=== PATIENT | female | born 1995 | race Caucasian/White ===

== ENCOUNTER 2023-08-04 09:41 | Outpatient (CLI) | payer SELFPAY | END 2023-08-04 09:42 | disposition home or self-care (01) | PROVIDERS: Visit Provider Emergency Medicine Emergency Medical Services | DX: R11.2 Nausea with vomiting, unspecified (principal) | CPT/HCPCS: A0425; A0427 ==

== ENCOUNTER 2023-08-04 10:11 | Emergency (ER) | payer SELFPAY ==
[2023-08-04] VITALS (9 sets, daily range): BP systolic 110–127; BP diastolic 69–79; PULSE 66–82; RESP 20; TEMP 36.3; O2SAT 95–99; BMI 24.5
[2023-08-04 10:44] LABS: Appearance Urine Clear (Clear); Bilirubin Urine Negative (Negative); Blood Urine Negative (Negative); Color Urine Yellow (Yellow); Glucose Urine Negative (Negative); Ketones Urine Negative (Negative); Leukocyte Esterase Urine Negative (Negative); Nitrite Urine Negative (Negative); Protein Urine Negative (Negative); Urobilinogen Urine 0.2 (0.2-1.0)
[2023-08-04 10:56] LABS: RBC Urine 0-2 (0-2)
[2023-08-04 10:57] LABS: Bacteria Urine Few; Mucus Urine Many; Squamous Epithelial Cell Urine Many (None-Few)
[2023-08-04] MEDS: HALOPERIDOL 5 MG/ML INJ IV (11:22)
--- NOTE | 2023-08-04 11:40 | ED.NAVMDI ---
HPI - Nausea/Vomiting/Diarrhea General Chief complaint: Nausea/Vomiting Stated complaint: Vomiting, weak Time Seen by Provider: 08/04/23 10:47 History of Present Illness HPI Narrative: This 28-year-old female comes in reporting nausea, vomiting, and crampy abdominal pain that began this morning upon awakening. She states that she has had nausea for the past several years but not symptoms more intense like this. She does state that she uses marijuana daily. She does not describe any diarrhea or fever. She has otherwise been in good health. She states that she does have Zofran but does not use it at home because it does not seem to help with the or symptoms. She came in by ambulance and did receive IV fluids and Zofran EN route. Related Data Home Medications Medication Instructions Recorded Confirmed fluoxetine 10 mg capsule PO 08/04/23 Allergies Allergy/AdvReac Type Severity Reaction Status Date / Time No Known Drug Allergies Allergy Verified 08/04/23 10:21 Review of Systems Status of ROS: Reports: 10 or more systems reviewed and unremarkable except as noted in History and below Narrative: Constitutional: No fevers, no weight gain or loss. Eyes: No discharge. No vision changes. HENT: No congestion, no sore throat, no ear pain. Cardiovascular: No chest pain, no palpitations. Respiratory: No shortness of breath, no wheezes, no cough. Gastrointestinal: Diffuse crampy abdominal pain. Nausea with some vomiting. No diarrhea. Genitourinary: No dysuria, no hematuria. Musculoskeletal: Normal range of motion. Skin: No rashes, no pruritis. Neurological: No dizziness, weakness, sensory change, speech change. Endo/Heme/Allergies: No bruising or bleeding. No polydipsia. Pysch: no suicidality, no anxiety, no insomnia. All other systems reviewed and are negative. PFS PFS Social History Smoking Status: Current every day smoker Do you use any of these nicotine containing products: Vaping Products Second hand tobacco smoke exposure: No How often do you have a drink containing alcohol: monthly or less How often do you have six or more drinks on one occasion: Never AUDIT-C Alcohol total score: 1 Non-prescribed substance use: marijuana (any form) Exam Narrative: Exam Narrative: Constitutional: Well-developed, well-nourished, no acute distress. HEENT: Normocephalic, atraumatic. Neck: Normal range of motion. Nontender. Supple. Heart: Regular. No murmurs. Normal rate. Intact distal pulses. Lungs: Clear to auscultation. No chest discomfort. No wheezes, rhonchi, or rales. Abdomen: Normal bowel sounds. Diffuse tenderness across the abdomen. No rebound tenderness. Genitalia: Deferred. Back: No midline tenderness. Normal range of motion. Extremities: Normal range of motion. No injury. Skin: Intact. No rash. Warm. No erythema or pallor. Neurologic: No altered sensation. No weakness. Alert and oriented. Psychiatric: No suicidality. No anxiety or depression. No insomnia. Nursing notes and vitals signs are reviewed. Const: Vital Signs, click to edit/add: Vital Signs - 24 hr 08/04/23 10:21 08/04/23 10:28 08/04/23 10:30 Temperature 97.3 F L Pulse Rate 70 67 Pulse Rate [Pulse Oximeter] 82 Respiratory Rate 20 Blood Pressure Blood Pressure [Ri ght Upper Arm] 127/79 Pulse Oximetry 99 98 98 Oxygen Delivery Me thod Room Air 08/04/23 10:32 08/04/23 10:33 08/04/23 10:45 Temperature Pulse Rate 71 70 70 Pulse Rate [Pulse Oximeter] Respiratory Rate Blood Pressure 118/69 Blood Pressure [Ri ght Upper Arm] Pulse Oximetry 98 99 98 Oxygen Delivery Me thod 08/04/23 11:00 08/04/23 11:01 08/04/23 11:15 Temperature Pulse Rate 66 68 68 Pulse Rate [Pulse Oximeter] Respiratory Rate Blood Pressure 110/73 Blood Pressure [Ri ght Upper Arm] Pulse Oximetry 96 98 95 Oxygen Delivery Me thod Course Vital Signs Vital signs: Initial Vital Signs Temperature 97.3 F L 08/04/23 10:21 Temperature Source Temporal Artery Scan 08/04/23 10:21 Pulse Rate 82 08/04/23 10:21 Respiratory Rate 20 08/04/23 10:21 Blood Pressure 127/79 08/04/23 10:21 Blood Pressure Mean 95 08/04/23 10:21 Blood Pressure Position Supine 08/04/23 10:21 Pulse Oximetry 99 08/04/23 10:21 Oxygen Delivery Method Room Air 08/04/23 10:21 Vital Signs Temperature 97.3 F L 08/04/23 10:21 Pulse Rate 82 08/04/23 10:21 Respiratory Rate 20 08/04/23 10:21 Blood Pressure 127/79 08/04/23 10:21 Pulse Oximetry 99 08/04/23 10:21 Oxygen Delivery Method Room Air 08/04/23 10:21 Temperature 97.3 F L 08/04/23 10:21 Pulse Rate 68 08/04/23 11:15 Respiratory Rate 20 08/04/23 10:21 Blood Pressure 110/73 08/04/23 11:01 Pulse Oximetry 95 08/04/23 11:15 Oxygen Delivery Method Room Air 08/04/23 10:21 MDM - Nausea/Vomiting/Diarrhea MDM Narrative Medical decision making narrative: This patient comes in with nausea and vomiting symptoms and crampy abdominal pain. She came in by ambulance where an IV was established and she received some fluids along with Zofran. Her abdominal exam is rather benign. Her vital signs are in normal range. I did have discussion with her regarding use of marijuana that can cause nausea and vomiting symptoms. Patient states that the Zofran does not seem to help her with her persistent nausea. She did receive an IV dose of Haldol here and states that she is feeling better. She has not had any vomiting and was able to take some food. She is okay to be discharged home. Lab Data Labs: Lab Results 08/04/23 Range/Units 10:38 Urine Color Yellow (Yellow) Urine Appearance Clear (Clear) Urine pH 7.0 (5.0-8.5) Ur Specific [place] 1.020 (1.000-1.030) Urine Protein Negative (Negative) Urine Glucose (UA) Negative (Negative) Urine Ketones Negative (Negative) Urine Blood Negative (Negative) Urine Nitrite Negative (Negative) Urine Bilirubin Negative (Negative) Urine Urobilinogen 0.2 (0.2-1.0) Ur Leukocyte Esterase Negative (Negative) Urine RBC 0-2 (0-2) Urine WBC 2-5 (0-5) Ur Squamous Epith Cells Many A (None-Few) Urine Bacteria Few A (None) Urine Mucus Many A (None) ECG Data Attestation: I personally reviewed and interpreted this ECG as follows: Interpretation: Normal sinus rhythm. Rate is 65 beats per minute. There are no ST or T-wave abnormalities. Discharge Plan Discharge Clinical Impression: Gastroenteritis Patient Disposition: Home, Self-Care Condition: Improved Additional Instructions: Increase diet as tolerated. Use Zofran as needed and directed for nausea. Recommended to discontinue using marijuana. Follow up with MD return if worsening. Prescriptions: No Action fluoxetine 10 mg capsule PO Follow Up/Referrals: Provider,Not a Local [Primary Care Provider] - Stand Alone Forms: CrossCurrent Info Instructions
== END 2023-08-04 12:24 | disposition home or self-care (01) ==
PROVIDERS: Emergency Provider Emergency Medicine Emergency Medical Services
DX: K52.9 Noninfective gastroenteritis and colitis, unspecified (principal)
CPT/HCPCS: 81001; 87086; 93005; 96374; 99283; 99284; J1630

== ENCOUNTER 2024-06-05 03:16 | Outpatient (CLI) | payer OTHER, SELFPAY | END 2024-06-05 03:17 | disposition home or self-care (01) | LOC: AMB 06-14 01:59 | PROVIDERS: Visit Provider Family Medicine | DX: F41.9 Anxiety disorder, unspecified (principal) | CPT/HCPCS: A0425; A0427 ==

== ENCOUNTER 2024-06-05 03:34 | Emergency (ER) | payer OTHER, SELFPAY ==
[2024-06-05 03:40] VITALS: BP 118/75; PULSE 75; RESP 20; TEMP 36.7; O2SAT 99; BMI 25.7
[2024-06-05 03:45] VITALS: O2SAT 99
--- OUTSIDE RECORDS SUMMARY | 2024-06-05 04:18 | XMS_ITS | Encounter Summary ---
Author Name [facility] Organization [facility] Address [address] [place] [address] Care Team Providers Care Sports Medicine Trainer Name Role Phone TAWNYA MCFADDEN Primary Care Provider SHAWANDA Todd Primary Care Provider Unava ilnavdeep Insurance Providers: All historical and current Section Date Range: From patient's date of to the date document was created. This section includes the names of all active insurance providers for the patient. Insurance Provider Type of Coverage Plan Name Start of Policy Coverage End of Policy Coverage Group Number Member ID Insurance Provider's Telephone Number Policy Mcqueen's Name Patient's Relationship to Policy Mcqueen [employer] JACEY S Jul 07, 2021 [facility] [id number] [phone] DORETHA SAMPSON PATIENT [facility] MENTAL HE[facility] JACEY S Jul 07, 2021 [id number] [phone] DORETHA SAMPSON PATIENT [facility] * POINT OF SERVICE JACEY S Jul 07, 2021 [id number] [phone] DORETHA SAMPSON PATIENT Selected Encounter This section includes the information on record at OR for the Encounter. Date/Time Encounter Type Encounter Description Reason Provider Source Aug 22, 2023 03:00 PM OFFICE O/P EST LOW 20-29 MIN [facility] - IND ICD-10-CM F32.A Depression, unspecified MELITON CALABRESE Encounter Template Text not used by OR Assessments - Encounter Diagnoses This section includes the primary and secondary diagnoses documented for the Encounter. Date/Time Primary/Secondary Diagnosis Diagnosis Name Provider Source Aug 22, 2023 03:14 PM PRIMARY Depression, unspecified MELITON CALABRESE [facility] Plan of Treatment: Future Appointments (+ 6 months) and Future Tests (+/- 45 days) The Plan of Treatment section includes future care activities for the patient from all OR treatmentfacilities. This section includes future appointments and future orders which are active, pending or scheduled. Future Appointments This section includes appointments that were scheduled to occur 6 months from the date of the Encounter, up to a maximum of 20 appointments. The data comes from all OR treatment facilities. Appointment Date/Time Appointment Type Appointme nt Facility Name Aug 23, 2023 10:00 AM AMBULATORY - [facility]RY [facility] Aug 24, 2023 03:00 PM AMB[facility]ATORY - MEDICINE [facility] Aug 25, 2023 01:00 PM AMB[facility]ATORY [facility]RY [facility] Aug 25, 2023 01:01 PM [facility]RY [facility] Sep 04, 2023 04:00 PM AMBULATORY [facility]RY [facility] Sep 20, 2023 02:00 PM AMBULATORY [facility]CHIATRY [facility] Sep 21, 2023 03:00 PM AMBULATORY - NONE [facility] Sep 27, 2023 10:00 AM AMBULATORY - PS[facility]IATRY [facility] Oct 04, 2023 02:00 PM AMBULATORY - PS[facility]CHIATRY [facility] Oct 13, 2023 02:00 PM AM[facility]ULATORY [facility]IATRY [facility] Oct 19, 2023 03:00 PM AMBULATORY - NONE [facility] Oct 23, 2023 01:00 PM AMBULATORY - SURGERY [facility] Oct 25, 2023 03:00 PM AMBULATORY - PS[facility]CHIATRY [facility] Nov 08, 2023 03:00 PM [facility] Nov 09, 2023 09:00 AM AMBULATORY - NONE [facility] Nov 09, 2023 11:00 AM AMBULATORY - PS[facility]RY [facility] Nov 16, 2023 10:00 AM AMBULATORY - NONE [facility] Nov 22, 2023 11:00 AM AMBULATORY - PS[facility]RY [facility] Dec 05, 2023 11:00 AM [facility] Dec 06, 2023 01:00 PM AMBULATORY [facility]ATRY [facility] Social History: Smoking Status (Most current) and Tobacco Use (All prior to encounter date) This section includes the most current, and the historical, smoking and tobacco- related health factors from the OR facility where the Encounter took place. Current Smoking Status This section includes the most current smoking, or tobacco-related health factor, from the OR facility where the Encounter took place. Date/Time Current Smoking Status Comment Facil ity Jun 07, 2023 01:00 PM VA-TOBACCO FORMER USER [facility] Tobacco Use History This section includes a history of the smoking, or tobacco-related health factors, that were collected on or before the date of the Encounter. The data comes from the OR facility where the Encounter took place. Date/Time Smoking Status/Tobacco Use Comment F acility Jun 07, 2023 01:00 PM VA-TOBACCO QUIT 1 TO < 5 YRS [facility] Apr 26, 2021 01:00 PM VA-TOBACCO NEVER USED [facility] Encounter Notes: All associated encounter notes This section contains the clinical notes associated to the Encounter. Date/Time Encounter Note(s) Provider Source Jan 20, 2024 09:20 AM ADDENDUM: LOCAL TITLE: Addendum STANDARD TITLE: ADDENDUM DATE OF NOTE: JAN 20, 2024@09:20:02 ENTRY DATE: JAN 20, 2024@09:20:04 AUTHOR: MELITON CALABRESE EXP COSIGNER: URGENCY: STATUS: COMPLETED at last appt suspected having weight loss due to Bupropion which typically is associated with weight loss, not gain. Bupropion was stopped and Fluoxetine was initiated. Two different meds 2 different neurochemical pathways. Fluoxetine more associated with weight gain. Will have RN reach out for further information. She may benefit from primary care follow up to rule out other sources. /neil/ MELITON CALABRESE MD PSYCHIATRIST Signed: 01/20/2024 09:29 Receipt Acknowledged By: 01/22/2024 13:28 /neil/ IGGY STROUD RN Registered Nurse for SHAYNE Hood EDELMIRA --- Original Document --- 08/22/23 PSYCHIATRIC EVALUATION & MANAGEMENT: PSYCHIATRIC EVALUATION AND MANAGEMENT FOLLOW UP VISIT Duration: 21 minutes Time spent performing psychotherapy services: 16-30 minutes Visit conducted by OR Video Connect synchronous telehealth. verbal consent obtained. Location/emergency number confirmed. Environment surveyed and all participants identified. Virtual conference room locked. IDENTIFICATION: 28 year old [place] (30% PTSD) female kept appt in [facility] clinic for voluntary psychiatric med management/supportive therapy follow up last appt Jul 29. The electronic medical record was reviewed. Medication list reviewed/reconciled with . DIAGNOSIS: depression HISTORY: [place] with history depression. Initial appt ([facility]) this psychiatrist Apr 26. Initial [facility] appt was during covid restrictions CVT appt completed Jun 26. Jun 28 [facility] prescription monitoring site reviewed: no activity in past year. At last appt shared bupropion has caused 7lb wt loss and decreased appetite, in addition makes her feel tired/no benefit for mood. depression and anxiety persist/she is interested in changing meds. 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 Plan was to taper off Bupropion and start Fluoxetine to target depression and anxiety INTERVAL HISTORY: Signed in early seen early At appt shared doing better with switch to Fluoxetine mood and anxiety sx resolved. some PM sweating but tolerable. hard to get to sleep would like to resume Trazodone as needed. No abnormal involuntary muscle movements. She has been prescribed NAD for nausea no concern with our treatment. [place] agreed to [facility] follow up. GOALS: resolve depression Current Symptoms: Sleep 8 hours, interest good, energy good, concentration distracted, appetite/weight both stable. no problematic anxiety or worry, no muscle tension, no irritability. No SI/HI at this time. no exercise, no tobacco products/vapes, a caffeine drink 2-3 times a week, no recent etoh, no use of recreational drugs. Psych History: Dec 28 to Sep 27 [facility] 2020 outpatient med management dx anxiety with this psychiatrist. therapy through [facility]. Nov 25 [facility] clinic adjustment disorder sx EMDR/Counseling while in the . Denied any history of suicide attempts/no hospitalizations. Past Psych Medication(s): Escitalopram 15mg Bupropion 12HR 150mg in AM Trazodone 50mg qhs Bupropion 24HR 300mg in AM : [employer], Aug 24 [place] combat. No MST/. Symptom Assessment Tools: None CURRENT MH MEDICATIONS: Fluoxetine 20mg daily Supplements: see CPRS. CURRENT MEDICATIONS: Active Outpatient Medications (including Supplies): Outpatient Medications Status ======= 1) FLUOXETINE HCL 10MG CAP TAKE ONE CAPSULE BY MOUTH ACTIVE EVERY DAY FOR 10 DAYS, THEN TAKE TWO CAPSULES EVERY DAY FOR DEPRESSION Non-VA Medications Status ======= 1) Non-VA FERROUS SULFATE 325MG TAB 325MG MOUTH EVERY ACTIVE DAY 2) Non-VA MAGNESIUM GLUCONATE TAB 400MG MOUTH EVERY DAY ACTIVE 3) Non-VA MAGNESIUM TAB 250MG EVERY DAY ACTIVE 4) Non-VA MULTIVITAMIN CAP/TAB 1 TABLET MOUTH EVERY DAY ACTIVE 5) Non-VA NON VA MED NOT LISTED MISCELLANEOUS VITAMIN K2 ACTIVE 600MCG MOUTH EVERY DAY 6 Total Medications Side Effects: as above Treatment Adherence: yes MEDICATION RECONCILIATION: At this visit reviewed the relevant medication list and communicated relevant medication updates with the patient/surrogate. MOST RECENT VITALS: Blood Pressure: 101/68 (06/07/2023 13:06) Pulse: 86 (06/07/2023 13:06) Temperature: 98.2 F [36.8 C] (06/07/2023 13:06) Weight: 149.5 lb [67.81 kg] (06/07/2023 13:06) Body Mass Index: 24.2 LABS REVIEWED THIS VISIT: Jun 28/Jun 28 TSH normal range MUSCULOSKELETAL: Gait: not visible on video MENTAL STATUS EXAM: Alert and oriented to person, place and time. Well groomed, appropriately dressed and appeared stated age. Did not appear to be in any acute distress or show any external indications of pain. Pleasant, future oriented, talkative, attentive, cooperative, and maintained good eye contact. Speech: normal rate/volume. Psychomotor activity: no agitation or slowing, no tics, tremors or other abnormal involuntary movements. Affect: full nonlabile Mood: much better. No suicidal or homicidal ideation. Thought processing: linear, logical, goal directed. Insight and judgment: intact. Risk assessment/category: Risk factors: hx SI none recently, depression, unemployed stressors. Protective factors: no current SI/HI, no intent, no plan, not option, no hx impulsive behavior, no legal issues, no financial issues, desire to live, be there for family, willing to seek help, motivated for treatment. PERCEIVED ACUTE SUICIDE RISK: Low acute - No current intent or recent suicide preparatory behaviors. Protective factors and coping strategies are present. PERCEIVED CHRONIC SUICIDE RISK: Intermediate Chronic - Some chronic risk factors but also has protective factors, coping skills, articulates reason for living. Review of Systems: no complaints, except as above. ASSESSMENT: with history of anxiety and depression starting from deployment to [place], [facility] been [facility]. Motivated for sx control past benefit from escitalopram but loss of efficacy over time, Jul 29 change to Fluoxetine effective. No chemical dependency issues. unemployed but looking, staying with brother. single, no kids. genetic predisposition for alcohol and substance abuse paternal side/AUD sister. PSYCHOTHERAPY PROVIDED THIS VISIT: Supportive, Psych-education PATIENT EDUCATION provided this visit: Participate(s): Patient General Medication Education Participate(s) has been educated about the purpose of their medications, and the dose/frequency. They understood the risks and benefits of the medications as explained. They verbally agree to take the medications as prescribed and to inform me or other physicians if there are side effects, and to seek emergency medical care if serious side effects develop such as an allergic reaction, chest pain, or difficulty breathing. They were attentive during discussion, was given the opportunity to ask questions and verbalized understanding. Participant(s) indicates readiness to learn, verbalizes understanding, agreement and satisfaction with the treatment plan. Denies further questions. TREATMENT PLAN: Reviewed with treatment plan and medications. reviewed risks benefits and side effects. voiced understanding, agreed to continue treatment, and will notify if experiences any problems with medication. After discussion of options with we agreed to continue Fluoxetine to target depression and anxiety, resume Trazodone for sleep. will maintain stable non-depressed mood, resolution of problematic worry/muscle tension/irritability, and maintain 6-8 hours restful sleep for 6/7 days a week with minimal disruption in daily activities 80% of time. Fluoxetine 20mg daily #90 rf=3 Trazodone 50mg qhs prn insomnia #90 rf=3 Labs: none [facility] follow up in next 6 months (her preference) or sooner, if any problems arise. Reviewed crisis management and contact information. MH TREATMENT PLAN / EDUCATION / SAFETY Treatment goals are 1) to minimize and manage medication side effects, 2) decrease problematic symptoms and optimize wellness. Patient's overall Mental Health Treatment reviewed. Patient continues to benefit from psychiatric medications as documented. The patient has been told the purpose and side effects of the prescribed psychiatric medications. Supportive therapy to optimize wellness, including medications, will be done as indicated during visits by psychiatrist, and RN. Patient agrees to contact this clinic with any concerns prior to next appointment. Patient is aware of additional MH services that are available, including emergency room and [facility] options. This plan will be reviewed yearly with patient, or sooner if needs change. This plan was discussed with the patient who acknowledges agreement and understanding. /vargas CALABRESE MD PSYCHIATRIST Signed: 08/22/2023 15:21 01/19/2024 ADDENDUM STATUS: COMPLETED [place] called and left a message on MH voicemail stating that it was discussed at last appt with Dr. Calabrese about possibly getting a prescription for an apptetite increase. [place] would like to start this before her next appt with Dr. Calabrese if he is willing to precribe it prior. Thank you. /vargas VITALE HOT BOX CHECKER Signed: 01/19/2024 14:41 Receipt Acknowledged By: 01/20/2024 09:19 /vargas CALABRESE MD PSYCHIATRIST 01/22/2024 ADDENDUM STATUS: COMPLETED I called patients phone number listed and she did not answer. I left voice message wiht call back phone number. I will outreach again going forward. /neil/ IGGY STROUD RN Registered Nurse Signed: 01/22/2024 11:50 [facility] Jan 19, 2024 02:39 PM ADDENDUM: LOCAL TITLE: Addendum STANDARD TITLE: ADDENDUM DATE OF NOTE: JAN 19, 2024@14:39:58 ENTRY DATE: JAN 19, 2024@14:39:59 AUTHOR: AFSHIN VITALE EXP COSIGNER: URGENCY: STATUS: COMPLETED called and left a message on voicemail stating that it was discussed at last appt with Dr. Calabrese about possibly getting a prescription for an apptetite increase. would like to start this before her next appt with Dr. Calabrese if he is willing to precribe it prior. Thank you. /vargas VITALE HOT BOX CHECKER Signed: 01/19/2024 14:41 Receipt Acknowledged By: 01/20/2024 09:19 /vargas CALABRESE MD PSYCHIATRIST --- Original Document --- 08/22/23 PSYCHIATRIC EVALUATION & MANAGEMENT: PSYCHIATRIC EVALUATION AND MANAGEMENT FOLLOW UP VISIT Duration: 21 minutes Time spent performing psychotherapy services: 16-30 minutes Visit conducted by [place] Video Riiid synchronous telehealth. verbal consent obtained. Location/emergency number confirmed. Environment surveyed and all participants identified. Virtual conference room locked. IDENTIFICATION: 28 year old [place] (30% PTSD) female kept appt in [facility] clinic for voluntary psychiatric med management/supportive therapy follow up last appt Jul 29. The electronic medical record was reviewed. Medication list reviewed/reconciled with . DIAGNOSIS: depression HISTORY: with history depression. Initial appt ([facility]) this psychiatrist Apr 26. Initial [facility] appt was during covid restrictions CVT appt completed Jun 26. Jun 28 [facility] prescription monitoring site reviewed: no activity in past year. At last appt shared bupropion has caused 7lb wt loss and decreased appetite, in addition makes her feel tired/no benefit for mood. depression and anxiety persist/she is interested in changing meds. 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 Plan was to taper off Bupropion and start Fluoxetine to target depression and anxiety INTERVAL HISTORY: Signed in early seen early At appt shared doing better with switch to Fluoxetine mood and anxiety sx resolved. some PM sweating but tolerable. hard to get to sleep would like to resume Trazodone as needed. No abnormal involuntary muscle movements. She has been prescribed NAD for nausea no concern with our treatment. [place] agreed to [facility] follow up. GOALS: resolve depression Current Symptoms: Sleep 8 hours, interest good, energy good, concentration distracted, appetite/weight both stable. no problematic anxiety or worry, no muscle tension, no irritability. No SI/HI at this time. no exercise, no tobacco products/vapes, a caffeine drink 2-3 times a week, no recent etoh, no use of recreational drugs. Psych History: Dec 28 to Sep 27 outpatient med management WAS [place] dx anxiety/PTSD. 2020 outpatient med management dx anxiety with this psychiatrist. therapy through [facility]. Nov 25 [facility] disorder sx EMDR/Counseling while in the . Denied any history of suicide attempts/no hospitalizations. Past Psych Medication(s): Escitalopram 15mg Bupropion 12HR 150mg in AM Trazodone 50mg qhs Bupropion 24HR 300mg in AM : [employer], Aug 24 [place] combat. No MST/. Symptom Assessment Tools: None CURRENT MH MEDICATIONS: Fluoxetine 20mg daily Supplements: see CPRS. CURRENT MEDICATIONS: Active Outpatient Medications (including Supplies): Outpatient Medications Status ======= 1) FLUOXETINE HCL 10MG CAP TAKE ONE CAPSULE BY MOUTH ACTIVE EVERY DAY FOR 10 DAYS, THEN TAKE TWO CAPSULES EVERY DAY FOR DEPRESSION Non-VA Medications Status ======= 1) Non-VA FERROUS SULFATE 325MG TAB 325MG MOUTH EVERY ACTIVE DAY 2) Non-VA MAGNESIUM GLUCONATE TAB 400MG MOUTH EVERY DAY ACTIVE 3) Non-VA MAGNESIUM TAB 250MG EVERY DAY ACTIVE 4) Non-VA MULTIVITAMIN CAP/TAB 1 TABLET MOUTH EVERY DAY ACTIVE 5) Non-VA NON VA MED NOT LISTED MISCELLANEOUS VITAMIN K2 ACTIVE 600MCG MOUTH EVERY DAY 6 Total Medications Side Effects: as above Treatment Adherence: yes MEDICATION RECONCILIATION: At this visit reviewed the relevant medication list and communicated relevant medication updates with the patient/surrogate. MOST RECENT VITALS: Blood Pressure: 101/68 (06/07/2023 13:06) Pulse: 86 (06/07/2023 13:06) Temperature: 98.2 F [36.8 C] (06/07/2023 13:06) Weight: 149.5 lb [67.81 kg] (06/07/2023 13:06) Body Mass Index: 24.2 LABS REVIEWED THIS VISIT: Jun 28Jun 28 TSH normal range MUSCULOSKELETAL: Gait: not visible on video MENTAL STATUS EXAM: Alert and oriented to person, place and time. Well groomed, appropriately dressed and appeared stated age. Did not appear to be in any acute distress or show any external indications of pain. Pleasant, future oriented, talkative, attentive, cooperative, and maintained good eye contact. Speech: normal rate/volume. Psychomotor activity: no agitation or slowing, no tics, tremors or other abnormal involuntary movements. Affect: full nonlabile Mood: much better. No suicidal or homicidal ideation. Thought processing: linear, logical, goal directed. Insight and judgment: intact. Risk assessment/category: Risk factors: hx SI none recently, depression, unemployed stressors. Protective factors: no current SI/HI, no intent, no plan, not option, no hx impulsive behavior, no legal issues, no financial issues, desire to live, be there for family, willing to seek help, motivated for treatment. PERCEIVED ACUTE SUICIDE RISK: Low acute - No current intent or recent suicide preparatory behaviors. Protective factors and coping strategies are present. PERCEIVED CHRONIC SUICIDE RISK: Intermediate Chronic - Some chronic risk factors but also has protective factors, coping skills, articulates reason for living. Review of Systems: no complaints, except as above. ASSESSMENT: with history of anxiety and depression starting from deployment to [place], Has been [facility]. Motivated for sx control past benefit from escitalopram but loss of efficacy over time, Jul 29 change to Fluoxetine effective. No chemical dependency issues. unemployed but looking, staying with brother. single, no kids. genetic predisposition for alcohol and substance abuse paternal side/AUD sister. PSYCHOTHERAPY PROVIDED THIS VISIT: Supportive, Psych-education PATIENT EDUCATION provided this visit: Participate(s): Patient General Medication Education Participate(s) has been educated about the purpose of their medications, and the dose/frequency. They understood the risks and benefits of the medications as explained. They verbally agree to take the medications as prescribed and to inform me or other physicians if there are side effects, and to seek emergency medical care if serious side effects develop such as an allergic reaction, chest pain, or difficulty breathing. They were attentive during discussion, was given the opportunity to ask questions and verbalized understanding. Participant(s) indicates readiness to learn, verbalizes understanding, agreement and satisfaction with the treatment plan. Denies further questions. TREATMENT PLAN: Reviewed with treatment plan and medications. reviewed risks benefits and side effects. voiced understanding, agreed to continue treatment, and will notify if experiences any problems with medication. After discussion of options with we agreed to continue Fluoxetine to target depression and anxiety, resume Trazodone for sleep. [place] will maintain stable non-depressed mood, resolution of problematic worry/muscle tension/irritability, and maintain 6-8 hours restful sleep for 6/7 days a week with minimal disruption in daily activities 80% of time. Fluoxetine 20mg daily #90 rf=3 Trazodone 50mg qhs prn insomnia #90 rf=3 Labs: none [facility] follow up in next 6 months (her preference) or sooner, if any problems arise. Reviewed crisis management and contact information. MH TREATMENT PLAN / EDUCATION / SAFETY Treatment goals are 1) to minimize and manage medication side effects, 2) decrease problematic symptoms and optimize wellness. Patient's overall Mental Health Treatment reviewed. Patient continues to benefit from psychiatric medications as documented. The patient has been told the purpose and side effects of the prescribed psychiatric medications. Supportive therapy to optimize wellness, including medications, will be done as indicated during visits by psychiatrist, and RN. Patient agrees to contact this clinic with any concerns prior to next appointment. Patient is aware of additional MH services that are available, including emergency room and [facility] options. This plan will be reviewed yearly with patient, or sooner if needs change. This plan was discussed with the patient who acknowledges agreement and understanding. /es/ MELITON CALABRESE MD PSYCHIATRIST Signed: 08/22/2023 15:01/20/2024 ADDENDUM STATUS: UNSIGNED You may not VIEW this UNSIGNED Addendum. [facility]SH[facility] Aug 22, 2023 07:05 AM PSYCHIATRY E & M N OTE: LOCAL TITLE: MH PSYCHIATRIC EVALUATION & MANAGEMENT STANDARD TITLE: PSYCHIATRY E & M NOTE DATE OF NOTE: AUG 22, 2023@07:05 ENTRY DATE: AUG 22, 2023@07:05:44 AUTHOR: MELITON CALABRESE EXP COSIGNER: URGENCY: STATUS: COMPLETED PSYCHIATRIC EVALUATION & MANAGEMENT Has ADDENDA PSYCHIATRIC EVALUATION AND MANAGEMENT FOLLOW UP VISIT Duration: 21 minutes Time spent performing psychotherapy services: 16-30 minutes Visit conducted by [place] Video Riiid synchronous telehealth. [place] verbal consent obtained. Location/emergency number confirmed. Environment surveyed and all participants identified. Virtual conference room locked. IDENTIFICATION: 28 year old [place] (30% PTSD) female kept appt in [facility] clinic for voluntary psychiatric med management/supportive therapy follow up last appt Jul 29. The electronic medical record was reviewed. Medication list reviewed/reconciled with . DIAGNOSIS: depression HISTORY: with history depression. Initial appt ([facility]) this psychiatrist Apr 26. Initial [facility] appt was during covid restrictions CVT appt completed Jun 26. Jun 28 [facility] prescription monitoring site reviewed: no activity in past year. At last appt shared bupropion has caused 7lb wt loss and decreased appetite, in addition makes her feel tired/no benefit for mood. depression and anxiety persist/she is interested in changing meds. 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 Plan was to taper off Bupropion and start Fluoxetine to target depression and anxiety INTERVAL HISTORY: Signed in early seen early At appt shared doing better with switch to Fluoxetine mood and anxiety sx resolved. some PM sweating but tolerable. hard to get to sleep would like to resume Trazodone as needed. No abnormal involuntary muscle movements. She has been prescribed NAD for nausea no concern with our treatment. [place] agreed to [facility] follow up. GOALS: resolve depression Current Symptoms: Sleep 8 hours, interest good, energy good, concentration distracted, appetite/weight both stable. no problematic anxiety or worry, no muscle tension, no irritability. No SI/HI at this time. no exercise, no tobacco products/vapes, a caffeine drink 2-3 times a week, no recent etoh, no use of recreational drugs. Psych History: Dec 28 to Sep 27 [facility] 2020 outpatient med management dx anxiety with this psychiatrist. therapy through [facility]. 7 Nov 25 [facility] clinic adjustment disorder sx EMDR/Counseling while in the . Denied any history of suicide attempts/no hospitalizations. Past Psych Medication(s): Escitalopram 15mg Bupropion 12HR 150mg in AM Trazodone 50mg qhs Bupropion 24HR 300mg in AM : [employer], Aug 24 [place] combat. No MST/. Symptom Assessment Tools: None CURRENT MH MEDICATIONS: Fluoxetine 20mg daily Supplements: see CPRS. CURRENT MEDICATIONS: Active Outpatient Medications (including Supplies): Outpatient Medications Status ======= 1) FLUOXETINE HCL 10MG CAP TAKE ONE CAPSULE BY MOUTH ACTIVE EVERY DAY FOR 10 DAYS, THEN TAKE TWO CAPSULES EVERY DAY FOR DEPRESSION Non-VA Medications Status ======= 1) Non-VA FERROUS SULFATE 325MG TAB 325MG MOUTH EVERY ACTIVE DAY 2) Non-VA MAGNESIUM GLUCONATE TAB 400MG MOUTH EVERY DAY ACTIVE 3) Non-VA MAGNESIUM TAB 250MG EVERY DAY ACTIVE 4) Non-VA MULTIVITAMIN CAP/TAB 1 TABLET MOUTH EVERY DAY ACTIVE 5) Non-VA NON VA MED NOT LISTED MISCELLANEOUS VITAMIN K2 ACTIVE 600MCG MOUTH EVERY DAY 6 Total Medications Side Effects: as above Treatment Adherence: yes MEDICATION RECONCILIATION: At this visit reviewed the relevant medication list and communicated relevant medication updates with the patient/surrogate. MOST RECENT VITALS: Blood Pressure: 101/68 (06/07/2023 13:06) Pulse: 86 (06/07/2023 13:06) Temperature: 98.2 F [36.8 C] (06/07/2023 13:06) Weight: 149.5 lb [67.81 kg] (06/07/2023 13:06) Body Mass Index: 24.2 LABS REVIEWED THIS VISIT: Jun 28/Jun 28 TSH normal range MUSCULOSKELETAL: Gait: not visible on video MENTAL STATUS EXAM: Alert and oriented to person, place and time. Well groomed, appropriately dressed and appeared stated age. Did not appear to be in any acute distress or show any external indications of pain. Pleasant, future oriented, talkative, attentive, cooperative, and maintained good eye contact. Speech: normal rate/volume. Psychomotor activity: no agitation or slowing, no tics, tremors or other abnormal involuntary movements. Affect: full nonlabile Mood: much better. No suicidal or homicidal ideation. Thought processing: linear, logical, goal directed. Insight and judgment: intact. Risk assessment/category: Risk factors: hx SI none recently, depression, unemployed stressors. Protective factors: no current SI/HI, no intent, no plan, not option, no hx impulsive behavior, no legal issues, no financial issues, desire to live, be there for family, willing to seek help, motivated for treatment. PERCEIVED ACUTE SUICIDE RISK: Low acute - No current intent or recent suicide preparatory behaviors. Protective factors and coping strategies are present. PERCEIVED CHRONIC SUICIDE RISK: Intermediate Chronic - Some chronic risk factors but also has protective factors, coping skills, articulates reason for living. Review of Systems: no complaints, except as above. 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 Motivated for sx control past benefit from escitalopram but loss of efficacy over time, Jul 29 change to Fluoxetine effective. No chemical dependency issues. unemployed but looking, staying with brother. single, no kids. genetic predisposition for alcohol and substance abuse paternal side/AUD sister. PSYCHOTHERAPY PROVIDED THIS VISIT: Supportive, Psych-education PATIENT EDUCATION provided this visit: Participate(s): Patient General Medication Education Participate(s) has been educated about the purpose of their medications, and the dose/frequency. They understood the risks and benefits of the medications as explained. They verbally agree to take the medications as prescribed and to inform me or other physicians if there are side effects, and to seek emergency medical care if serious side effects develop such as an allergic reaction, chest pain, or difficulty breathing. They were attentive during discussion, was given the opportunity to ask questions and verbalized understanding. Participant(s) indicates readiness to learn, verbalizes understanding, agreement and satisfaction with the treatment plan. Denies further questions. TREATMENT PLAN: Reviewed with treatment plan and medications. reviewed risks benefits and side effects. voiced understanding, agreed to continue treatment, and will notify if experiences any problems with medication. After discussion of options with we agreed to continue Fluoxetine to target depression and anxiety, resume Trazodone for sleep. [place] will maintain stable non-depressed mood, resolution of problematic worry/muscle tension/irritability, and maintain 6-8 hours restful sleep for 6/7 days a week with minimal disruption in daily activities 80% of time. Fluoxetine 20mg daily #90 rf=3 Trazodone 50mg qhs prn insomnia #90 rf=3 Labs: none [facility] follow up in next 6 months (her preference) or sooner, if any problems arise. Reviewed crisis management and contact information. TREATMENT PLAN / EDUCATION / SAFETY Treatment goals are 1) to minimize and manage medication side effects, 2) decrease problematic symptoms and optimize wellness. Patient's overall Mental Health Treatment reviewed. Patient continues to benefit from psychiatric medications as documented. The patient has been told the purpose and side effects of the prescribed psychiatric medications. Supportive therapy to optimize wellness, including medications, will be done as indicated during visits by psychiatrist, and RN. Patient agrees to contact this clinic with any concerns prior to next appointment. Patient is aware of additional MH services that are available, including emergency room and [facility] options. This plan will be reviewed yearly with patient, or sooner if needs change. This plan was discussed with the patient who acknowledges agreement and understanding. /neil/ MELITON CALABRESE MD PSYCHIATRIST Signed: 08/22/2023 15:21 01/19/2024 ADDENDUM STATUS: COMPLETED [place] called and left a message on [employer] stating that it was discussed at last appt with Dr. Calabrese about possibly getting a prescription for an apptetite increase. [place] would like to start this before her next appt with Dr. Calabrese if he is willing to precribe it prior. Thank you. /neil/ AFSHIN VITALE [employer] Signed: 01/19/2024 14:41 Receipt Acknowledged By: 01/20/2024 09:19 /neil/ MELITON CALABRESE MD PSYCHIATRIST 01/20/2024 ADDENDUM STATUS: COMPLETED at last appt suspected having weight loss due to Bupropion which typically is associated with weight loss, not gain. Bupropion was stopped and Fluoxetine was initiated. Two different meds 2 different neurochemical pathways. Fluoxetine more associated with weight gain. Will have RN reach out for further information. She may benefit from primary care follow up to rule out other sources. /neil/ MELITON CALABRESE MD PSYCHIATRIST Signed: 01/20/2024 09:29 Receipt Acknowledged By: * AWAITING SIGNATURE * SHAYNE HICKEY 01/22/2024 ADDENDUM STATUS: COMPLETED I called patients phone number listed and she did not answer. I left voice message wiht call back phone number. I will outreach again going forward. /neil/ IGGY STROUD,STEPHANIE Registered Nurse Signed: 01/22/2024 11:50 MELITON CALABRESE [facility]
--- OUTSIDE RECORDS SUMMARY | 2024-06-05 04:18 | XMS_ITS | Continuity of Care Document ---
Author Name [facility] Organization [facility] Care Team Providers Care Wax Pattern Repairer Name Role Phone [facility] Unavailable Unavailable Problems Combined list of problems from Department of Defense and Veterans Affairs facilities. It does not include entries that were removed or entered in error. Problem Status Onset Date Problem Type Date of Resolution Comments Source Other muscle spasm Inactive 04/06/20 Condition [facility] Acute upper respiratory infection, unspecified Inactive 11/18/19 Condition [facility] Adjustment disorder with other symptoms Inactive 11/12/19 Condition [facility] Anxiety Active Condition [facility] Anxiety (SCT 57641960) Active Condition [facility] Depression Active Condition [facility] Dysthymia Active Condition [facility] Exposure to potentially hazardous substance Active Condition Jun 07, 2023 Entered By: KAITLIN SAN ATHYolie Comment: burnpit, has IBS like s/s [facility] Family social history Active Condition Jun 07, 2023 Entered By: KAITLIN SAN ATHYolie Comment: Family HistoryJun 07, 2023 Entered By: KAITLIN SAN ATHYolie Comment: Dad- Epilepsy , Mom - healthy . Paternal grandmother overweight-DM2. . Maternal Grand parents - colon cancer , dementia . 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 Entered By: KAITLIN SAN ATHYolie Comment: Not [facility] GERD - Gastro-Esophagea l Reflux Disease (SCT [id number]) Active Condition [facility] History of surgery Active Condition Jun 07, 2023 Entered By: KAITLIN SAN Comment: cholestectomy for bilary dykenisia - 2018 [facility] Nausea Active Condition [facility] Post-traumatic stress syndrome Active Condition [facility] Social phobia Active Condition [facility] Personal history of nicotine dependence Active Condition [facility] 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/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, 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, 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 (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) Active Condition [facility] Other symptoms and signs involving emotional state Active Condition [facility] Other headache syndrome Active Condition [facility] Sleep disorder, unspecified Active Condition [facility] Encounter for other specified aftercare Active Condition [facility] Pain in right foot Active Condition [facility] Diagnosis: ICD-10-CM F90.0 Attn-defct hyperactivity disorder, predom inattentive type Active Diagnosis [facility] Diagnosis: ICD-10-CM H52.13 Myopia, bilateral Active Diagnosis [facility] Diagnosis: ICD-10-CM F34.1 Dysthymic disorder Active Diagnosis [facility] Diagnosis: ICD-10-CM F41.9 Anxiety disorder, unspecified Active Diagnosis [facility] Diagnosis: ICD-10-CM R42 Dizziness and giddiness Active Diagnosis [facility] Diagnosis: ICD-10-CM Z56.89 Other problems related to employment Active Diagnosis [facility] Diagnosis: ICD-10-CM Z01.118 Encntr for exam of ears and hearing w oth abnormal findings Active Diagnosis [facility] Diagnosis: ICD-10-CM R11.2 Nausea with vomiting, unspecified Active Diagnosis [facility] Diagnosis: ICD-10-CM F32.A Depression, unspecified Active Diagnosis [facility] Diagnosis: ICD-10-CM R11.0 Nausea Active Diagnosis [facility] Diagnosis: ICD-10-CM Z71.3 Dietary counseling and surveillance Active Diagnosis [facility] Diagnosis: ICD-10-CM Z56.9 Unspecified problems related to employment Active Diagnosis [facility] Diagnosis: ICD-10-CM Z23 Encounter for immunization Active Diagnosis [facility] Diagnosis: ICD-10-CM K58.2 Mixed irritable bowel syndrome Active Diagnosis [facility] Medications Combined list of outpatient medications from Department of Defense and Veterans Affairs facilities.Medications provided include 1) outpatient medications from the last 15 months, and 2) patient-reported medications. Medication Details Route Status Patient Instructions Prescription Expires Prescription Number Last Dispense Date Ordering Provider Order Date Order Qty Source BUPROPION HCL 300MG 24HR TAB,SA BUPROPIO N HCL 300MG 24HR TAB,SA Disconti nued TAKE ONE TABLET BY MOUTH EVERY MORNING FOR DEPRESSI ON FOR DEPRESSI ON Jun 06, 2023 90 Jun 06, 2024 [id number] Jun 06, 2023 [facility] ORAL DISCONT INUED 06/06/2024 [id number] DO MANDO HERNANDEZ 2022 90 [facility] buPROPion HCl XL 300 MG ORAL TB24 TAKE ONE TABLET BY MOUTH EVERY MORNING FOR DEPRESSI ON Discont inued 06/06/2024 [id number] MELITON HERNANDEZ 2022 90 [facility] diphenhydrA MINE (U/D) 25 MG ORAL CAP TAKE ONE CAPSULE BY MOUTH EVERY 8 HOURS NEEDED NAUSEA 11/03/2023 [id number] 3 NALLUSABECCA , VASUMATHI 2022 45 [facility] diphenhydrA MINE (U/D) 25 MG ORAL CAP TAKE ONE CAPSULE BY MOUTH EVERY 8 HOURS NEEDED NAUSEA 11/03/2023 [id number] NALLUSABECCA , VASUMATHI 2022 45 [facility] DIPHENHYDRA MINE HCL 25MG CAP DIPHENHY DRAMINE HCL 25MG CAP TAKE ONE CAPSULE BY MOUTH EVERY 8 HOURS NEEDED NAUSEA NAUSEA Oct 04, 2023 45 Nov 03, 2023 [id number] Oct 05, 2023 [facility] ORAL 11/03/2023 [id number] NALLUSAMY ,VASUMATH I 2022 45 [facility] FERROUS SO4 325MG TAB FERROUS SO4 325MG TAB Non-VA TAKE ONE TABLET BY MOUTH EVERY DAY Jun 07, 2023 Non-VA Document ed by: OSKAR ROLDAN Document ed at: [facility] ORAL ACTIVE NALLUSALUCI HUDSONUMATH I 2022 [facility] Fluoxetine (Prozac) Capsule Conventiona l 20 mg Oral TAKE ONE CAPSULE BY MOUTH EVERY DAY FOR DEPRESSI ON Active 02/20/2025 [id number] MELITON HERNANDEZ 2023 90 [facility] Fluoxetine (Prozac) Capsule Conventiona l 20 mg Oral TAKE ONE CAPSULE BY MOUTH EVERY DAY FOR DEPRESSI ON Discont inued 08/22/2024 [id number] 4 MELITON HERNANDEZ 2023 90 [facility] FLUoxetine (U/D) 10 MG ORAL CAP TAKE ONE CAPSULE BY MOUTH EVERY DAY FOR 10 DAYS, THEN TAKE TWO CAPSULES EVERY DAY FOR DEPRESSI ON Discont inued 09/05/2023 [id number] MELITON HERNANDEZ 2022 90 [facility] FLUOXETINE HCL 10MG CAP FLUOXETI NE HCL 10MG CAP Disconti nued TAKE ONE CAPSULE BY MOUTH EVERY DAY FOR 10 DAYS, THEN TAKE TWO CAPSULES EVERY DAY FOR DEPRESSI ON FOR DEPRESSI ON Jul 17, 2023 90 Sep 05, 2023 [id number] Jul 18, 2023 [facility] ORAL DISCONT INUED (EDIT) 09/05/2023 [id number] DO DAVID UGLAS 2022 90 [facility] FLUOXETINE HCL 20MG CAP FLUOXETI NE HCL 20MG CAP Active TAKE ONE CAPSULE BY MOUTH EVERY DAY FOR DEPRESSI ON FOR DEPRESSI ON Feb 20, 2024 90 Feb 20, 2025 [id number] A Feb 20, 2024 [facility] ORAL ACTIVE 02/20/2025 [id number] DO DAVID UGLAS 2023 90 [facility] FLUOXETINE HCL 20MG CAP FLUOXETI NE HCL 20MG CAP Disconti nued TAKE ONE CAPSULE BY MOUTH EVERY DAY FOR DEPRESSI ON FOR DEPRESSI ON Aug 22, 2023 90 Aug 22, 2024 [id number] Nov 28, 2023 [facility] ORAL DISCONT INUED 08/22/2024 [id number] DO DAVID UGLAS 2022 90 [facility] HYDROCHLORO THIAZIDE 25MG/SPIRON OLACTONE 25MG TAB HYDROCHL OROTHIAZ SALO 25MG/SPI RONOLACT ONE 25MG TAB Disconti nued TAKE 1 TABLET BY MOUTH EVERY DAY FOR VERTIGO INSTRUCT ED BY YOUR DOCTOR. Feb 07, 2024 60 Apr 07, 2024 [id number] A Feb 08, 2024 [facility] ORAL DISCONT INUED 04/07/2024 [id number] ALMAS MOROCHO 2023 60 [facility] HYDROCHLORO THIAZIDE 25MG/SPIRON OLACTONE 25MG TAB HYDROCHL OROTHIAZ SALO 25MG/SPI RONOLACT ONE 25MG TAB Disconti nued TAKE 1 TABLET BY MOUTH EVERY DAY FOR VERTIGO INSTRUCT ED BY YOUR DOCTOR. VERTIGO Dec 08, 2023 60 Feb 06, 2024 [id number] Dec 08, 2023 Erwin M[facility]OCHO [facility] ORAL DISCONT INUED 02/06/2024 [id number] ALMAS MOROCHO 2023 60 [facility] HYDROCHLORO THIAZIDE 25MG/SPIRON OLACTONE 25MG TAB HYDROCHL OROTHIAZ SALO 25MG/SPI RONOLACT ONE 25MG TAB TAKE 1 TABLET BY MOUTH EVERY DAY FOR VERTIGO INSTRUCT ED BY YOUR DOCTOR. March 27, 2024 60 Jun 03, 2024 [id number] B April 05, 2024 Erwin [facility] ORAL 06/03/2024 [id number] ALMAS MOROCHO 2023 60 [facility] MAGNESIUM GLUCONATE TAB MAGNESIU M GLUCONAT E TAB Non-VA TAKE 400MG BY MOUTH EVERY DAY Jun 07, 2023 Non-VA Document ed by: OSKAR ROLDAN Document ed at: [facility] ORAL ACTIVE [place] SAN I 2022 [facility] MAGNESIUM TAB MAGNESIU M TAB Non-VA TAKE 250MG oral EVERY DAY Jun 07, 2023 Non-VA Document ed by: OSKAR ROLDAN Document ed at: [facility] ACTIVE NALLUSAMY ,VASUMATH I 2022 [facility] MECLIZINE HCL 25MG TAB,CHEWABL E MECLIZIN E HCL 25MG TAB,CHEW ABLE CHEW ONE TABLET BY MOUTH EVERY 6 HOURS NEEDED VERTIGO VERTIGO Dec 08, 2023 120 Feb 06, 2024 [id number] Dec 08, 2023 Erwin [facility] ORAL 02/06/2024 [id number] ALMAS MOROCHO RK 2023 120 [facility] Meclizine Hydrochlori de (Antivert Eq) Tablet Chewable 25 mg Oral CHEW ONE TABLET BY MOUTH EVERY 6 HOURS NEEDED VERTIGO 02/06/2024 [id number] LULU MOROCHO 2023 120 [facility] Mirtazapine (Remeron Eq.) Tablet 15mg Oral TAKE ONE TABLET BY MOUTH AT BEDTIME FOR SLEEP Discont inued 01/23/2025 [id number] 4 MELITON HERNANDEZ 2023 90 [facility] Mirtazapine (Remeron Soltab) Tablet 30mg Oral TAKE ONE TABLET BY MOUTH AT BEDTIME FOR SLEEP Active 02/20/2025 [id number] MELITON HERNANDEZ 2023 90 [facility] MIRTAZAPINE 15MG TAB MIRTAZAP INE 15MG TAB Disconti nued TAKE ONE TABLET BY MOUTH AT BEDTIME FOR SLEEP FOR SLEEP Jan 23, 2024 90 Jan 23, 2025 [id number] Jan 23, 2024 [facility] ORAL DISCONT INUED (EDIT) 01/23/2025 [id number] DO MANDO HERNANDEZ 2023 90 [facility] MIRTAZAPINE 30MG TAB MIRTAZAP INE 30MG TAB Active TAKE ONE TABLET BY MOUTH AT BEDTIME FOR SLEEP FOR SLEEP Feb 20, 2024 90 Feb 20, 2025 [id number] Feb 20, 2024 [facility] ORAL ACTIVE 02/20/2025 [id number] DO MANDO HERNANDEZ 2023 90 [facility] MULTIVITAMI NS CAP/TAB MULTIVIT AMINS CAP/TAB Non-VA TAKE ONE TABLET BY MOUTH EVERY DAY Jun 07, 2023 Non-VA Document ed by: OSKAR ROLDAN Document ed at: [facility] ORAL ACTIVE NALLUSAMY ,VASUMATH I 2022 [facility] CASTELLANOS NON VA MED NOT LISTED MISCELLANEO US NON VA MED NOT LISTED MISCELLA NEOUS Non-VA USE VITAMIN K2 600MCG MOUTH EVERY DAY Jun 07, 2023 Non-VA Document ed by: OSKAR ROLDAN Document ed at: [facility] ORAL ACTIVE NALLUSAMY ,VASUMATH I 2022 [facility] ONDANSETRON (U/D) 4 MG ORAL TAB TAKE ONE TABLET BY MOUTH TWICE A DAY NEEDED FOR NAUSEA Active 11/25/2024 [id number] 4 NALLUSAMY , VASUMATHI 2023 60 [facility] ONDANSETRON HCL 4MG TAB ONDANSET BLUE HCL 4MG TAB Active TAKE ONE TABLET BY MOUTH TWICE A DAY NEEDED FOR NAUSEA FOR NAUSEA Nov 25, 2023 60 Nov 25, 2024 [id number] Nov 27, 2023 [facility] ORAL ACTIVE 11/25/2024 [id number] 4 NALLUSAMY ,VASUMATH I 2023 60 [facility] SPIRONOLACT ONE/HCTZ 25 MG-25 MG ORAL TAB TAKE 1 TABLET BY MOUTH EVERY DAY FOR VERTIGO INSTRUCT ED BY YOUR DOCTOR. 06/03/2024 [id number] 4 LULU MOROCHO 2023 60 [facility] SPIRONOLACT ONE/HCTZ 25 MG-25 MG ORAL TAB TAKE 1 TABLET BY MOUTH EVERY DAY FOR VERTIGO INSTRUCT ED BY YOUR DOCTOR. Discont inued 04/07/2024 [id number] LULU MOROCHO 2023 60 [facility] SPIRONOLACT ONE/HCTZ 25 MG-25 MG ORAL TAB TAKE 1 TABLET BY MOUTH EVERY DAY FOR VERTIGO INSTRUCT ED BY YOUR DOCTOR. 04/07/2024 [id number] 4 LULU MOROCHO 2023 60 [facility] SPIRONOLACT ONE/HCTZ 25 MG-25 MG ORAL TAB TAKE 1 TABLET BY MOUTH EVERY DAY FOR VERTIGO INSTRUCT ED BY YOUR DOCTOR. Discont inued 02/06/2024 [id number] 4 LULU MOROCHO 2023 60 [facility] TRAZODONE HCL 50MG TAB TRAZODON E HCL 50MG TAB Disconti nued TAKE ONE TABLET BY MOUTH AT BEDTIME NEEDED FOR SLEEP FOR SLEEP Aug 22, 2023 90 Aug 22, 2024 [id number] Nov 13, 2023 [facility] ORAL DISCONT INUED BY PROVIDE R 08/22/2024 [id number] DO MANDO HERNANDEZ 2022 90 [facility] Trazodone Hydrochlori de (Desyrel Eq.) Tablet 50 mg Oral TAKE ONE TABLET BY MOUTH AT BEDTIME NEEDED FOR SLEEP Discont inued 08/22/2024 [id number] MELITON HERNANDEZ 2023 90 [facility] Allergies, Adverse Reactions, Alerts Combined list of allergies from Department of Defense and Veterans Affairs facilities. It does not include entries that were removed or entered in error. Substance Category Reaction Severity Reaction type Status Date Reported Comments Source No Known Allergies Drug allergy (disorder) active 08/13/2015 [place], [place] Immunizations Combined list of available immunizations from the Department of Defense and Veterans Affairs facilities. Immunization Series Date Given Administered By Site Reaction Lot Number CVX Code Drug Surgical Rn Status Comments Source COVID-19 (PFIZER), MRNA, LNP-S, PF, WHITNEY-SUCROSE, 30 MCG/0.3 ML (AGES 12+ YEARS) 1 2022 EDGAR VILLAA E LEFT DELTO ID [id number] complet ed [facility] INFLUENZA, INJECTABLE, QUADRIVALENT, PRESERVATIVE FREE 2022 DAISY FLO E LEFT DELTO ID [id number] 150 complet ed [facility] COVID-19 (PFIZER), MRNA, LNP-S, BIVALENT, PF, 30 MCG/0.3 ML DOSE 2022 [place] RIGHT DELTO ID [id number] 300 complet ed [facility] INFLUENZA, INJECTABLE, MDCK, PRESERVATIVE FREE, QUADRIVALENT 2021 ROHAN JAMES RIGHT DELTO ID [id number] 171 complet ed [facility] COVID-19 (PFIZER), MRNA, LNP-S, PF, 30 MCG/0.3 ML DOSE 2021 208 complet ed [facility] SARS-COV-2 (COVID-19) vaccine, mRNA, spike protein, LNP, preservative free, 30 mcg/0.3mL dose 3 2021 MATTHEW SOLANO [id number] [employer] (PFR) complet ed SARS-COV- 2 (COVID-19 ) vaccine, mRNA, spike protein, LNP, preservat butch free, 30 mcg/0.3mL dose [facility] INFLUENZA, INJECTABLE, QUADRIVALENT, PRESERVATIVE FREE 2020 150 complet ed [facility] COVID-19 (PFIZER), MRNA, LNP-S, PF, 30 MCG/0.3 ML DOSE 2 2020 208 complet ed [facility] SARS-COV-2 (COVID-19) vaccine, mRNA, spike protein, LNP, preservative free, 30 mcg/0.3mL dose 2 2020 [id number] Transcribed (TRS) complet ed SARS-COV- 2 (COVID-19 ) vaccine, mRNA, spike protein, LNP, preservat butch free, 30 mcg/0.3mL dose [facility] COVID-19 (PFIZER), MRNA, LNP-S, PF, 30 MCG/0.3 ML DOSE 1 2020 208 complet ed [facility] SARS-COV-2 (COVID-19) vaccine, mRNA, spike protein, LNP, preservative free, 30 mcg/0.3mL dose 1 2020 [id number] 208 Transcribed (TRS) complet ed SARS-COV- 2 (COVID-19 ) vaccine, mRNA, spike protein, LNP, preservat butch free, 30 mcg/0.3mL dose [facility] Influenza, injectable, quadrivalent, preservative free 1 2019 MIKEMARVINSHANTE Gordo [id number] 150 Seqirus (SEQ) complet ed Influenza , injectabl e, quadrival ent, preservat butch free DoD INFLUENZA, UNSPECIFIED FORMULATION 2019 88 complet ed [facility] typhoid Vi capsular polysaccharid e vac 2018 Right Arm [id number] sanofi pasteur complet ed typhoid Vi capsular polysacch aride vac 08/21/19 Given Ambulat ory Pharmac y pneumococcal polysaccharid e, 23 valent 2018 Left Arm [id number] Merck & Company Inc complet ed pneumococ jackie polysacch aride, 23 valent 08/21/19 Given Ambulat ory Pharmac y anthrax vaccine 2018 Right Arm [id number] Emergent [employer] complet ed anthrax vaccine 08/21/19 Given Ambulat ory Pharmac y PNEUMOCOCCAL POLYSACCHARID E [id number] 2018 33 complet ed [facility] anthrax vaccine 1 2018 HOSEA MEREDITH N [id number] 24 [employer] Floyd (MIP) complet ed anthrax vaccine DoD pneumococcal polysaccharid e vaccine, 23 valent 1 2018 HOSEA MEREDITH [id number] 33 Merck (MSD) complet ed pneumococ jackie polysacch aride vaccine, 23 valent DoD typhoid Vi capsular polysaccharid e vaccine 1 2018 HOSEA MEREDITH [id number] Sanofi Pasteur (PMC) complet ed typhoid Vi capsular polysacch aride vaccine DoD influenza, injectable, quadrivalent- pf 2018 [id number] 150 Seqirus complet ed influenza , injectabl e, quadrival ent-pf 08/15/19 Given Ambulat ory Pharmac y Influenza, injectable, quadrivalent, preservative free 1 2018 [id number] 038 150 Se[employer]irus (SEQ) complet ed Influenza , injectabl e, quadrival ent, preservat buthc free DoD influenza, injectable, quadrivalent- pf 2017 [id number] 150 Se[employer]irus complet ed influenza , injectabl e, quadrival ent-pf 08/31/18 Given Ambulat ory Pharmac y Influenza, injectable, quadrivalent, preservative free 1 2017 [id number] 150 Seqirus (SEQ) comple t ed Influenza , injectabl e, quadrival ent, preservat butch free DoD influenza, seasonal, injectable-pf [id number] 140 Novartis Pharmaceutica complet ed influenza , seasonal, injectabl e-pf 07/21/17 Given Ambulat ory Pharmac y Influenza, seasonal, injectable, preservative free 1 [id number] 140 Novartis Pharmaceutica l [place]. (NOV) complet ed Influenza , seasonal, injectabl e, preservat butch free DoD influenza, seasonal, injectable-pf 2015 [id number] 140 Seqirus complet ed influenza , seasonal, injectabl e-pf 08/06/16 Given Ambulat ory Pharmac y Influenza, seasonal, injectable, preservative free 1 2015 [id number] 140 Seqirus (SEQ) comple t ed Influenza , seasonal, injectabl e, preservat butch free DoD hepatitis A-hepatitis B vaccine 2015 [id number] 104 GlaxoSmithKli ne complet ed hepatitis A-hepatit is B vaccine 03/26/16 Given Ambulat ory Pharmac y hepatitis A and hepatitis B vaccine 1 2015 [id number] 104 SmithKline (SKB) complet ed hepatitis A and hepatitis B vaccine DoD hepatitis B pediatric/ado lescent 2014 [id number] 08 GlaxoSmithKli ne complet ed hepatitis B pediatric /adolesce nt 10/13/15 Given Ambulat ory Pharmac y hepatitis B vaccine, pediatric or pediatric/ado lescent dosage 2 2014 [id number] 08 SmithKline (SKB) complet ed hepatitis B vaccine, pediatric or pediatric /adolesce nt dosage DoD influenza, seasonal, injectable-pf 2014 [id number] 140 CSL Behring complet ed influenza , seasonal, injectabl e-pf 08/18/15 Given Ambulat ory Pharmac y tetanus, diphtheria, acellular pertu is 2014 [id number] 115 sanofi pasteur complet ed tetanus, diphtheri a, acellular pertussis 08/18/15 Given Ambulat ory Pharmac y adenovirus vaccine, live 2014 [id number] 143 Teva Pharmaceutica ls complet ed adenoviru s vaccine, live 08/18/15 Given Ambulat ory Pharmac y meningococcal A,C,Y,W-135 (MCV4P) 2014 [id number] 114 sanofi pasteur complet ed meningoco ccal A,C,Y,W-1 35 (MCV4P) 08/18/15 Given Ambulat ory Pharmac y poliovirus vaccine, inactivated 2014 [id number] 10 sanofi pasteur complet ed polioviru s vaccine, inactivat ed 08/18/15 Given Ambulat ory Pharmac y hepatitis B pediatric/ado lescent 2014 [id number] 08 StarmountithKli ne complet ed hepatitis B pediatric /adolesce nt 08/18/15 Given Ambulat ory Pharmac y TDAP 2014 115 complet ed [facility] measles, mumps and rubella virus vaccine 1 2014 UNK 03 Unknown (UNK) Not Given measles, mumps and rubella virus vaccine DoD hepatitis B vaccine, pediatric or pediatric/ado lescent dosage 1 2014 [id number] 08 [employer] (SKB) complet ed hepatitis B vaccine, pediatric or pediatric /adolesce nt dosage DoD poliovirus vaccine, inactivated 1 2014 [id number] 10 Sanofi Pasteur ([facility]) complet ed polioviru s vaccine, inactivat ed DoD varicella virus vaccine 1 2014 UNK 21 Unknown (UNK) Not Given varicella virus vaccine DoD hepatitis A vaccine, adult dosage 1 2014 UNK 52 Unknown (UNK) Not Given hepatitis A vaccine, adult dosage DoD meningococcal polysaccharid e (groups A, C, Y and W-135) diphtheria toxoid conjugate vaccine (MCV4P) 1 2014 [id number] 114 Sanofi Pasteur (PMC) complet ed meningoco ccal polysacch aride (groups A, C, Y and W-135) diphtheri a toxoid conjugate vaccine (MCV4P) DoD tetanus toxoid, reduced diphtheria toxoid, and acellular pertu is vaccine, adsorbed 1 2014 [id number] 115 Sanofi Pasteur (PMC) complet ed tetanus toxoid, reduced diphtheri a toxoid, and acellular pertussis vaccine, adsorbed DoD Influenza, seasonal, injectable, preservative free 1 2014 [id number] 140 [employer] (CSL) complet ed Influenza , seasonal, injectabl e, preservat butch free DoD Adenovirus, type 4 and type 7, live, oral 1 2014 [id number] 4 143 [facility] ([facility]) complet ed Adenoviru s, type 4 and type 7, live, oral [facility] HPV, QUADRIVALENT 3 2012 62 complet ed [facility] MENINGOCOCCAL MCV4P 2012 114 complet ed [facility] HPV, QUADRIVALENT 2011 62 complet ed [facility] INFLUENZA, SEASONAL, INJECTABLE 2011 141 complet ed [facility] VARICELLA 2011 21 complet ed [facility] HEP A, PED/ADOL, 2 DOSE 2011 83 complet ed [facility] HPV, QUADRIVALENT 2011 62 complet ed [facility] VARICELLA 2011 21 complet ed [facility] INFLUENZA, SEASONAL, INJECTABLE 2009 141 complet ed [facility] HEP A, PED/ADOL, 2 DOSE 2008 83 complet ed [facility] MENINGOCOCCAL MCV4P 2008 114 complet ed [facility] TDAP 2008 115 complet ed [facility] MMR 2001 03 complet ed [facility] DTAP 2001 20 complet ed [facility] IPV 2001 10 complet ed [facility] POLIO, UNSPECIFIED FORMULATION 2001 89 complet ed [facility] DTAP 1998 20 complet ed [facility] HIB (PRP-T) 1997 48 complet ed [facility] IPV 1997 10 complet ed [facility] MMR 1997 03 complet ed [facility] HEP B, ADOLESCENT OR PEDIATRIC 1997 08 complet ed [facility] DTAP 1996 20 complet ed [facility] HIB (PRP-T) 1996 48 complet ed [facility] DTAP 1996 20 complet ed [facility] HIB (PRP-T) 1996 48 complet ed [facility] IPV 1996 10 complet ed [facility] DTAP 1996 20 complet ed [facility] HEP B, ADOLESCENT OR PEDIATRIC 1996 08 complet ed [facility] HIB (PRP-T) 1996 48 complet ed [facility] IPV 1996 10 complet ed [facility] HEP B, ADOLESCENT OR PEDIATRIC 1996 08 complet ed [facility] Results Combined list of recent chemistry, hematology and other laboratory results from Department of Defense and Veterans Affairs, ranging from 15 months to all on record, depending upon the facility. Order Name Results Value Reference Range Date Interpretation Specimen Comments Source H.PYLORI AG,STOOL HELICOBACT ER PYLORI AG [PRESENCE] IN STOOL Not Detected 06/12 Specimen Type: FECES Comment: Antimicrobi als, proton pump inhibitors, and bismuth preparation s inhibit H. pylori and ingestion up to two weeks prior to testing may cause false negative results. If clinically indicated the test should be repeated on a new specimen obtained two weeks after discontinui ng treatment. Test Performed by [email or web address] [place], [employer] [facility], [address] [place] [address] Hilario Proctor M.D., Ph.D., Director of Laboratorie s , [place] [id number] Ordering Provider: Wes SAN Report Released Date/Time: Jun 07, 2023 02:05 PM Reporting Lab: [facility] [place] [id number] Performing Lab: [address] [facility] [facility] BASIC METABOLI C PANEL+MG CREATININE [MASS/VOLU ME] IN SERUM OR PLASMA 0.7 mg/dL 0.5 - 1.0 06/07 Specimen Type: PLASMA No comment entered. Ordering Provider: Wes SAN Report Released Date/Time: Jun 07, 2023 01:33 PM Reporting Lab: [facility] [place] [address] Performing Lab: [facility] [place] [address] [facility] BASIC METABOLI C PANEL+MG UREA NITROGEN [MASS/VOLU ME] IN SERUM OR PLASMA 11 mg/dL 7 - 20 06/07 Specimen Type: PLASMA No comment entered. Ordering Provider: Wes SAN Report Released Date/Time: Jun 07, 2023 01:33 PM Reporting Lab: [facility] [place] [address] Performing Lab: [facility] [place] [address] [facility] BASIC METABOLI C PANEL+MG GLUCOSE [MASS/VOLU ME] IN SERUM OR PLASMA 101 mg/dL 70 - 100 06/07 H Specimen Type: PLASMA No comment entered. Ordering Provider: Wes SAN Report Released Date/Time: Jun 07, 2023 01:33 PM Reporting Lab: [facility] [place] [address] Performing Lab: [facility] [place] [address] [facility] BASIC METABOLI C PANEL+MG SODIUM [MOLES/VOL UME] IN SERUM OR PLASMA 138 mmol/L 136 - 145 06/07 Specimen Type: PLASMA No comment entered. Ordering Provider: Wes SAN Report Released Date/Time: Jun 07, 2023 01:33 PM Reporting Lab: [facility] [place] [address] Performing Lab: [facility] [place] [address] [facility] BASIC METABOLI C PANEL+MG POTASSIUM [MOLES/VOL UME] IN SERUM OR PLASMA 4.0 mmol/L 3.5 - 5.1 06/07 Specimen Type: PLASMA No comment entered. Ordering Provider: Wes SAN Report Released Date/Time: Jun 07, 2023 01:33 PM Reporting Lab: [facility] [place] [address] Performing Lab: [facility] [place] [address] [facility] BASIC METABOLI C PANEL+MG CHLORIDE [MOLES/VOL UME] IN SERUM OR PLASMA 107 mmol/L 98 - 107 06/07 Specimen Type: PLASMA No comment entered. Ordering Provider: Wes SAN Report Released Date/Time: Jun 07, 2023 01:33 PM Reporting Lab: [facility] [place] [address] Performing Lab: [facility] [place] [address] [facility] BASIC METABOLI C PANEL+MG CARBON DIOXIDE, TOTAL [MOLES/VOL UME] IN SERUM OR PLASMA 21 mmol/L 22 - 29 06/07 L Specimen Type: PLASMA No comment entered. Ordering Provider: Wes SAN Report Released Date/Time: Jun 07, 2023 01:33 PM Reporting Lab: [facility] [place] [address] Performing Lab: [facility] [place] [address] [facility] BASIC METABOLI C PANEL+MG CALCIUM [MASS/VOLU ME] IN SERUM OR PLASMA 9.7 mg/dL 8.4 - 10.2 06/07 Specimen Type: PLASMA No comment entered. Ordering Provider: Wes SAN Report Released Date/Time: Jun 07, 2023 01:33 PM Reporting Lab: [facility] [place] [address] Performing Lab: [facility] [place] [address] [facility] BASIC METABOLI C PANEL+MG MAGNESIUM [MASS/VOLU ME] IN SERUM OR PLASMA 1.8 mg/dL 1.6 - 2.6 06/07 Specimen Type: PLASMA No comment entered. Ordering Provider: Wes SAN Report Released Date/Time: Jun 07, 2023 01:33 PM Reporting Lab: [facility] [place] [address] Performing Lab: [facility] [place] [address] [facility] BASIC METABOLI C PANEL+MG ANION GAP IN SERUM OR PLASMA 10 mmol/L 5 - 15 06/07 Specimen Type: PLASMA No comment entered. Ordering Provider: Wes SAN Report Released Date/Time: Jun 07, 2023 01:33 PM Reporting Lab: [facility] [place] [address] Performing Lab: [facility] [place] [address] [facility] BASIC METABOLI C PANEL+MG GLOMERULAR FILTRATION RATE/1.73 SQ M.PREDICTE D [VOLUME RATE/AREA] IN SERUM, PLASMA OR BLOOD BY CREATININE -BASED FORMULA (CKD-EPI 2020) >90 60 06/07 Specimen Type: PLASMA No comment entered. Ordering Provider: Wes SAN Report Released Date/Time: Jun 07, 2023 01:33 PM Reporting Lab: [facility] [place] [address] Performing Lab: [facility] [place] [address] [facility] LIPID PANEL,NO N-FASTIN G CHOLESTERO L [MASS/VOLU ME] IN SERUM OR PLASMA 161 mg/dL <199 - 199 06/07 Specimen Type: PLASMA No comment entered. Ordering Provider: Wes SAN Report Released Date/Time: Jun 07, 2023 01:33 PM Reporting Lab: [facility] [place] [address] Performing Lab: [facility] [place] [address] [facility] LIPID PANEL,NO N-FASTIN G CHOLESTERO L IN HDL [MASS/VOLU ME] IN SERUM OR PLASMA 41 mg/dL 50 06/07 Specimen Type: PLASMA No comment entered. Ordering Provider: Wes SAN Report Released Date/Time: Jun 07, 2023 01:33 PM Reporting Lab: [facility] [place] [address] Performing Lab: [facility] [place] [address] [facility] LIPID PANEL,NO N-FASTIN G CHOLESTERO L IN LDL [MASS/VOLU ME] IN SERUM OR PLASMA BY CALCULATIO N 113 mg/dL <99 - 99 06/07 H Specimen Type: PLASMA No comment entered. Ordering Provider: Wes SAN Report Released Date/Time: Jun 07, 2023 01:33 PM Reporting Lab: [facility] [place] [address] Performing Lab: [facility] [place] [address] [facility] LIPID PANEL,NO N-FASTIN G CHOLESTERO L IN VLDL [MASS/VOLU ME] IN SERUM OR PLASMA BY CALCULATIO N 7 mg/dL <29 - 29 06/07 Specimen Type: PLASMA No comment entered. Ordering Provider: Wes SAN Report Released Date/Time: Jun 07, 2023 01:33 PM Reporting Lab: [facility] [place] [address] Performing Lab: [facility] [place] [address] [facility] LIPID PANEL,NO N-FASTIN G CHOLESTERO L NON HDL [MASS/VOLU ME] IN SERUM OR PLASMA 120 mg/dL <129 - 129 06/07 Specimen Type: PLASMA No comment entered. Ordering Provider: Wes SAN Report Released Date/Time: Jun 07, 2023 01:33 PM Reporting Lab: [facility] [place] [address] Performing Lab: [facility] [place] [address] [facility] LIPID PANEL,NO N-FASTIN G TRIGLYCERI DE [MASS/VOLU ME] IN SERUM OR PLASMA 37 mg/dL <149 - 149 06/07 Specimen Type: PLASMA No comment entered. Ordering Provider: Wes SAN Report Released Date/Time: Jun 07, 2023 01:33 PM Reporting Lab: [facility] [place] [address] Performing Lab: [facility] [place] [address] [facility] CBC LEUKOCYTES [#/VOLUME] IN BLOOD BY AUTOMATED COUNT 7.32 10*3/uL 4.0 - 11.0 06/07 Specimen Type: BLOOD No comment entered. Ordering Provider: Wes SAN Report Released Date/Time: Jun 07, 2023 01:33 PM Reporting Lab: [facility] [place] [address] Performing Lab: [facility] [place] [address] [facility] CBC ERYTHROCYT ES [#/VOLUME] IN BLOOD BY AUTOMATED COUNT 4.66 10*6/uL 4.0 - 5.4 06/07 Specimen Type: BLOOD No comment entered. Ordering Provider: Wes SAN Report Released Date/Time: Jun 07, 2023 01:33 PM Reporting Lab: [facility] [place] [address] Performing Lab: [facility] [place] [address] [facility] CBC HEMOGLOBIN [MASS/VOLU ME] IN BLOOD 14.7 g/dL 11.5 - 16 06/07 Specimen Type: BLOOD No comment entered. Ordering Provider: Wes SAN Report Released Date/Time: Jun 07, 2023 01:33 PM Reporting Lab: [facility] [place] [address] Performing Lab: [facility] [place] [address] [facility] CBC HEMATOCRIT [VOLUME FRACTION] OF BLOOD BY AUTOMATED COUNT 41.9 34.5 - 48 06/07 Specimen Type: BLOOD No comment entered. Ordering Provider: Wes SAN Report Released Date/Time: Jun 07, 2023 01:33 PM Reporting Lab: [facility] [place] [address] Performing Lab: [facility] [place] [address] [facility] CBC MCV [ENTITIC VOLUME] BY AUTOMATED COUNT 89.9 fL 80 - 100 06/07 Specimen Type: BLOOD No comment entered. Ordering Provider: Wes SAN Report Released Date/Time: Jun 07, 2023 01:33 PM Reporting Lab: [facility] [place] [address] Performing Lab: [facility] [place] [address] [facility] CBC MCH [ENTITIC MASS] BY AUTOMATED COUNT 31.5 pg 27 - 33 06/07 Specimen Type: BLOOD No comment entered. Ordering Provider: Wes SAN Report Released Date/Time: Jun 07, 2023 01:33 PM Reporting Lab: [facility] [place] [address] Performing Lab: [facility] [place] [address] [facility] CBC MCHC [MASS/VOLU ME] BY AUTOMATED COUNT 35.1 g/dL 32.0 - 37.5 06/07 Specimen Type: BLOOD No comment entered. Ordering Provider: Wes SAN Report Released Date/Time: Jun 07, 2023 01:33 PM Reporting Lab: [facility] [place] [address] Performing Lab: [facility] [place] [address] [facility] CBC PLATELETS [#/VOLUME] IN BLOOD BY AUTOMATED COUNT 233 10*3/uL 150 - 400 06/07 Specimen Type: BLOOD No comment entered. Ordering Provider: Wes SAN Report Released Date/Time: Jun 07, 2023 01:33 PM Reporting Lab: [facility] [place] [address] Performing Lab: [facility] [place] [address] [facility] CBC PLATELET MEAN VOLUME [ENTITIC VOLUME] IN BLOOD BY AUTOMATED COUNT 9.4 fL 7.4 - 10.4 06/07 Specimen Type: BLOOD No comment entered. Ordering Provider: Wes SAN Report Released Date/Time: Jun 07, 2023 01:33 PM Reporting Lab: [facility] [place] [address] Performing Lab: [facility] [place] [address] [facility] CBC ERYTHROCYT E DISTRIBUTI ON WIDTH [RATIO] BY AUTOMATED COUNT 10.6 11.5 - 14.5 06/07 L Specimen Type: BLOOD No comment entered. Ordering Provider: Wes SAN Report Released Date/Time: Jun 07, 2023 01:33 PM Reporting Lab: [facility] [place] [address] Performing Lab: [facility] [place] [address] [facility] HEMOGLOB IN A1C HEMOGLOBIN A1C/HEMOGL OBIN.TOTAL IN BLOOD 4.7 4.0 - 6.0 06/07 Specimen Type: BLOOD Comment: Values obtained from A1C measurement s can vary. For typical A1C assays, a reported value of 7.0 could actually be between 6.7 and 7.3 if measured by a reference method. A reported value of 9.0 could actually be between 8.7 and 9.3. Ref: http://www. ngsp.org/CA Pdata.asp Ordering Provider: Wes SAN Report Released Date/Time: Jun 07, 2023 01:33 PM Reporting Lab: [facility] [place] [address] Performing Lab: [facility] [place] [address] IAM CASTELLANOS TSH W/REFLEX TO FREE T4 THYROTROPI N [UNITS/VOL UME] IN SERUM OR PLASMA 1.21 u[IU]/mL 0.35 - 4.94 06/07 Specimen Type: PLASMA No comment entered. Ordering Provider: Wes SAN Report Released Date/Time: Jun 07, 2023 01:33 PM Reporting Lab: [facility] [place] [address] Performing Lab: [facility] [place] [address] IAM VINCENTOC CTNG (ALINITY ) CHLAMYDIA TRACHOMATI S (ALINITY) CT Negative 09/23 Specimen Type: CERVIX UTERI (EXOCERVIX AND ENDOCERVIX) No comment entered. Ordering Provider: SHITAL RITTER Report Released Date/Time: Sep 23, 2022 12:40 PM Reporting Lab: [facility] Performing Lab: [facility] CTNG (ALINITY ) NEISSERIA GONORRHOEA (ALINITY) NG Negative 09/23 Specimen Type: CERVIX UTERI (EXOCERVIX AND ENDOCERVIX) No comment entered. Ordering Provider: SHITAL RITTER Report Released Date/Time: Sep 23, 2022 12:40 PM Reporting Lab: [facility] Performing Lab: [facility] Vital Signs Combined list of inpatient and outpatient Vital Signs from Department of Defense and Veterans Affairs, ranging from 12 months to all on record, depending upon the facility. Vital Sign Value Date Comments Source Encounters Combined list of: 1) Encounters from Department of Veterans Affairs facilities going back up to thelast 18 months. 2) Encounters from the Department of Defense facilities going back up to 280 months. Location Location Details Encounter Type Encounter Number Reason For Visit Attending Provider ADM Date DC Date Status Disposition Source [facility] [place] OUTPATIENT [id number] Notes Entered by: IVANIA MORALES 13 Aug 2015 0941 ------- ------- ------- ------- -- BLOOD MAI GERMAIN 08/13 Released w/o Limitations [facility] [place] [place] [facility] [facility] [place] [employer] OUTPATIENT [id number] Notes Entered by: JOHN WHIPPLE Apr 1044 ------- ------- ------- ------- -- JOHN Paige APR 15 Released w/o Limitations [facility] [place] [facility] [place] [id number] Notes Entered by: CORA MARTELL 18 Aug 2015 0841 ------- ------- ------- ------- -- IMM TYSON BYRNES 08/18 Released w/o Limitations [facility] [place] OUT[place] [id number] Notes Entered by: ME KRISHNA HORN 21 Aug 2015 1128 ------- ------- ------- ------- -- OST IET SHAJI HORN 08/21 Released w/o Limitations [facility] [place] [facility] VALERIE [employer] S[facility] OUTPATIENT [id number] Notes Entered by: WILLIE REDMAN 09 Oct 2015 1316 ------- ------- ------- ------- -- A1/40(N P)#3HEA D & BODY ACHE,RU NNY NOSE,CO UGH X2DAYS RYANN SARMIENTO 10/09 Sick at Home/Quarter s [facility] [place] [place] [facility] [employer] [place] OUTPATIENT [id number] Notes Entered by: Lise SNELL 12 Oct 2015 1530 ------- ------- ------- ------- -- A QTRS F/U IGGY ONTIVEROS HILARIO 10/12 Released w/o Limitations [facility] [employer] [place] [place] [facility] [employer] [place] [id number] Notes Entered by: RENETTA GOODWIN 13 Oct 2015 1253 ------- ------- ------- ------- -- MAI BARRIGA 10/13 [facility]ased w/o Limitations [facility] [place] [facility] OUTPATIENT [id number] Notes Entered by: BRAD SORENSEN 20 Nov 2015 0540 ------- ------- ------- ------- -- Female Screeni ng SYLVIA AVENDAÑO 11/20 Released w/o Limitations [facility] [place] [facility] [facility] [place] [facility]) OUTPATIENT [id number] BRITNEY Cordova 12/17 Released with Work/Duty Limitations [facility] [place] [facility] [place] [facility]) TELE CONSULT [id number] Notes Entered by: TYREE COOLEY 17 Dec 2015 1022 ------- ------- ------- ------- -- Xray results BRITNEY RIVERA 12/17 Released w/o Limitations [facility] [place] [facility] [facility] [place] [facility]) [place]IENT [id number] R foot issues ROSEYELLI Cherelle Released with Work/Duty Limitations [facility] [place] [facility] [facility] D[facility] Re[facility]) OUTPATIENT [id number] Notes Entered by: EMILIO ESPINOZA 06 Jan 2016 0723 ------- ------- ------- ------- -- [facility] Rt foot HALEY ESPINOZA 01/05 Released w/o Limitations [facility]) [facility] Dillard(Week d [facility]) OUTPATIENT [id number] right foot pain HILARIO MILLER 01/09 Released with Work/Duty Limitations [facility](Week end [facility]) [facility] D[facility] Re[facility]) OUTPATIENT [id number] Pain in right foot ROBERTO PADILLA 01/11 Released with Work/Duty Limitations [facility] Rehab) [facility] Rehab) OUTPATIENT [id number] right foot LOULOU WARNER 01/12 Released w/o Limitations [facility] Re[facility]) [facility] Rehab) OUTPATIENT [id number] right foot LOULOU WARNER 01/19 Released w/o Limitations [facility] Rehab) [facility](Team Rehab) OUTPATIENT [id number] right foot LOULOU WARNERLAN 01/19 Released w/o Limitations [facility] Re[facility]) [facility] Rehab) OUTPATIENT [id number] right foot LOULOU WARNER 01/21 Released w/o Limitations [facility] Garvin(Team Rehab) LAURI iDllard(Team Rehab) OUTPATIENT [id number] right foot ROBERTO PADILLA 02/01 Released with Work/Duty Limitations [facility] Gar[facility](Team Rehab) [facility](Team Rehab) OUTPATIENT [id number] right hip/conner t LOULOU WARNER 02/07 Released w/o Limitations [facility](Team Rehab) [facility] Rehab) OUTPATIENT [id number] right hip/conner t HALEY ESPINOZA Kailyn 02/15 Released w/o Limitations [facility](Team Rehab) [facility](Team Rehab) OUTPATIENT [id number] right hip LOULOU WARNER 02/16 Released w/o Limitations [facility] Rehab) [facility](Team Rehab) OUTPATIENT [id number] right hip/conner t HALEY ESPINOZA Kailyn 02/17 Released w/o Limitations [facility](Team Rehab) [facility](Team Rehab) OUTPATIENT [id number] right hip/conner t ROBERTO PADILLA 02/22 Released with Work/Duty Limitations [facility] Gar[facility](Team Rehab) [facility](Team Rehab) OUTPATIENT [id number] f/u right hip/conner t ROBERTO PADILLA 02/23 Released with Work/Duty Limitations [facility]) [place] OUTPATIENT [id number] right hip LOULOU WARNER 02/23 Released w/o Limitations Ian AvinaNegra Mckeon [place](Team Rehab) [place]([facility] [address]) OUTPATIENT [id number] Notes Entered by: REINA BASSETT 21 Aug 2019 1059 ------- ------- ------- ------- -- MOB/NILTON CELINA HILL 08/21 Released w/o Limitations [place] [address]) Theater Facility OUTPATIENT [id number] Theater Provider 11/18 Released w/o Limitations [facility] OUTPATIENT [id number] Theater Provider 04/06 Released w/o Limitations [facility] [place] [address]) OUTPATIENT [id number] Notes Entered by: MARIA VICTORIA VARNER 25 Aug 2020 0736 ------- ------- ------- ------- -- GUNNER MUNOZ 08/25 Released w/o Limitations [place] [address]) [place] Physical Exam Clinic) OUTPATIENT [id number] Notes Entered by: KWADWO WOOD 25 Aug 2020 1011 ------- ------- ------- ------- -- MARIANNE [address] PER[address] SILVERIO 08/25 Released w/o Limitations [place] Physica l Exam Clinic) [place] Hearing Conserv[facility] ion) OUTPATIENT [id number] Notes Entered by: Remy GUZMÁN 25 Aug 2020 1035 ------- ------- ------- ------- -- JAMA MACKEY 08/25 Released w/o Limitations [facility] [place]([facility]ion) [facility](ER FB) OUTPATIENT [id number] CELESTE VERGARA 12/05 Released w/o Limitations [facility]( ER FB) [facility] Outpatient Encounter [id number] 12/19 [facility] [place] [facility] Outpatient Encounter [id number] 05/30 [place] [facility] OFF[facility]/P EST MOD 30-39 MIN [id number] Diagnos is: ICD-10- CM F32.A Depress ion, unspeci fied
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
NALLUSAMY, VASUMATHI 06/07 [facility] PSYTX W PT 45 MINUTES [id number] Diagnos is: ICD-10- CM F32.A Depress ion, unspeci fied
MENTON,ANU JERMAINE H 06/12 [facility] [place] [facility] Outpatient Encounter [id number] 06/20 [place] [facility] PSYTX W PT 45 MINUTES [id number] Diagnos is: ICD-10- CM F32.A Depress ion, unspeci fied
MENTON,ANU JERMAINE H 06/26 [facility] Out[facility] Encounter [id number] 07/13 [facility] [place] [facility] Outpatient Encounter [id number] 07/14 [place] [facility] OFF[facility] O/P EST LOW 20-29 MIN [id number] Diagnos is: ICD-10- CM F32.A Depress ion, unspeci fied
SPENCER HERNANDEZ GLAS 07/17 [facility] [place] [facility] Outpatient Encounter [id number] 07/18 [place] [facility] [facility] PSYCL TST EVAL PHYS/QHP 1ST [id number] Diagnos is: ICD-10- CM F34.1 Dysthym ic disorde r
ANU MCKINNEY JERMAINE H 07/19 [facility] [place] [facility] PSYCH DIAGNOSTIC EVALUATION [id number] Diagnos is: ICD-10- CM Z56.9 Unspeci fied problem s related to employm ent<br/ > OWEN AGUILA 07[facility]27 [facility] MINUTES [id number] Diagnos is: ICD-10- CM F34.1 Dysthym ic disorde r
HANKANU JERMAINE H 08/02 [facility] [place] [facility] Outpatient Encounter [id number] PAMELA GARCIA 08/13 [place] [facility] [place] [facility] Outpatient Encounter [id number] ESTELA VILLARREAL 08/16 [place] [facility] [place] [facility] Outpatient Encounter [id number] 08/17 [place] [facility] [place] [facility] Outpatient Encounter [id number] SHAWANDA SAN 08/17 [place] [facility] [place] [facility] Outpatient Encounter [id number] 08/17 [place] [facility] OFF[facility] O/P EST LOW 20-29 MIN [id number] Diagnos is: ICD-10- CM F32.A Depress ion, unspeci fied
SPENCER HERNANDEZ GLAS 08/22 [facility] PSYTX W PT 45 MINUTES [id number] Diagnos is: ICD-10- CM F34.1 Dysthym ic disorde r
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<b r/> MITRA VALLADARES N 08/24 [facility] IMMUNIZATI ON ADMIN [id number] Diagnos is: ICD-10- CM Z23 Encount er for immuniz ation<b r/> KALEIGHRSCarlie OS,FLO E 08/24 [facility] TELEHEALTH FACILITY FEE [id number] Diagnos is: ICD-10- CM Z56.9 Unspeci fied problem s related to employm ent<br/ > OWEN AGUILA T 08/25 [facility] [place] [facility] PSYCH DIAGNOSTIC EVALUATION [id number] Diagnos is: ICD-10- CM Z56.9 Unspeci fied problem s related to employm ent<br/ > OWEN AGUILA T 08/25 [facility] [place] [facility] Outpatient Encounter [id number] 09/04 [place] [facility] [place] [facility] [place] TST EVAL PHYS/Q[place] [id number] Diagnos is: ICD-10- CM Z56.9 Unspeci fied problem s related to employm ent<br/ > OWEN AGUILA T 09/20 [place] [facility] MED NUTRITION INDIV SUBSEQ [id number] Diagnos is: ICD-10- CM 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
HANKANU DEAN H 09/27 [facility] [place] [facility] Outpatient Encounter [id number] Leonid SAMUELS 10/02 [place] [facility] [place] [facility] Outpatient Encounter [id number] 10/04 [place] [facility] [place] [facility] Outpatient Encounter [id number] ESTELA VILLARREAL 10/06 [place] [facility] [place] [facility] Out[place] Encounter [id number] ESTELA VILLARREAL 10/06 [place] [facility] [place] [facility] Out[place] Encounter [id number] ESTELA VILLARREAL 10/06 [place] [facility] [place] [facility] PSYTX W PT 45 MINUTES [id number] Diagnos is: ICD-10- CM Z56.9 Unspeci fied problem s related to employm ent<br/ > OWEN AGUILA T 10/13 [place] [facility] SUBSEQ [id number] Diagnos is: ICD-10- CM 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<b r/> MITRA VALLADARES N 10/19 [facility] PRO PHONE CALL 5-10 MIN [id number] Diagnos is: ICD-10- CM Z56.89 Other problem s related to employm ent<br/ > MARGO ROBLES Eriwn 10/19 [facility] OFFICE O/P NEW LOW 30-44 MIN [id number] Diagnos is: ICD-10- CM R11.0 Nausea< br/> SHAISTA MOROCHO KUS 10/23 [facility] PT 45 MINUTES [id number] Diagnos is: ICD-10- CM F34.1 Dysthym ic disorde r
ANU MCKINNEY JERMAINE H 10/25 [facility] Outpatient Encounter [id number] 11/03 [place] [facility] PSYTX W PT 30 MINUTES [id number] Diagnos is: ICD-10- CM F32.A Depress ion, unspeci fied
ROSAS BRAY 11/08 [facility] NUTRITION INDIV SUBSEQ [id number] Diagnos is: ICD-10- CM R11.2 Nausea with vomitin g, unspeci fied
MITRA VALLADARES N 11/09 [facility] PSYTX W PT 45 MINUTES [id number] Diagnos is: ICD-10- CM F34.1 Dysthym ic disorde r
ANU MCKINNEYM H 11/09 [facility] [place] [facility] Outpatient Encounter [id number] MITRA VALLADARES CQUELINE N 11/09 [place] [place] [facility] Outpatient Encounter [id number] MITRA VALLADARES CQUELINE N 11/09 [place] [facility] [place] [facility] Outpatient Encounter [id number] ANCELMO MCBRIDE 11/09 [place] [facility] MED NUTRITION INDIV SUBSEQ [id number] Diagnos is: ICD-10- CM R11.2 Nausea with vomitin g, unspeci fied
MITRA VALLADARES CQUELINE N 11/16 [facility] [place] [facility] Outpatient Encounter [id number] 11/21 [place] [facility] PSYTX W PT 45 MINUTES [id number] [id number] Diagnos is: ICD-10- CM F34.1 Dysthym ic disorde r
ANU MCKINNEY H 11/22 [facility] [place] [facility] PRO PHONE CALL 5-10 MIN [id number] Diagnos is: ICD-10- CM Z56.89 Other problem s related to employm ent<br/ > MARGO ROBLES 11/30 [place] [facility] PSYTX W PT 45 MINUTES [id number] [id number] Diagnos is: ICD-10- CM F34.1 Dysthym ic disorde r
ANU MCKINNEY H 12/05 [facility] Outpatient Encounter [id number] 12/06 [facility] [place] [facility] EVOKED AUDITORY TST COMPLETE [id number] [id number] Diagnos is: ICD-10- CM Z01.118 Encntr for exam of ears and hearing w oth abnorma l finding s
OCTAVIA ESTRADA AEL F 12/08 [facility] [place] [facility] OFFICE O/P EST MOD 30 MIN [id number] Diagnos is: ICD-10- CM R42 Dizzine ss and giddine ss
SHAISTA MOROCHO 12/08 [facility] [place] [facility] Outpatient Encounter [id number] JUSTIN RIVERA 12/09 [facility] PSYTX W PT 45 MINUTES [id number] [id number] Diagnos is: ICD-10- CM F34.1 Dysthym ic disorde r
ANU MCKINNEY JERMAINE H 12/12 [facility] [place] [facility] Outpatient Encounter [id number] ESTELA VILLARREAL 12/12 [facility] [place] [facility] Outpatient Encounter [id number] ESTELA VILLARREAL 12/12 [place] [facility] [place] [facility] Outpatient Encounter [id number] ESTELA VILLARREAL 12/12 [place] [facility] [place] [facility] PRO PHONE CALL 21-30 MIN [id number] Diagnos is: ICD-10- CM Z56.89 Other problem s related to employm ent<br/ > MARGO ROBLES 12/13 [place] [facility] [place] [facility] Outpatient Encounter [id number] 12/18 [place] [place] [facility] Outpatient Encounter [id number] 12/19 [place] [place] [facility] Outpatient Encounter [id number] 12/19 [place] [facility] [place] [facility] Outpatient Encounter [id number] 12/26 [place] [facility] [place] [facility] HC PRO PHONE CALL 5-10 MIN [id number] Diagnos is: ICD-10- CM Z56.89 Other problem s related to employm ent<br/ > MARGO ROBLES 12/28 [place] [facility] [place] [facility] Outpatient Encounter [id number] 01/01 [place] [facility] Out[facility] Encounter [id number] 01/02 [facility] [place] [facility] Outpatient Encounter [id number] 01/03 [place] [place] [facility] GROUP PSYCHOTHER APY [id number] Diagnos is: ICD-10- CM F34.1 Dysthym ic disorde r
CARY AVENDAÑO 01/10 [place] [facility] [place] [facility] HC PRO PHONE CALL 11-20 MIN [id number] Diagnos is: ICD-10- CM Z56.89 Other problem s related to employm ent<br/ > MARGO ROBLES 01/11 [place] [facility] [place] [facility] Outpatient Encounter [id number] Olivia LEMA 01/14 [place] [facility] PSYTX W PT 45 MINUTES [id number] [id number] Diagnos is: ICD-10- CM F34.1 Dysthym ic disorde r
ANU MCKINNEY 01/15 [facility] [place] [facility] GROUP PSYCHOTHER APY [id number] Diagnos is: ICD-10- CM F34.1 Dysthym ic disorde r
CARY AVENDAÑO Y 01/17 [place] [facility] [place] [facility] OFFICE O/P EST MOD 30 MIN [id number] [id number] Diagnos is: ICD-10- CM R42 Dizzine ss and giddine ss
GAPSHAISTA DAMON KUTiara 01/18 [place] [facility] HC PRO PHONE CALL 11-20 MIN [id number] Diagnos is: ICD-10- CM F41.9 Anxiety disorde r, unspeci fied
JOSEF STROUD 01[facility]21 [facility] OFFICE O/P EST LOW 20 MIN [id number] [id number] Diagnos is: ICD-10- CM F34.1 Dysthym ic disorde r
SPENCER HERNANDEZ GLAS 01/22 [facility] PSYTX W PT 45 MINUTES [id number] [id number] Diagnos is: ICD-10- CM F34.1 Dysthym ic disorde r
ANU MCKINNEY H 01/22 [facility] [place] [facility] GROUP PSYCHOTHER APY [id number] Diagnos is: ICD-10- CM F34.1 Dysthym ic disorde r
CARY AVENDAÑO Y 01/24 [place] [facility] [place] [facility] Outpatient Encounter [id number] 01/28 [place] [facility] [place] [facility] Outpatient Encounter [id number] 01/28 [place] [facility] Outpatient Encounter [id number] 01/29 [facility] [place] [facility] GROUP PSYCHOTHER APY [id number] [id number] Diagnos is: ICD-10- CM F34.1 Dysthym ic disorde r
CARY AVENDAÑO Y 01/31 [place] [facility] Outpatient Encounter [id number] 02/05 [facility] [place] [facility] Outpatient Encounter [id number] ANU MCKINNEY JERMAINE H 02/05 [place] [facility] [place] [facility] GROUP PSYCHOTHER APY [id number] Diagnos is: ICD-10- CM F34.1 Dysthym ic disorde r
CARY AVENDAÑO Y 02/07 [place] [facility] PSYTX W PT 45 MINUTES [id number] [id number] Diagnos is: ICD-10- CM F34.1 Dysthym ic disorde r
ANU MCKINNEY JERMAINE H 02/12 [facility] PSYCH DIAGNOSTIC EVALUATION [id number] [id number] Diagnos is: ICD-10- CM F34.1 Dysthym ic disorde r
DEBBIE SULLIVAN 02/13 [facility] [place] [facility] Outpatient Encounter [id number] 02/14 [place] [facility] PSYTX W PT 45 MINUTES [id number] [id number] Diagnos is: ICD-10- CM F34.1 Dysthym ic disorde r
ANU MCKINNEY JERMAINE H 02/19 [facility] OFFICE O/P EST LOW 20 MIN [id number] Diagnos is: ICD-10- CM F34.1 Dysthym ic disorde r
SPENCER HERNANDEZ GLAS 02/19 [facility] [place] [facility] Outpatient Encounter [id number] 02/20 [place] [facility] [place] [facility] GROUP PSYCHOTHER APY [id number] Diagnos is: ICD-10- CM F34.1 Dysthym ic disorde r
CARY AVENDAÑO Y 02/21 [place] [facility] [place] [facility] Outpatient Encounter [id number] 02/26 [place] [facility] [place] [facility] Outpatient Encounter [id number] 02/27 [place] [facility] [place] [facility] GROUP PSYCHOTHER APY [id number] [id number] Diagnos is: ICD-10- CM F34.1 Dysthym ic disorde r
CLARISSE CORADO M 02/28 [place] [facility] [place] [facility] Outpatient Encounter [id number] 03/07 [place] [facility] Outpatient Encounter [id number] 03/11 [facility] [place] [facility] GROUP PSYCHOTHER APY [id number] Diagnos is: ICD-10- CM F34.1 Dysthym ic disorde r
CARY AVENDAÑO Y 03/14 [place] [facility] PSYTX W PT 45 MINUTES [id number] [id number] Diagnos is: ICD-10- CM F34.1 Dysthym ic disorde r
ANU MCKINNEY JERMAINE H 03/18 [facility] PSYCL/NRPS Y[place] T[place] [id number] [id number] Diagnos is: ICD-10- CM F34.1 Dysthym ic disorde r
DEBBIE SULLIVANBETH 03/19 [facility] Outpatient Encounter [id number] 03/25 [facility] PSYTX W PT 45 MINUTES [id number] [id number] Diagnos is: ICD-10- CM F34.1 Dysthym ic disorde r
ANU MCKINNEY JERMAINE H 04/08 [facility] [place] [facility] Outpatient Encounter [id number] 04/11 [place] [facility] Outpatient Encounter [id number] 04/16 [facility] OFFICE O/P NEW LOW 30 MIN [id number] [id number] Diagnos is: ICD-10- CM H52.13 Myopia, bilater al
RICKI MCELROY 04/17 [facility] [place] [facility] Outpatient Encounter [id number] 04/22 [place] [facility] [place] [facility] Outpatient Encounter [id number] ANU MCKINNEY JERMAINE H 04/22 [place] [facility] Outpatient Encounter [id number] 04/29 [facility] Outpatient Encounter [id number] 05/06 [facility] [place] [facility] Outpatient Encounter [id number] ANU MCKINNEY JERMAINE H 05/06 [place] [facility] Outpatient Encounter [id number] 05/13 [facility] PSYCL TST EVAL PHYS/QHP [id number] [id number] Diagnos is: ICD-10- CM 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
DEBBIE SULLIVANTH 06/04 [facility] Procedures Combined list of: 1) Procedures from [facility], not all VA non-surgical procedures are included; 2) All procedures from the Department of Defense facilities. Procedure Procedure Type Code Date Perfomer Comments Sourc e No data available for this section [facility] Physical Therapy: ___ Se ion Segments, 15 Minutes Each Physical Therapy: ___ Session Segments, 15 Minutes Each 59169 016 LOULOU WARNER Physical Medicine - Group Physical Therapy Se ion Physical Medicine - Group Physical Therapy Session 29891 LOULOU WARNER Modalities Ultrasound Modalities Ultrasound 87229 ROBERTO ARCHULETA Physical Therapy Neuromuscular Re-education Physical Therapy Neuromuscular Re-education 85272 ROBERTO PADILLA A isted Exercises For ROM Assisted Exercises For ROM 47299 ROBERTO ARCHULETA Physical Therapy Mobilization Joint Physical Therapy Mobilization Joint 74031 ROBERTO ARCHULETA 8 min. TC joint mobs. to improve DF. [facility] Walking boot, pneumatic and/or vacuum, with or without joints, with or without interface material, prefabricated, [id number] ROBERTO ARCHULETA Physical Therapy Service Re-Evaluation Physical Therapy Service Re-Evaluation 45433 ROBERTO ARCHULETA Physical Therapy Neuromuscular Re-education Physical Therapy Neuromuscular Re-education 34475 HALEY ESPINOZA Physical Therapy: ___ Se ion Segments, 15 Minutes Each Physical Therapy: ___ Session Segments, 15 Minutes Each 13449 016 HALEY ESPINOZA Physical Therapy: ___ Se ion Segments, 15 Minutes Each Physical Therapy: ___ Session Segments, 15 Minutes Each 32531 016 LOULOU WARNER Physical Medicine - Group Physical Therapy Se ion Physical Medicine - Group Physical Therapy Session 01618 016 ALANA LOULOU RASHIDA [facility] Physical Therapy Mobilization Joint Physical Therapy Mobilization Joint 40385 OLGA HALEY Kailyn [facility] Physical Therapy Neuromuscular Re-education Physical Therapy Neuromuscular Re-education 20070 ESPINOZA HALEY Avina [facility] Physical Therapy: ___ Se ion Segments, 15 Minutes Each Physical Therapy: ___ Session Segments, 15 Minutes Each 24970 016 OLGA HALEY Kailyn [facility] Physical Therapy Mobilization Joint Physical Therapy Mobilization Joint 55693 ALANA LOULOU RASHIDA [facility] Physical Therapy: ___ Se ion Segments, 15 Minutes Each Physical Therapy: ___ Session Segments, 15 Minutes Each 26177 016 LOULOU WARNER [facility] Physical Medicine - Group Physical Therapy Se ion Physical Medicine - Group Physical Therapy Session 46681 LOULOU WARNER [facility] Phys Therapy Education Self Care Training - Per 15 Minutes Phys Therapy Education Self Care Training - Per 15 Minutes 43913 ROBERTO PADILLA discussion/educa tion on shoe selection, insole wear and benefit. Education on forefoot strength and loading response. [facility] Foot, arch support, removable, premolded, longitudinal, each ROBERTO PADILLA 1 for boots, and 1 for running shoes. [facility] Physical Therapy Neuromuscular Re-education Physical Therapy Neuromuscular Re-education 13525 ROBERTO PADILLA 8 min. Patient performed exercises to improve balance and proprioception, improve VMO activation, and to help promote valgus control during loading response. Arch lifts supine, standing arch lists. [facility] Physical Therapy Service Re-Evaluation Physical Therapy Service Re-Evaluation 27185 016 ROBERTO PADILLA [facility] Physical Therapy: ___ Se ion Segments, 15 Minutes Each Physical Therapy: ___ Session Segments, 15 Minutes Each 15041 016 LOULOU WARNER [facility] Physical Medicine - Group Physical Therapy Se ion Physical Medicine - Group Physical Therapy Session 85869 LOULOU WARNER [facility] Physical Therapy: ___ Se ion Segments, 15 Minutes Each Physical Therapy: ___ Session Segments, 15 Minutes Each 15781 016 LOULOU WARNER [facility] Physical Medicine - Group Physical Therapy Se ion Physical Medicine - Group Physical Therapy Session 21134 016 LOULOU WARNER [facility] Physical Therapy: ___ Se ion Segments, 15 Minutes Each Physical Therapy: ___ Session Segments, 15 Minutes Each 64553 016 LOULOU WARNER [facility] Physical Medicine - Group Physical Therapy Se ion Physical Medicine - Group Physical Therapy Session 57623 016 LOULOU WARNER [facility] Physical Therapy: ___ Se ion Segments, 15 Minutes Each Physical Therapy: ___ Session Segments, 15 Minutes Each 86369 016 LOULOU WARNER [facility] Physical Medicine - Group Physical Therapy Se ion Physical Medicine - Group Physical Therapy Session 08317 016 LOULOU WARNER [facility] Phys Therapy Education Self Care Training - Per 15 Minutes Phys Therapy Education Self Care Training - Per 15 Minutes 33325 ROBERTO PADILLA Patient received extensive education on VMO and patellar tracking, role of hip mobility during gait and role of ankle ROM and foot intrinsic strength during loading response. Pt was educated on joint biomechanics, function and pathology, symptom management and activity modification to avoid further provocation of symptoms. Pt was educated on need for compliance with HEP and in clinic direction. [facility] Osteopathic Manip Treatment (OMT) 1-2 Body Regions Involved Osteopathic Manip Treatment (OMT) 1-2 Body Regions Involved 54999 ROBERTO PADILLA TC joint distraction manip Supine DOG manip to Tspine DoD A isted Exercises For ROM Assisted Exercises For ROM 62019 ROBERTO PADILLA 8 min. HEP production. Patient performed exercises to improve joint ROM and increase soft tissue flexibility. (hip ER seated, Staff position 3 x 30, Ankle 4 way x 15) [facility] Physical Therapy Service Evaluation Physical Therapy Service Evaluation 98756 ROBERTO PADILLA 15 min. Treatment, assessment, and POC discussed with patient. The patient is in agreement with POC. [facility] Phys Therapy Education Self Care Training - Per 15 Minutes Phys Therapy Education Self Care Training - Per 15 Minutes 79373 HALEY ESPINOZA [facility] Physical Therapy Neuromuscular Re-education Physical Therapy Neuromuscular Re-education 91453 HALEY ESPINOZA [facility] Athletic Training Evaluation Athletic Training Evaluation 58071 016 HALEY ESPINOZA [facility] Hepatitis B Vaccine (Active); Pediatric/Adolesc ent 3 Dose Schedule Hepatitis B Vaccine (Active); Pediatric/Adolesc ent 3 Dose Schedule 07068 015 MAI GERMAIN Immunization Administration By Injection, One Vaccine Immunization Administration By Injection, One Vaccine 60841 MAI GERMAIN [facility] Screening Test Of Visual Acuity, Quantitative, Bilateral Screening Test Of Visual Acuity, Quantitative, Bilateral 65731 015 SHAIJ HORN [facility] Physician Supervised Injection Intramuscular Antibiotic Physician Supervised Injection Intramuscular Antibiotic 49401 CELESTINODatadecisionNO, TYSON Oncimmune Vaccines Adenovirus Type 7 Live, For Oral Use Vaccines Adenovirus Type 7 Live, For Oral Use 32714 CELESTINO-Access [employer] NILESH, TYSON Oncimmune Tdap Vaccine Seven Years Of Age And Above Tdap Vaccine Seven Years Of Age And Above 51612 015 Fanarchy LimitedJAVI TYSON Oncimmune Vaccines Viral Polio, Inactivated Vaccines Viral Polio, Inactivated 95151 015 Fanarchy LimitedJAVI TYSON Oncimmune Meningococcal Polysaccharide Diphtheria Toxoid Conjugate Vaccine CELESTINONibuNO, TYSON Oncimmune Influenza Split Virus Vaccine 0.5mL Dosage Intramuscular Preservative Free CELESTINO-HunterOnNO, TYSON Oncimmune Hepatitis B Vaccine (Active); Pediatric/Adolesc ent 3 Dose Schedule Hepatitis B Vaccine (Active); Pediatric/Adolesc ent 3 Dose Schedule 40462 015 Fanarchy LimitedNO, TYSON Oncimmune Immunization Admin By Intranasal / Oral Route One Vaccine Immunization Admin By Intranasal / Oral Route One Vaccine 77193 015 CELESTINO-HunterOnNO, TYSON Oncimmune Immunization Admin Intranasal / Oral Each Additional Vaccine Immunization Admin Intranasal / Oral Each Additional Vaccine 58765 015 CELESTINO-HunterOnNO, TYSON Oncimmune Immunization Administration By Injection, Each Additional Vaccine Immunization Administration By Injection, Each Additional Vaccine 81481 015 Fanarchy LimitedNO, TYSON Oncimmune Vaccines Adenovirus Type 4 Live, For Oral Use Vaccines Adenovirus Type 4 Live, For Oral Use 76737 TYSON BYRNES [facility] Ear mold/insert, not disposable, any type , MIN APR [facility] Patient education, not otherwise cla ified, non-physician provider, group, per se ion , MIN APR [facility] Threshold Audiogram (Pure Tone) Automated Threshold Audiogram (Pure Tone) Automated 0208T , MIN APR [facility] Physician Supervised Specimen Handling / Transfer: Office To Lab Physician Supervised Specimen Handling / Transfer: Office To Lab 49259 MAI GERMAIN [facility] Venipuncture Venipuncture 79966 MAI GERMAIN [facility] Pneumococcal Polysaccharide Vaccine (Age 2Y+) Pneumococcal Polysaccharide Vaccine (Age 2Y+) 25303 CELINA KAMARA Pneumococcal polysaccharide PPV23 (Pneumovax 23); Series #: 1; 0.5 mL; IM; Left Arm; Mf: [employer]; Lot: [id number]; VIS given (Hussein: 02/27/15). [facility] Typhoid Vaccine Vi Capsular Polysaccharide, For Intramus Use Typhoid Vaccine Vi Capsular Polysaccharide, For Intramus Use 00647 CELINA KAMARA M Typhoid, ViCPs; Series #: 1; 0.5 mL; IM; Right Arm; [facility] [place]: [employer]; Lot: [id number]; VIS given (Hussein: 04/03/12). [facility] Immunization Administration By Injection, One Vaccine Immunization Administration By Injection, One Vaccine 67210 CELINA KAMARA M [facility] Immunization Administration By Injection, Each Additional Vaccine Immunization Administration By Injection, Each Additional Vaccine 82614 RICARDO KAMARALE M [facility] Anthrax Vaccine For Subcutaneous Or Intramuscular Use Anthrax Vaccine For Subcutaneous Or Intramuscular Use 06691 ASADRICARDOLE M Anthrax; Series #: 1; 0.5 mL; IM; Right Arm; [facility] [place]: [facility]; Lot: [id number]; VIS given (Hussein: 01/24/2018). [facility] Screening Test Of Visual Acuity, Quantitative, Bilateral Screening Test Of Visual Acuity, Quantitative, Bilateral 67587 MITCH, GUNNER [facility] Preventive Medicine Administration Of Health Risk Questionnaire Patient-Focused Preventive Medicine Administration Of Health Risk Questionnaire Patient-Focused 51503 GUNNER MEYER DoD Threshold Audiogram (Pure Tone) Automated Threshold Audiogram (Pure Tone) Automated 0208T IGGY TURNER [facility] Patient education, not otherwise cla ified, non-physician provider, group, per se ion IGGY TURNER [facility] PATIENT EDUCATION, NOT OTHERWISE CLASSIFIED, NON-PHYSICIAN PROVIDER, GROUP, PER SESSION [facility] SCREENING TEST OF VISUAL ACUITY, QUANTITATIVE, BILATERAL [facility] ANTHRAX VACCINE, FOR SUBCUTANEOUS OR INTRAMUSCULAR USE [facility] HEPATITIS B VACCINE (HEPB), PEDIATRIC/ADOLESC ENT DOSAGE, 3 DOSE SCHEDULE, FOR INTRAMUSCULAR USE [facility] SCREENING TEST OF VISUAL ACUITY, QUANTITATIVE, BILATERAL [facility] THERAPEUTIC, PROPHYLACTIC, OR DIAGNOSTIC INJECTION (SPECIFY SUBSTANCE OR DRUG); SUBCUTANEOUS OR INTRAMUSCULAR [facility] PURE TONE AUDIOMETRY (THRESHOLD), AUTOMATED; AIR ONLY [facility] HANDLING AND/OR CONVEYANCE OF SPECIMEN FOR TRANSFER FROM THE OFFICE TO A LABORATORY [facility] APPLICATION OF A MODALITY TO 1 OR MORE AREAS; ULTRASOUND, EACH 15 MINUTES [facility] THERAPEUTIC PROCEDURE, 1 OR MORE AREAS, EACH 15 MINUTES; THERAPEUTIC EXERCISES TO DEVELOP STRENGTH AND ENDURANCE, RANGE OF MOTION AND FLEXIBILITY DoD WALKING BOOT, PNEUMATIC AND/OR VACUUM, WITH OR WITHOUT JOINTS, WITH OR WITHOUT INTERFACE MATERIAL, PREFABRICATED, [id number] [facility] THERAPEUTIC PROCEDURE,1 OR MORE AREAS,EACH 15 MINUTES;NEUROMUSC ULAR REEDUCATION OF MOVEMENT,BALANCE, COORDINATION,KINE STHETIC SENSE,POSTURE,AND /OR PROPRIOCEPTION FOR SITTING AND/OR STANDING ACTIVITIES [facility] THERAPEUTIC PROCEDURE, 1 OR MORE AREAS, EACH 15 MINUTES; THERAPEUTIC EXERCISES TO DEVELOP STRENGTH AND ENDURANCE, RANGE OF MOTION AND FLEXIBILITY [facility] MANUAL THERAPY TECHNIQUES (EG, MOBILIZATION/ MANIPULATION, MANUAL LYMPHATIC DRAINAGE, MANUAL TRACTION), 1 OR MORE REGIONS, EACH 15 MINUTES [facility] MANUAL THERAPY TECHNIQUES (EG, MOBILIZATION/ MANIPULATION, MANUAL LYMPHATIC DRAINAGE, MANUAL TRACTION), 1 OR MORE REGIONS, EACH 15 MINUTES DoD FOOT, ARCH SUPPORT, REMOVABLE, PREMOLDED, LONGITUDINAL, EACH [facility] THERAPEUTIC PROCEDURE, 1 OR MORE AREAS, EACH 15 MINUTES; THERAPEUTIC EXERCISES TO DEVELOP STRENGTH AND ENDURANCE, RANGE OF MOTION AND FLEXIBILITY [facility] THERAPEUTIC PROCEDURE, 1 OR MORE AREAS, EACH 15 MINUTES; THERAPEUTIC EXERCISES TO DEVELOP STRENGTH AND ENDURANCE, RANGE OF MOTION AND FLEXIBILITY [facility] THERAPEUTIC PROCEDURE, 1 OR MORE AREAS, EACH 15 MINUTES; THERAPEUTIC EXERCISES TO DEVELOP STRENGTH AND ENDURANCE, RANGE OF MOTION AND FLEXIBILITY [facility] OSTEOPATHIC MANIPULATIVE TREATMENT (OMT); 1-2 BODY REGIONS INVOLVED [facility] SELF-CARE/HOME MANAGMENT TRAIN (EG,ACT OF DAILY LIVING (ADL) &COMPENSAT TRAIN,MEAL PREPARATION,SAFET Y PROCS,AND INSTRUCT IN USE OF ASST TECHNOLOGY DEV/ADPT EQUIP) DIR ONE-ON-ONE CONT,EA 15 MINUTES [facility] Social History Combined list of available smoking, tobacco, and other social history from [facility] facilities. Social History Type Response Date Comment Sourc e Tobacco smoking status NHIS VA-TOBACCO FORMER USER 06/07/2023 [facility] History of tobacco use VA-TOBACCO QUIT 1 TO < 5 YRS 06/07/2023 [facility] History of tobacco use VA-TOBACCO USER SOME DAYS 09/23/2022 [facility] History of tobacco use VA-TOBACCO FORMER USER 08/30/2021 [facility] History of tobacco use VA-TOBACCO NEVER USED 04/26/2021 [facility] This section is an empty social history section. [facility] Assessment and Plan Combined list of future care activities from [facility] and [facility] facilities (e.g., assessment and plan notes, appointments, orders, and referrals). Additional future care activities may be listed in the Plan of Care section. Result Assessment and Plan Date Source Assessment and Plan No data available for this section 06/05/2024 [facility] Plan of Care List of future care activities from [facility] facilities. Additional future care activities may be listed in the Assessment and Plan section. Date/Time Care Activity Care Activity Detail Facili ty 06/05/2024 AMBULATORY - PSYCHIATRY AMBULATORY - PSYC [facility] 06/07/2024 AMBULATORY - NONE [facility]ATORY - NONE [facility] 06/21/2024 AMBULATORY - PSYCHIATRY AMBULATORY - PSYC [facility] 08/20/2024 AMBULATORY - PSYCHIATRY AMBULATORY - PSYC EVA [facility] Functional Status Combined list of recent functional and cognitive assessments recorded at [facility] ([facility]VA Functional Whitfield Measurement (FIM) Scale: 1 = Total Assistance (Subject = 0% +), 2 = Maximal Assistance (Subject = 25% +), 3 = Moderate Assistance (Subject = 50% +), 4 = Minimal Assistance (Subject = 75% +), 5 = Supervision, 6 = Modified Whitfield (Device), 7 = Complete Whitfield (Timely, Safely). Assessment Date/Time Source Assessment Type Assessment Skill Assessment Score Assessment Details No data available for this section
--- OUTSIDE RECORDS SUMMARY | 2024-06-05 04:19 | XMS_ITS | Encounter Summary ---
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 Storage Brine Worker Name Role Phone TAWNYA MCFADDEN Primary Care Provider SHAWANDA Todd Primary Care Provider Unavi ilnavdeep Insurance Providers: All historical and current [...] PRESCRIPT ION JACEY S Jul 07, 2021 [facility] [id number] [phone] DORETHA SAMPSON PATIENT [facility] JACEY S Jul 07, 2021 [id number] [phone] DORETHA SAMPSON PATIENT [facility] * POINT OF SERVICE JACEY S Jul 07, 2021 [id number] [phone] DORETHA SAMPSON PATIENT Selected Encounter This section includes the information on record at [place] for the Encounter. Date/Time Encounter Type Encounter Description Reason Provider Source Nov 22, 2023 11:00 AM PSYTX W PT 45 MINUTES [facility] - IND ICD-10-CM F34.1 Dysthymic disorder PAULA MCKINNEY Encounter Template Text not used by [facility] Assessments - Encounter Diagnoses This section includes the primary and secondary diagnoses documented for the Encounter. Date/Time Primary/Secondary Diagnosis Diagnosis Name Provider Source Nov 22, 2023 04:17 PM PRIMARY Dysthymic disorder PAULA MCKINNEY Nov 22, 2023 04:17 PM SECONDARY Social phobia, generalized PAULA MCKINNEY Plan of Treatment: Future Appointments (+ 6 months) and Future Tests (+/- 45 days) The Plan of Treatment section includes future care activities for the [facility] [place] [facility] This section includes future appointments and future orders which are active, pending or scheduled. Future Appointments This section includes appointments that were scheduled to occur 6 months from the date of the Encounter, up to a maximum of 20 appointments. The data comes from all [place] treatment facilities. Appointment Date/Time Appointment Type Appointme nt Facility Name Dec 05, 2023 11:00 AM AMBULATORY - [facility] Dec 06, 2023 01:00 PM AMBULATORY - PSYCHIATRY [facility] Dec 08, 2023 12:30 PM AMBULATORY - SURGERY [facility] Dec 08, 2023 02:00 PM AMBULATORY - SURGERY [facility] Dec 12, 2023 11:00 AM AMB[facility]ATORY - [facility] Dec 18, 2023 10:30 AM AMBULATORY - REHAB [facility] Dec 19, 2023 09:00 AM AMBULATORY - NONE [facility] Jan 11, 2024 01:00 PM AMBULATORY - PSYCHIATRY [facility] Jan 15, 2024 09:00 AM AMBULATORY - MEDICINE [facility] Jan 16, 2024 11:00 AM AMBULATORY - PS[facility]CHIATRY [facility] Jan 18, 2024 01:00 PM AMBULATORY - PSYCHIATRY [facility] Jan 19, 2024 02:00 PM AMBULATORY - SURGERY [facility] Jan 22, 2024 01:15 PM [facility]ORY [facility]RY [facility] Jan 23, 2024 10:00 AM AMBULATORY - [facility]AT[facility] Jan 23, 2024 11:00 AM AMBULATORY - PS[facility]AT[facility] Jan 25, 2024 01:00 PM AMBULATORY - PSYCHIATRY [facility] Jan 30, 2024 11:00 AM AMBULATORY - PS[facility]IATRY [facility] Feb 01, 2024 01:00 PM AMBULATORY - PSYCHIATRY [facility] Feb 06, 2024 11:00 AM [facility] Feb 08, 2024 01:00 PM AMBULATORY - PSYCHIATRY [facility] Social History: Smoking Status (Most current) and Tobacco Use (All prior to encounter date) This section includes the most current, and the historical, smoking and tobacco- related health factors from the [place] facility where the Encounter took place. Current Smoking Status This section includes the most current smoking, or tobacco-related health factor, from the [place] facility where the Encounter took place. Date/Time Current Smoking Status Comment Facil ity Jun 07, 2023 01:00 PM VA-TOBACCO FORMER USER [facility] Tobacco Use History This section includes a history of the smoking, or tobacco-related health factors, that were collected on or before the date of the Encounter. The data comes from the [place] facility where the Encounter took place. Date/Time Smoking Status/Tobacco Use Comment F acility Jun 07, 2023 01:00 PM VA-TOBACCO QUIT 1 TO < 5 YRS [facility] Apr 26, 2021 01:00 PM VA-TOBACCO NEVER USED [facility] Encounter Notes: All associated encounter notes This section contains the clinical notes associated to the Encounter. Date/Time Encounter Note(s) Provider Source Nov 22, 2023 02:58 PM MENTAL HEALTH NOTE : LOCAL TITLE: MH PROGRESS NOTE STANDARD TITLE: MENTAL HEALTH NOTE DATE OF NOTE: NOV 22, 2023@14:58 ENTRY DATE: NOV 22, 2023@14:58:45 AUTHOR: PAULA MCKINNEY COSIGNER: URGENCY: STATUS: COMPLETED ----PSYCHOTHERAPY PROGRESS NOTE---- INFORMED CONSENT: Clinician and reviewed informed consent for treatment, potential risks and benefits of treatment, and limits of confidentiality. [place] indicated understanding and agreement. VVC: Visit conducted by synchronous telehealth. [place] verbal consent obtained. Location/emergency number confirmed. Environment surveyed and all participants identified. Virtual conference room locked. [place] Name: Doretha Mas Date of : 1995 Intervention session #: 9 MENTAL STATUS Grooming: Appropriate Motor: Calm; unremarkable Mood: Depressed Affect: Mildly restricted Speech: Normal rate, rhythm, and volume Thought Content: Negative for unusual or bizarre content Thought Processes: Linear; logical; goal-oriented Suicidality: Passive (no plan or intent) Homicidality: Absent Hallucinations: Absent Delusions: Absent Orientation: Intact DSM-5 DIAGNOSTIC IMPRESSION -Persistent depressive disorder, with anxious distress -Social anxiety disorder RELEVANT HISTORY reported experiencing continued nausea since her last appointment. Her mood is largely unchanged. INTERVENTION DETAILS Session duration: 50 minutes. Focus of session: Reducing avoidance. Education provided: -Review of behavioral conceptualization of chronic avoidance. -Avoidance as an obstacle to committed action. -Distinction between values and goals. Other interventions: -Review of high-priority values. -Explored triggers for avoidance and distinguishing between psychological factors and medical factors. Handouts: None. [place] response: expressed understanding and appreciation of the educational material presented this session. She described her medical issues as a major obstacle to pursuing her professional goals and values, though she also acknowledged that psychological factors play a role as well, and she often has difficulty distinguishing between these. She also noted she frequently hesitates to pursue goals (e.g., accepting a new job) due to concerns that her physical and mental health will eventually interefere and derail her plans. RISK ASSESSMENT Risk Factors: History of suicidal ideation, depression, unemployed, access to firearm. Protective Factors: No recent suicidal thoughts, no history of suicidal behavior, desire to live, no history of impulsive coping, help seeking, treatment motivated. Estimate of Risk: Low acute and low chronic risk of self-harm. PLAN RTC date/time: 12/05/23, 1100 Homework: will identify several things she finds challenging due to her symptoms, then rank order them in terms of difficulty. Plan for next session: Continue to work on differentiating difficult emotional experiences. Use 's list to identify feasible target behaviors and discuss obstacles to engaging in these. Current Treatment Plan Date: 07/19/23 Plan Renewal Date: 07/19/24 /neil/ PAULA MCKINNEY Signed: 11/22/2023 16:18 PAULA MCKINNEY [facility]
--- OUTSIDE RECORDS SUMMARY | 2024-06-05 04:19 | XMS_ITS | Encounter Summary ---
Author Name [facility] [place] [facility] [place] [facility] [place] Address [address] [place] [address] Care Team Providers Care Industrial Editor Name Role Phone TAWNYA MCFADDEN Primary Care [...] PRESCRIPT ION JACEY S Jul 07, 2021 [facility] [id number] [phone] DORETHA SAMPSON PATIENT [facility] JACEY S Jul 07, 2021 [id number] [phone] DORETHA SAMPSON PATIENT [facility] * POINT OF SERVICE JACEY S Jul 07, 2021 [id number] [phone] DORETHA SAMPSON PATIENT Selected Encounter This section includes the information on record at [place] for the Encounter. Date/Time Encounter Type Encounter Description Reason Provider Source Dec 12, 2023 11:00 AM PSYTX W PT 45 MINUTES [facility] - IND ICD-10-CM F34.1 Dysthymic disorder MENTON,PAULA H IHE Encounter Template Text not used by [facility] Assessments - Encounter Diagnoses This section includes the primary and secondary diagnoses documented for the Encounter. Date/Time Primary/Secondary Diagnosis Diagnosis Name Provider Source Dec 12, 2023 12:53 PM PRIMARY Dysthymic disorder PAULA MCKINNEY Dec 12, 2023 12:53 PM SECONDARY Social phobia, generalized PAULA MCKINNEY Plan of Treatment: Future Appointments (+ 6 months) and Future Tests (+/- 45 days) The Plan of Treatment section includes future care activities for the patient [facility] [place] [facility] This section includes future appointments and future orders which are active, pending or scheduled. Future Appointments This section includes appointments that were scheduled to occur 6 months from the date of the Encounter, up to a maximum of 20 appointments. The data comes from all [place] treatment facilities. Appointment Date/Time Appointment Type Appointme nt Facility Name Dec 18, 2023 10:30 AM AMBULATORY - REHAB [facility] Dec 19, 2023 09:00 AM AMBULATORY - NONE [facility] Jan 11, 2024 01:00 PM AMBULATORY - PSYCHIATRY [facility] Jan 15, 2024 09:00 AM AMBULATORY - MEDICINE [facility] Jan 16, 2024 11:00 AM AM[facility]ORY [facility] Jan 18, 2024 01:00 PM AMBULATORY - PSYCHIATRY [facility] Jan 19, 2024 02:00 PM AMBULATORY - SURGERY [facility] Jan 22, 2024 01:15 PM AMBULATORY - PS[facility]CHIATRY [facility] Jan 23, 2024 10:00 AM AMBULATORY - [facility] Jan 23, 2024 11:00 AM AMB[facility]ATORY [facility] Jan 25, 2024 01:00 PM AMBULATORY - PSYCHIATRY [facility] Jan 30, 2024 11:00 AM AMBULATORY [facility] Feb 01, 2024 01:00 PM AMBULATORY - PSYCHIATRY [facility] Feb 06, 2024 11:00 AM AMB[facility]ORY [facility] Feb 08, 2024 01:00 PM AMBULATORY - PSYCHIATRY [facility] Feb 13, 2024 11:00 AM AM[facility] Feb 14, 2024 02:00 PM AMBULATORY [facility] Feb 15, 2024 01:00 PM AMBUL[facility] Feb 20, 2024 11:00 AM AM[facility]ATORY - [facility] Feb 20, 2024 02:30 PM [facility] Active, Pending, and Scheduled Orders This section includes a listing of several types of active, pending, and scheduled orders, including clinic medications orders, diagnostic test orders, procedure orders and consult orders; where the start date of the order is 45 days before the date of the Encounter or 45 days after the date of theEncounter. The data comes from all [place] treatment facilities. Test Date/Time Test Type Test Details Facility Name Jan 19, 2024 02:07 PM Consult Order [facility] Demurrage Worker's Choice [facility] Social History: Smoking Status (Most current) and Tobacco Use (All prior to encounter date) This section includes the most current, and the historical, smoking and tobacco- related health factors from the [place] facility where the Encounter took place. Current Smoking Status This section includes the most current smoking, or tobacco-related health factor, from the [place] facility where the Encounter took place. Date/Time Current Smoking Status Comment Betty ity Jun 07, 2023 01:00 PM VA-TOBACCO FORMER USER [facility] Tobacco Use History This section includes a history of the smoking, or tobacco-related health factors, that were collected on or before the date of the Encounter. The data comes from the [place] facility where the Encounter took place. Date/Time Smoking Status/Tobacco Use Comment F acility Jun 07, 2023 01:00 PM VA-TOBACCO QUIT 1 TO < 5 YRS [facility] Apr 26, 2021 01:00 PM VA-TOBACCO NEVER USED [facility] Encounter Notes: All associated encounter notes This section contains the clinical notes associated to the Encounter. Date/Time Encounter Note(s) Provider Source Dec 12, 2023 12:21 PM MENTAL HEALTH NOTE : LOCAL TITLE: MH PROGRESS NOTE STANDARD TITLE: MENTAL HEALTH NOTE DATE OF NOTE: DEC 12, 2023@12:21 ENTRY DATE: DEC 12, 2023@12:21:23 AUTHOR: PAULA MCKINNEY COSIGNER: URGENCY: STATUS: COMPLETED ----PSYCHOTHERAPY PROGRESS NOTE---- INFORMED CONSENT: Clinician and reviewed informed consent for treatment, potential risks and benefits of treatment, and limits of confidentiality. indicated understanding and agreement. VVC: Visit conducted by synchronous telehealth. [place] verbal consent obtained. Location/emergency number confirmed. Environment surveyed and all participants identified. Virtual conference room locked. Name: Doretha Mas Date of : 1995 Intervention session #: 11 MENTAL STATUS Grooming: Appropriate Motor: Calm; unremarkable Mood: Depressed Affect: Mildly restricted Speech: Normal rate, rhythm, and volume Thought Content: Negative for unusual or bizarre content Thought Processes: Linear; logical; goal-oriented Suicidality: Passive (no plan or intent) Homicidality: Absent Hallucinations: Absent Delusions: Absent Orientation: Intact DSM-5 DIAGNOSTIC IMPRESSION -Persistent depressive disorder, with anxious distress -Social anxiety disorder RELEVANT HISTORY Clementon reported she was diagnosed with Meniere's disease following her last therapy appointment. She received a new medication to take as needed to address her vertigo. She described the last weekend as rather difficult, as she experienced an episode of extreme vertigo, took her new medication (which was very effective), and subsequently experienced multiple panic attacks throughout the day. She phoned the [place] Crisis Line early in the day and found this helpful. She denied any further vertigo or panic attacks since that time. INTERVENTION DETAILS Session duration: 50 minutes. Focus of session: -Conceptualizing panic attacks. -Hidden obstacles to progress. Education provided: -Interoceptive awareness and panic attacks. -Recognizing downsides of making progress (e.g., increased expectations arising from effective treatment of medical conditions). Other interventions: -Discussed interoceptive cues associated with sheryl's panic attacks. -Reviewed implementation of recommendations from previous session. Handouts: None. response: Sheryl reported that she will be attending a board game convention this weekend with her family; she is looking forward to this about also apprehensive that her plans could be derailed by panic or medical symptoms. She initially indicated that going to the convention and being sidelined by her symptoms would be worse than not going at all. However, when asked if she would be glad that she had at least tried to go, even if it did not work out, sheryl responded that she would and that this seems like a helpful way of viewing things. After receiving education regarding panic attacks, sheryl was readily able to identify that her panic attack precursor symptoms tend to become a self- fulfilling prophecy in that she tends to work myself into a panic attack when she notices them. Sheryl reported she practiced moving into a different room while having trouble sleeping on one occasion, but on a different occasion she felt this would be too much work. She stated she will consider whether it will be worthwhile to try this in the future. Sheryl reported she has not been tracking how long she stays in bed when she wakes up, though this is usually about three hours. However, she indicated that today she got out of bed after half an hour in order to come to the present appointment. On further discussion, she acknowledged fears of having greater expectations for herself if she were to consistently get out of bed earlier in the day. RISK ASSESSMENT Risk Factors: History of suicidal ideation, depression, unemployed, access to firearm. Protective Factors: No recent suicidal thoughts, no history of suicidal behavior, desire to live, no history of impulsive coping, help seeking, treatment motivated. Estimate of Risk: Low acute and low chronic risk of self-harm. PLAN RTC date/time: 12/12/23, 1099 Homework: Sheryl will more consistently monitor her sleep and time in bed. Plan for next session: Continue to discuss obstacles to valued action. Current Treatment Plan Date: 07/19/23 Plan Renewal Date: 07/19/24 /neil/ PAULA MCKINNEY Signed: 12/12/2023 12:53 PAULA MCKINNEY [facility]
--- OUTSIDE RECORDS SUMMARY | 2024-06-05 04:19 | XMS_ITS ---
CT MEDICAL NUTRITION INDIV IN [facility] Encounter Summary Created on: June 04, 2024 DORETHA SAMPSON PRIYA : 1995 Sex: Female Author Name [facility] [place] [facility] [place] Address [address] [place] [address] Care Team Providers Care Bill Hiker Name Role Phone BOGDAN TAWNYA Primary Care Provider SHAWANDA Todd Primary Care Provider Aung ilnavdeep Insurance Providers: All historical and current [...] PRESCRIPT ION JACEY S Jul 07, 2021 [place] [id number] [phone] DORETHA SAMPSON PATIENT [facility] JACEY S Jul 07, 2021 [id number] [phone] DORETHA SAMPSON PATIENT [facility] * POINT OF SERVICE JACEY S Jul 07, 2021 [id number] [phone] DORETHA SAMPSON PATIENT Selected Encounter This section includes the information on record at CT for the Encounter. Date/Time Encounter Type Encounter Description Reason Provider Source Aug 24, 2023 03:00 PM MEDICAL NUTRITION INDIV IN NUTRITION/DIETETI CS-INDIVIDUAL ICD-10-CM Z71.3 Dietary counseling and surveillance JACQUELYN,JACQU LOUISA N IHE Encounter Template Text not used by CT Assessments - Encounter Diagnoses This section includes the primary and secondary diagnoses documented for the Encounter. Date/Time Primary/Secondary Diagnosis Diagnosis Name Provider Source Aug 24, 2023 04:42 PM PRIMARY Dietary counseling and surveillance SANDIP VALLADARES Aug 24, 2023 04:42 PM SECONDARY Nausea with vomiting, unspecified SANDIP VALLADARES Plan of Treatment: Future Appointments (+ 6 months) and Future Tests (+/- 45 days) The Plan of Treatment section includes future care activities for the [facility] This section includes future appointments and future orders which are active, pending or scheduled. Future Appointments This section includes appointments that were scheduled to occur 6 months from the date of the Encounter, up to a maximum of 20 appointments. The data comes from all [place] treatment facilities. Appointment Date/Time Appointment Type Appointme nt Facility Name Aug 25, 2023 01:00 PM AMBULATORY - PS[facility]IATRY [facility] Aug 25, 2023 01:01 PM AMBULATORY - PS[facility]IATRY [facility] Sep 04, 2023 04:00 PM AMBULATORY - PSYCHIATRY [facility] Sep 20, 2023 02:00 PM AMBULATORY - PSYCHIATRY [facility] Sep 21, 2023 03:00 PM AMBULATORY - NONE [facility] Sep 27, 2023 10:00 AM AMBULATORY - [facility] Oct 04, 2023 02:00 PM AMBULATORY - PS[facility]CHIATRY [facility] Oct 13, 2023 02:00 PM AMBULATORY - PSYCHIATRY [facility] Oct 19, 2023 03:00 PM AMBULATORY - NONE [facility] Oct 23, 2023 01:00 PM AMBULATORY - SURGERY [facility] Oct 25, 2023 03:00 PM AMBULATORY - PS[facility]ATRY [facility] Nov 08, 2023 03:00 PM AMBULATORY - PS[facility]CHIATRY [facility] Nov 09, 2023 09:00 AM AMBULATORY - NONE [facility] Nov 09, 2023 11:00 AM AMBULATORY - [facility]RY [facility] Nov 16, 2023 10:00 AM AMBULATORY - NONE [facility] Nov 22, 2023 11:00 AM AMBULATORY - PS[facility]RY [facility] Dec 05, 2023 11:00 AM AMBULATORY - PS[facility]ATRY [facility] Dec 06, 2023 01:00 PM AMBULATORY - PSYCHIATRY [facility] Dec 08, 2023 12:30 PM AMBULATORY - SURGERY JACQUES ALFAROTiara [facility] Dec 08, 2023 02:00 PM AMBULATORY - SURGERY [facility] Social History: Smoking Status (Most current) and Tobacco Use (All prior to encounter date) This section includes the most current, and the historical, smoking and tobacco- related health factors from the [place] facility where the Encounter took place. Current Smoking Status This section includes the most current smoking, or tobacco-related health factor, from the [place] facility where the Encounter took place. Date/Time Current Smoking Status Comment Facil ity Jun 07, 2023 01:00 PM VA-TOBACCO FORMER USER [facility] Tobacco Use History This section includes a history of the smoking, or tobacco-related health factors, that were collected on or before the date of the Encounter. The data comes from the [place] facility where the Encounter took place. Date/Time Smoking Status/Tobacco Use Comment F acility Jun 07, 2023 01:00 PM VA-TOBACCO QUIT 1 TO < 5 YRS [facility] Apr 26, 2021 01:00 PM VA-TOBACCO NEVER USED [facility] Encounter Notes: All associated encounter notes This section contains the clinical notes associated to the Encounter. Date/Time Encounter Note(s) Provider Source Aug 24, 2023 08:09 AM NUTRITION EDUCATIO Leonid NOTE: LOCAL TITLE: EDUCATION NUTRITION STANDARD TITLE: NUTRITION EDUCATION NOTE DATE OF NOTE: AUG 24, 2023@08:09 ENTRY DATE: AUG 24, 2023@08:10 AUTHOR: JUAN MANUEL VALLADARES EXP COSIGNER: URGENCY: STATUS: COMPLETED SUBJECT: nutrition NUTRITION EDUCATION OUTPATIENT Initial Time spent: 55 mins Reason for visit: nausea, unintentional wt loss ASSESSMENT: Height: 66 in [167.6 cm] (06/07/2023 13:06) Weight: Measurement DT WEIGHT LB(KG)[BMI] 06/07/2023 13:06 149.5(67.81)[24] 05/17/2021 14:03 147.2(66.77)[24] 04/26/2021 13:09 149.4(67.77)[24] BMI: 24.2 Weight change: Reports 10# wt loss down to 140# UBW: 155# Pertinent Past Medical History: anxiety, depression, nausea, social phobia Nutrition Related Medications: fluoxetine, trazadone; non-va: Mg gluconate, MVI, ferrous sulfate EDUCATION SCREENING PARTICIPANTS: Patient BARRIERS/SPECIAL NEEDS: no barriers identified READINESS TO LEARN: no barriers Patient subjective statements: Met with in clinic to discuss nutrition for nausea, emesis and unintentional weight loss, initial visit. [place]line arrives w/ handout summarizing nausea hx dating back to Sep 2020 start (though admits to having a rumbly stomach as a kid when describing hx of appetite/nausea). Expresses awareness that anxiety impacts nausea (see other awareness points below). Reports downward spirals of nausea, lists 70% of time good days 30% of time bad days. Aware liquids tolerated > solids at times, or grabs for bland dry foods (cheese its). Takes zofran for nausea, Mg Citrate for stooling. Weight hx stable ~ 155#, so losing down towards 140s freaked her out. Vomited 2x (both on weekends) in the last 3 weeks (= way more often). Denies body image issues now or during life. Swam in HS, ate whatever she wanted hx. Reports ADHD and forgets to eat at times. It's not worth the effort of making food sends into spiral, r/t ADHD. Second week at new job very happy to be there. 6 months unemployed prior to this. Started [employer] shakes ~08/17/23 (protein, vit/min, mixes w/ water) 1-2/day. Started THC (weekends) a few months ago, independent from Dr. Penny. Mom/ going grocery shopping tonight. Awareness: - Mornings are worst, wake up w/nausea - I feel better once I've eaten. - Anxiety makes symptoms worse - When I start to get hungry I feel nauseous, more nauseous in AM, evenings tend to be better. - Not eating makes it way worse - Liquids tolerated sometimes better than solids. or dry bland foods. Safe foods: applesauce, peanut butter. Trigger foods: meat, caffeine. Pescatarian: r/t intolerances: includes fish, eggs, some dairy (possible lactose interance) includes cheese/sour cream. Not for moral reasons. Appetite: always been a snacker, but sometimes forgets to eat at times (ADHD). Nausea: Even when I'm nauseous I can tell I'm hungry. Admits to having a rumbly stomach as a kid Relationship w/ food: it's fuel, I've never had a problem w/ it, I know my eating is disordered but I don't Identify as having an eating disorder. Weight hx: since HS ~155#, now getting into 140s - freaks out bec my weight doesn't change. Denied diets fads, etc GI issues: D/C hx. Started Mg citrate - helps even out. 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, no body image issues currently or in HS Diet Recall - good day - in office for work Meal 1: never been breakfast eater - shakes recently - when feeling really good eggs and toast Meal 2: Rice/beans type things: foods chickpea masala Meal 3: more sparatic: pizza, fake meat burgers, if craving azar's burger if nothing to do next day will eat it and feel nauseous next day (12-24 hours after eating meat) Snack: grazer I love cheese its, chips - starts before lunch (after each meal has 1 snack) Fluid intake: meal replacement shake, two 32 oz water bottle/day on a good day, 1-2 cans frida paz/day (increases as nausea increases 2-3/day), good day spring for [facility] ak[facility]. avoids caffeine Meal preparation: Dining out: when financially solvent likes to go out to eat. I think I eat more when dining out Alcohol: up/down; depends on mental health. Few weeks no etoh currently. usually not worth it. 2 drinks at a time (max) THC: 1x/week on weekends. 1st episode maybe coincided w/ 1 episode. Might have triggered 2nd one cut way back Food Allergies: None Food sensitives: likely lactose intolerance Diet Recall - in a bad cycle Meal 1: shake takes me longer to get down on bad day. May have another shake as needed, or applesauce. Cheese its, toast if tolerated (maybe butter on it). Constantly thinking ok what can I handle constantly trying to get something. constant nibbling, hard to measure Meal 2: dinner: usually feeling better, may try rice and beans or mac and cheese (more nutrient dense). Salad tolerated Problems related to food security: denied - family near by Activity level: haven't been able to work out regularly since [employer]. Notes some physical and some mental barriers to this. Lives sedentary lifestyle. Move movement at office. Working w/ Dr. Penny to rebuild relationship with movement s/p . 08/23/23: Malnutrition Assessment (Per AND/ASPEN Consensus Statement, 2012) Inflammation not likely present Energy Intake Moderate inadequate energy intake: <75% for >/= 1 month Weight Loss Moderate weight loss: 5% loss in 1 month Body Fat Loss Mild body fat loss noted: orbital fat pad Muscle Mass Loss Mild muscle mass loss noted: temporal Fluid Accumulation Not able to assess for fluid accumulation Aircraft Designer Strength Aircraft Designer strength not assessed Malnutrition Assessment Based on the above findings, the meets the clinical characteristics to support a diagnosis of: Non-severe (moderate) social/environmental related malnutrition Pertinent lab results: HEMOGLOBIN A1C 4.7 (06/07/23) Lipid Panel: CHOLESTEROL 161 (06/07/23) MEASURED LDL____ HDL 41 (06/07/23) TRIGLYCERIDE____ LDL CALCULATION 113 H (06/07/23) HGB 14.7 (06/07/23) Estimated nutrient needs based on actual body weight 68 kg 8133-0919 calories/day 25-30 kcal/kg 54-68 grams protein/day 0.8-1 g/kg 2794-7468 ml fluids/day 25-35 ml/kg NUTRITION DIAGNOSIS: Inadequate oral intake r/t nausea AEB reports nausea cycles which limit PO intakes leading to unintentional eight loss down to 140s#, in setting of anxiety and awareness this makes sx worse INTERVENTION: Provided nutrition education/counseling: - Talked about where she's at today w/ food may not be where she's at in future. Goal is to stabilize. - Commended on her awareness of factors that influence sx. Discussed anxiety possible impact on digestion. - Recommended schedule PO q 2-3 hours to prevent missing meals (build into work calendar or phone alarms), going too long on empty stomach (which could increase nausea). Include safe foods as needed. Did not initiate limits. - Discussed when thinking It's not worth the effort of making food, her body possibly needs something right then. Supported use of frozen meals on hand for quick access to food. - Continue shakes at this time (protein, vit/min, hydration). Can discuss mixing w/ almond milk, soy milk, lactose free milk as appropriate. Also mentioned Ensure, Boost etc. - Discussed possible THC involvement/trigger in recent emesis episodes. Encouraged curiosity on it's involvement w/ nausea. - Educated that dehydration can lead to nausea, encouraged continued adequate fluid intakes. On bad days, encouraged continued varying fluids that include electrolytes (rec Gatorade, frida paz given safe). - Encouraged on bad day with slow shake, include check in on mental health status and anything present. - Supported rebuilding relationship with movement with Dr. Penny. Suggested away from exercise and think about what movement feels ok for her. Briefly discussed how movement can benefit nausea/appetite when gentle and incorporated in a balaced way. Education provided using: Handouts: Nausea/vomiting handout - crossed out cancer parts Discussion MONITORING/EVALUATION: Patient's nutrition/activity related goals: Goal 1 - schedule PO q 2-3 hours to prevent forgetting and empty stomach FOLLOW UP: Follow up appointment will be scheduled: 09/21 at 3 pm Camryn /neil/ JUAN MANUEL VALLADARES MS, RD, LD Clinical Dietitian Signed: 08/24/2023 16:49 JUAN MANUEL VALLADARES [facility]
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
--- OUTSIDE RECORDS SUMMARY | 2024-06-05 04:19 | XMS_ITS | Encounter Summary ---
Author Name [facility] [place] [facility] [place] [facility] [place] Address [address] [place] [address] Care Team Providers Care Underliner Name Role Phone BOGDAN TAWNYA Primary Care Provider SHAWANDA Todd Primary Care Provider Aung groves Insurance Providers: All historical and current Section [...] PRESCRIPT ION JACEY S Jul 07, 2021 [facility] [id number] [phone] DORETHA SAMPSON PATIENT [facility] MENTAL HEALTH JACEY S Jul 07, 2021 [id number] [phone] DORETHA SAMPSON PATIENT [facility] * POINT OF SERVICE JACEY S Jul 07, 2021 [id number] [phone] DORETHA SAMPSON PATIENT Selected Encounter This section includes the information on record at [place] for the Encounter. Date/Time Encounter Type Encounter Description Reason Pro vider Source IHE Encounter Template Text not used by [place]
--- OUTSIDE RECORDS SUMMARY | 2024-06-05 04:19 | XMS_ITS ---
[place] MED NUTRITION INDIV SUBSEQ [facility] Encounter Summary Created on: June 04, 2024 DORETHA SAMPSON PRIYA : 1995 Sex: Female Author Name [facility] [place] Organization [place] Address [address] [place] [address] Care Team Providers Care Sewing Trimmer Name Role Phone TAWNYA MCFADDEN Primary Care [...] PRESCRIPT ION JACEY S Jul 07, 2021 [facility] [id number] [phone] DORETHA SAMPSON PATIENT [facility] MENTAL HEALTH JACEY S Jul 07, 2021 [id number] [phone] DORETHA SAMPSON PATIENT [facility] * POINT OF SERVICE JACEY S Jul 07, 2021 [id number] [phone] DORETHA SAMPSON PATIENT Selected Encounter This section includes the information on record at [place] for the Encounter. Date/Time Encounter Type Encounter Description Reason Provider Source Nov 16, 2023 10:00 AM MED NUTRITION INDIV SUBSEQ NUTRITION/DIETETI CS-INDIVIDUAL ICD-10-CM R11.2 Nausea with vomiting, unspecified SANDIP VALLADARES IHE Encounter Template Text not used by [place] Assessments - Encounter Diagnoses This section includes the primary and secondary diagnoses documented for the Encounter. Date/Time Primary/Secondary Diagnosis Diagnosis Name Provider Source Nov 16, 2023 10:30 AM PRIMARY Nausea with vomiting, unspecified SANDIP VALLADARES Nov 16, 2023 10:30 AM SECONDARY Dietary counseling and surveillance SANDIP VALLADARES Plan of Treatment: Future Appointments (+ 6 months) and Future Tests (+/- 45 days) The Plan of Treatment section includes future care activities for the patient from all [place] [facility]. This section includes future appointments and future orders which are active, pending or scheduled. Future Appointments This section includes appointments that were scheduled to occur 6 months from the date of the Encounter, up to a maximum of 20 appointments. The data comes from all [place] treatment facilities. Appointment Date/Time Appointment Type Appointme nt Facility Name Nov 22, 2023 11:00 AM AMBULATORY - [facility] Dec 05, 2023 11:00 AM AMBULATORY - [facility] Dec 06, 2023 01:00 PM AMBULATORY - PS[facility]CHIATRY [facility] Dec 08, 2023 12:30 PM AMBULATORY - SURGERY [facility] Dec 08, 2023 02:00 PM AMBULATORY - SURGERY [facility] Dec 12, 2023 11:00 AM AMB[facility]ATORY - [facility]RY [facility] Dec 18, 2023 10:30 AM [facility] Dec 19, 2023 09:00 AM AMBULATORY - NONE [facility] Jan 11, 2024 01:00 PM AMBULATORY - PSYCHIATRY [facility] Jan 15, 2024 09:00 AM AMBULATORY - MEDICINE [facility] Jan 16, 2024 11:00 AM AMBULATORY - [facility] Jan 18, 2024 01:00 PM AMBULATORY - PSYCHIATRY [facility] Jan 19, 2024 02:00 PM AMBULATORY - SURGERY [facility] Jan 22, 2024 01:15 PM AMBULATORY - PS[facility]IATRY [facility] Jan 23, 2024 10:00 AM AMBULATORY - [facility]ATRY [facility] Jan 23, 2024 11:00 AM AMBULATORY - [facility]AT[facility] Jan 25, 2024 01:00 PM AMBULATORY - PSYCHIATRY [facility] Jan 30, 2024 11:00 AM AMB[facility]ORY - [facility]AT[facility] Feb 01, 2024 01:00 PM AMBULATORY - PSYCHIATRY [facility] Feb 06, 2024 11:00 AM AMBULATORY - [facility]AT[facility] Social History: Smoking Status (Most current) and Tobacco Use (All prior to encounter date) This section includes the most current, and the historical, smoking and tobacco- related health factors from the [place] facility where the Encounter took place. Current Smoking Status This section includes the most current smoking, or tobacco-related health factor, from the [place] facility where the Encounter took place. Date/Time Current Smoking Status Comment Facil ity Jun 07, 2023 01:00 PM VA-TOBACCO FORMER USER [facility] Tobacco Use History This section includes a history of the smoking, or tobacco-related health factors, that were collected on or before the date of the Encounter. The data comes from the [place] facility where the Encounter took place. Date/Time Smoking Status/Tobacco Use Comment F acility Jun 07, 2023 01:00 PM VA-TOBACCO QUIT 1 TO < 5 YRS [facility] Apr 26, 2021 01:00 PM VA-TOBACCO NEVER USED [facility] Encounter Notes: All associated encounter notes This section contains the clinical notes associated to the Encounter. Date/Time Encounter Note(s) Provider Source Nov 16, 2023 08:06 AM NUTRITION EDUCATIO N NOTE: LOCAL TITLE: EDUCATION NUTRITION STANDARD TITLE: NUTRITION EDUCATION NOTE DATE OF NOTE: NOV 16, 2023@08:06 ENTRY DATE: NOV 16, 2023@08:07:03 AUTHOR: JUAN MANUEL VALLADARES EXP COSIGNER: URGENCY: STATUS: COMPLETED SUBJECT: nutrition NUTRITION EDUCATION OUTPATIENT Follow up, [facility] Time spent: 27 mins Reason for visit: nausea, unintentional wt loss ASSESSMENT: Height: 66 in [167.6 cm] (06/07/2023 13:06) Weight: reports stable wt 11/09/23 Measurement DT WEIGHT LB(KG)[BMI] 06/07/2023 13:06 149.5(67.81)[24] 05/17/2021 14:03 147.2(66.77)[24] 04/26/2021 13:09 149.4(67.77)[24] BMI: 24.2 Weight change: stable UBW: 155# Pertinent Past Medical History: anxiety, depression, nausea, social phobia, possible Meniere's disease (dx ENT 10/23/23) Nutrition Related Medications: fluoxetine, trazadone; non-va: Mg gluconate, MVI, ferrous sulfate EDUCATION SCREENING PARTICIPANTS: Patient BARRIERS/SPECIAL NEEDS: no barriers identified READINESS TO LEARN: no barriers Patient subjective statements: Connected via VVC to discuss optimizing PO intake for nausea. Reviewed Low sodium recipes on websites. Zebulon states more likely to use online vs a cookbook. Recovering from flu, was eating less, adequate fluids (tea). Asked about NuSalt (salt substitute). Acknowledges less nausea overall. Safe foods: applesauce, peanut butter, frida paz. Trigger foods: meat, caffeine. Pescatarian r/t intolerances: includes fish, eggs, some dairy (possible lactose interance) includes cheese/sour cream. Not for moral reasons. Diet Recall - 11/09 - stuck w/ safe foods already. Snacks up until dinner. Meal 1: AM shake: either [employer] (1) w/ half coconut milk, half water OR Ensure (1) Snack: applesauce + almonds (2 handfuls), sometimes protein bar Meal 2: girl dinner: (bigger snack - almonds, applesauce and something else) random things from pantry Meal 3: pasta (easy safe) found sauce recipe (tomatoes/herbs) Snack: chips/salsa, sandhya/bread and hummus Fluid intake: 1 ONS/day, two 32 oz water bottle/day on a good day, frida paz (on occasion as well - watches sodium), 10/19 (NEW) adds Gatorade pkt in water; avoids caffeine Meal preparation: Dining out: when [...] way back Food Allergies: None Food sensitives: possible lactose intolerance Problems related to food security: 10/19: still denies, family is covering Activity level: haven't been able to work [...] Not able to assess for fluid accumulation Customer Engagement Representative Strength Customer Engagement Representative strength not assessed Malnutrition Assessment Based on the above findings, the meets the clinical characteristics to support a diagnosis of: Non-severe (moderate) social/environmental related malnutrition Pertinent lab results: Reviewed Estimated nutrient needs based on actual body weight 68 kg 0165-2684 calories/day 25-30 kcal/kg 54-68 grams protein/day 0.8-1 g/kg 1551-2686 ml fluids/day 25-35 ml/kg NUTRITION DIAGNOSIS: Inadequate oral intake r/t nausea AEB reports nausea cycles which limit PO intakes leading to unintentional eight loss down to 140s#, in setting of anxiety and awareness this makes sx worse -- Eval of dx: continues to improve INTERVENTION: Provided nutrition education/counseling: - Reviewed low sodium recipe page from 'The Heart Dietitian' https://theheartdietitian.co m/category/special-diets/low -sodium/ - Also reviewed low sodium recipes another website: https://www.[facility].org/h ealthy-lifestyle/recipes/low -sodium-recipes/rcs- 41479856 - Discussed starting w/ just 1-2 recipes a week to try, beginning r/t challenge to find the energy to prepare - Reinforced takes 3-4 weeks for taste buds to adjust Education provided using: Handout: See sites above Discussion MONITORING/EVALUATION: Patient's nutrition/activity related goals: Goal 1 - schedule PO q 2-3 hours to prevent forgetting and empty stomach : -- Meeting, ongoing FOLLOW UP: Follow up appointment will be scheduled: 12/19/23 @ 9:00 am [facility] to review meal prep motivation, energy and additional tips as able (tips sheet) /neil/ JUAN MANUEL VALLADARES MS, RD, LD Clinical Dietitian Signed: 11/16/2023 10:48 JUAN MANUEL VALLADARES [facility]
--- OUTSIDE RECORDS SUMMARY | 2024-06-05 04:19 | XMS_ITS | Encounter Summary ---
Author Name [facility] [place] Organization [place] Address [address] [place] [address] Care Team Providers Care Steel Post Installer Name Role Phone TAWNYA MCFADDEN Primary Care [...] PRESCRIPT ION JACEY S Jul 07, 2021 [id number] [phone] DORETHA SAMPSON PATIENT [facility]* MENTAL HEALTH JACEY S Jul 07, 2021 [id number] [phone] DORETHA SAMPSON PATIENT [facility] * POINT OF SERVICE JACEY S Jul 07, 2021 [id number] [phone] DORETHA SAMPSON PATIENT Selected Encounter This section includes the information on record at [place] for the Encounter. Date/Time Encounter Type Encounter Description Reason Provider Source Nov 08, 2023 03:00 PM PSYTX W PT 30 MINUTES [facility] - IND ICD-10-CM F32.A Depression, unspecified JOE BRAY Encounter Template Text not used by [facility] Assessments - Encounter Diagnoses This section includes the primary and secondary diagnoses documented for the Encounter. Date/Time Primary/Secondary Diagnosis Diagnosis Name Provider Source Nov 08, 2023 03:20 PM PRIMARY Depression, unspecified JOE BRAY [facility] Nov 08, 2023 03:20 PM SECONDARY Anxiety disorder, unspecified JOE BRAY [facility] Plan of Treatment: Future Appointments (+ 6 months) and Future Tests (+/- 45 days) The Plan of Treatment section includes future care activities for the patient from all [place] [facility]. This section includes future appointments and future orders which are active, pending or scheduled. Future Appointments This section includes appointments that were scheduled to occur 6 months from the date of the Encounter, up to a maximum of 20 appointments. The data comes from all [place] treatment facilities. Appointment Date/Time Appointment Type Appointme nt Facility Name Nov 09, 2023 09:00 AM AMBULATORY - NONE [facility] Nov 09, 2023 11:00 AM AMBULATORY - PS[facility]IATRY [facility] Nov 16, 2023 10:00 AM AMBULATORY - NONE [facility] Nov 22, 2023 11:00 AM AMBULATORY - PS[facility]ATRY [facility] Dec 05, 2023 11:00 AM AMB[facility]ATORY - [facility] Dec 06, 2023 01:00 PM AMBULATORY - PS[facility]IATRY [facility] Dec 08, 2023 12:30 PM AMBULATORY - SURGERY [facility] Dec 08, 2023 02:00 PM AMBULATORY - SURGERY [facility] Dec 12, 2023 11:00 AM AMBULATORY - [facility]IATRY [facility] Dec 18, 2023 10:30 AM AM[facility]ATORY - [facility]AB [facility] Dec 19, 2023 09:00 AM AMBULATORY - NONE [facility] Jan 11, 2024 01:00 PM AMBULATORY - PSYCHIATRY [facility] Jan 15, 2024 09:00 AM AMBULATORY - MEDICINE [facility] Jan 16, 2024 11:00 AM AMBULATORY - PS[facility]CHIATRY [facility] Jan 18, 2024 01:00 PM AMBULATORY - PS[facility]CHIATRY [facility] Jan 19, 2024 02:00 PM AMBULATORY - SURGERY [facility] Jan 22, 2024 01:15 PM AMBULATORY - [facility]CHIATRY [facility] Jan 23, 2024 10:00 AM AMBULATORY - PS[facility]CHIATRY [facility] Jan 23, 2024 11:00 AM AMBULATORY - PS[facility]CHIATRY [facility] Jan 25, 2024 01:00 PM AMBULATORY - PSYCHIATRY [facility] Encounter Notes: All associated encounter notes This section contains the clinical notes associated to the Encounter. Date/Time Encounter Note(s) Provider Source Nov 08, 2023 03:12 PM MENTAL HEALTH CONS ULT: LOCAL TITLE: PRIMARY CARE-MH INTEGRATION CONSULT STANDARD TITLE: MENTAL HEALTH CONSULT DATE OF NOTE: NOV 08, 2023@15:12 ENTRY DATE: NOV 08, 2023@15:13:05 AUTHOR: JOE BRAY COSIGNER: URGENCY: STATUS: COMPLETED CaRS Pre-Group Consultation Session Length: 20 minutes Visit conducted by synchronous telehealth. Clifford's verbal consent obtained. Location/emergency number confirmed. Environment surveyed and all participants identified. Virtual conference room locked. Informed consent for consultation/treatment and limits and benefits of treatment were reviewed with and they indicated understanding and agreement. S/O: identified reason for referral to CaRS group as needing to push herself out of her comfort zone which is why she considered a F2F group versus virtual. She understands if the group does not fill with enough members that it is acceptable to her to be referred to a virtual group. Undersigned provider described nature and purpose of Coping and Resilience Skills (CaRS) Group, f2f format and reviewed group rules with Clifford, including attendance policy (If a participant misses the first two groups they will be removed from the group roster; If a participant misses three out of ten group sessions they will be removed from the group roster as well; If participants know they will miss the group it is very helpful if they inform staff ahead of time - this could be through a secure message or a phone call). Reviewed preference for how group materials may be sent and she requested to receive them on the first day of the group. Clifford expressed understanding of above and agreed to be scheduled for the next available CaRS Group on 11/29/[address] Jalil Huertas at the [facility]. A: Presented as mildy anxious regarding starting a new group and at first stated she would attend virtually and then re-evaluated her decision and said she will continue to push herself out of her comfort zone and attend in person. Diagnoses gleaned from referral/chart (Dr. Penny note on 10/25/2023): -Persistent depressive disorder, with anxious distress -Social anxiety disorder RISK ASSESSMENT from Dr. Penny's note on 10/25/2023 with no changes noted today) Risk Factors: History of suicidal ideation, depression, unemployed, access to firearm. Protective Factors: No recent suicidal thoughts, no history of suicidal behavior, desire to live, no history of impulsive coping, help seeking, treatment motivated. Estimate of Risk: Low acute and low chronic risk of self- harm. DISPOSITION/PLAN: Order placed for CaRS group. Group Participation added to Treatment Plan in chart dated 07/19/2023 Group Treatment Plan Identified Problem: Reduce social anxiety Goal: Learn and practice emotion regulation and interpersonal effectiveness skills Plan: attend 10 weeks of CaRS group. Referral sources alerted (Clifford stated Dr. Barrow recommended the group and Dr. Penny submitted the request) and will notify group provider, Dr. Huertas. /neil/ Joe Bray, PhD, , [facility] Psychology Director Signed: 11/08/2023 15:23 Receipt Acknowledged By: 11/08/2023 16:05 /es/ Debbie Barrow, PhD, Staff Psychologist 11/08/2023 16:25 /es/ MEREDITH HUERTAS, PHD, Psychology instrument assembly supervisor and [facility] associate programmer 11/08/2023 16:17 /es/ PAULA PENNY 11/13/2023 07:55 /es/ JANE CUNNINGHAM SUPERVISORY TYPEWRITER ASSEMBLY AND PARTS INSPECTOR JOE BRAY [facility]
--- OUTSIDE RECORDS SUMMARY | 2024-06-05 04:19 | XMS_ITS | Encounter Summary ---
Author Name [facility] [place] Address [address] [place] [address] Care Team Providers Care Club Room Attendant Name Role Phone TAWNYA MCFADDEN Primary Care [...] PRESCRIPT ION JACEY S Jul 07, 2021 [facility] [id number] [phone] DORETHA SAMPSON PATIENT [facility] MENTAL HEALTH JACEY S Jul 07, 2021 [id number] [phone] DORETHA SAMPSON PATIENT [facility] * POINT OF SERVICE JACEY S Jul 07, 2021 [id number] [phone] DORETHA SAMPSON PATIENT Selected Encounter This section includes the information on record at [place] for the Encounter. Date/Time Encounter Type Encounter Description Reason Provider Source Oct 25, 2023 03:00 PM PSYTX W PT 45 MINUTES M[facility] CLINIC - IND ICD-10-CM F34.1 Dysthymic disorder PAULA MCKINNEY Encounter Template Text not used by VA Assessments - Encounter Diagnoses This section includes the primary and secondary diagnoses documented for the Encounter. Date/Time Primary/Secondary Diagnosis Diagnosis Name Provider Source Oct 25, 2023 04:15 PM PRIMARY Dysthymic disorder [facility]EN[facility]APAULA [facility] Oct 25, 2023 04:15 PM SECONDARY Social phobia, generalized APULA MCKINNEY [facility] Plan of Treatment: Future Appointments (+ 6 months) and Future Tests (+/- 45 days) The Plan of Treatment section includes future care activities for the patient from all [place] [facility]. This section includes future appointments and future orders which are active, pending or scheduled. Future Appointments This section includes appointments that were scheduled to occur 6 months from the date of the Encounter, up to a maximum of 20 appointments. The data comes from all [place] treatment facilities. Appointment Date/Time Appointment Type Appointme nt Facility Name Nov 08, 2023 03:00 PM AMBULATORY - PSYCHIATRY [facility] Nov 09, 2023 09:00 AM AMBULATORY - NONE [facility] Nov 09, 2023 11:00 AM AMB[facility]ATORY [facility]IATRY [facility] Nov 16, 2023 10:00 AM AMBULATORY - NONE [facility] Nov 22, 2023 11:00 AM AMBULATORY - PS[facility]CHIATRY [facility] Dec 05, 2023 11:00 AM AMBULATORY - [facility]IATRY [facility] Dec 06, 2023 01:00 PM AMBULATORY - PSYCHIATRY [facility] Dec 08, 2023 12:30 PM AMBULATORY - SURGERY [facility] Dec 08, 2023 02:00 PM AMBULATORY - SURGERY [facility] Dec 12, 2023 11:00 AM AMBULATORY - PS[facility]IATRY [facility] Dec 18, 2023 10:30 AM AMBULATORY - [facility]AB [facility] Dec 19, 2023 09:00 AM AMBULATORY - NONE [facility] Jan 11, 2024 01:00 PM AMBULATORY - PSYCHIATRY [facility] Jan 15, 2024 09:00 AM AMBULATORY - MEDICINE [facility] Jan 16, 2024 11:00 AM AMBULATORY - [facility]IATRY [facility] Jan 18, 2024 01:00 PM AMBULATORY - PSYCHIATRY [facility] Jan 19, 2024 02:00 PM AMBULATORY - SURGERY [facility] Jan 22, 2024 01:15 PM AMBULATORY - PS[facility]CHIATRY [facility] Jan 23, 2024 10:00 AM AMB[facility]ATORY - [facility]IATRY [facility] Jan 23, 2024 11:00 AM AMBULATORY - PS[facility]CHIATRY [facility] Social History: Smoking Status (Most current) and Tobacco Use (All prior to encounter date) This section includes the most current, and the historical, smoking and tobacco- related health factors from the [place] facility where the Encounter took place. Current Smoking Status This section includes the most current smoking, or tobacco-related health factor, from the [place] facility where the Encounter took place. Date/Time Current Smoking Status Comment Facil ity Jun 07, 2023 01:00 PM VA-TOBACCO FORMER USER [facility] Tobacco Use History This section includes a history of the smoking, or tobacco-related health factors, that were collected on or before the date of the Encounter. The data comes from the [place] facility where the Encounter took place. Date/Time Smoking Status/Tobacco Use Comment F acility Jun 07, 2023 01:00 PM VA-TOBACCO QUIT 1 TO < 5 YRS [facility] Apr 26, 2021 01:00 PM VA-TOBACCO NEVER USED [facility] Encounter Notes: All associated encounter notes This section contains the clinical notes associated to the Encounter. Date/Time Encounter Note(s) Provider Source Oct 25, 2023 03:57 PM MENTAL HEALTH NOTE : LOCAL TITLE: MH PROGRESS NOTE STANDARD TITLE: MENTAL HEALTH NOTE DATE OF NOTE: OCT 25, 2023@15:57 ENTRY DATE: OCT 25, 2023@15:57:12 AUTHOR: PAULA MCKINNEYIGNER: URGENCY: STATUS: COMPLETED ----PSYCHOTHERAPY PROGRESS NOTE---- INFORMED CONSENT: Clinician and reviewed informed consent for treatment, potential risks and benefits of treatment, and limits of confidentiality. indicated understanding and agreement. [place] Name: Doretha Sampson Date of : 1995 Intervention session #: 7 MENTAL STATUS Grooming: Appropriate Motor: Calm; unremarkable Mood: Euthymic Affect: Mildly tense; occasionally tearful Speech: Normal rate, rhythm, and volume Thought Content: Negative for unusual or bizarre content Thought Processes: Linear; logical; goal-oriented Suicidality: Passive (no plan or intent) Homicidality: Absent Hallucinations: Absent Delusions: Absent Orientation: Intact DSM-5 DIAGNOSTIC IMPRESSION -Persistent depressive disorder, with anxious distress -Social anxiety disorder RELEVANT HISTORY reported an increase in negative emotional experiences over the past few weeks. She attributed this partly to a recent Vocational/Rehabilitation with Dr. Barrow, which sheryl described in very positive terms. She explained that Dr. Barrow helped her feel seen, which gave her hope and motivation for moving forward and also seemed to open up something in her which brought strong emotions more readily to the surface. Sheryl further reported that she was diagnosed with possible Meniere's disease, which could help her understand the origin of her physical symptoms. Sheryl also reported that she contacted a community agency to be evaluated and possibly treated for ADHD. She expressed interest in working with a therapist through that clinic to address ADHD symptoms. INTERVENTION DETAILS Session duration: 50 minutes. Focus of session: Regrouping and treatment planning. Education provided: -Difficulties that can arise when working with multiple therapists. -Group treatment options. -Viewing recurrent self-judgmental thoughts as stories that the mind tells itself. Other interventions: -Discussed increasing frequency of clinical contact. -Discussed options for treating ADHD-related symptoms with or without a formal ADHD diagnosis. -Validation, support, reframing. Handouts: None. [place] response: Sheryl expressed understanding and appreciation of the educational material presented this session. After discussion, she agreed that it would not make sense to pursue additional therapy outside the [facility] for [facility]- related symptoms; rather, she would prefer to be evaluated for ADHD through the [facility] and to receive treatment through her usual providers. Sheryl expressed interest in increasing session frequency and in attending the upcoming [place] Coping and Resilience Skills (CaRS) group. She also hopes to participate in [facility] when it is available. Sheryl acknowledged that her mind tells itself stories about itself. She readily identified stories such as I'm a failure or I'm a burden. Therapist and agreed to increase session frequency to weekly to biweekly for the time being. RISK ASSESSMENT Risk Factors: History of suicidal ideation, depression, unemployed, access to firearm. Protective Factors: No recent suicidal thoughts, no history of suicidal behavior, desire to live, no history of impulsive coping, help seeking, treatment motivated. Estimate of Risk: Low acute and low chronic risk of self-harm. PLAN RTC date/time: 11/09/23, 1100 Homework: None. Plan for next session: Discuss acceptance-based options for dealing with unhelpful thoughts and feelings. Current Treatment Plan Date: 07/19/23 Plan Renewal Date: 07/19/24 /neil/ PAULA MCKINNEY Signed: 10/25/2023 16:15 PAUL[facility] MCKINNEY [facility]
--- OUTSIDE RECORDS SUMMARY | 2024-06-05 04:19 | XMS_ITS ---
[place] MED NUTRITION INDIV SUBSEQ [facility] Encounter Summary Created on: June 04, 2024 DORETHA SAMPSON PRIYA : 1995 Sex: Female Author Name [facility] [place] Address [address] [place] [address] Care Team Providers Care Painter Apprentice Name Role Phone TAWNYA MCFADDEN Primary Care [...] PRESCRIPT ION JACEY S Jul 07, 2021 [facility] [id number] [phone] DORETHA SAMPSON PATIENT [facility] JACEY S Jul 07, 2021 [id number] [phone] DORETHA SAMPSON PATIENT [facility] * POINT OF SERVICE JACEY S Jul 07, 2021 [id number] [phone] DORETHA SAMPSON PATIENT Selected Encounter This section includes the information on record at [place] for the Encounter. Date/Time Encounter Type Encounter Description Reason Provider Source Nov 09, 2023 09:00 AM MED NUTRITION INDIV SUBSEQ NUTRITION/DIETETI CS-INDIVIDUAL ICD-10-CM R11.2 Nausea with vomiting, unspecified SANDIP VALLADARES IHE Encounter Template Text not used by [place] Assessments - Encounter Diagnoses This section includes the primary and secondary diagnoses documented for the Encounter. Date/Time Primary/Secondary Diagnosis Diagnosis Name Provider Source Nov 09, 2023 04:53 PM PRIMARY Nausea with vomiting, unspecified SANDIP VALLADARES Nov 09, 2023 04:53 PM SECONDARY Person consulting for explanation of exam or test findings SANDIP VALLADARES Plan of Treatment: Future Appointments (+ 6 months) and Future Tests (+/- 45 days) The Plan of Treatment section includes future care activities for the patient from all [place] [facility] This section includes future appointments and future orders which are active, pending or scheduled. Future Appointments This section includes appointments that were scheduled to occur 6 months from the date of the Encounter, up to a maximum of 20 appointments. The data comes from all [place] treatment facilities. Appointment Date/Time Appointment Type Appointme nt Facility Name Nov 16, 2023 10:00 AM AMBULATORY - NONE [facility] Nov 22, 2023 11:00 AM AM[facility]ORY - [facility] Dec 05, 2023 11:00 AM [facility] Dec 06, 2023 01:00 PM AMBULATORY - PS[facility]CHIATRY [facility] Dec 08, 2023 12:30 PM AMBULATORY - SURGERY [facility] Dec 08, 2023 02:00 PM AMBULATORY - SURGERY [facility] Dec 12, 2023 11:00 AM [facility] Dec 18, 2023 10:30 AM AMBULATORY - REHAB [facility] Dec 19, 2023 09:00 AM AMBULATORY - NONE [facility] Jan 11, 2024 01:00 PM AMBULATORY - PSYCHIATRY [facility] Jan 15, 2024 09:00 AM AMBULATORY - MEDICINE [facility] Jan 16, 2024 11:00 AM [facility] Jan 18, 2024 01:00 PM AMBULATORY - PSYCHIATRY [facility] Jan 19, 2024 02:00 PM AMBULATORY - SURGERY [facility] Jan 22, 2024 01:15 PM AMBULATORY - PS[facility]CHIATRY [facility] Jan 23, 2024 10:00 AM [facility] Jan 23, 2024 11:00 AM [facility] Jan 25, 2024 01:00 PM AMBULATORY - PSYCHIATRY [facility] Jan 30, 2024 11:00 AM [facility] Feb 01, 2024 01:00 PM AMBULATORY - PSYCHIATRY [facility] Social History: Smoking Status (Most current) and Tobacco Use (All prior to encounter date) This section includes the most current, and the historical, smoking and tobacco- related health factors from the [place] facility where the Encounter took place. Current Smoking Status This section includes the most current smoking, or tobacco-related health factor, from the [place] facility where the Encounter took place. Date/Time Current Smoking Status Comment Facil ity Jun 07, 2023 01:00 PM VA-TOBACCO FORMER USER [facility] Tobacco Use History This section includes a history of the smoking, or tobacco-related health factors, that were collected on or before the date of the Encounter. The data comes from the [place] facility where the Encounter took place. Date/Time Smoking Status/Tobacco Use Comment F acility Jun 07, 2023 01:00 PM VA-TOBACCO QUIT 1 TO < 5 YRS [facility] Apr 26, 2021 01:00 PM VA-TOBACCO NEVER USED [facility] Encounter Notes: All associated encounter notes This section contains the clinical notes associated to the Encounter. Date/Time Encounter Note(s) Provider Source Nov 09, 2023 05:57 AM NUTRITION EDUCATIO N NOTE: LOCAL TITLE: EDUCATION NUTRITION STANDARD TITLE: NUTRITION EDUCATION NOTE DATE OF NOTE: NOV 09, 2023@05:57 ENTRY DATE: NOV 09, 2023@05:57:55 AUTHOR: JUAN MANUEL VALLADARES EXP COSIGNER: URGENCY: STATUS: COMPLETED SUBJECT: nutrition NUTRITION EDUCATION OUTPATIENT Follow up, [facility] Time spent: 29 mins Reason for visit: nausea, unintentional wt [...] no barriers Patient subjective statements: Met with via [facility] for nausea, vomiting. She started putting low sodium recs into place 10/24 with 500 mg sodium per meals (1-2/day) and 100 mg per snack (5-6/day) - is staying under 2000 mg. Reports trying to make food again r/t low sodium though hard. Has all ingredients to make chickpea masala though tough finding motivation to make. Has a cold (second since ), otherwise thinks she can tell a difference in nausea w/ lower sodium (not getting as dizzy). Reports stable wt though thinks she's eating less w/ Na restriction. Tried Mrs. Erickson on a rice cauliflower meal. Has used super trays for meal prep (large ice trays for making meals). See initial for background on nausea 08/24/23. Safe foods: applesauce, peanut butter, frida paz. [...] (on occasion as well - watches sodium), 12/14 (NEW) adds Gatorade pkt in water; avoids [...] Not able to assess for fluid accumulation Stitcher Set Up Operator Automatic Strength Stitcher Set Up Operator Automatic strength not assessed Malnutrition Assessment Based on the above findings, the meets the clinical characteristics to support a diagnosis of: Non-severe (moderate) social/environmental related malnutrition Pertinent lab results: Reviewed Estimated nutrient needs based on actual body weight 68 kg 2699-3054 calories/day 25-30 kcal/kg 54-68 grams protein/day 0.8-1 g/kg 1890-2465 ml fluids/day 25-35 ml/kg NUTRITION DIAGNOSIS: Inadequate oral intake r/t nausea AEB reports nausea cycles which limit PO intakes leading to unintentional eight loss down to 140s#, in setting of anxiety and awareness this makes sx worse -- Eval of dx: improving INTERVENTION: Provided nutrition education/counseling: - Discussed low sodium recommendations. Talked though recs for <2000mg, encouraged not lower than 1500 mg. Reviewed taste buds can adjust given report of lack of flavor. - Commended her on reading food labels, putting guidelines into practice. Reviewed handout below together - validated her efforts/understanding - Will continue to review meal prep on 11/16 visit. Education provided using: Handout: Controlling Sodium and Reading labels - sent via [facility] Discussion MONITORING/EVALUATION: Patient's nutrition/activity related goals: Goal 1 - schedule PO q 2-3 hours to prevent forgetting and empty stomach : -- Meeting, ongoing FOLLOW UP: Follow up appointment will be scheduled: 11.16.23 @ 10:00 am [place] /neil/ JUAN MANUEL VALLADARES MS, RD, LD Clinical Dietitian Signed: 11/09/2023 17:11 JUAN MANUEL VALLADARES [facility]
--- OUTSIDE RECORDS SUMMARY | 2024-06-05 04:19 | XMS_ITS | Encounter Summary ---
Author Name [facility] [place] Organization [place] Address [address] [place] [address] Care Team Providers Care Pediatric Critical Care Nurse Name Role Phone BOGDANTAWNYA GIRON Primary Care Provider SHAWANDA Todd Primary Care [...] PRESCRIPT ION JACEY S Jul 07, 2021 [place] [id number] [phone] DORETHA SAMPSON PATIENT [facility] JACEY S Jul 07, 2021 [id number] [phone] DORETHA SAMPSON PATIENT [facility] * POINT OF SERVICE JACEY S Jul 07, 2021 [id number] [phone] DORETHA SAMPSON PATIENT Selected Encounter This section includes the information on record at [place] for the Encounter. Date/Time Encounter Type Encounter Description Reason Provider Source Dec 08, 2023 12:30 PM EVOKED AUDITORY TST COMPLETE AUDIOLOGY ICD-10-CM Z01.118 Encntr for exam of ears and hearing w oth abnormal findings HALEY ESTRADA IHNelda Encounter Template Text not used by [facility] Assessments - Encounter Diagnoses This section includes the primary and secondary diagnoses documented for the Encounter. Date/Time Primary/Secondary Diagnosis Diagnosis Name Provider Source Dec 12, 2023 07:19 AM PRIMARY Encntr for exam of ears and hearing w oth abnormal findings HALEY ESTRADA [facility] Dec 12, 2023 07:19 AM SECONDARY Tinnitus, bilateral HALEY ESTRADA [facility] Plan of Treatment: Future Appointments (+ 6 months) and Future Tests (+/- 45 days) The Plan of Treatment section includes future care activities for the patient from all [place] [facility]. This section includes future appointments and future orders which are active, pending or scheduled. Future Appointments This section includes appointments that were scheduled to occur 6 months from the date of the Encounter, up to a maximum of 20 appointments. The data comes from all [place] treatment facilities. Appointment Date/Time Appointment Type Appointme nt Facility Name Dec 12, 2023 11:00 AM AMBULATORY - [facility] Dec 18, 2023 10:30 AM AM[facility]ORY - [facility] Dec 19, 2023 09:00 AM AMBULATORY - NONE [facility] Jan 11, 2024 01:00 PM AMBULATORY - PSYCHIATRY [facility] Jan 15, 2024 09:00 AM AMBULATORY - MEDICINE [facility] Jan 16, 2024 11:00 AM [facility] Jan 18, 2024 01:00 PM AMBULATORY - PSYCHIATRY OR [facility] Jan 19, 2024 02:00 PM AMBULATORY - SURGERY [facility] Jan 22, 2024 01:15 PM AMBULATORY - PSYCHIATRY [facility]) Jan 23, 2024 10:00 AM AMB[facility]ATORY [facility] Jan 23, 2024 11:00 AM AMBULATORY [facility] Jan 25, 2024 01:00 PM AMBULATORY - PSYCHIATRY OR [facility] Jan 30, 2024 11:00 AM AMB[facility]ATORY [facility] Feb 01, 2024 01:00 PM AMBULATORY - PSYCHIATRY OR [facility] Feb 06, 2024 11:00 AM [facility] Feb 08, 2024 01:00 PM AMBULATORY - PS[facility]CH[facility]ATRY [facility] Feb 13, 2024 11:00 AM [facility] Feb 14, 2024 02:00 PM AMBULATORY - [facility]IATRY [facility] Feb 15, 2024 01:00 PM AMBULATORY - PSYCHIATRY [facility] Feb 20, 2024 11:00 AM AMBULATORY - PS[facility]CHIATRY [facility] Active, Pending, and Scheduled Orders This section includes a listing of several types of active, pending, and scheduled orders, including clinic medications orders, diagnostic test orders, procedure orders and consult orders; where the start date of the order is 45 days before the date of the Encounter or 45 days after the date of theEncounter. The data comes from all [place] treatment facilities. Test Date/Time Test Type Test Details Facility Name Jan 19, 2024 02:07 PM Consult Order [facility] Cons Feed Inspection Supervisor's Choice [facility] Encounter Notes: All associated encounter notes This section contains the clinical notes associated to the Encounter. Date/Time Encounter Note(s) Provider Source Dec 08, 2023 12:43 PM AUDIOLOGY NOTE: LOCAL TITLE: AUDIOLOGY CLINIC NOTE STANDARD TITLE: AUDIOLOGY NOTE DATE OF NOTE: DEC 08, 2023@12:43 ENTRY DATE: DEC 08, 2023@12:43:53 AUTHOR: HALEY ESTRADA COSIGNER: URGENCY: STATUS: COMPLETED Hearing Aid Evaluation Right sided tinnitus. Time Spent: 60 Minutes S: History [place] presented today for an initial hearing evaluation through the [place]. She reports a right sided tinnitus, but is really interested in a baseline. reports a right sided tinnitus. She denies otalgia, otorrhea, and aural pressure at present. Please see the most recent primary care progress note for a more in depth review of other health systems. [place] is service connected for tinnitus and other issues at present. O: Audiological Evaluation Otoscopy: Right & Left: Clear canals, bilaterally, with an unobstructed view of healthy appearing tympanic membranes. Tympanometry: Right & Left: Jerger type A tympanograms, bilaterally, with measurements of compliance, ear canal volume, and peak pressure within normal limits. Acoustic reflexes. Ipsilateral reflexes were measured from 500-4000 Hz and found to be present at 80 dB at all frequencies. Please review the audiogram in QUASAR For a more in depth breakdown of specific frequencies. Distortion product otoacoustic emissions were measured at 12 frequencies from 500-54751 Hz, and found to be present through 6 kHZ in the right ear, and through 6 kHz in the left ear with the exception of 3 kHz. Pure-tone Audiometry of air-conduction and bone-conduction: Right & Left: Normal hearing in both ears at all frequencies. Word recognition testing: Speech recognition thresholds were in good agreement with 3-frequency pure-tone averages. Tested at 65 dB HL, word recognition was 96% in the right ear, and 100% in the left ear, judged to be excellent, bilaterally. Audio [phone] 1500 2000 3000 4000 6000 8000 Right 5 5 0 5 5 5 Bone 0 0 5 5 Left 10 5 0 5 5 5 Bone Acoustic Reflexes Right 500 1000 2000 4000 Ipsi 80 80 80 80 Left 500 1000 2000 4000 Ipsi 80 80 80 80 A CPRS version of the audiogram is available under the Tools pull-down menu. Click Specialty PSL > Audiology > Audiogram Display to view pure-tone, speech, and immittance data. A: Impressions presents with normal hearing. She was advised to follow-up with this clinic if she has needs going forward. P: Recommendations No further follow-up is necessary at this time. The was instructed to make an appointment with the audiology clinic if new issues arise with his hearing aids, or sooner if he detects a change in his hearing. Test results and treatment plan discussed with patient. The patient verbally demonstrated an understanding of the information provided and actively participated in the treatment plan. /neil/ Leona Parkinson Ph.D. Jammer Operator Chief, Audiology Signed: 01/08/2024 13:19 HALEY ESTRADA [facility]
--- OUTSIDE RECORDS SUMMARY | 2024-06-05 04:19 | XMS_ITS | Encounter Summary ---
Author Name [facility] [place] Address [address] [place] [address] Care Team Providers Care Office Automation Clerk Name Role Phone TAWNYA MCFADDEN Primary Care [...] PRESCRIPT ION JACEY S Jul 07, 2021 [facility] [id number] [phone] DORETHA SAMPSON PATIENT [facility] JACEY S Jul 07, 2021 [id number] [phone] DORETHA SAMPSON PATIENT [facility] * POINT OF SERVICE JACEY S Jul 07, 2021 [id number] [phone] DORETHA SAMPSON PATIENT Selected Encounter This section includes the information on record at [place] for the Encounter. Date/Time Encounter Type Encounter Description Reason Provider Source Sep 27, 2023 10:00 AM PSYTX W PT 45 MINUTES [facility]ENT[facility] CLINIC - IND ICD-10-CM F34.1 Dysthymic disorder PAULA MCKINNEY Encounter Template Text not used by [facility] Assessments - Encounter Diagnoses This section includes the primary and secondary diagnoses documented for the Encounter. Date/Time Primary/Secondary Diagnosis Diagnosis Name Provider Source Sep 27, 2023 01:11 PM PRIMARY Dysthymic disorder PAULA MCKINNEY Sep 27, 2023 01:11 PM SECONDARY Social phobia, generalized [facility] MCKINNEY [facility] Plan of Treatment: Future Appointments (+ 6 months) and Future Tests (+/- 45 days) The Plan of Treatment section includes future care activities for the patient from all [place] [facility]. This section includes future appointments and future orders which are active, pending or scheduled. Future Appointments This section includes appointments that were scheduled to occur 6 months from the date of the Encounter, up to a maximum of 20 appointments. The data comes from all [place] treatment facilities. Appointment Date/Time Appointment Type Appointme nt Facility Name Oct 04, 2023 02:00 PM AMBULATORY - PSYCHIATRY [facility] Oct 13, 2023 02:00 PM AMBULATORY - PSYCHIATRY [facility] Oct 19, 2023 03:00 PM AMBULATORY - NONE [facility] Oct 23, 2023 01:00 PM AMBULATORY - SURGERY [facility] Oct 25, 2023 03:00 PM AMB[facility]ATORY [facility] Nov 08, 2023 03:00 PM AMBULATORY - PSYCHIATRY [facility] Nov 09, 2023 09:00 AM AMBULATORY - NONE [facility] Nov 09, 2023 11:00 AM AMBULATORY [facility] Nov 16, 2023 10:00 AM AMBULATORY - NONE [facility] Nov 22, 2023 11:00 AM AMBULATORY [facility] Dec 05, 2023 11:00 AM AMB[facility] Dec 06, 2023 01:00 PM AMBULATORY - PSYCHIATRY [facility] Dec 08, 2023 12:30 PM AMBULATORY - SURGERY [facility] Dec 08, 2023 02:00 PM AMBULATORY - SURGERY [facility] Dec 12, 2023 11:00 AM [facility] Dec 18, 2023 10:30 [facility] Dec 19, 2023 09:00 AM AMBULATORY - NONE [facility] Jan 11, 2024 01:00 PM AMBULATORY [place] [facility] Jan 15, 2024 09:00 AM [facility] [place] Jan 16, 2024 11:00 AM [facility]ORY [facility] Social History: Smoking Status (Most current) and Tobacco Use (All prior to encounter date) This section includes the most current, and the historical, smoking and tobacco- related health factors from the [place] facility where the Encounter took place. Current Smoking Status This section includes the most current smoking, or tobacco-related health factor, from the [place] facility where the Encounter took place. Date/Time Current Smoking Status Comment Facil ity Jun 07, 2023 01:00 PM VA-TOBACCO FORMER USER [facility] Tobacco Use History This section includes a history of the smoking, or tobacco-related health factors, that were collected on or before the date of the Encounter. The data comes from the [place] facility where the Encounter took place. Date/Time Smoking Status/Tobacco Use Comment F acility Jun 07, 2023 01:00 PM VA-TOBACCO QUIT 1 TO < 5 YRS [facility] Apr 26, 2021 01:00 PM VA-TOBACCO NEVER USED [facility] Encounter Notes: All associated encounter notes This section contains the clinical notes associated to the Encounter. Date/Time Encounter Note(s) Provider Source Sep 27, 2023 12:49 PM MENTAL HEALTH NOTE : LOCAL TITLE: MH PROGRESS NOTE STANDARD TITLE: MENTAL HEALTH NOTE DATE OF NOTE: SEP 27, 2023@12:49 ENTRY DATE: SEP 27, 2023@12:49:12 AUTHOR: PAULA MCKINNEY COSIGNER: URGENCY: STATUS: COMPLETED ----PSYCHOTHERAPY PROGRESS NOTE---- INFORMED CONSENT: Clinician and reviewed informed consent for treatment, potential risks and benefits of treatment, and limits of confidentiality. [place] indicated understanding and agreement. 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 She hopes that her next contract will be fully remote, which she anticipates will be easier for her to manage. reported that hte past week has been especially difficult for her, as she has experienced multiple episodes of nausea, vomiting, and panic (see secure messaging note from RUKHSANA Back). This has been distressing for her and led her to cancel a trip out of town at the last minute. INTERVENTION DETAILS Session duration: 50 minutes. Focus of session: Cognitive flexibility. Education provided: -Role of ambiguous interoceptive experiences in recurrent panic attacks. -Cognitive flexibility as away to reduce panic frequency and intensity. -Role of values in making difficult decisions. -Role of acceptance in making difficult decisions. Other interventions: -Discussed automatic interpretations of an ambiguous picture. -Reviewed 's values worksheet. -Explored ways in which 's symptoms and the way she responds to them interfere with her ability to pursue things that matter to her. Handouts: None. [place] response: [place] expressed understanding and appreciation of the educational material presented this session. She reported that whenever she vomits or experiences a panic attack, she tends to retreat to her bed, which is her safe space, sometimes for a couple of hours at a time. With discussion, she admitted that although this serves a clear short-term function for her, it is not a workable long-term solution to dealing with such situations. expressed concern that she is becoming agoraphobic. She noted she has become increasingly fearful of leaving the house due to her concern about having a panic attack somewhere and being unable to escape the situation. RISK ASSESSMENT Risk Factors: History of suicidal ideation, depression, unemployed, access to firearm. Protective Factors: No recent suicidal thoughts, no history of suicidal behavior, desire to live, no history of impulsive coping, help seeking, treatment motivated. Estimate of Risk: Low acute and low chronic risk of self-harm. PLAN RTC date/time: 10/25/23, 1500 Homework: None. Plan for next session: Discuss ways in which might be able to modify her responses to difficult situations in order to improve her ability to do things that matter to her. Current Treatment Plan Date: 07/19/23 Plan Renewal Date: 07/19/24 /neil/ PAULA MCKINNEY Signed: 09/27/2023 13:11 PAULA MCKINNEY [facility]
--- OUTSIDE RECORDS SUMMARY | 2024-06-05 04:19 | XMS_ITS | Encounter Summary ---
Author Name [facility] [place] Organization [place] Address [address] [place] [address] Care Team Providers Care Rolled Oats Mill Operator Name Role Phone TAWNYA MCFADDEN Primary [...] ION JACEY S Jul 07, 2021 JACOBS [id number] [phone] DORETHA SAMPSON PATIENT [facility]* MENTAL HEALTH JACEY S Jul 07, 2021 [id number] [phone] DORETHA SAMPSON PATIENT [facility] * POINT OF SERVICE JACEY S Jul 07, 2021 [id number] [phone] DORETHA SAMPSON PATIENT Selected Encounter This section includes the information on record at [place] for the Encounter. Date/Time Encounter Type Encounter Description Reason Pro vider Source Oct 04, 2023 02:00 PM Outpatient Encounter MH VOCATIONAL ASSISTANCE - IND IHE Encounter Template Text not used by [place] Plan of Treatment: Future Appointments (+ 6 months) and Future Tests (+/- 45 days) The Plan of Treatment section includes future care activities for the patient from [facility] [place] [facility]. This section includes future appointments and future orders which are active, pending or scheduled. Future Appointments This section includes appointments that were scheduled to occur 6 months from the date of the Encounter, up to a maximum of 20 appointments. The data comes from all [place] treatment facilities. Appointment Date/Time Appointment Type Appointme nt Facility Name Oct 13, 2023 02:00 PM AMBULATORY - PSYCHIATRY IN [facility] Oct 19, 2023 03:00 PM AMBULATORY - NONE [facility] Oct 23, 2023 01:00 PM AMBULATORY - SURGERY [facility] Oct 25, 2023 03:00 PM [facility] Nov 08, 2023 03:00 PM AMBULATORY - [facility]IATRY [facility] Nov 09, 2023 09:00 AM AMBULATORY - NONE [facility] Nov 09, 2023 11:00 AM [facility] Nov 16, 2023 10:00 AM AMBULATORY - NONE [facility] Nov 22, 2023 11:00 AM AM[facility]ORY [facility] Dec 05, 2023 11:00 AM AM[facility] Dec 06, 2023 01:00 PM AMBULATORY - PSYCHIATRY IN [facility] Dec 08, 2023 12:30 PM AMBULATORY - SURGERY [facility] Dec 08, 2023 02:00 PM AMBULATORY - SURGERY [facility] Dec 12, 2023 11:00 AM [facility] Dec 18, 2023 10:30 AM [facility] Dec 19, 2023 09:00 AM AMBULATORY - NONE [facility] Jan 11, 2024 01:00 PM AMBULATORY - PSYCHIATRY [facility] Jan 15, 2024 09:00 AM AMBULATORY - MEDICINE [facility] Jan 16, 2024 11:00 AM AM[facility] Jan 18, 2024 01:00 PM AMBULATORY - PSYCHIATRY [facility] Encounter Notes: All associated encounter notes This section contains the clinical notes associated to the Encounter. Date/Time Encounter Note(s) Provider Source Oct 04, 2023 02:00 PM NO SHOW NOTE: LOCAL TITLE: NO SHOW NOTE STANDARD TITLE: NO SHOW NOTE DATE OF NOTE: OCT 04, 2023@14:00 ENTRY DATE: OCT 04, 2023@14:29:50 AUTHOR: DEBBIE AGUILA COSIGNER: URGENCY: STATUS: COMPLETED NO SHOW NOTE Has ADDENDA Patient did not appear for scheduled appointment. Risk Factors: History of suicidal ideation, depression, unemployed, access to firearm. Protective Factors: No recent suicidal thoughts, no history of suicidal behavior, desire to live, no history of impulsive coping, help seeking, treatment motivated. Clinician Judgment of Risk: is determined to be a low acute / chronic risk for harm to self or others. No imminent risk factors are noted at this time. Plan Based on Clinician Judgment of Risk: Additional x2 outreach will be done to reschedule. /neil/ Debbie Aguila, PhD, Staff Psychologist Signed: 10/04/2023 14:30 10/05/2023 ADDENDUM STATUS: COMPLETED Sent no show letter /neil/ MORENO HALEY [employer] Technical Signed: 10/05/2023 08:15 10/06/2023 ADDENDUM STATUS: COMPLETED Water Valve Repairer called and spoke with about this week's missed appointment. She is rescheduled for next 10/13 @ 1400 via [facility]. /neil/ Debbie Aguila, PhD, Staff Psychologist Signed: 10/06/2023 11:36 DEBBIE AGUILA [facility]
--- OUTSIDE RECORDS SUMMARY | 2024-06-05 04:19 | XMS_ITS | Encounter Summary ---
Author Name [place] Address [address] [place] [address] Care Team Providers Care Materials Handler Name Role Phone TAWNYA MCFADDEN Primary Care [...] PRESCRIPT ION JACEY S Jul 07, 2021 [facility] [id number] [phone] DOERTHA SAMPSON PATIENT [facility]* MENTAL HEALTH JACEY S Jul 07, 2021 [id number] [phone] DORETHA SAMPSON PATIENT [facility] * POINT OF SERVICE JACEY S Jul 07, 2021 [id number] [phone] DORETHA SAMPSON PATIENT Selected Encounter This section includes the information on record at [place] for the Encounter. Date/Time Encounter Type Encounter Description Reason Provider Source Nov 09, 2023 11:00 AM PSYTX W PT 45 MINUTES [facility] - IND ICD-10-CM F34.1 Dysthymic disorder PAULA MCKINNEY Encounter Template Text not used by [place] Assessments - Encounter Diagnoses This section includes the primary and secondary diagnoses documented for the Encounter. Date/Time Primary/Secondary Diagnosis Diagnosis Name Provider Source Nov 09, 2023 12:51 PM PRIMARY Dysthymic disorder PAULA MCKINNEY Nov 09, 2023 12:51 PM SECONDARY Social phobia, generalized PAULA MCKINNEY Plan of Treatment: Future Appointments (+ 6 months) and Future Tests (+/- 45 days) The Plan of Treatment section includes future care activities for the patient from [facility] [place] [facility] This section includes future appointments and future orders which are active, pending or scheduled. Future Appointments This section includes appointments that were scheduled to occur 6 months from the date of the Encounter, up to a maximum of 20 appointments. The data comes from all [place] treatment facilities. Appointment Date/Time Appointment Type Appointme nt Facility Name Nov 16, 2023 10:00 AM AMBULATORY - NONE [facility] Nov 22, 2023 11:00 AM AM[facility]ORY [facility] Dec 05, 2023 11:00 AM [facility] Dec 06, 2023 01:00 PM AMBULATORY - PSYCHIATRY [facility] Dec 08, 2023 12:30 PM AMBULATORY - SURGERY [facility] Dec 08, 2023 02:00 PM AMBULATORY - SURGERY [facility] Dec 12, 2023 11:00 AM AM[facility] Dec 18, 2023 10:30 AM AMBULATORY - REHAB [facility] Dec 19, 2023 09:00 AM AMBULATORY - NONE [facility] Jan 11, 2024 01:00 PM AMBULATORY - PSYCHIATRY [facility] Jan 15, 2024 09:00 AM AMBULATORY - MEDICINE [facility] Jan 16, 2024 11:00 AM AM[facility] Jan 18, 2024 01:00 PM AMBULATORY - PSYCHIATRY [facility] Jan 19, 2024 02:00 PM AMBULATORY - SURGERY [facility] Jan 22, 2024 01:15 PM AMBULATORY - [facility]IATRY [facility] Jan 23, 2024 10:00 AM AM[facility] Jan 23, 2024 11:00 AM AMB[facility] Jan 25, 2024 01:00 PM AMBULATORY - PSYCHIATRY [facility] Jan 30, 2024 11:00 AM [facility] Feb 01, 2024 01:00 PM AMBULATORY - PSYCHIATRY [facility] Social History: Smoking Status (Most current) and Tobacco Use (All prior to encounter date) This section includes the most current, and the historical, smoking and tobacco- related health factors from the [place] facility where the Encounter took place. Current Smoking Status This section includes the most current smoking, or tobacco-related health factor, from the [place] facility where the Encounter took place. Date/Time Current Smoking Status Comment Facil ity Jun 07, 2023 01:00 PM VA-TOBACCO FORMER USER [facility] Tobacco Use History This section includes a history of the smoking, or tobacco-related health factors, that were collected on or before the date of the Encounter. The data comes from the [place] facility where the Encounter took place. Date/Time Smoking Status/Tobacco Use Comment F acility Jun 07, 2023 01:00 PM VA-TOBACCO QUIT 1 TO < 5 YRS [facility] Apr 26, 2021 01:00 PM VA-TOBACCO NEVER USED [facility] Encounter Notes: All associated encounter notes This section contains the clinical notes associated to the Encounter. Date/Time Encounter Note(s) Provider Source Nov 09, 2023 12:31 PM MENTAL HEALTH NOTE : LOCAL TITLE: MH PROGRESS NOTE STANDARD TITLE: MENTAL HEALTH NOTE DATE OF NOTE: NOV 09, 2023@12:31 ENTRY DATE: NOV 09, 2023@12:32:02 AUTHOR: PAULA MCKINNEY COSIGNER: URGENCY: STATUS: COMPLETED ----PSYCHOTHERAPY PROGRESS NOTE---- INFORMED CONSENT: Clinician and reviewed informed consent for treatment, potential risks and benefits of treatment, and limits of confidentiality. indicated understanding and agreement. VVC: Visit conducted by synchronous telehealth. Tennille verbal consent obtained. Location/emergency number confirmed. Environment surveyed and all participants identified. Virtual conference room locked. Tennille Name: Doretha Mas Date of : 1995 Intervention session #: 8 MENTAL STATUS Grooming: Appropriate Motor: Calm; unremarkable Mood: Euthymic Affect: Mildly tense; occasionally tearful Speech: Normal rate, rhythm, and volume Thought Content: Negative for unusual or bizarre content Thought Processes: Linear; logical; goal-oriented Suicidality: Passive (no plan or intent) Homicidality: Absent Hallucinations: Absent Delusions: Absent Orientation: Intact DSM-5 DIAGNOSTIC IMPRESSION -Persistent depressive disorder, with anxious distress -Social anxiety disorder RELEVANT HISTORY Sheryl denied experiencing any significant changes in her symptoms since her last appointment. She continues to have difficulty with somatic symptoms, which interfere with her eating, and she has reportedly had two different colds since her last appointment. She stated that she had a positive experience with her family over the holidays, though she noted that due to her physical health problems and anxiety she ended up not joining them in volunteering to prepare a meal for the homeless, which led to feelings of guilt and disappointment. She has applied for two new jobs, both fully remote. Sheryl has been scheduled to begin the Coping and Resilience Skills (CaRS) group later this month. INTERVENTION DETAILS Session duration: 40 minutes (the session began late, as sheryl forgot the appointment was scheduled to be in person rather than by video, and a video appointment needed to be created at the last minute.) Focus of session: Reducing avoidance. Education provided: -Behavioral conceptualization of chronic avoidance. -ACT skill dropping anchor to recognize and acknowledge feelings before engaging in committed action. -Review of Leaves on a Stream exercise as mindfulness training tool and a model for model for observation and acceptance of emotions. Other interventions: -Discussed short- and long-term goals. Handouts: None. response: Sheryl expressed understanding and appreciation of the educational material presented this session. She agreed that the presented mindfulness concepts make sense but expressed that it is often difficult to be mindful in the moment. She agreed to begin practicing mindfulness regularly. indicated that her two most salient treatment targets at this time include increasing mindful acceptance of emotions and disrupting patterns of commitment to activities, avoidance, and guilt. RISK ASSESSMENT Risk Factors: History of suicidal ideation, depression, unemployed, access to firearm. Protective Factors: No recent suicidal thoughts, no history of suicidal behavior, desire to live, no history of impulsive coping, help seeking, treatment motivated. Estimate of Risk: Low acute and low chronic risk of self-harm. PLAN RTC date/time: 11/22/23, 1100 Homework: will practice Leaves on a Stream. Plan for next session: Continue to discuss acceptance-based approaches to committed action. Current Treatment Plan Date: 07/19/23 Plan Renewal Date: 07/19/24 /neil/ PAULA MCKINNEY Signed: 11/09/2023 12:51 PAULA MCKINNEY [facility]
--- OUTSIDE RECORDS SUMMARY | 2024-06-05 04:19 | XMS_ITS | Encounter Summary ---
Author Name [place] Organization [place] Address [address] [place] [address] Care Team Providers Care Vice President Commercial Bank Name Role Phone BOGDAN TAWNYA Primary Care [...] PRESCRIPT ION JACEY S Jul 07, 2021 [facility] [id number] [phone] DORETHA SAMPSON PATIENT [facility]* MENTAL HEALTH JACEY S Jul 07, 2021 [id number] [phone] DORETHA SAMPSON PATIENT [facility] * POINT OF SERVICE JACEY S Jul 07, 2021 [id number] [phone] DORETHA SAMPSON PATIENT Selected Encounter This section includes the information on record at [place] for the Encounter. Date/Time Encounter Type Encounter Description Reason Pro vider Source I[place] Encounter Template Text not used by [place]
--- OUTSIDE RECORDS SUMMARY | 2024-06-05 04:19 | XMS_ITS ---
[place] MED NUTRITION INDIV SUBSEQ [facility] Encounter Summary Created on: June 04, 2024 DORETHA SAMPSON PRIYA : 1995 Sex: Female Author Name [place] Organization [place] Address [address] [place] [address] Care Team Providers Care Resource Analyst Name Role Phone TAWNYA MCFADDEN Primary Care [...] 07, 2021 [facility] [id number] [phone] DORETHA SAMPSON PATIENT [facility]* MENTAL HEALTH JACEY S Jul 07, 2021 [id number] [phone] DORETHA SAMPSON PATIENT [facility] * POINT OF SERVICE JACYE S Jul 07, 2021 [id number] [phone] DORETHA SAMPSON PATIENT Selected Encounter This section includes the information on record at [place] for the Encounter. Date/Time Encounter Type Encounter Description Reason Provider Source Oct 19, 2023 03:00 PM MED NUTRITION INDIV SUBSEQ NUTRITION/DIETETI CS-INDIVIDUAL ICD-10-CM Z71.3 Dietary counseling and surveillance JACQUELYN,JACQU LOUISA N IHE Encounter Template Text not used by [place] Assessments - Encounter Diagnoses This section includes the primary and secondary diagnoses documented for the Encounter. Date/Time Primary/Secondary Diagnosis Diagnosis Name Provider Source Oct 19, 2023 04:05 PM PRIMARY Dietary counseling and surveillance SANDIP VALLADARES Oct 19, 2023 04:05 PM SECONDARY Nausea with vomiting, unspecified SANDIP VALLADARES [facility] Plan of Treatment: Future Appointments (+ 6 months) and Future Tests (+/- 45 days) The Plan of Treatment section includes future care activities for the patient from all [place] [facility]. This section includes future appointments and future orders which are active, pending or scheduled. Future Appointments This section includes appointments that were scheduled to occur 6 months from the date of the Encounter, up to a maximum of 20 appointments. The data comes from all [place] treatment facilities. Appointment Date/Time Appointment Type Appointme nt Facility Name Oct 23, 2023 01:00 PM AMBULATORY - SURGERY [facility] Oct 25, 2023 03:00 PM AMB[facility]ATORY - PS[facility]CHIATRY [facility] Nov 08, 2023 03:00 PM AMBULATORY - PSYCHIATRY [facility] Nov 09, 2023 09:00 AM AMBULATORY - NONE [facility] Nov 09, 2023 11:00 AM AMBULATORY - PS[facility]CHIATRY [facility] Nov 16, 2023 10:00 AM AMBULATORY - NONE [facility] Nov 22, 2023 11:00 AM AMBULATORY - [facility] Dec 05, 2023 11:00 AM AMBULATORY - [facility]IATRY [facility] Dec 06, 2023 01:00 PM AMBULATORY - PSYCHIATRY [facility] Dec 08, 2023 12:30 PM AMBULATORY - SURGERY [facility] Dec 08, 2023 02:00 PM AMBULATORY - SURGERY [facility] Dec 12, 2023 11:00 AM AMBULATORY - [facility]AT[facility] Dec 18, 2023 10:30 AM AMBULATORY - REHAB [facility]IC[facility] Dec 19, 2023 09:00 AM AMBULATORY - NONE [facility] Jan 11, 2024 01:00 PM AMBULATORY - PSYCHIATRY [facility] Jan 15, 2024 09:00 AM AMBULATORY - MEDICINE [facility] Jan 16, 2024 11:00 AM AMBULATORY [facility] Jan 18, 2024 01:00 PM AMBULATORY - PSYCHIATRY [facility] Jan 19, 2024 02:00 PM AMBULATORY - SURGERY [facility] Jan 22, 2024 01:15 PM AMBULATORY - PSYCHIATRY [facility]) Social History: Smoking Status (Most current) and Tobacco Use (All prior to encounter date) This section includes the most current, and the historical, smoking and tobacco- related health factors from the [place] facility where the Encounter took place. Current Smoking Status This section includes the most current smoking, or tobacco-related health factor, from the [place] facility where the Encounter took place. Date/Time Current Smoking Status Comment Facil ity Jun 07, 2023 01:00 PM VA-TOBACCO FORMER USER [facility] Tobacco Use History This section includes a history of the smoking, or tobacco-related health factors, that were collected on or before the date of the Encounter. The data comes from the [place] facility where the Encounter took place. Date/Time Smoking Status/Tobacco Use Comment F acility Jun 07, 2023 01:00 PM VA-TOBACCO QUIT 1 TO < 5 YRS [facility] Apr 26, 2021 01:00 PM VA-TOBACCO NEVER USED [facility] Encounter Notes: All associated encounter notes This section contains the clinical notes associated to the Encounter. Date/Time Encounter Note(s) Provider Source Oct 19, 2023 10:38 AM NUTRITION EDUCATIO N NOTE: LOCAL TITLE: EDUCATION NUTRITION STANDARD TITLE: NUTRITION EDUCATION NOTE DATE OF NOTE: OCT 19, 2023@10:38 ENTRY DATE: OCT 19, 2023@10:38:22 AUTHOR: JUAN MANUEL VALLADARES EXP COSIGNER: URGENCY: STATUS: COMPLETED SUBJECT: nutrition NUTRITION EDUCATION OUTPATIENT Follow up, in clinic Time spent: 33 mins Reason for visit: nausea, unintentional wt loss ASSESSMENT: Height: 66 in [167.6 cm] (06/07/2023 13:06) Weight: reports stable wt 10/19 Measurement DT WEIGHT LB(KG)[BMI] 06/07/2023 13:06 149.5(67.81)[24] 05/17/2021 14:03 147.2(66.77)[24] 04/26/2021 13:09 149.4(67.77)[24] BMI: 24.2 Weight change: Reports 10# wt loss down to 140# UBW: 155# Pertinent Past Medical History: anxiety, depression, nausea, social phobia Nutrition Related Medications: fluoxetine, trazadone; non-va: Mg gluconate, MVI, ferrous sulfate EDUCATION SCREENING PARTICIPANTS: Patient BARRIERS/SPECIAL NEEDS: no barriers identified READINESS TO LEARN: no barriers Per chart: secure message 10/06/23: Plan is re-consult GI, and refer to ENT to rule out any vestibular (inner ear) causes for chronic nausea (appt 10/23/23). [place] in support. RN recommended trial of Benadryl, noting Antihistamines are known to help relieve nausea Patient subjective statements: Met via VVC to discuss nausea and unintentional/abnormal wt loss. [place] reports vomiting/bad episode starting 09/24 (see secure message 09/26/23), recovery lasted about 2 weeks. Po during that time was sparse, shakes, bone broth. Has been stable x 1 week. Tolerates Ensure again, also taking Amway shake. Possible improvement s/p starting Benadryl/antihistamine (about 1 week ago). Still doing smaller frequent PO ave q 3-4 hours. Reports anxious about backsliding. Proactively placed safe foods and fluids near her, made some chickpea marsala (safe food), included sandhya bread + hummus as snack surprisingly went well). Prefers making her own frozen meals vs purchased. Doesn't think start of 09/24 episode was all meat/food related. Denies gaining/losing weight since last appt. See initial for background on nausea 08/24/23. Awareness: - Anxiety makes symptoms worse - When I start to get hungry I feel nauseous, more nauseous in AM. I feel better once I've eaten, evenings more likely to get proper meal - Liquids tolerated sometimes better than solids. or dry bland foods. Safe foods: applesauce, peanut butter, frida paz. Trigger foods: meat, caffeine. Pescatarian r/t intolerances: includes fish, eggs, some dairy (possible lactose interance) includes cheese/sour cream. Not for moral reasons. Appetite: always been a snacker, sometimes forgets to eat at times (r/t ADHD). Nausea: Even when I'm nauseous I can tell I'm hungry. Admits to having a rumbly stomach as a kid Relationship w/ food: it's fuel, I've never had a problem w/ it, I know my eating is disordered but I don't identify as having an eating disorder. Weight hx: since HS ~155#, now getting into 140s which freaks me out bec my weight doesn't change. Denied diets fads, etc GI issues: diarrhea/constipation hx. Started Mg citrate - helps even out. AGRICULTURIST: denied purging, denied body image issues currently or in HS Diet Recall - 10/19 - bone broth added. *good day* *Reports eating something mostly q 3-4 hours Meal 1: AM shake: either Amway (1) or Ensure (1) Snack: cracker snack or applesauce Meal 2: foods chickpea masala Meal 3: more sparatic: pizza, fake meat burgers Snack: grazer chips/salsa, sandhya/bread and hummus Fluid intake: 1 ONS/day, two 32 oz water bottle/day on a good day, frida paz (increases as nausea increases 2-3/day), 10/19 (NEW) adds Gatorade pkt in water; [...] Allergies: None Food sensitives: possible lactose intolerance Diet Recall - *bad day* Meal 1: Bone broth - for nausea. shake takes me longer to get down on bad day. May have another shake as needed, or applesauce. Cheese its, toast if tolerated (maybe butter on it). Constant cross to nibble on something. constantly trying to get something. constant nibbling, hard to measure Meal 2: dinner: broth for nausea. Usually feeling better, may try rice and beans or mac and cheese (more nutrient dense). Salad if tolerated Problems related to food security: 10/19: still [...] Not able to assess for fluid accumulation Dot Net Developer Strength Dot Net Developer strength not assessed Malnutrition Assessment Based on the above findings, the [place] meets the clinical characteristics to support a diagnosis of: Non-severe (moderate) social/environmental related malnutrition Pertinent lab results: HEMOGLOBIN A1C 4.7 (06/07/23) Lipid Panel: CHOLESTEROL 161 (06/07/23) MEASURED LDL____ HDL 41 (06/07/23) TRIGLYCERIDE____ LDL CALCULATION 113 H (06/07/23) HGB 14.7 (06/07/23) Estimated nutrient needs based on actual body weight 68 kg 8026-7246 calories/day 25-30 kcal/kg 54-68 grams protein/day 0.8-1 g/kg 5669-7937 ml fluids/day 25-35 ml/kg NUTRITION DIAGNOSIS: Inadequate oral intake r/t nausea AEB reports nausea cycles which limit PO intakes leading to unintentional eight loss down to 140s#, in setting of anxiety and awareness this makes sx worse -- Eval of dx: improving INTERVENTION: Provided nutrition education/counseling: - Commended on proactive practice of placing safe foods and fluids near her in order to continue smaller frequent PO r/t nausea - Discussed holding off on the trial of new foods (though she's not limited) at this time - goal instead is for stability, staying w/ safe foods currently to extend time things are going well. - She forgot to try soy milk/almond milk w/ Amway shake - will try - Commended on preparing frozen meals to have (lois galvez) Education provided using: Discussion MONITORING/EVALUATION: Patient's nutrition/activity related goals: Goal 1 - schedule PO q 2-3 hours to prevent forgetting and empty stomach : -- Meeting, ongoing FOLLOW UP: Follow up appointment will be scheduled: 11.23.23 @ 3 pm VVC - please block F2F at that time /neil/ JUAN MANUEL VALLADARES MS, RD, LD Clinical Dietitian Signed: 10/19/2023 16:19 JUAN MANUEL VALLADARES [facility]
--- OUTSIDE RECORDS SUMMARY | 2024-06-05 04:19 | XMS_ITS | Encounter Summary ---
Author Name [place] Address [address] [place] [address] Care Team Providers Care Machine Clerical Verifier Name Role Phone TAWNYA MCFADDEN Primary Care [...] ION JACEY S Jul 07, 2021 JACOBS [id number] [phone] DORETHA SAMPSON PATIENT [facility]* MENTAL HEALTH JACEY S Jul 07, 2021 [id number] [phone] DORETHA SAMPSON PATIENT [facility] * POINT OF SERVICE JACEY S Jul 07, 2021 [id number] [phone] DORETHA SAMPSON PATIENT Selected Encounter This section includes the information on record at [place] for the Encounter. Date/Time Encounter Type Encounter Description Reason Pro vider Source Sep 04, 2023 04:00 PM Outpatient Encounter MH VOCATIONAL ASSISTANCE - IND IHE Encounter Template Text not used by [place] Plan of Treatment: Future Appointments (+ 6 months) and Future Tests (+/- 45 days) The Plan of Treatment section includes future care activities for the patient from all [place] [facility] This section includes future appointments and future orders which are active, pending or scheduled. Future Appointments This section includes appointments that were scheduled to occur 6 months from the date of the Encounter, up to a maximum of 20 appointments. The data comes from all [place] treatment facilities. Appointment Date/Time Appointment Type Appointme nt Facility Name Sep 20, 2023 02:00 PM AMBULATORY - PSYCHIATRY [facility] Sep 21, 2023 03:00 PM AMBULATORY - NONE [facility] Sep 27, 2023 10:00 AM [facility]ORY [facility] Oct 04, 2023 02:00 PM AMBULATORY - PSYCHIATRY [facility] Oct 13, 2023 02:00 PM AMBULATORY - PSYCHIATRY [facility] Oct 19, 2023 03:00 PM AMBULATORY - NONE [facility] Oct 23, 2023 01:00 PM AMBULATORY - SURGERY [facility] Oct 25, 2023 03:00 PM [facility]ORY [facility] Nov 08, 2023 03:00 PM AMBULATORY - PSYCHIATRY [facility] Nov 09, 2023 09:00 AM AMBULATORY - NONE [facility] Nov 09, 2023 11:00 AM AMB[facility]ATORY [facility] Nov 16, 2023 10:00 AM AMBULATORY - NONE [facility] Nov 22, 2023 11:00 AM AMBULATORY [facility] Dec 05, 2023 11:00 AM AMBULATORY [facility] Dec 06, 2023 01:00 PM AMBULATORY - PSYCHIATRY [facility] Dec 08, 2023 12:30 PM AMBULATORY - SURGERY [facility] Dec 08, 2023 02:00 PM AMBULATORY - SURGERY [facility] Dec 12, 2023 11:00 AM [facility]ORY [facility] Dec 18, 2023 10:30 AM AMBULATORY - REHAB [facility] Dec 19, 2023 09:00 AM AMBULATORY - NONE [facility] Encounter Notes: All associated encounter notes This section contains the clinical notes associated to the Encounter. Date/Time Encounter Note(s) Provider Source Sep 04, 2023 04:00 PM NO SHOW NOTE: LOCAL TITLE: NO SHOW NOTE STANDARD TITLE: NO SHOW NOTE DATE OF NOTE: SEP 04, 2023@16:00 ENTRY DATE: SEP 04, 2023@16:19:52 AUTHOR: DEBBIE AGUILA EXP COSIGNER: URGENCY: STATUS: COMPLETED Patient did not appear for scheduled appointment. Risk Factors: History of suicidal ideation, depression, unemployed, access to firearm. Protective Factors: No recent suicidal thoughts, no history of suicidal behavior, desire to live, no history of impulsive coping, help seeking, treatment motivated. Clinician Judgment of Risk: [place] is determined to be a low acute / chronic risk for harm to self or others. No imminent risk factors are noted at this time. Plan Based on Clinician Judgment of Risk: Additional x2 outreach will be done to reschedule. /neil/ Debbie Aguila, PhD, Staff Psychologist Signed: 09/04/2023 16:20 DEBBIE AGUILA [facility]
--- OUTSIDE RECORDS SUMMARY | 2024-06-05 04:19 | XMS_ITS ---
[place] MED NUTRITION INDIV SUBSEQ [facility] Encounter Summary Created on: June 04, 2024 DORTEHA SAMPSON PRIYA : 1995 Sex: Female Author Name [place] Address [address] [place] [address] Care Team Providers Care Information Coordinator Name Role Phone TAWNYA MCFADDEN Primary Care [...] PRESCRIPT ION JACEY S Jul 07, 2021 [facility] [id number] [phone] DORETHA SAMPSON PATIENT [facility]* MENTAL HEALTH JACEY S Jul 07, 2021 [id number] [phone] DORETHA SAMPSON PATIENT [facility] * POINT OF SERVICE JACEY S Jul 07, 2021 [id number] [phone] DORETHA SAMPSON PATIENT Selected Encounter This section includes the information on record at [place] for the Encounter. Date/Time Encounter Type Encounter Description Reason Provider Source Sep 21, 2023 03:00 PM MED NUTRITION INDIV SUBSEQ NUTRITION/DIETETI CS-INDIVIDUAL ICD-10-CM Z71.3 Dietary counseling and surveillance JACQUELYN,JACQU LOUISA N IHE Encounter Template Text not used by [place] Assessments - Encounter Diagnoses This section includes the primary and secondary diagnoses documented for the Encounter. Date/Time Primary/Secondary Diagnosis Diagnosis Name Provider Source Sep 21, 2023 03:22 PM PRIMARY Dietary counseling and surveillance SANDIP VALLADARES Sep 21, 2023 03:22 PM SECONDARY Nausea with vomiting, unspecified [facility] Plan of Treatment: Future Appointments (+ 6 months) and Future Tests (+/- 45 days) The Plan of Treatment section includes future care activities for the patient from all [place] [facility]. This section includes future appointments and future orders which are active, pending or scheduled. Future Appointments This section includes appointments that were scheduled to occur 6 months from the date of the Encounter, up to a maximum of 20 appointments. The data comes from all [place] treatment facilities. Appointment Date/Time Appointment Type Appointme nt Facility Name Sep 27, 2023 10:00 AM AMBULATORY - PS[facility]IATRY [facility] Oct 04, 2023 02:00 PM AMBULATORY - PSYCHIATRY [facility] Oct 13, 2023 02:00 PM AMBULATORY - PSYCHIATRY [facility] Oct 19, 2023 03:00 PM AMBULATORY - NONE [facility] Oct 23, 2023 01:00 PM AMBULATORY - SURGERY [facility] Oct 25, 2023 03:00 PM AMBULATORY [facility] PS[facility]IATRY [facility] Nov 08, 2023 03:00 PM AMBULATORY - PSYCHIATRY [facility] Nov 09, 2023 09:00 AM AMBULATORY - NONE [facility] Nov 09, 2023 11:00 AM AMBULATORY - PS[facility]CHIATRY [facility] Nov 16, 2023 10:00 AM AMBULATORY - NONE [facility] Nov 22, 2023 11:00 AM AMBULATORY - PS[facility]IATRY [facility] Dec 05, 2023 11:00 AM AMBULATORY [facility] Dec 06, 2023 01:00 PM AMBULATORY - PSYCHIATRY [facility] Dec 08, 2023 12:30 PM AMBULATORY - SURGERY [facility] Dec 08, 2023 02:00 PM AMBULATORY - SURGERY [facility] Dec 12, 2023 11:00 AM AMBULATORY - [facility] Dec 18, 2023 10:30 AM AMBULATORY - REHAB MEDICIN [facility] Dec 19, 2023 09:00 AM AMBULATORY - NONE [facility] Jan 11, 2024 01:00 PM AMBULATORY - PSYCHIATRY [facility] Jan 15, 2024 09:00 AM [facility]ULAT[facility] - [facility] Social History: Smoking Status (Most current) and Tobacco Use (All prior to encounter date) This section includes the most current, and the historical, smoking and tobacco- related health factors from the [place] facility where the Encounter took place. Current Smoking Status This section includes the most current smoking, or tobacco-related health factor, from the [place] facility where the Encounter took place. Date/Time Current Smoking Status Comment Facil ity Jun 07, 2023 01:00 PM VA-TOBACCO FORMER USER [facility] Tobacco Use History This section includes a history of the smoking, or tobacco-related health factors, that were collected on or before the date of the Encounter. The data comes from the [place] facility where the Encounter took place. Date/Time Smoking Status/Tobacco Use Comment F acility Jun 07, 2023 01:00 PM VA-TOBACCO QUIT 1 TO < 5 YRS [facility] Apr 26, 2021 01:00 PM VA-TOBACCO NEVER USED [facility] Encounter Notes: All associated encounter notes This section contains the clinical notes associated to the Encounter. Date/Time Encounter Note(s) Provider Source Sep 21, 2023 01:28 PM NUTRITION EDUCATIO N NOTE: LOCAL TITLE: EDUCATION NUTRITION STANDARD TITLE: NUTRITION EDUCATION NOTE DATE OF NOTE: SEP 21, 2023@13:28 ENTRY DATE: SEP 21, 2023@13:29:01 AUTHOR: JUAN MANUEL VALLADARES EXP COSIGNER: URGENCY: STATUS: COMPLETED SUBJECT: nutrition NUTRITION EDUCATION OUTPATIENT Follow up Time spent: 20 mins Reason for visit: nausea, unintentional wt [...] LEARN: no barriers Patient subjective statements: Connected w/ [facility] to discuss optimizing PO w/ nausea/vomiting. [place] reports things have been good, improved. Has been eating more often not easy, and it's been successful. When had really bad times reflected and realized she hadn't eaten for > hours. Tried calendar, alarms, now just noting when starts to feel hungry. Reports unable to prepare meals at this time. Denied vomiting since last visit (08/24). See initial for background on nausea 08/24/23. Awareness: - Mornings are worst, wake up [...] but sometimes forgets to eat at times (r/t [...] Started Mg citrate - helps even out. COAT OPERATOR: denied purgine, no body image issues currently or in HS Diet Recall - 09/21 - *Reports eating something mostly q 2-3 hours Meal 1: AM shake: Amway (1) or Ensure Shake (1-2) Snack: cracker snack or applesauce Meal 2: Ramen noodles 1x/day x 2 weeks; branched out had real meat and it wasn't terrible, tried pizza or Rice/beans; foods chickpea masala Meal 3: more sparatic: pizza, fake meat burgers, if craving azar's burger if nothing to do next day will eat it and feel nauseous next day (12- 24 hours after eating meat) Snack: grazer I love cheese its, chips - starts before lunch (after each meal has 1 snack) Fluid intake: meal replacement shake, two 32 oz water bottle/day on a good day, 1-2 cans frida paz/day (increases as nausea increases 2-3/day), good day spring for doctor akira. avoids caffeine Meal preparation: Dining out: [...] Not able to assess for fluid accumulation Electrostatic Powder Coating Technician Strength Electrostatic Powder Coating Technician strength not assessed Malnutrition Assessment Based on the above findings, the [place] meets the clinical characteristics to support a diagnosis of: Non-severe (moderate) social/environmental related malnutrition Pertinent lab results: HEMOGLOBIN A1C 4.7 (06/07/23) Lipid Panel: CHOLESTEROL 161 (06/07/23) MEASURED LDL____ HDL 41 (06/07/23) TRIGLYCERIDE____ LDL CALCULATION 113 H (06/07/23) HGB 14.7 (06/07/23) Estimated nutrient needs based on actual body weight 68 kg 1435-5513 calories/day 25-30 kcal/kg 54-68 grams protein/day 0.8-1 g/kg 4851-1118 ml fluids/day 25-35 ml/kg NUTRITION DIAGNOSIS: Inadequate oral intake r/t nausea AEB reports nausea cycles which limit PO intakes leading to unintentional eight loss down to 140s#, in setting of anxiety and awareness this makes sx worse -- Eval of dx: improving INTERVENTION: Provided nutrition education/counseling: - Commended on changing to more frequent PO intakes through day. - Encouraged mixing Amway shake w/ almond or soy milk vs water - Discussed next step is balance of increasing variety of tolerated foods (including some protein) while balancing stability and progress she's earned. Small steps. - Reinforced option of balanced frozen meals when realizing hungry in that moment. Using as a tool currently, can also increase variety of foods she's trying while unable to prepare meals. - Given report of anxiety around trip, MH and foods, encouraged packing snacks and some safe foods to set up for success of continued small frequent PO intakes. Education provided using: Discussion MONITORING/EVALUATION: Patient's nutrition/activity related goals: Goal 1 - schedule PO q 2-3 hours to prevent forgetting and empty stomach : -- Meeting, ongoing FOLLOW UP: Follow up appointment will be scheduled: 10/19 at 3 pm [place] /neil/ JUAN MANUEL VALLADARES MS, RD, LD Clinical Dietitian Signed: 09/21/2023 16:30 JUAN MANUEL VALLADARES [facility]
--- OUTSIDE RECORDS SUMMARY | 2024-06-05 04:19 | XMS_ITS | Encounter Summary ---
Author Name [place] Organization [place] Address [address] [place] [address] Care Team Providers Care Catcher Filter Tip Name Role Phone TAWNYA MCFADDEN Primary Care [...] ION JACEY S Jul 07, 2021 JACOBS [id number] [phone] DORETHA SAMPSON PATIENT [facility]* MENTAL HEALTH JACEY S Jul 07, 2021 [id number] [phone] DORETHA SAMPSON PATIENT [facility] * POINT OF SERVICE JACEY S Jul 07, 2021 [id number] [phone] DORETHA SAMPSON PATIENT Selected Encounter This section includes the information on record at [place] for the Encounter. Date/Time Encounter Type Encounter Description Reason Pro vider Source Nov 03, 2023 02:00 PM Outpatient Encounter MH VOCATIONAL ASSISTANCE - IND IHE Encounter Template Text not used by [place] Plan of Treatment: Future Appointments (+ 6 months) and Future Tests (+/- 45 days) The Plan of Treatment section includes future care activities for the patient from all [place] [facility]. This section includes future appointments and future orders which are active, pending or scheduled. Future Appointments This section includes appointments that were scheduled to occur 6 months from the date of the Encounter, up to a maximum of 20 appointments. The data comes from all [place] treatment facilities. Appointment Date/Time Appointment Type Appointme nt Facility Name Nov 08, 2023 03:00 PM AMBULATORY - [facility]IATRY [facility] Nov 09, 2023 09:00 AM AMBULATORY - NONE [facility] Nov 09, 2023 11:00 AM AMBULATORY - PS[facility]CHIATRY [facility] Nov 16, 2023 10:00 AM AMBULATORY - NONE [facility] Nov 22, 2023 11:00 AM AMBULATORY - PSYCHIATRY [facility] Dec 05, 2023 11:00 AM AMBULATORY - PS[facility]CHIATRY [facility] Dec 06, 2023 01:00 PM AMBULATORY - PS[facility]IATRY [facility] Dec 08, 2023 12:30 PM AMBULATORY - SURGERY [facility] Dec 08, 2023 02:00 PM AMBULATORY - SURGERY [facility] Dec 12, 2023 11:00 AM AMBULATORY - PS[facility]CHIATRY [facility] Dec 18, 2023 10:30 AM AMBULATORY - REHAB [facility] Dec 19, 2023 09:00 AM AMBULATORY - NONE [facility] Jan 11, 2024 01:00 PM AMBULATORY - PSYCHIATRY [facility] Jan 15, 2024 09:00 AM AMBULATORY - MEDICINE [facility] Jan 16, 2024 11:00 AM AMBULATORY - PS[facility]CHIATRY [facility] Jan 18, 2024 01:00 PM AMBULATORY - PS[facility]CHIATRY [facility] Jan 19, 2024 02:00 PM AMBULATORY - SURGERY [facility] Jan 22, 2024 01:15 PM AMBULATORY - PS[facility]CHIATRY [facility] Jan 23, 2024 10:00 AM AMBULATORY - PS[facility]CHIATRY [facility] Jan 23, 2024 11:00 AM AMBULATORY - PSYCHIATRY [facility] Encounter Notes: All associated encounter notes This section contains the clinical notes associated to the Encounter. Date/Time Encounter Note(s) Provider Source Nov 03, 2023 02:24 PM NO SHOW NOTE: LOCAL TITLE: NO SHOW/CANCELLATION CLINIC NOTE STANDARD TITLE: NO SHOW NOTE DATE OF NOTE: NOV 03, 2023@14:24 ENTRY DATE: NOV 03, 2023@14:24:09 AUTHOR: CARMEN MARQUEZ COSIGNER: URGENCY: STATUS: COMPLETED [place] not seen for scheduled appointment due to: [place] cancelled Pt cancelled appt for 11/03/23 @ 14:00 as she is not feeling well. Appointment Rescheduled: No Pt can be called at [phone]. Please review patient chart and medications for renewal needs (if appropriate). /neil/ CARMEN MARQUEZ TERMINAL OPERATIONS MANAGER Signed: 11/03/2023 14:24 Receipt Acknowledged By: 11/03/2023 15:25 /neil/ MARGO ROBLES Supervisor Real Estate Office 11/03/2023 15:18 /neil/ HERIBERTO AVENDAÑO Advanced Fashion Intern CARMEN MARQUEZ [facility]
--- NOTE | 2024-06-05 04:20 | ED_ITS ---
HPI - Anxiety General Date Seen: 06/05/24 Chief Complaint: Anxiety Stated Complaint: Anxiety Time Seen by Provider: 06/05/24 03:38 Source: patient Mode of arrival: EMS Limitations: no limitations History of Present Illness HPI narrative: Patient is a 29-year-old female who is currently undergoing an evaluation for Meniere's disease. She was supposed to be seen [facility] yesterday so she stop her Prozac, Remeron, Dyazide the day prior. She had an episode of vertigo yesterday morning which caused some anxiety. She took a dose of meclizine and was able to sleep when she awoke the anxiety returned. She was on the phone at least twice yesterday with the crisis line and after the 2nd phone call they encouraged her to come to the emergency department. She received Ativan 1 mg on the ride in in her anxiety and vertigo have essentially resolved. Her parents are on their way to meet her and are on the phone during my encounter with her. Related Data Home Medications ?Medication ?Instructions ?Recorded ?Confirmed fluoxetine 10 mg capsule 10 mg PO DAILY 08/04/23 06/05/24 Allergies Allergy/AdvReac Type Severity Reaction Status Date / Time No Known Drug Allergies Allergy Verified 06/05/24 03:43 Review of Systems Narrative: Review of systems is positive for anxiety, depression, vertigo. Review of systems is otherwise noted to be negative. [facility] Medical History (Updated 06/05/24 @ 04:20 by Jona Ruiz MD) Meniere disease ?H81.09 - Meniere's disease, unspecified ear (ICD-10) Social History Smoking Status: Current every day smoker Do you use any of these nicotine containing products: Vaping Products Second hand tobacco smoke exposure: No How often do you have a drink containing alcohol: monthly or less How often do you have six or more drinks on one occasion: Never AUDIT-C Alcohol total score: 1 Non-prescribed substance use: marijuana (any form) Exam Narrative: Exam Narrative: Vitals noted. She is calm after receiving lorazepam on the ride in. HEENT: Conjunctiva clear. Neck is supple without adenopathy, thyromegaly. Currently no nystagmus. Lungs: Clear to auscultation in all condon. No wheezes, rales, rhonchi. Heart: Regular rate and rhythm without murmur. Abdomen: Soft and nontender. No guarding, rigidity, rebound. Bowel sounds are normal. No palpable masses. Extremities: No cyanosis or edema. Good distal pulses. Skin: No abnormalities noted of the exposed skin. Neurologic: Awake, alert, fully oriented. Neurologic exam is nonfocal. Const: Vital Signs, click to edit/add: Vital Signs - 24 hr 06/05/24 03:40 Temperature 98.0 F Pulse Rate [Right Pulse Oximeter] 75 Respiratory Rate 20 Blood Pressure [Ri ght Upper Arm] 118/75 Pulse Oximetry 99 Oxygen Delivery Me thod Room Air Course Course ED Course: Patient was seen and examined. I had a good discussion with her and I see no need for diagnostic workup. She is now relaxed and does not require further intervention. Her parents are in agreement. Vital Signs Vital signs: Initial Vital Signs Respiratory Effort Normal, Spontaneous, Non-Labored 06/05/24 03:39 Respiratory Depth Normal 06/05/24 03:39 Respiratory Pattern Normal 06/05/24 03:39 Vital Signs Temperature 98.0 F 06/05/24 03:40 Pulse Rate 75 06/05/24 03:40 Respiratory Rate 20 06/05/24 03:40 Blood Pressure 118/75 06/05/24 03:40 Pulse Oximetry 99 06/05/24 03:40 Oxygen Delivery Method Room Air 06/05/24 03:40 Temperature 98.0 F 06/05/24 03:40 Pulse Rate 75 06/05/24 03:40 Respiratory Rate 20 06/05/24 03:40 Blood Pressure 118/75 06/05/24 03:40 Pulse Oximetry 99 06/05/24 03:40 Oxygen Delivery Method Room Air 06/05/24 03:40 Discharge Plan Discharge Clinical Impression: Panic disorder, Meniere's disease Patient Disposition: Home w/ Parent or Adult Condition: Improved Additional Instructions: Resume your Prozac, Remeron, Dyazide. Follow-up with your psychiatrist later today as scheduled. Ativan 1 mg twice daily as needed for panic attacks. This is also an excellent treatment for vertigo. Prescriptions: No Action fluoxetine 10 mg capsule 10 mg PO DAILY Follow Up/Referrals: Provider,Not a Local [Primary Care Provider] - Stand Alone Forms: Pin or Peg Info Instructions
--- OUTSIDE RECORDS SUMMARY | 2024-06-05 04:20 | XMS_ITS | Encounter Summary ---
Author Name [place] Organization [place] Address [address] [place] [address] Care Team Providers Care Actuarial Trainee Name Role Phone TAWNYA MCFADDEN Primary Care [...] PRESCRIPT ION JACEY S Jul 07, 2021 [facility] [id number] [phone] DORETHA SAMPSON PATIENT [facility] MENTAL HEALTH JACEY S Jul 07, 2021 [id number] [phone] DORETHA SAMPSON PATIENT [facility] * POINT OF SERVICE JACEY S Jul 07, 2021 [id number] [phone] DORETHA SAMPSON PATIENT Selected Encounter This section includes the information on record at [place] for the Encounter. Date/Time Encounter Type Encounter Description Reason Pro vider Source Jan 02, 2024 11:00 AM Outpatient Encounter [facility] - IND IHE Encounter Template Text not used by [place] Plan of Treatment: Future Appointments (+ 6 months) and Future Tests (+/- 45 days) The Plan of Treatment section includes future care activities for the patient [facility] [place] [facility] This section includes future appointments and future orders which are active, pending or scheduled. Future Appointments This section includes appointments that were scheduled to occur 6 months from the date of the Encounter, up to a maximum of 20 appointments. The data comes from all [place] treatment facilities. Appointment Date/Time Appointment Type Appointme nt Facility Name Jan 11, 2024 01:00 PM AMBULATORY [facility]RY [facility] Jan 15, 2024 09:00 AM [facility] Jan 16, 2024 11:00 AM [facility] Jan 18, 2024 01:00 PM AMBULATORY - PSY[facility]IATRY [facility] Jan 19, 2024 02:00 PM AMBULATORY - SURGERY [facility] Jan 22, 2024 01:15 PM AMBULATORY - PSYCHIATRY [facility] Jan 23, 2024 10:00 AM AMBULATORY - PS[facility]CHIATRY [facility] Jan 23, 2024 11:00 AM AMBULATORY - PS[facility]CHIATRY [facility] Jan 25, 2024 01:00 PM AMBULATORY - [facility]IATRY [facility] Jan 30, 2024 11:00 AM AMBULATORY - PS[facility]CHIATRY [facility] Feb 01, 2024 01:00 PM AMBULATORY - [facility]IATRY [facility] Feb 06, 2024 11:00 AM AMBULATORY [facility] PS[facility]CHIATRY [facility] Feb 08, 2024 01:00 PM AMBULATORY - [facility]IATRY [facility] Feb 13, 2024 11:00 AM AMBULATORY [facility] PS[facility] Feb 14, 2024 02:00 PM AMBULATORY [facility]RY [facility] Feb 15, 2024 01:00 PM AMBULATORY - PS[facility]IATRY [facility] Feb 20, 2024 11:00 AM AMBULATORY [facility]RY [facility] Feb 20, 2024 02:30 PM AMB[facility]ORY [facility]RY [facility] Feb 22, 2024 01:00 PM AMBULATORY - PSY[facility]IATRY [facility] Feb 29, 2024 01:00 PM AMBULATORY - PSYCHIATRY [facility] Active, Pending, and Scheduled Orders This section includes a listing of several types of active, pending, and scheduled orders, including clinic medications orders, diagnostic test orders, procedure orders and consult orders; where the start date of the order is 45 days before the date of the Encounter or 45 days after the date of theEncounter. The data comes from all [place] treatment facilities. Test Date/Time Test Type Test Details Facility Name Jan 19, 2024 02:07 PM Consult Order [facility] Wire Stitcher Machine's Choice [facility] Social History: Smoking Status (Most current) and Tobacco Use (All prior to encounter date) This section includes the most current, and the historical, smoking and tobacco- related health factors from the [place] facility where the Encounter took place. Current Smoking Status This section includes the most current smoking, or tobacco-related health factor, from the [place] facility where the Encounter took place. Date/Time Current Smoking Status Comment Facil ity Jun 07, 2023 01:00 PM VA-TOBACCO FORMER USER [facility] Tobacco Use History This section includes a history of the smoking, or tobacco-related health factors, that were collected on or before the date of the Encounter. The data comes from the [place] facility where the Encounter took place. Date/Time Smoking Status/Tobacco Use Comment F acility Jun 07, 2023 01:00 PM VA-TOBACCO QUIT 1 TO < 5 YRS [facility] Apr 26, 2021 01:00 PM VA-TOBACCO NEVER USED [facility] Encounter Notes: All associated encounter notes This section contains the clinical notes associated to the Encounter. Date/Time Encounter Note(s) Provider Source Dec 26, 2023 12:26 PM REPORT OF CONTACT: LOCAL TITLE: PATIENT CONTACT NOTE STANDARD TITLE: REPORT OF CONTACT DATE OF NOTE: DEC 26, 2023@12:26 ENTRY DATE: DEC 26, 2023@12:26:53 AUTHOR: PAULA MCKINNEYIGNER: URGENCY: STATUS: COMPLETED Patient contact Name of Quail: DORETHA SAMPSON Name/Relationship of Contact if other than Quail: Date & Time of Contact: Dec@12:27 Type of Contact: Telephone Reason for Contact: Therapist phoned to check in regarding her uncharacteristically missing or canceling multiple health care visits in a row (including today's appointment with therapist). stated that she is experiencing significant nausea and fatigue, which she attributed in part to recently participating in a large social event and finding this exhausting. denied any other acute concerns and expressed appreciation for the call. indicated that she would see therapist at their next scheduled appointment (01/02/24). /neil/ PAULA MCKINNEY Signed: 12/26/2023 12:30 PAULA MCKINNEY [facility]
--- OUTSIDE RECORDS SUMMARY | 2024-06-05 04:20 | XMS_ITS | Encounter Summary ---
Author Name [place] Address [address] [place] [address] Care Team Providers Care Court Commissioner Name Role Phone BOGDAN TAWNYA Primary Care [...] PRESCRIPT ION JACEY S Jul 07, 2021 [facility] [id number] [phone] DORETHA SAMPSON PATIENT [facility]* MENTAL HEALTH JACEY S Jul 07, 2021 [id number] [phone] DORETHA SAMPSON PATIENT [facility] * POINT OF SERVICE JACEY S Jul 07, 2021 [id number] [phone] DORETHA SAMPSON PATIENT Selected Encounter This section includes the information on record at [place] for the Encounter. Date/Time Encounter Type Encounter Description Reason Pro vider Source IHE Encounter Template Text not used by [place]
--- OUTSIDE RECORDS SUMMARY | 2024-06-05 04:20 | XMS_ITS | Encounter Summary ---
Author Name [facility] [facility] [place] Address [address] [place] [address] Care Team Providers Care Floriculture Teacher Name Role Phone TAWNYA MCFADDEN Primary Care [...] PRESCRIPT ION JACEY S Jul 07, 2021 [facility] [id number] [phone] DORETHA SAMPSON PATIENT [facility] MENTAL HEALTH JACEY S Jul 07, 2021 [id number] [phone] DORETHA SAMPSON PATIENT [facility] * POINT OF SERVICE JACEY S Jul 07, 2021 [id number] [phone] DORETHA SAMPSON PATIENT Selected Encounter This section includes the information on record at [place] for the Encounter. Date/Time Encounter Type Encounter Description Reason Provider Source Feb 13, 2024 11:00 AM PSYTX W PT 45 MINUTES [facility] - IND ICD-10-CM F34.1 Dysthymic disorder PAULA MCKINNEY Encounter Template Text not used by VA Assessments - Encounter Diagnoses This section includes the primary and secondary diagnoses documented for the Encounter. Date/Time Primary/Secondary Diagnosis Diagnosis Name Provider Source Feb 13, 2024 12:57 PM PRIMARY Dysthymic disorder PAULA MCKINNEY Feb 13, 2024 12:57 PM SECONDARY Social phobia, generalized PAULA MCKINNEY Plan of Treatment: Future Appointments (+ 6 months) and Future Tests (+/- 45 days) The Plan of Treatment section includes future care activities for the patient from all [place] [facility] This section includes future appointments and future orders which are active, pending or scheduled. Future Appointments This section includes appointments that were scheduled to occur 6 months from the date of the Encounter, up to a maximum of 20 appointments. The data comes from all [facility] facilities. Appointment Date/Time Appointment Type Appointme nt Facility Name Feb 14, 2024 02:00 PM AMBULATORY - [facility]ATRY [facility] Feb 15, 2024 01:00 PM AMBULATORY - PSYCHIATRY [facility] Feb 20, 2024 11:00 AM AMBULATORY - [facility]ATRY [facility] Feb 20, 2024 02:30 PM AMBULATORY - PS[facility]IATRY [facility] Feb 22, 2024 01:00 PM AMBULATORY - PSYCHIATRY [facility] Feb 29, 2024 01:00 PM AMBULATORY - PSYCHIATRY [facility] March 07, 2024 01:00 PM AMBULATORY - PSYCHIATRY [facility] March 14, 2024 01:00 PM AMBULATORY - PSYCHIATRY [facility] March 18, 2024 09:00 AM AMBULATORY - PS[facility]IATRY [facility] March 19, 2024 01:00 PM AMBULATORY - PS[facility]CHIATRY [facility] March 25, 2024 09:00 AM AMBULATORY - PS[facility]CHIATRY [facility] Apr 08, 2024 09:00 AM AMBULATORY - PS[facility]IATRY [facility] Apr 16, 2024 02:00 PM AMBULATORY - PS[facility]CHIATRY [facility] Apr 17, 2024 02:00 PM AMBULATORY - SURGERY [facility] Apr 29, 2024 11:00 AM AMBULATORY - PS[facility]CHIATRY [facility] May 06, 2024 11:00 AM AMBULATORY - PS[facility]CHIATRY [facility] Jun 04, 2024 02:00 PM AMBULATORY - PS[facility]CHIATRY [facility] Jun 05, 2024 01:00 PM AMBULATORY - PS[facility]IATRY [facility] Jun 07, 2024 10:40 AM [facility] Jun 21, 2024 10:00 AM AMBULATORY - PS[facility]CHIATRY [facility] Active, Pending, and Scheduled Orders This section includes a listing of several types of active, pending, and scheduled orders, including clinic medications orders, diagnostic test orders, procedure orders and consult orders; where the start date of the order is 45 days before the date of the Encounter or 45 days after the date of theEncounter. The data comes from all [place] treatment facilities. Test Date/Time Test Type Test Details Facility Name Jan 19, 2024 02:07 PM Consult Order COMMUNITY CARE-ENT Cons Cable Tool Operator's Choice [facility] Social History: Smoking Status (Most current) [...] 07, 2023 01:00 PM VA-TOBACCO FORMER USER [facility] Tobacco Use History This section includes a history of the smoking, or tobacco-related health factors, that were collected on or before the date of the Encounter. The data comes from the [place] facility where the Encounter took place. Date/Time Smoking Status/Tobacco Use Comment F acility Jun 07, 2023 01:00 PM VA-TOBACCO QUIT 1 TO < 5 YRS [facility] Apr 26, 2021 01:00 PM VA-TOBACCO NEVER USED [facility] Encounter Notes: All associated encounter notes This section contains the clinical notes associated to the Encounter. Date/Time Encounter Note(s) Provider Source Feb 13, 2024 12:36 PM MENTAL HEALTH NOTE : LOCAL TITLE: MH PROGRESS NOTE STANDARD TITLE: MENTAL HEALTH NOTE DATE OF NOTE: FEB 13, 2024@12:36 ENTRY DATE: FEB 13, 2024@12:36:33 AUTHOR: PAULA MCKINNEY COSIGNER: URGENCY: STATUS: COMPLETED [...] Date of : 1995 Intervention session #: 14 MENTAL STATUS Grooming: Appropriate Motor: Calm; unremarkable Mood: Euthymic Affect: Spontaneous; appropriate Speech: Normal rate, rhythm, and volume Thought Content: Negative for unusual or bizarre content Thought Processes: Linear; logical; goal-oriented Suicidality: Absent Homicidality: Absent Hallucinations: Absent Delusions: Absent Orientation: Intact DSM-5 DIAGNOSTIC IMPRESSION -Persistent depressive disorder, with anxious distress -Social anxiety disorder RELEVANT HISTORY [place] reported that she has been experiencing a noticeable improvement in her sleep and appetite, which she attributed to her new medications. She reported that this has been a positive experience for her, though she now needs to readjust to this change in functioning. She explained that she missed her most recent appointment with this insurance writer because she had overslept. INTERVENTION DETAILS Session duration: 50 minutes. Focus of session: Cognitive defusion. Education provided: -Treating the mind as an overly helpful friend that provides running commentary and suggestions. -Recognizing and judging thoughts based on whether they are helpful or unhelpful. Other interventions: -Thought exercise: compassionate vs. critical podiatric medicine professor as a way to understand self-compassion. -Thought exercise: future self looking back on current difficulties. Handouts: None. [place] response: Chace expressed understanding and appreciation of the education provided this session. She reported she has been spending a lot of time trying to teach herself a 3D modeling program, which has been somewhat frustrating due to its complexity. She acknowledged that if she were to stick with it, she would probably be glad for that later on, especially after she returns to school. Chace described feelings of shame as often arising in her interactions with others, e.g., when she needs to ask her parents for something or when others ask her about her life. She readily identified that she is quite critical of herself, much moreso than she would be of someone else and more than she would want someone else to be toward her. Chace reported significant ambivalence toward a relationship she had been cautiously pursuing, as she felt hurt by having been stood up and unsure if it would be worth the effort to try to repair the relationship or explain her view. She also expressed concern that if she were to reopen contact, she would feel obligated to continue on with the relationship despite losing interest. RISK ASSESSMENT Risk Factors: History of suicidal ideation, depression, unemployed, access to firearm. Protective Factors: No recent suicidal thoughts, no history of suicidal behavior, desire to live, no history of impulsive coping, help seeking, treatment motivated. Estimate of Risk: Low acute and low chronic risk of self-harm. PLAN RTC date/time: 02/20/24, 1099 Homework: None. Plan for next session: Tentatively, continue to discuss obstacles to valued action. Current Treatment Plan Date: 07/19/23 Plan Renewal Date: 07/19/24 /neil/ PAULA MCKINNEY Signed: 02/13/2024 12:57 PAULA MCKINNEY [facility]
--- OUTSIDE RECORDS SUMMARY | 2024-06-05 04:20 | XMS_ITS | Encounter Summary ---
Author Name [place] Address [address] [place] [address] Care Team Providers Care Educational Assistant Teacher Name Role Phone BOGDAN TAWNYA Primary Care [...] PRESCRIPT ION JACEY S Jul 07, 2021 [facility] [id number] [phone] DORETHA SAMPSON PATIENT [facility]* MENTAL HEALTH JACEY S Jul 07, 2021 [id number] [phone] DORETHA SAMPSON PATIENT [facility] * POINT OF SERVICE JACEY S Jul 07, 2021 [id number] [phone] DORETHA SAMPSON PATIENT Selected Encounter This section includes the information on record at [place] for the Encounter. Date/Time Encounter Type Encounter Description Reason Pro vider Source IHE Encounter Template Text not used by [place]
--- OUTSIDE RECORDS SUMMARY | 2024-06-05 04:20 | XMS_ITS | Encounter Summary ---
Author Name [facility] [place] Address [address] [place] [address] Care Team Providers Care Flare Breaker Name Role Phone TAWNYA MCFADDEN Primary Care [...] ION JACEY S Jul 07, 2021 [facility] [id number] [phone] DORETHA SAMPSON PATIENT [facility] MENTAL HEALTH JACEY S Jul 07, 2021 [id number] [phone] DORETHA SAMPSON PATIENT [facility] * POINT OF SERVICE JACEY S Jul 07, 2021 [id number] [phone] DORETHA SAMPSON PATIENT Selected Encounter This section includes the information on record at [place] for the Encounter. Date/Time Encounter Type Encounter Description Reason Pro vider Source Feb 06, 2024 11:00 AM Outpatient Encounter MENTAL HEALTH CLINIC - IND IHE Encounter Template Text not used by VA Plan of Treatment: Future Appointments (+ 6 months) and Future Tests (+/- 45 days) The Plan of Treatment section includes future care activities for the patient from [facility] [place] [facility]. This section includes future appointments and future orders which are active, pending or scheduled. Future Appointments This section includes appointments that were scheduled to occur 6 months from the date of the Encounter, up to a maximum of 20 appointments. The data comes from all [facility] facilities. Appointment Date/Time Appointment Type Appointme nt Facility Name Feb 08, 2024 01:00 PM AMBULATORY - PSYCHIATRY [facility] Feb 13, 2024 11:00 AM AMBULATORY - [facility] Feb 14, 2024 02:00 PM AMBULATORY - [facility]ATRY [facility] Feb 15, 2024 01:00 PM AMBULATORY - PSYCHIATRY [facility] Feb 20, 2024 11:00 AM AMBULATORY - [facility]ATRY [facility] Feb 20, 2024 02:30 PM AMBULATORY - PS[facility]IATRY [facility] Feb 22, 2024 01:00 PM AMBULATORY - PSYCHIATRY [facility] Feb 29, 2024 01:00 PM AMBULATORY - PSYCHIATRY [facility] March 07, 2024 01:00 PM AMBULATORY - PSYCHIATRY [facility] March 14, 2024 01:00 PM AMBULATORY - PSYCHIATRY [facility] March 18, 2024 09:00 AM AMBULATORY - [facility]RY [facility] March 19, 2024 01:00 PM AMBULATORY - PS[facility]ATRY [facility] March 25, 2024 09:00 AM AMBULATORY - PS[facility]IATRY [facility] Apr 08, 2024 09:00 AM AMBULATORY - [facility]ATRY [facility] Apr 16, 2024 02:00 PM AMBULATORY - [facility]ATRY [facility] Apr 17, 2024 02:00 PM AMBULATORY - SURGERY [facility] Apr 29, 2024 11:00 AM AMBULATORY - PS[facility]IATRY [facility] May 06, 2024 11:00 AM AMBULATORY - PS[facility]IATRY [facility] Jun 04, 2024 02:00 PM AMBULATORY - PS[facility]IATRY [facility] Jun 05, 2024 01:00 PM AMBULATORY - PS[facility]IATRY [facility] Active, [...] of theEncounter. The data comes from all [place] treatment facilities. Test Date/Time Test Type Test Details Facility Name Jan 19, 2024 02:07 PM Consult Order COMMUNITY CARE-ENT Cons Citrus Fruit Colorer's Choice [facility] Social History: Smoking Status (Most [...] 07, 2023 01:00 PM VA-TOBACCO FORMER USER [facility] Tobacco Use History This section includes a history of the smoking, or tobacco-related health factors, that were collected on or before the date of the Encounter. The data comes from the [place] facility where the Encounter took place. Date/Time Smoking Status/Tobacco Use Comment F acility Jun 07, 2023 01:00 PM VA-TOBACCO QUIT 1 TO < 5 YRS [facility] Apr 26, 2021 01:00 PM VA-TOBACCO NEVER USED [facility] Encounter Notes: All associated encounter notes This section contains the clinical notes associated to the Encounter. Date/Time Encounter Note(s) Provider Source Feb 06, 2024 11:18 AM NO SHOW NOTE: [facility] TITLE: NO SHOW NOTE STANDARD TITLE: NO SHOW NOTE DATE OF NOTE: FEB 06, 2024@11:18 ENTRY DATE: FEB 06, 2024@11:18:14 AUTHOR: PAULA MCKINNEY COSIGNER: URGENCY: STATUS: COMPLETED Patient did not appear for scheduled appointment. Therapist phoned twice; both calls eventually went to [facility]. Therapist left a message indicating that he would plan to see at 's next scheduled appointment. Risk Factors: History of suicidal ideation, depression, unemployed, access to firearm. Protective Factors: No recent suicidal thoughts, no history of suicidal behavior, desire to live, no history of impulsive coping, help seeking, treatment motivated. Estimate of Risk: Low acute and low chronic risk of self-harm. Plan Based on Clinician Judgment of Risk: [place] has additional appointments already scheduled. No additional outreach or intervention is needed at this time. /neil/ PAULA MCKINNEY Signed: 02/06/2024 11:18 Receipt Acknowledged By: 02/06/2024 11:26 /neil/ VIKTORIYA DEGROOT Advanced culinary assistant MENTON,PAULA VITALE OC
--- OUTSIDE RECORDS SUMMARY | 2024-06-05 04:20 | XMS_ITS | Encounter Summary ---
Author Name [place] Address [address] [place] [address] Care Team Providers Care Spring Manufacturing Set Up Technician Name Role Phone BOGDANTAWNYA Primary Care Provider SHAWANDA Todd Primary Care [...] PRESCRIPT ION JACEY S Jul 07, 2021 [facility] [id number] [phone] DORETHA SAMPSON PATIENT [facility] MENTAL HEALTH JACEY S Jul 07, 2021 [id number] [phone] DORETHA SAMPSON PATIENT [facility] * POINT OF SERVICE JACEY S Jul 07, 2021 [id number] [phone] DORETHA SAMPSON PATIENT Selected Encounter This section includes the information on record at [place] for the Encounter. Date/Time Encounter Type Encounter Description Reason Pro vider Source Feb 15, 2024 01:00 PM Outpatient Encounter [facility] IHE Encounter Template Text not used by VA Plan of Treatment: Future Appointments (+ 6 months) and Future Tests (+/- 45 days) The Plan of Treatment section includes future care activities for the patient from all [place] [facility]. This section includes future appointments and future orders which are active, pending or scheduled. Future Appointments This section includes appointments that were scheduled to occur 6 months from the date of the Encounter, up to a maximum of 20 appointments. The data comes from all [place] treatment facilities. Appointment Date/Time Appointment Type Appointme nt Facility Name Feb 20, 2024 11:00 AM AMBULATORY - [facility]ATRY [facility] Feb 20, 2024 02:30 PM AMBULATORY - PS[facility]IATRY [facility] Feb 22, 2024 01:00 PM AMBULATORY - PSYCHIATRY [facility] Feb 29, 2024 01:00 PM AMBULATORY - PSYCHIATRY [facility] March 07, 2024 01:00 PM AMBULATORY - PSYCHIATRY [facility] March 14, 2024 01:00 PM AMBULATORY - PSYCHIATRY [facility] March 18, 2024 09:00 AM AMBULATORY [...] 2024 02:00 PM AMBUL[facility]ORY - SURGERY [facility] Apr 29, 2024 11:00 AM AMBULATORY - PS[facility]IATRY [facility] May 06, 2024 11:00 AM AMBULATORY - PS[facility]IATRY [facility] Jun 04, 2024 02:00 PM AMBULATORY - PS[facility]IATRY [facility] Jun 05, 2024 01:00 PM AMBULATORY - PS[facility]ATRY [facility] Jun 07, 2024 10:40 AM AMBULATORY - NONE [facility] Jun 21, 2024 10:00 AM AMBULATORY - [...] of theEncounter. The data comes from all [place] treatment [facility]. Test Date/Time Test Type Test Details Facility Name Jan 19, 2024 02:07 PM Consult Order COMMUNITY CARE-ENT Cons Implementation Advisor's Choice [facility] Encounter Notes: All associated encounter notes This section contains the clinical notes associated to the Encounter. Date/Time Encounter Note(s) Provider Source Feb 15, 2024 01:00 PM NO SHOW NOTE: LOCAL TITLE: MH NO SHOW NOTE STANDARD TITLE: NO SHOW NOTE DATE OF NOTE: FEB 15, 2024@13:00 ENTRY DATE: FEB 15, 2024@14:15:20 AUTHOR: CARY AVENDAÑO EXP COSIGNER: URGENCY: STATUS: COMPLETED Patient did not appear for scheduled appointment. Risk Factors: History of suicidal ideation, depression, unemployed, access to firearm. Protective Factors: No recent suicidal thoughts, no history of suicidal behavior, desire to live, no history of impulsive coping, help seeking, treatment motivated. Clinician Judgment of Risk: Low Chronic - Stressors historically been endured absent SI. May be managed in primary care settings vs. require MH f/u to continue successful tx. Low acute - Protective factors and coping strategies are present. Plan Based on Clinician Judgment of Risk: Insurance Sales Professional left a message to follow up on no show. Alerting [facility] field supervisor seed production to please make additional outreach. Is the identified with a high risk for suicide flag? No /es/ CARY AVENDAÑO, PhD, STAFF PSYCHOLOGIST Signed: 02/15/2024 14:18 Receipt Acknowledged By: 02/15/2024 16:20 /neil/ Shreya Loya, PhD Staff Health Psychologist 02/19/2024 07:36 /neil/ JANE CUN[place] SUPERVISORY RETAIL FIELD SUPERVISOR CARY AVENDAÑO [facility]
--- OUTSIDE RECORDS SUMMARY | 2024-06-05 04:20 | XMS_ITS | Encounter Summary ---
Author Name [facility] [place] [facility] [place] Address [address] [place] [address] Care Team Providers Care Breaker Layer Name Role Phone BOGDANTAWNYA GIRON Primary Care [...] PRESCRIPT ION JACEY S Jul 07, 2021 [facility] [id number] [phone] DORETHA SAMPSON PATIENT [facility]* MENTAL HEALTH JACEY S Jul 07, 2021 [id number] [phone] DORETHA SAMPSON PATIENT [facility] * POINT OF SERVICE JACEY S Jul 07, 2021 [id number] [phone] DORETHA SAMPSON PATIENT Selected Encounter This section includes the information on record at [place] for the Encounter. Date/Time Encounter Type Encounter Description Reason Provider Source Jan 11, 2024 01:00 PM GROUP PSYCHOTHERAPY [facility] INTGRTD CARE GRP ICD-10-CM F34.1 Dysthymic disorder MARCIE ROBERT [facility] Encounter Template Text not used by [place] Assessments - Encounter Diagnoses This section includes the primary and secondary diagnoses documented for the Encounter. Date/Time Primary/Secondary Diagnosis Diagnosis Name Provider Source Jan 11, 2024 02:24 PM PRIMARY Dysthymic disorder MARCIE ROBERT [facility] Jan 11, 2024 02:24 PM SECONDARY Social phobia, generalized MARCIE ROBERT [facility] Plan of Treatment: Future Appointments (+ 6 months) and Future Tests (+/- 45 days) The Plan of Treatment section includes future care activities for the patient from all [place] [facility]. This section includes future appointments and future orders which are active, pending or scheduled. Future Appointments This section includes appointments that were scheduled to occur 6 months from the date of the Encounter, up to a maximum of 20 appointments. The data comes from all [place] treatment facilities. Appointment Date/Time Appointment Type Appointme nt Facility Name Jan 15, 2024 09:00 AM AMBULATORY - MEDICINE [facility] Jan 16, 2024 11:00 AM AMBULATORY - [facility]ATRY [facility] Jan 18, 2024 01:00 PM AMBULATORY - PSYCHIATRY [facility] Jan 19, 2024 02:00 PM AMBULATORY - SURGERY [facility] Jan 22, 2024 01:15 PM AMBULATORY - PS[facility]CHIATRY [facility] Jan 23, 2024 10:00 AM AMBULATORY - PS[facility]ATRY [facility] Jan 23, 2024 11:00 AM AMBULATORY - PS[facility]IATRY [facility] Jan 25, 2024 01:00 PM AMBULATORY - PSYCHIATRY [facility] Jan 30, 2024 11:00 AM AMBULATORY - PS[facility]CHIATRY [facility] Feb 01, 2024 01:00 PM AMBULATORY - PSYCHIATRY [facility] Feb 06, 2024 11:00 AM AMBULATORY - PS[facility]IATRY [facility] Feb 08, 2024 01:00 PM AMBULATORY - [facility]AT[facility] Feb 13, 2024 11:00 AM AMBULATORY - PS[facility]IATRY [facility] Feb 14, 2024 02:00 PM AMBULATORY - PS[facility]IATRY [facility] Feb 15, 2024 01:00 PM AMBULATORY - PSYCHIATRY [facility] Feb 20, 2024 11:00 AM AMBULATORY - PS[facility]IATRY [facility] Feb 20, 2024 02:30 PM AMBULATORY - PS[facility]IATRY [facility] Feb 22, 2024 01:00 PM AMBULATORY - [facility]IATRY [facility] Feb 29, 2024 01:00 PM AMBULATORY - PSYCHIATRY [facility] March 07, 2024 01:00 PM AMBULATORY - PSYCHIATRY [facility] Active, Pending, and Scheduled Orders This section includes a listing of several types of active, pending, and scheduled orders, including clinic medications orders, diagnostic test orders, procedure orders and consult orders; where the start date of the order is 45 days before the date of the Encounter or 45 days after the date of theEncounter. The data comes from all [place] treatment facilities. Test Date/Time Test Type Test Details Facility Name Jan 19, 2024 02:07 PM Consult Order COMMUNITY CARE-ENT Cons Oral Communication Instructor's Choice [facility] Encounter Notes: All associated encounter notes This section contains the clinical notes associated to the Encounter. Date/Time Encounter Note(s) Provider Source Jan 11, 2024 01:00 PM MENTAL HEALTH E & M INTERDISCIPLINARY NOTE: LOCAL TITLE: PRIMARY CARE-MH INTEGRATION GROUP NOTE STANDARD TITLE: MENTAL HEALTH E & M INTERDISCIPLINARY NOTE DATE OF NOTE: JAN 11, 2024@13:00 ENTRY DATE: JAN 11, 2024@14:15:07 AUTHOR: MARCIE ROBERT EXP COSIGNER: URGENCY: STATUS: COMPLETED PRIMARY CARE-MH INTEGRATION GROUP NOTE Has ADDENDA CORRUGATOR OPERATOR(s): Shreya Loya, PhD and Marcie Robert, PhD, DATE/TIME OF GROUP: 01/11/2024 1PM LENGTH OF GROUP: 45 Minutes ATTENDED: 45 Minutes FREQUENCY OF GROUP: weekly NUMBER IN ATTENDANCE: 6 SCOPE: Group Therapy DIAGNOSES: Dysthymia (SCT [id number]) - Dysthymic disorder (ICD-10-CM F34.1) (Primary) Social phobia (SCT [id number]) - Social phobia, generalized (ICD-10-CM F40.11) Informed consent for treatment and limits, risks, and benefits of treatment were reviewed with patient during pregroup visit and initial group session and they indicated understanding and agreement. Visit conducted by synchronous telehealth. verbal consent obtained. Location/emergency number confirmed. Environment surveyed and all participants identified. Virtual conference room locked. GROUP TOPIC/TITLE: Coping and Resilience Skills (CaRS) Group Session 1: Introductions, Group Orientation, Expectations, Intro to purpose of emotions, Intro to Mindfulness Session Outline: * Complete Pre-group Questionnaires: [Sent via [employer] Touch] * Brief Mindfulness Exercise * Group Guidelines: o Come on time to sessions o Participate in every session o Be respectful of others o Allow others to talk o Listen to what others have to say o Be supportive o Complete activities and exercises o Maintain group privacy and confidentiality o This group may bring up difficult feelings o Please feel free to stand or move in order to make yourself comfortable * Basic Group Expectations: o CaRS is a skills-based group where we learn skills useful for improving your mental health and wellbeing o 75 minutes, 10 weeks o We discuss different skills each week that you will practice between sessions * Introduction of members and facilitators. * Purpose of the group: refining personal goals and learning skills for coping with difficult emotions and situations in an effort to help participants toward goals, despite challenges. * Decisional Balance handout - helps members evaluate whether they wish to put in the required effort to make changes to move toward goals. * Home Practice - Complete the Decisional Balance handout and be ready to report back and share what you learned. * WRAP UP MEDIUM: Decisional Balance Worksheet PARTICIPATION: [place] reported she is hoping to learn skills to better understand herself and to improve her mood. Readiness to learn: While in session today, actively participated and appeared to listen attentively, asked questions as needed, and responded to other's questions as appropriate. Patient Understanding: appeared to fully understand the principles and skills discussed today. SUICIDE RISK ASSESSMENT Gleaned from progress note from Dr. Penny on 12/12/23: Risk Factors: History of suicidal ideation, depression, unemployed, access to firearm. Protective Factors: No recent suicidal thoughts, no history of suicidal behavior, desire to live, no history of impulsive coping, help seeking, treatment motivated. PERCEIVED CHRONIC SUICIDE RISK: Low Chronic - Stressors historically been endured absent SI. May be managed in primary care settings vs. require MH f/u to continue successful tx. PERCEIVED ACUTE SUICIDE RISK: Low acute - Protective factors and coping strategies are present. PLAN: to complete Home practice assignment. Attend [employer] next week. /neil/ MARCIE ROBERT, PhD, STAFF PSYCHOLOGIST Signed: 01/11/2024 14:25 Receipt Acknowledged By: 01/12/2024 08:15 /neil/ Shreya Loya, PhD Staff Health Psychologist 01/11/2024 ADDENDUM STATUS: COMPLETED Clinical Therapist called to follow up on positive item 9 of the PHQ-9 that [place] completed today. reported she experiences chronic passive SI and that Dr. Penny is aware of this. She denied any suicidal plan or intent. /neil/ MARCIE ROBERT, PhD, STAFF PSYCHOLOGIST Signed: 01/11/2024 14:34 MARCIE ROBERT [facility] Jan 11, 2024 12:23 PM MENTAL HEALTH NOTE : LOCAL TITLE: MEASUREMENT BASED CARE STANDARD TITLE: MENTAL HEALTH NOTE DATE OF NOTE: JAN 11, 2024@12:23:20 ENTRY DATE: JAN 11, 2024@12:23:20 AUTHOR: MARCIE ROBERT EXP COSIGNER: URGENCY: STATUS: COMPLETED Assessments were sent to the [place] via text/email. These assessments were completed by DORETHA SAMPSON on their own device on 01/10/2024 3:49:37 PM. DEMOGRAPHICS The patient was asked the following background questions Current marital status: Never Race: White : No Currently or ever used tobacco: Quit tobacco > 7 years ago Interested in quitting and staying quit: N/A Branch of : [employer] Enter service: 2014 Exit service: 2020 Doing any kind of paid work: No Work full or part - time: N/A Financial situation: Can't make ends meet General health: Fair PATIENT HEALTH QUESTIONNAIRE-9 (PHQ-9) The patient reported symptoms consistent with a major depressive episode. Patient reported being bothered by the following over the last 2 weeks: 1. Little interest or pleasure: Nearly every day 2. Feeling down, depressed or hopeless: Nearly every day 3. Trouble sleeping: More than half the days 4. Tired, low energy: Nearly every day 5. Poor appetite, over-eating: Nearly every day 6. Feelings of failure, guilt: Nearly every day 7. Trouble concentrating: Several Days 8. Motor retardation, agitation: More than half the days 9. Thoughts better off /hurting self: Several Days PHQ-9 total score = 21 1-4 = minimal symptoms 5-9= mild symptoms 10-14= moderate symptoms 15-19= moderately severe symptoms 20-27= severe depressive symptoms The patient stated that the depressive symptoms made it extremely difficult to work, take care of things at home, or get along with others. PHQ-9 Total Score (past 180 days): 01/10/2024 21 GENERAL ANXIETY DISORDER-7 (KRISTINA-7) Patient reported being bothered by the following over the last two weeks: 1. Feeling nervous, anxious or on edge: More than half the days 2. Not being able to stop or control worrying: Several days 3. Worrying too much about different things: More than half the days 4. Trouble relaxing: Several days 5. Feeling restless (hard to sit still): Several days 6. Becoming easily annoyed or irritable: Several days 7. Afraid as if something awful might happen: More than half the days KRISTINA-7 total score = 10 0-4=minimal symptoms 5-9=mild symptoms 10-14=moderate symptoms 15-21=severe symptoms The patient stated that the anxiety symptoms made it extremely difficult to work, take care of things at home, or get along with others. KRISTINA-7 Total Score (past 180 days): 01/10/2024 10 SATISFACTION Patient reported the following in regard to the mental health services they receive: 1. Quality of services: Good 2. Getting the services wanted: Yes, generally MENTAL HEALTH RECOVERY MEASURE (MHRM-10) 1. I still grow and change in positive ways despite my mental health problem: Not Sure 2. Even though I may still have problems, I value myself as a person of worth: Not Sure 3. I understand myself and have a good sense of who I am: Disagree 4. I feel good about myself: Disagree 5. The way I think about things helps me to achieve my goals: Disagree 6. I feel at peace with myself: Disagree 7. I maintain a positive attitude for weeks at a time: Disagree 8. Every day that I get up, I do something productive: Not Sure 9. I am making progress toward my goals: Agree 10. I engage in work or other activities that enrich myself and the world around me: Not Sure Score: 16 MHRM-10 scores range from 0 to 40, with higher scores indicating higher perceived mental health recovery. MHRM-10 Total Score (past 180 days): 01/10/2024 Gloria /neil/ MARCIE ROBERT, PhD, STAFF PSYCHOLOGIST Signed: 01/11/2024 14:25 MARCIE ROBERT [facility]
--- OUTSIDE RECORDS SUMMARY | 2024-06-05 04:20 | XMS_ITS | Encounter Summary ---
Author Name [facility] [facility] [place] Address [address] [place] [address] Care Team Providers Care Kaiako Kohanga Reo Name Role Phone TAWNYA MCFADDEN Primary Care [...] Jul 07, 2021 [facility] [id number] [phone] DORETHA SAMPSON PATIENT [facility] MENTAL HEALTH JACEY S Jul 07, 2021 [id number] [phone] DORETHA SAMPSON PATIENT [facility] * POINT OF SERVICE JACEY S Jul 07, 2021 [id number] [phone] DORETHA SAMPSON PATIENT Selected Encounter This section includes the information on record at [place] for the Encounter. Date/Time Encounter Type Encounter Description Reason Provider Source Jan 16, 2024 11:00 AM PSYTX W PT 45 MINUTES [facility] CLINIC - IND ICD-10-CM F34.1 Dysthymic disorder PAULA MCKINNEY Encounter Template Text not used by [place] Assessments - Encounter Diagnoses This section includes the primary and secondary diagnoses documented for the Encounter. Date/Time Primary/Secondary Diagnosis Diagnosis Name Provider Source Jan 16, 2024 12:35 PM PRIMARY Dysthymic disorder KENYETTACARMELLAPAULA Jan 16, 2024 12:35 PM SECONDARY Social phobia, generalized KENYETTACARMELLAPAULA Plan of Treatment: Future Appointments (+ 6 months) and Future Tests (+/- 45 days) The Plan of Treatment section includes future care activities for the patient [facility] [place] [facility] This section includes future appointments and future orders which are active, pending or scheduled. Future Appointments This section includes appointments that were scheduled to occur 6 months from the date of the Encounter, up to a maximum of 20 appointments. The data comes from all [place] treatment facilities. Appointment Date/Time Appointment Type Appointme nt Facility Name Jan 18, 2024 01:00 PM AMBULATORY - PSYCHIATRY [facility] Jan 19, 2024 02:00 PM AMBULATORY - SURGERY [facility] Jan 22, 2024 01:15 PM AMBULATORY - PS[facility]CHIATRY [facility] Jan 23, 2024 10:00 AM AMBULATORY - PS[facility]CHIATRY [facility] Jan 23, 2024 11:00 AM AMBULATORY - PS[facility]IATRY [facility] Jan 25, 2024 01:00 PM AMBULATORY - PSYCHIATRY [facility] Jan 30, 2024 11:00 AM AMBULATORY - PS[facility]CHIATRY [facility] Feb 01, 2024 01:00 PM AMBULATORY - PSYCHIATRY [facility] Feb 06, 2024 11:00 AM AMBULATORY - PS[facility]CHIATRY [facility] Feb 08, 2024 01:00 PM AMBULATORY - PSYCHIATRY [facility] Feb 13, 2024 11:00 AM AMBULATORY - PS[facility]CHIATRY [facility] Feb 14, 2024 02:00 PM AMBULATORY - PS[facility]CHIATRY [facility] Feb 15, 2024 01:00 PM AMBULATORY - PSYCHIATRY [facility] Feb 20, 2024 11:00 AM AMBULATORY - PS[facility]CHIATRY [facility] Feb 20, 2024 02:30 PM AMBULATORY - PS[facility]CHIATRY [facility] Feb 22, 2024 01:00 PM AMBULATORY - PSYCHIATRY [facility] Feb 29, 2024 01:00 PM AMBULATORY - PSYCHIATRY [facility] March 07, 2024 01:00 PM AMBUL[facility]ORY [place] [facility] March 14, 2024 01:00 PM AMBUL[facility]ORY [place] [facility] March 18, 2024 09:00 AM [facility] Active, Pending, and Scheduled Orders This section includes a listing of several types of active, pending, and scheduled orders, including clinic medications orders, diagnostic test orders, procedure orders and consult orders; where the start date of the order is 45 days before the date of the Encounter or 45 days after the date of theEncounter. The data comes from all [place] treatment facilities. Test Date/Time Test Type Test Details Facility Name Jan 19, 2024 02:07 PM Consult Order COMMUNITY CARE-ENT Cons Field Crew Chief's Choice [facility] Social History: Smoking Status (Most current) and Tobacco Use (All prior to encounter date) This section includes the most current, and the historical, smoking and tobacco- related health factors from the [place] facility where the Encounter took place. Current Smoking Status This section includes the most current smoking, or tobacco-related health factor, from the [place] facility where the Encounter took place. Date/Time Current Smoking Status Comment Facil ity Jun 07, 2023 01:00 PM VA-TOBACCO FORMER USER [facility] Tobacco Use History This section includes a history of the smoking, or tobacco-related health factors, that were collected on or before the date of the Encounter. The data comes from the [place] facility where the Encounter took place. Date/Time Smoking Status/Tobacco Use Comment F acility Jun 07, 2023 01:00 PM VA-TOBACCO QUIT 1 TO < 5 YRS [facility] Apr 26, 2021 01:00 PM VA-TOBACCO NEVER USED [facility] Encounter Notes: All associated encounter notes This section contains the clinical notes associated to the Encounter. Date/Time Encounter Note(s) Provider Source Jan 16, 2024 12:25 PM MENTAL HEALTH NOTE : LOCAL TITLE: MH PROGRESS NOTE STANDARD TITLE: MENTAL HEALTH NOTE DATE OF NOTE: JAN 16, 2024@12:25 ENTRY DATE: JAN 16, 2024@12:25:41 AUTHOR: PAULA MCKINNEY COSIGNER: URGENCY: STATUS: COMPLETED ----PSYCHOTHERAPY PROGRESS NOTE---- INFORMED CONSENT: Clinician and reviewed informed consent for treatment, potential risks and benefits of treatment, and limits of confidentiality. [place] indicated understanding and agreement. VVC: Visit conducted by synchronous telehealth. [place] verbal consent obtained. Location/emergency number confirmed. Environment surveyed and all participants identified. Virtual conference room locked. [place] Name: Doretha Mas Date of : 1995 Intervention session #: 12 MENTAL STATUS Grooming: Appropriate Motor: Calm; unremarkable Mood: Depressed Affect: Mildly restricted Speech: Normal rate, rhythm, and volume Thought Content: Negative for unusual or bizarre content Thought Processes: Linear; logical; goal-oriented Suicidality: Passive (no plan or intent) Homicidality: Absent Hallucinations: Absent Delusions: Absent Orientation: Intact DSM-5 DIAGNOSTIC IMPRESSION -Persistent depressive disorder, with anxious distress -Social anxiety disorder RELEVANT HISTORY Since her last appointment, sheryl has started the Coping and Resilience Skills (CaRs) group and has withdrawn from vocational/rehab services for the time being, as she wishes to focus on her health before moving forward with plans to re-enter the workforce. She stated that her Meniere's treatment seems to be helping somewhat, though she continues to experience significant nausea and vertigo, especially in the mornings. She has been spending time with a male peer; she requested to discuss this in the present session. INTERVENTION DETAILS Session duration: 50 minutes. Focus of session: Navigating possible romantic relationship amidst mental and physical health difficulties. Education provided: None. Other interventions: -Discussed 's attitudes toward dating and romance. -Discussed reservations about dating. -Discussed ways a relationship might or might not fit in with 's current life. Handouts: None. [place] response: reported feeling ambivalent about pursuing a romantic relationship, though she acknowledged that she would like to find a place for one. She described a history of abruptly ending relationships and expressed concern that this could happen again. She also described discomfort about feeling vulnerable around men, particularly given her current physical condition. She nevertheless indicated that a relationship seems meaningful and worth cautiously pursuing. RISK ASSESSMENT Risk Factors: History of suicidal ideation, depression, unemployed, access to firearm. Protective Factors: No recent suicidal thoughts, no history of suicidal behavior, desire to live, no history of impulsive coping, help seeking, treatment motivated. Estimate of Risk: Low acute and low chronic risk of self-harm. PLAN RTC date/time: 01/23/24, 1100 Homework: None. Plan for next session: Continue to discuss obstacles to valued action. Current Treatment Plan Date: 07/19/23 Plan Renewal Date: 07/19/24 /neil/ PAULA MCKINNEY Signed: 01/16/2024 12:35 PAULA MCKINNEY [facility]
--- OUTSIDE RECORDS SUMMARY | 2024-06-05 04:20 | XMS_ITS | Encounter Summary ---
Author Name [facility] [place] [facility] [place] Address [address] [place] [address] Care Team Providers Care Residential Director Name Role Phone BOGDAN TAWNYA Primary Care [...] Jul 07, 2021 [facility] [id number] [phone] DORETHA SAMPSON PATIENT [facility]* MENTAL [facility] JACEY S Jul 07, 2021 [id number] [phone] DORETHA SAMPSON PATIENT [facility] * POINT OF SERVICE JACEY S Jul 07, 2021 [id number] [phone] DORETHA SAMPSON PATIENT Selected Encounter This section includes the information on record at [place] for the Encounter. Date/Time Encounter Type Encounter Description Reason Provider Source Feb 14, 2024 02:00 PM PSYCH DIAGNOSTIC EVALUATION [facility] - IND ICD-10-CM F34.1 Dysthymic disorder [facility]G [facility] Encounter Template Text not used by [place] Assessments - Encounter Diagnoses This section includes the primary and secondary diagnoses documented for the Encounter. Date/Time Primary/Secondary Diagnosis Diagnosis Name Provider Source Feb 15, 2024 01:49 PM PRIMARY Dysthymic disorder LAURIEMEGFROILAN VITALE CBKHUSHBOO Feb 15, 2024 01:49 PM SECONDARY Social phobia, generalized LAURIE,MEG NATHAN IAM CASTELLANOS Plan of Treatment: Future Appointments (+ 6 months) and Future Tests (+/- 45 days) The Plan of Treatment section includes future care activities for the patient from [facility] [place] [facility]. This section includes future appointments and future orders which are active, pending or scheduled. Future Appointments This section includes appointments that were scheduled to occur 6 months from the date of the Encounter, up to a maximum of 20 appointments. The data comes from all [facility] facilities. Appointment Date/Time Appointment Type Appointme nt Facility Name Feb 15, 2024 01:00 PM AMBULATORY [facility]RY [facility] Feb 20, 2024 11:00 AM AM[facility]ORY - [facility]RY [facility] Feb 20, 2024 02:30 PM [facility] Feb 22, 2024 01:00 PM AMBULATORY - PS[facility]ATRY [facility] Feb 29, 2024 01:00 PM AMBULATORY - PS[facility]CHIATRY [facility] March 07, 2024 01:00 PM AMBULATORY - PS[facility]CHIATRY [facility] March 14, 2024 01:00 PM AMBULATORY - PS[facility]CHIATRY [facility] March 18, 2024 09:00 AM AMBULATORY [...] 02:00 PM AMBULATORY - SURGERY [facility] Apr 29, 2024 11:00 AM [facility] May 06, 2024 11:00 AM AM[facility]ORY [facility] Jun 04, 2024 02:00 PM [facility] Jun 05, 2024 01:00 PM [facility] Jun 07, 2024 10:40 AM AMBULATORY - NONE [facility] Jun 21, 2024 10:00 AM [facility] - [facility]RY [facility] Active, Pending, and Scheduled Orders This section includes a listing of several types of active, pending, and scheduled orders, including clinic medications orders, diagnostic test orders, procedure orders and consult orders; where the start date of the order is 45 days before the date of the Encounter or 45 days after the date of theEncounter. The data comes from all [place] treatment facilities. Test Date/Time Test Type Test Details Facility Name Jan 19, 2024 02:07 PM Consult Order COMMUNITY CARE-ENT Cons Soft Sugar Supervisor's Choice [facility] Social History: Smoking Status (Most current) and Tobacco Use (All prior to encounter date) This section includes the most current, and the historical, smoking and tobacco- related health factors from the [place] facility where the Encounter took place. Current Smoking Status This section includes the most current smoking, or tobacco-related health factor, from the [place] facility where the Encounter took place. Date/Time Current Smoking Status Comment Facil ity Jun 07, 2023 01:00 PM VA-TOBACCO FORMER USER [facility] Tobacco Use History This section includes a history of the smoking, or tobacco-related health factors, that were collected on or before the date of the Encounter. The data comes from the [place] facility where the Encounter took place. Date/Time Smoking Status/Tobacco Use Comment F acility Jun 07, 2023 01:00 PM VA-TOBACCO QUIT 1 TO < 5 YRS [facility] Apr 26, 2021 01:00 PM VA-TOBACCO NEVER USED [facility] Encounter Notes: All associated encounter notes This section contains the clinical notes associated to the Encounter. Date/Time Encounter Note(s) Provider Source Feb 16, 2024 02:23 PM ADDENDUM: LOCAL TITLE: Addendum STANDARD TITLE: ADDENDUM DATE OF NOTE: FEB 16, 2024@14:23:54 ENTRY DATE: FEB 16, 2024@14:23:55 AUTHOR: MEG SULLIVAN COSIGNER: URGENCY: STATUS: COMPLETED [place] has agreed to meet with this provider for psychological testing on 03/19/2024 from 13:00 - 16:00. This provider is cosigning [facility] for scheduling purposes. /neil/ MEG SULLIVAN STAFF PSYCHOLOGIST Signed: 02/16/2024 14:25 Receipt Acknowledged By: 02/19/2024 07:47 /es/ VIKTORIYA JOSEPH Advanced recruitment and outreach assistant --- Original Document --- 02/14/24 PROGRESS NOTE: ----PSYCHOLOGICAL EVALUATION PROGRESS NOTE---- INFORMED CONSENT: Clinician and reviewed informed consent for evaluation, potential risks and benefits of evaluation, and limits of confidentiality. indicated understanding and agreement. Reason for Referral: was self-referred for ADHD testing. [place] participated in a detailed clinical interview as part of their psychological evaluation. Psychological testing will take place at a later date. A full report will follow, pending completion of psychological testing. Provisional diagnoses: persistent depressive disorder, with anxious distress; social anxiety disorder; R/O ADHD MENTAL STATUS Eye contact: Appropriate, intermittent, avoidant Grooming: Good Motor: Calm Mood: Euthymic Affect: Appropriate Speech: Normal rate, Normal rhythm, Normal volume Thought Content: Normal Thought Processes: Logical Suicidality: Absent Homicidality: Absent Hallucinations: Absent Delusions: Absent Oriented: Fully Oriented Judgement: good Insight: good RISK ASSESSMENT (obtained from most recent note on 02/13/2024; no changes since then) Risk Factors: History of suicidal ideation, depression, unemployed, access to firearm. Protective Factors: No recent suicidal thoughts, no history of suicidal behavior, desire to live, no history of impulsive coping, help seeking, treatment motivated. Determination of Risk: low acute and low chronic /vargas SULLIVAN STAFF PSYCHOLOGIST Signed: 02/15/2024 13:49 MEG SULL[facility] Feb 14, 2024 02:00 PM MENTAL HEALTH NOTE : LOCAL TITLE: PROGRESS NOTE STANDARD TITLE: MENTAL HEALTH NOTE DATE OF NOTE: FEB 14, 2024@14:00 ENTRY DATE: FEB 14, 2024@15:50:05 AUTHOR: LAURIE,MEG ELIZABE EXP COSIGNER: URGENCY: STATUS: COMPLETED PROGRESS NOTE Has ADDENDA ----PSYCHOLOGICAL EVALUATION PROGRESS NOTE---- INFORMED CONSENT: Clinician and reviewed informed consent for evaluation, potential risks and benefits of evaluation, and limits of confidentiality. indicated understanding and agreement. Reason for Referral: [facility] was self-referred for ADHD testing. participated in a detailed clinical interview as part of their psychological evaluation. Psychological testing will take place at a later date. A full report will follow, pending completion of psychological testing. Provisional diagnoses: persistent depressive disorder, with anxious distress; social anxiety disorder; R/O ADHD MENTAL STATUS Eye contact: Appropriate, intermittent, avoidant Grooming: Good Motor: Calm Mood: Euthymic Affect: Appropriate Speech: Normal rate, Normal rhythm, Normal volume Thought Content: Normal Thought Processes: Logical Suicidality: Absent Homicidality: Absent Hallucinations: Absent Delusions: Absent Oriented: Fully Oriented Judgement: good Insight: good RISK ASSESSMENT (obtained from most recent note on 02/13/2024; no changes since then) Risk Factors: History of suicidal ideation, depression, unemployed, access to firearm. Protective Factors: No recent suicidal thoughts, no history of suicidal behavior, desire to live, no history of impulsive coping, help seeking, treatment motivated. Determination of Risk: low acute and low chronic /neil/ MEG SULLIVAN STAFF PSYCHOLOGIST Signed: 02/15/2024 13:49 02/16/2024 ADDENDUM STATUS: COMPLETED has agreed to meet with this provider for psychological testing on 03/19/2024 from 13:00 - 16:00. This provider is cosigning [facility] for scheduling purposes. /neil/ MEG SULLIVAN STAFF PSYCHOLOGIST Signed: 02/16/2024 14:25 Receipt Acknowledged By: * AWAITING SIGNATURE * VIKTORIYA JOSEPH [facility]
--- OUTSIDE RECORDS SUMMARY | 2024-06-05 04:20 | XMS_ITS | Encounter Summary ---
Author Name [facility] [place] [facility] [place] [facility] [place] Address [address] [place] [address] Care Team Providers Care Master Control Supervisor Name Role Phone TAWNYA MCFADDEN Primary Care [...] PRESCRIPT ION JACEY S Jul 07, 2021 [facility] [id number] [phone] DORETHA SAMPSON PATIENT [facility] MENTAL HEALTH JACEY S Jul 07, 2021 [id number] [phone] DORETHA SAMPSON PATIENT [facility] * POINT OF SERVICE JACEY S Jul 07, 2021 [id number] [phone] DORETHA SAMPSON PATIENT Selected Encounter This section includes the information on record at [place] for the Encounter. Date/Time Encounter Type Encounter Description Reason Pro vider Source Jan 30, 2024 11:00 AM Outpatient Encounter [facility] - IND [facility] Encounter Template Text not used by [facility] Plan of Treatment: Future Appointments (+ 6 months) and Future Tests (+/- 45 days) The Plan of Treatment section includes future care activities for the patient [facility] [place] [facility] This section includes future appointments and future orders which are active, pending or scheduled. Future Appointments This section includes appointments that were scheduled to occur 6 months from the date of the Encounter, up to a maximum of 20 appointments. The data comes from all [facility] facilities. Appointment Date/Time Appointment Type Appointme nt Facility Name Feb 01, 2024 01:00 PM AMB[facility]ATORY [facility]RY [facility] Feb 06, 2024 11:00 AM AM[facility]ORY [facility] Feb 08, 2024 01:00 PM AMBULATORY - PSYCHIATRY [facility] Feb 13, 2024 11:00 AM AM[facility]ORY [facility] Feb 14, 2024 02:00 PM [facility] Feb 15, 2024 01:00 PM AMBULATORY - PSYCHIATRY [facility] Feb 20, 2024 11:00 AM [facility] Feb 20, 2024 02:30 PM [facility] Feb 22, 2024 01:00 PM AMBULATORY - PSYCHIATRY [facility] Feb 29, 2024 01:00 PM AMBULATORY - PSYCHIATRY [facility] March 07, 2024 01:00 PM AMBULATORY - PSYCHIATRY [facility] March 14, 2024 01:00 PM AMBULATORY - PSYCHIATRY [facility] March 18, 2024 09:00 AM AMBULATORY [...] 02:00 PM [facility] Apr 29, 2024 11:00 AM AMBULATORY [...] of theEncounter. The data comes from all [place] treatment facilities. Test Date/Time Test Type Test Details Facility Name Jan 19, 2024 02:07 PM Consult Order COMMUNITY CARE-ENT Cons Laminating Press Operator's Choice [facility] Social History: Smoking Status (Most current) and Tobacco Use (All prior to encounter date) This section includes the most current, and the historical, smoking and tobacco- related health factors from the [place] facility where the Encounter took place. Current Smoking Status This section includes the most current smoking, or tobacco-related health factor, from the [place] facility where the Encounter took place. Date/Time Current Smoking Status Comment Facil ity Jun 07, 2023 01:00 PM VA-TOBACCO FORMER USER [facility] Tobacco Use History This section includes a history of the smoking, or tobacco-related health factors, that were collected on or before the date of the Encounter. The data comes from the [place] facility where the Encounter took place. Date/Time Smoking Status/Tobacco Use Comment F acility Jun 07, 2023 01:00 PM VA-TOBACCO QUIT 1 TO < 5 YRS [facility] Apr 26, 2021 01:00 PM VA-TOBACCO NEVER USED [facility] Encounter Notes: All associated encounter notes This section contains the clinical notes associated to the Encounter. Date/Time Encounter Note(s) Provider Source Jan 30, 2024 11:16 AM NO SHOW NOTE: [facility] T[facility] NO SHOW NOTE STANDARD TITLE: NO SHOW NOTE DATE OF NOTE: JAN 30, 2024@11:16 ENTRY DATE: JAN 30, 2024@11:16:24 AUTHOR: PAULA MCKINNEY COSIGNER: URGENCY: STATUS: COMPLETED Patient did not appear for scheduled appointment. Therapist phoned twice; both calls eventually went to [facility]. Therapist left a message indicating that [...] Plan Based on Clinician Judgment of Risk: [place] has additional appointments already scheduled. No additional outreach or intervention is needed at this time. /neil/ PAULA MCKINNEY Signed: 01/30/2024 11:17 Receipt Acknowledged By: 01/30/2024 14:15 /neil/ VIKTORIYA DEGROOT Advanced inventory control assistant MENTON,PAULA [facility] OC
--- OUTSIDE RECORDS SUMMARY | 2024-06-05 04:20 | XMS_ITS | Encounter Summary ---
Author Name [facility] [place] [facility] [place] Address [address] [place] [address] Care Team Providers Care Dull Coat Mill Operator Name Role Phone TAWNYA MCFADDEN Primary Care Provider SHAWANDA Todd Primary Care Provider Unava ilable Insurance Providers: All historical and current Section [...] PRESCRIPT ION JACEY S Jul 07, 2021 [facility] [id number] [phone] DORETHA SAMPSON PATIENT [facility] MENTAL HEALTH JACEY S Jul 07, 2021 [id number] [phone] DORETHA SAMPSON PATIENT [facility] * POINT OF SERVICE JACEY S Jul 07, 2021 [id number] [phone] DORETHA SAMPSON PATIENT Selected Encounter This section includes the information on record at [place] for the Encounter. Date/Time Encounter Type Encounter Description Reason Provider Source Jan 23, 2024 10:00 AM OFFICE O/P EST LOW 20 MIN [facility]ENT[facility] CLINIC - IND ICD-10-CM F34.1 Dysthymic disorder MELITON CALABRESE Encounter Template Text not used by VA Assessments - Encounter Diagnoses This section includes the primary and secondary diagnoses documented for the Encounter. Date/Time Primary/Secondary Diagnosis Diagnosis Name Provider Source Jan 23, 2024 10:25 AM PRIMARY Dysthymic disorder MELITON CALABRESE Plan of Treatment: Future Appointments (+ 6 months) and Future Tests (+/- 45 days) The Plan of Treatment section includes future care activities for the patient from all [place] treatmentfacommunity healthities. This section includes future appointments and future orders which are active, pending or scheduled. Future Appointments This section includes appointments that were scheduled to occur 6 months from the date of the Encounter, up to a maximum of 20 appointments. The data comes from all [place] treatment facilities. Appointment Date/Time Appointment Type Appointme nt Facility Name Jan 25, 2024 01:00 PM AMBULATORY - PSYCHIATRY [facility] Jan 30, 2024 11:00 AM AMBULATORY - PS[facility]IATRY [facility] Feb 01, 2024 01:00 PM AMBULATORY - PSYCHIATRY [facility] Feb 06, 2024 11:00 AM AMBULATORY - PS[facility]IATRY [facility] Feb 08, 2024 01:00 PM AMBULATORY - PSYCHIATRY [facility] Feb 13, 2024 11:00 AM [facility]ORY [facility] Feb 14, 2024 02:00 PM AMBULATORY - PS[facility]IATRY [facility] Feb 15, 2024 01:00 PM AMBULATORY - PSYCHIATRY [facility] Feb 20, 2024 11:00 AM [facility]ORY [facility] Feb 20, 2024 02:30 PM AM[facility]ORY [facility] Feb 22, 2024 01:00 PM AMBULATORY - PSYCHIATRY [facility] Feb 29, 2024 01:00 PM AMBULATORY - PSYCHIATRY [facility] March 07, 2024 01:00 PM AMBULATORY - PSYCHIATRY [facility] March 14, 2024 01:00 PM AMBULATORY - PSYCHIATRY [facility] March 18, 2024 09:00 AM AM[facility]ORY [facility] March 19, 2024 01:00 PM AM[facility] March 25, 2024 09:00 AM AMBULATORY [facility] Apr 08, 2024 09:00 AM AM[facility]ORY [facility] Apr 16, 2024 02:00 PM [facility] - [facility]RY [facility] Apr 17, 2024 02:00 PM [facility]ORY - SURGERY [facility] Active, Pending, and Scheduled Orders This section includes a listing of several types of active, pending, and scheduled orders, including clinic medications orders, diagnostic test orders, procedure orders and consult orders; where the start date of the order is 45 days before the date of the Encounter or 45 days after the date of theEncounter. The data comes from all [place] treatment facilities. Test Date/Time Test Type Test Details Facility Name Jan 19, 2024 02:07 PM Consult Order COMMUNITY CARE-ENT Cons [employer] [facility] Social History: Smoking Status (Most current) and Tobacco Use (All prior to encounter date) This section includes the most current, and the historical, smoking and tobacco- related health factors from the [place] facility where the Encounter took place. Current Smoking Status This section includes the most current smoking, or tobacco-related health factor, from the [place] facility where the Encounter took place. Date/Time Current Smoking Status Comment Facil ity Jun 07, 2023 01:00 PM VA-TOBACCO FORMER USER [facility] Tobacco Use History This section includes a history of the smoking, or tobacco-related health factors, that were collected on or before the date of the Encounter. The data comes from the [place] facility where the Encounter took place. Date/Time Smoking Status/Tobacco Use Comment F acility Jun 07, 2023 01:00 PM VA-TOBACCO QUIT 1 TO < 5 YRS [facility] Apr 26, 2021 01:00 PM VA-TOBACCO NEVER USED [facility] Encounter Notes: All associated encounter notes This section contains the clinical notes associated to the Encounter. Date/Time Encounter Note(s) Provider Source Jan 23, 2024 09:50 AM PSYCHIATRY E & M N OTE: LOCAL TITLE: MH PSYCHIATRIC EVALUATION & MANAGEMENT STANDARD TITLE: PSYCHIATRY E & M NOTE DATE OF NOTE: JAN 23, 2024@09:50 ENTRY DATE: JAN 23, 2024@09:50:12 AUTHOR: MELITON CALABRESE COSIGNER: URGENCY: STATUS: COMPLETED MH PSYCHIATRIC EVALUATION & MANAGEMENT Has ADDENDA PSYCHIATRIC EVALUATION AND MANAGEMENT FOLLOW UP VISIT Duration: 21 minutes Time spent performing psychotherapy services: 16-30 minutes Visit conducted by [place] [employer] telehealth. [place] verbal consent obtained. Location/emergency number confirmed. Environment surveyed and all participants identified. Virtual conference room locked. IDENTIFICATION: 28 year old [place] (30% PTSD) female kept appt in [facility] clinic for voluntary psychiatric med management/supportive therapy follow up last appt Aug 28. The electronic medical record was reviewed. Medication list reviewed/reconciled with . DIAGNOSIS: dysthymic disorder HISTORY: [place] with history chronic depression. Initial appt ([facility]) this psychiatrist Apr 26. Initial [facility] appt was during covid restrictions CVT appt completed Jun 26. Jun 28 [facility] prescription monitoring site reviewed: no activity in past year. At last appt shared doing better with switch to Fluoxetine mood and anxiety sx resolved. some PM sweating but tolerable. hard to get to sleep would like to resume Trazodone as needed. No abnormal involuntary muscle movements. Plan was to continue Fluoxetine to target depression and anxiety, resume Trazodone for sleep. INTERVAL HISTORY: Jan 27 addendum: called and left a message on [employer] stating that it was discussed at last appt with Dr. Calabrese about possibly getting a prescription for an apptetite increase. signed in early seen early At appt shared no depression or problematic anxiety sleeping well. has been working with ENT with Meniere's disease at top of suspected list referred to [facility] specialist. Nausea and vertgio have impacted her desire to eat, lack of appetite has lost 25lbs would like to gain that back. No abnormal involuntary muscle movements. we reviewed SSRI and trazodone can lead to weight gain but has not caused that for her, but Mirtazapine more likely to impact weight. she would like to switch sleep meds. agreed to [facility] follow up. GOALS: resolve depression Current Symptoms: Sleep 8-10 hours, interest good, energy low, concentration distracted, appetite low/weight down about 25lbs. no problematic anxiety or worry, no muscle tension, no irritability. No SI/HI at this time. no exercise, no tobacco products/vapes, a caffeine drink 2-3 times a week, no recent etoh, no use of recreational drugs. Psych History: Dec 28 to Sep 27 [facility]. 2020 outpatient med management dx anxiety with this psychiatrist. therapy through [facility]. Nov 25 [facility] adjustment disorder sx EMDR/Counseling while in the . No history of suicide attempts/no hospitalizations. Past Psych Medication(s): Escitalopram 15mg Bupropion 12HR 150mg in AM Trazodone 50mg qhs Bupropion 24HR 300mg in AM : [employer], Aug 24 [place] combat. No MST/. Symptom Assessment Tools: None CURRENT MH MEDICATIONS: Fluoxetine 20mg daily Trazodone 50mg qhs Supplements: see CPRS. CURRENT MEDICATIONS: Active Outpatient Medications (including Supplies): Outpatient Medications Status ===== 1) FLUOXETINE HCL 20MG CAP TAKE ONE CAPSULE BY MOUTH ACTIVE EVERY DAY FOR DEPRESSION 2) HCTZ 25/SPIRONOLACTONE 25MG TAB TAKE 1 TABLET BY ACTIVE MOUTH EVERY DAY FOR VERTIGO INSTRUCTED BY YOUR DOCTOR. 3) MECLIZINE HCL 25MG CHEW TAB CHEW ONE TABLET BY MOUTH ACTIVE EVERY 6 HOURS NEEDED VERTIGO 4) MIRTAZAPINE 15MG TAB TAKE ONE TABLET BY MOUTH AT PENDING BEDTIME 5) ONDANSETRON HCL 4MG TAB TAKE ONE TABLET BY MOUTH ACTIVE TWICE A DAY NEEDED FOR NAUSEA Non-VA Medications Status ===== 1) Non-VA FERROUS SULFATE 325MG TAB 325MG MOUTH EVERY ACTIVE DAY 2) Non-VA MAGNESIUM GLUCONATE TAB 400MG MOUTH EVERY DAY ACTIVE 3) Non-VA MAGNESIUM TAB 250MG EVERY DAY ACTIVE 4) Non-VA MULTIVITAMIN CAP/TAB 1 TABLET MOUTH EVERY DAY ACTIVE 5) Non-VA NON VA MED NOT LISTED MISCELLANEOUS VITAMIN K2 ACTIVE 600MCG MOUTH EVERY DAY 10 Total Medications Side Effects: as above Treatment [...] and oriented to person, place and time. appropriately groomed, appropriately dressed and appeared stated age. Did not appear to be in any acute distress or show any external indications of pain. Hopeful for future, talkative, attentive, cooperative, and maintained good eye contact. Speech: normal rate/volume. Psychomotor activity: no agitation or slowing, no tics, tremors or other abnormal involuntary movements. Affect: restricted but reactive Mood: ok. No suicidal or homicidal ideation. Thought processing: [...] Systems: no complaints, except as above. 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 Motivated for sx control past benefit from escitalopram but loss of efficacy over time, Jul 29 change to Fluoxetine effective. No chemical dependency issues. unemployed, staying with brother. single, no kids. genetic [...] PLAN: Reviewed with treatment plan and medications. Risks benefits and side effects discussed including risk of suicidal ideation/behavior, weight gain when starting new med. [place] voiced understanding, agreed to continue treatment, and will notify if experiences any problems with medication. After discussion of options with we agreed to continue Fluoxetine to target depression and anxiety, stop Trazodone and start Mirtazapine for sleep. [place] will maintain stable non-depressed mood, resolution of problematic worry/muscle tension/irritability, and maintain 6-8 hours restful sleep for 6/7 days a week with minimal disruption in daily activities 80% of time. Fluoxetine 20mg daily adequate supply Mirtazapine 15mg qhs #90 rf=1 Labs: none C follow up Feb 27 as scheduled (her preference) or sooner, if any problems arise. Reviewed crisis management and contact information. -------- TREATMENT PLAN / EDUCATION / SAFETY -------- Treatment goals are 1) to minimize and [...] understanding. /neil/ MELITON CALABRESE MD PSYCHIATRIST Signed: 01/23/2024 10:27 02/07/2024 ADDENDUM STATUS: COMPLETED secure message: Mirtazapine improved appetie but sleeping too much not waking on time. would like to change dose. Will increase to 30mg before bed. has adequate supply follow up as scheduled Feb 27 /vargas CALABRESE MD PSYCHIATRIST Signed: 02/07/2024 12:46 MELITON CALABRESE [facility]
--- OUTSIDE RECORDS SUMMARY | 2024-06-05 04:20 | XMS_ITS | Encounter Summary ---
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 Date/Time Encounter Type Encounter Description Reason Provider Source Feb 20, 2024 02:30 PM OFFICE O/P EST LOW 20 MIN MENTAL HEALTH CLINIC - IND ICD-10-CM F34.1 Dysthymic disorder MELITON HERNANDEZ Encounter Template Text not used by VA Assessments - Encounter Diagnoses This section includes the primary and secondary diagnoses documented for the Encounter. Date/Time Primary/Secondary Diagnosis Diagnosis Name Provider Source Feb 20, 2024 02:44 PM PRIMARY Dysthymic disorder MELITON HERNANDEZ [facility] Plan of Treatment: Future Appointments (+ 6 months) and Future Tests (+/- 45 days) The Plan of Treatment section includes future care activities for the patient [facility] [place] [facility] This section includes future appointments and future orders which are active, pending or scheduled. Future Appointments This section includes appointments that were scheduled to occur 6 months from the date of the Encounter, up to a maximum of 20 appointments. The data comes from all [place] treatment facilities. Appointment Date/Time Appointment Type Appointme nt Facility Name Feb 22, 2024 01:00 PM AMBULATORY - PSYCHIATRY [facility] Feb 29, 2024 01:00 PM AMBULATORY - PSYCHIATRY [facility] March 07, 2024 01:00 PM AMBULATORY - PSYCHIATRY [facility] March 14, 2024 01:00 PM AMBULATORY - PSYCHIATRY [facility] March 18, 2024 09:00 AM AMBULATORY [...] AMBULATORY - [facility]GERY [facility] Apr 29, 2024 11:00 AM AMBULATORY - PS[facility]ATRY [facility] May 06, 2024 11:00 AM AMBULATORY - [facility]ATRY [facility] Jun 04, 2024 02:00 PM AMBULATORY - [facility]ATRY [facility] Jun 05, 2024 01:00 PM AMBULATORY - [facility]RY [facility] Jun 07, 2024 10:40 AM AMBULATORY - NONE [facility] Jun 21, 2024 10:00 AM AMBULATORY [facility]AT[facility] Aug 20, 2024 02:30 PM AMBULATORY - PSYCHIATRY [...] of theEncounter. The data comes from all [place] treatment facilities. Test Date/Time Test Type Test Details Facility Name Jan 19, 2024 02:07 PM Consult Order COMMUNITY CARE-ENT Cons [employer] [facility] Social History: Smoking Status (Most current) and Tobacco Use (All prior to encounter date) This section includes the most current, and the historical, smoking and tobacco- related health factors from the [place] facility where the Encounter took place. Current Smoking Status This section includes the most current smoking, or tobacco-related health factor, from the [place] facility where the Encounter took place. Date/Time Current Smoking Status Comment Facil ity Jun 07, 2023 01:00 PM VA-TOBACCO FORMER USER [facility] Tobacco Use History This section includes a history of the smoking, or tobacco-related health factors, that were collected on or before the date of the Encounter. The data comes from the [place] facility where the Encounter took place. Date/Time Smoking Status/Tobacco Use Comment F acility Jun 07, 2023 01:00 PM VA-TOBACCO QUIT 1 TO < 5 YRS [facility] Apr 26, 2021 01:00 PM VA-TOBACCO NEVER USED [facility] Encounter Notes: All associated encounter notes This section contains the clinical notes associated to the Encounter. Date/Time Encounter Note(s) Provider Source Feb 20, 2024 06:58 AM PSYCHIATRY E & M N OTE: LOCAL TITLE: PSYCHIATRIC EVALUATION & MANAGEMENT STANDARD TITLE: PSYCHIATRY E & M NOTE DATE OF NOTE: FEB 20, 2024@06:58 ENTRY DATE: FEB 20, 2024@06:58:48 AUTHOR: MELITON HERNANDEZ EXP COSIGNER: URGENCY: STATUS: COMPLETED PSYCHIATRIC EVALUATION AND MANAGEMENT FOLLOW UP VISIT Duration: 21 minutes Time spent performing psychotherapy services: 16-30 minutes Visit conducted by [place] [employer] synchronous telehealth. [place] verbal consent obtained. Location/emergency number confirmed. Environment surveyed and all participants identified. Virtual conference room locked. IDENTIFICATION: 28 year old [place] (30% PTSD) female kept appt in [facility] clinic for voluntary psychiatric med management/supportive therapy follow up last appt Jan 27. The electronic medical record was reviewed. Medication list reviewed/reconciled with . DIAGNOSIS: dysthymic disorder HISTORY: [place] with history chronic depression. Initial appt ([facility]) this psychiatrist Apr 26. Initial [facility] appt was during covid restrictions CVT appt completed Jun 26. Jun 28 [facility] prescription monitoring site reviewed: no activity in past year. At last appt shared no depression or problematic anxiety sleeping well. has been working with ENT with Meniere's disease at top of suspected list referred to [facility] specialist. Nausea and vertigo have impacted her desire to eat, lack of appetite has lost 25lbs would like to gain that back. No abnormal involuntary muscle movements. we reviewed SSRI and trazodone can lead to weight gain but has not caused that for her, but Mirtazapine more likely to impact weight. she would like to switch sleep meds. Plan was to continue Fluoxetine to target depression and anxiety, stop Trazodone and start Mirtazapine for sleep. INTERVAL HISTORY: Feb 27 addendum: Mirtazapine improved appetite but sleeping too much not waking on time/increase to 30mg before bed. signed in early seen early At appt shared doing well appetitie good, sleeping well 7-8 restful hours described better overall sleep quality. she is pleased with current meds declined any further changes. no depression some anxiety but working on that in therapy. No abnormal involuntary muscle movements. she has nausea today from meniers. [place] agreed to [facility] follow up. GOALS: resolve depression Current Symptoms: Sleep 7-8 hours restful, interest good, energy improving, concentration ok, appetite good/weight increasing. no problematic anxiety or worry, no muscle tension, no irritability. No SI/HI at this time. no exercise, no tobacco products/vapes, a caffeine drink 2-3 times a week, no recent etoh, no use of recreational drugs. Psych History: Dec 28 to Sep 27 [facility]. 2020 outpatient med management dx anxiety with this psychiatrist. therapy through [facility]. Nov 25 [facility] adjustment disorder sx EMDR/Counseling while in the . No history of suicide attempts/no hospitalizations. Past Psych Medication(s): Escitalopram 15mg Bupropion 12HR 150mg in AM Trazodone 50mg qhs Bupropion 24HR 300mg in AM : [employer], Aug 24 [place] combat. No MST/. Symptom Assessment Tools: None CURRENT MH MEDICATIONS: Fluoxetine 20mg daily Mirtazapine 30mg qhs Supplements: see CPRS. CURRENT MEDICATIONS: Active Outpatient Medications (including Supplies): Outpatient Medications Status ===== 1) FLUOXETINE HCL 20MG CAP TAKE ONE CAPSULE BY MOUTH ACTIVE EVERY DAY FOR DEPRESSION 2) FLUOXETINE HCL 20MG CAP TAKE ONE CAPSULE BY MOUTH PENDING EVERY DAY 3) HCTZ 25/SPIRONOLACTONE 25MG TAB TAKE 1 TABLET BY ACTIVE MOUTH EVERY DAY FOR VERTIGO INSTRUCTED BY YOUR DOCTOR. 4) MIRTAZAPINE 30MG TAB TAKE ONE TABLET BY MOUTH AT [...] EVERY DAY 10 Total Medications Side Effects: denied Treatment Adherence: yes MEDICATION RECONCILIATION: At this [...] show any external indications of pain. Pleasant, talkative, cooperative, and maintained good eye contact. Speech: normal rate/volume. Psychomotor activity: no agitation or slowing, no tics, tremors or other abnormal involuntary movements. Affect: full nonlabile Mood: good. No suicidal or homicidal ideation. Thought processing: [...] efficacy over time, Jul 29 change to Fluoxetine, added Mirtazapine in Jan 27 with good sx control. No chemical dependency issues. unemployed, staying with [...] PLAN: Reviewed with treatment plan and medications. voiced understanding, agreed to continue treatment, and will notify if experiences any problems with medication. After discussion of options with we agreed to continue Fluoxetine to target depression and anxiety, Mirtazapine for sleep. [place] will maintain stable non-depressed mood, resolution of problematic worry/muscle tension/irritability, and maintain 6-8 hours restful sleep for 6/7 days a week with minimal disruption in daily activities 80% of time. Fluoxetine 20mg daily #90 rf=3 Mirtazapine 30mg qhs #90 rf=2 Labs: none [facility] follow up in 6 months (her preference) or sooner, if any problems arise. Reviewed crisis management and contact information. -------- MH TREATMENT PLAN / EDUCATION / SAFETY -------- [...] who acknowledges agreement and understanding. /neil/ MELITON HERNANDEZ MD PSYCHIATRIST Signed: 02/20/2024 14:56 MELITON HERNANDEZ [facility]
--- OUTSIDE RECORDS SUMMARY | 2024-06-05 04:20 | XMS_ITS | Encounter Summary ---
Author Name [facility] [place] Address [address] [place] [address] Care Team Providers Care End Packer Name Role Phone TAWNYA MCFADDEN Primary Care [...] PRESCRIPT ION JACEY S Jul 07, 2021 [facility] [id number] [phone] DORETHA SAMPSON PATIENT [facility] MENTAL HEALTH JACEY S Jul 07, 2021 [id number] [phone] [facility] * POINT OF SERVICE JACEY S Jul 07, 2021 [id number] [phone] DORETHA SAMPSON PATIENT Selected Encounter This section includes the information on record at [place] for the Encounter. Date/Time Encounter Type Encounter Description Reason Provider Source Feb 20, 2024 11:00 AM PSYTX W PT 45 MINUTES [facility] - IND ICD-10-CM F34.1 Dysthymic disorder PAULA MCKINNEY Encounter Template Text not used by [place] Assessments - Encounter Diagnoses This section includes the primary and secondary diagnoses documented for the Encounter. Date/Time Primary/Secondary Diagnosis Diagnosis Name Provider Source Feb 20, 2024 12:27 PM PRIMARY Dysthymic disorder PAULA MCKINNEY Feb 20, 2024 12:27 PM SECONDARY Social phobia, generalized PAULA MCKINNEY Plan of Treatment: Future Appointments (+ 6 months) and Future Tests (+/- 45 days) The Plan of Treatment section includes future care activities for the patient from all [place] [facility] This section includes future appointments and future orders which are active, pending or scheduled. Future Appointments This section includes appointments that were scheduled to occur 6 months from the date of the Encounter, up to a maximum of 20 appointments. The data comes from all [place] treatment facilities. Appointment Date/Time Appointment Type Appointme nt Facility Name Feb 22, 2024 01:00 PM AMBULATORY - PSYCHIATRY [facility] Feb 29, 2024 01:00 PM AMBULATORY - PSYCHIATRY [facility] March 07, 2024 01:00 PM AMBULATORY - PSYCHIATRY [facility] March 14, 2024 01:00 PM AMBULATORY - PSYCHIATRY [facility] March 18, 2024 09:00 AM AMBULATORY [...] 2024 02:00 PM AMBULATORY - SURGERY [facility] Apr 29, 2024 11:00 AM AMBULATORY [...] of theEncounter. The data comes from all [place] treatment facilities. Test Date/Time Test Type Test Details Facility Name Jan 19, 2024 02:07 PM Consult Order COMMUNITY CARE-ENT Cons [facility] Social History: Smoking Status (Most current) and Tobacco Use (All prior to encounter date) This section includes the most current, and the historical, smoking and tobacco- related health factors from the [place] facility where the Encounter took place. Current Smoking Status This section includes the most current smoking, or tobacco-related health factor, from the [place] facility where the Encounter took place. Date/Time Current Smoking Status Comment Facil ity Jun 07, 2023 01:00 PM VA-TOBACCO FORMER USER [facility] Tobacco Use History This section includes a history of the smoking, or tobacco-related health factors, that were collected on or before the date of the Encounter. The data comes from the [place] facility where the Encounter took place. Date/Time Smoking Status/Tobacco Use Comment F acility Jun 07, 2023 01:00 PM VA-TOBACCO QUIT 1 TO < 5 YRS [facility] Apr 26, 2021 01:00 PM VA-TOBACCO NEVER USED [facility] Encounter Notes: All associated encounter notes This section contains the clinical notes associated to the Encounter. Date/Time Encounter Note(s) Provider Source Feb 20, 2024 12:08 PM MENTAL HEALTH NOTE : LOCAL TITLE: MH PROGRESS NOTE STANDARD TITLE: MENTAL HEALTH NOTE DATE OF NOTE: FEB 20, 2024@12:08 ENTRY DATE: FEB 20, 2024@12:08:16 AUTHOR: PAULA MCKINNEY COSIGNER: URGENCY: STATUS: COMPLETED ----PSYCHOTHERAPY PROGRESS NOTE---- INFORMED CONSENT: Clinician and reviewed informed consent for treatment, potential risks and benefits of treatment, and limits of confidentiality. indicated understanding and agreement. VVC: Visit conducted by synchronous telehealth. Atkinson verbal consent obtained. Location/emergency number confirmed. Environment surveyed and all participants identified. Virtual conference room locked. Name: Doretha Patelan Date of : 1995 Intervention session #: 15 MENTAL STATUS Grooming: Appropriate Motor: Calm; unremarkable Mood: Euthymic Affect: Spontaneous; appropriate Speech: Normal rate, rhythm, and volume Thought Content: Negative for unusual or bizarre content Thought Processes: Linear; logical; goal-oriented Suicidality: Absent Homicidality: Absent Hallucinations: Absent Delusions: Absent Orientation: Intact DSM-5 DIAGNOSTIC IMPRESSION -Persistent depressive disorder, with anxious distress -Social anxiety disorder RELEVANT HISTORY reported that she has sustained recent positive changes; for example, 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 INTERVENTION DETAILS Session duration: 50 minutes. Focus of session: Practical problem solving and addressing obstacles to long- term goals. Education provided: -Balancing progress and rest by using time-limited scheduling blocks rather than milestones to plan daily goals. -ACT concepts of fusion and defusion, and ways to achieve defusion. -Treating difficult experiences as experiments. Other interventions: -Explored potential consequences of moving forward with long-term goals. Handouts: None. Atkinson response: Atkinson expressed understanding and appreciation of the education provided this session. She demonstrated good insight into psychological factors that contribute to avoidance and procrastination. She identified underlying concerns that make it difficult to move forward; for example, she was able to acknowledge that she feels hesitant about re-entering the workforce because it feel like going back to zero if she were not to succeed (for example, if she were forced to quit her job due to medical issues). However, with discussion, she verbalized that such an outcome would not actually eliminate progress she has made through therapy, and she would have other options for moving forward. She stated that this realization makes the idea of moving forward less intimidating. RISK ASSESSMENT Risk Factors: History of suicidal ideation, depression, unemployed, access to firearm. Protective Factors: No recent suicidal thoughts, no history of suicidal behavior, desire to live, no history of impulsive coping, help seeking, treatment motivated. Estimate of Risk: Low acute and low chronic risk of self-harm. PLAN RTC date/time: 03/11/24, 0900 Homework: None. Plan for next session: Tentatively, continue to discuss obstacles to valued action. Current Treatment Plan Date: 07/19/23 Plan Renewal Date: 07/19/24 /neil/ PAULA MCKINNEY Signed: 02/20/2024 12:27 PAULA MCKINNEY OC
--- OUTSIDE RECORDS SUMMARY | 2024-06-05 04:21 | XMS_ITS | Encounter Summary ---
Author Name [facility] [place] Organization [place] Address [address] [place] [address] Care Team Providers Care Clerk Television Production Name Role Phone BOGDANTAWNYA GIRON Primary Care [...] PRESCRIPT ION JACEY S Jul 07, 2021 [facility] [id number] [phone] DORETHA SAMPSON PATIENT [facility]* MENTAL HEALTH JACEY S Jul 07, 2021 [id number] [phone] DORETHA SAMPSON PATIENT [facility] * POINT OF SERVICE JACEY S Jul 07, 2021 [id number] [phone] DORETHA SAMPSON PATIENT Selected Encounter This section includes the information on record at [place] for the Encounter. Date/Time Encounter Type Encounter Description Reason Pro vider Source Feb 28, 2024 01:36 PM Outpatient Encounter EVENT (HISTORICAL) IHE Encounter Template Text not used by [place] Plan of Treatment: Future Appointments (+ 6 months) and Future Tests (+/- 45 days) The Plan of Treatment section includes future care activities for the patient from all [place] [facility]. This section includes future appointments and future orders which are active, pending or scheduled. Future Appointments This section includes appointments that were scheduled to occur 6 months from the date of the Encounter, up to a maximum of 20 appointments. The data comes from all [place] treatment [facility]. Appointment Date/Time Appointment Type Appointme nt Facility Name Feb 29, 2024 01:00 PM AMBULATORY - [...] 2024 02:00 PM AMBULATORY - SURGERY [facility] Apr 29, 2024 11:00 AM AMB[facility]ATORY - [facility]ATRY [facility] May 06, 2024 11:00 AM AMBULATORY - PS[facility]CHIATRY [facility] Jun 04, 2024 02:00 PM AMBULATORY - PS[facility]CHIATRY [facility] Jun 05, 2024 01:00 PM AMBULATORY - PS[facility]CHIATRY [facility] Jun 07, 2024 10:40 AM AMBULATORY - NONE [facility] Jun 21, 2024 10:00 AM AMBULATORY - [...] of theEncounter. The data comes from all [facility]. Test Date/Time Test Type Test Details Facility Name Jan 19, 2024 02:07 PM Consult Order COMMUNITY CARE-ENT Cons [employer] [facility]
--- OUTSIDE RECORDS SUMMARY | 2024-06-05 04:21 | XMS_ITS | Encounter Summary ---
Author Name [facility] [place] Address [address] [place] [address] Care Team Providers Care Green Meat Grader Name Role Phone BOGDANTAWNYA GIRON Primary Care [...] PRESCRIPT ION JACEY S Jul 07, 2021 [facility] [id number] [phone] DORETHA SAMPSON PATIENT [facility] MENTAL HEALTH JACEY S Jul 07, 2021 [id number] [phone] DORETHA SAMPSON PATIENT [facility] * POINT OF SERVICE JACEY S Jul 07, 2021 [id number] [phone] DORETHA SAMPSON PATIENT Selected Encounter This section includes the information on record at [place] for the Encounter. Date/Time Encounter Type Encounter Description Reason Provider Source Feb 22, 2024 01:00 PM GROUP PSYCHOTHERAPY [facility] ICD-10-CM F34.1 Dysthymic disorder CARY AVENDAÑO Encounter Template Text not used by [place] Assessments - Encounter Diagnoses This section includes the primary and secondary diagnoses documented for the Encounter. Date/Time Primary/Secondary Diagnosis Diagnosis Name Provider Source Feb 22, 2024 02:27 PM PRIMARY Dysthymic disorder SHREYA LOYA [facility] Feb 22, 2024 02:27 PM SECONDARY Post-traumatic stress disorder, unspecified SHREYA LOYA [facility] Feb 22, 2024 02:27 PM SECONDARY Social phobia, generalized [facility] Plan of Treatment: Future Appointments (+ 6 months) and Future Tests (+/- 45 days) The Plan of Treatment section includes future care activities for the patient from all [place] [facility]. This section includes future appointments and future orders which are active, pending or scheduled. Future Appointments This section includes appointments that were scheduled to occur 6 months from the date of the Encounter, up to a maximum of 20 appointments. The data comes from all [facility] facilities. Appointment Date/Time Appointment Type Appointme nt Facility Name Feb 29, 2024 01:00 PM AMBULATORY - PSYCHIATRY [facility] March 07, 2024 01:00 PM AMBULATORY - PSYCHIATRY [facility] March 14, 2024 01:00 PM AMBULATORY - PSYCHIATRY [facility] March 18, 2024 09:00 AM AMBULATORY [...] 2024 02:00 PM AMBULATORY - SURGERY [facility] Apr 29, 2024 11:00 AM AMBULATORY - [facility] May 06, 2024 11:00 AM AMBULATORY - PS[facility]ATRY [facility] Jun 04, 2024 02:00 PM AMBULATORY - PS[facility]ATRY [facility] Jun 05, 2024 01:00 PM AMBULATORY - PS[facility]IATRY [facility] Jun 07, 2024 10:40 AM AMBULATORY - NONE [facility] Jun 21, 2024 10:00 AM AMBULATORY [...] 02:07 PM Consult Order COMMUNITY CARE-ENT Cons Bonding Machine Set[facility] Encounter Notes: All associated encounter notes This section contains the clinical notes associated to the Encounter. Date/Time Encounter Note(s) Provider Source Feb 22, 2024 02:19 PM MENTAL HEALTH [facility] INTERDISCIPLINARY NOTE: LOCAL TITLE: PRIMARY CARE-MH [facility] GROUP NOTE STANDARD TITLE: MENTAL HEALTH E & M INTERDISCIPLINARY NOTE DATE OF NOTE: FEB 22, 2024@14:19 ENTRY DATE: FEB 22, 2024@14:20:10 AUTHOR: SHREYA LOYA COSIGNER: CARY AVENDAÑO URGENCY: STATUS: COMPLETED PUBLICATIONS PRODUCTION SUPERVISOR(s): Shreya Loya, PhD DATE/TIME OF GROUP: 02/22/24 at 1300 LENGTH OF GROUP: 75 Minutes FREQUENCY OF GROUP: weekly NUMBER IN ATTENDANCE: 4 SCOPE: Group Therapy Informed consent for treatment and limits, risks, and benefits of treatment were reviewed with patient during pregroup visit and initial group session and they indicated understanding and agreement. Visit conducted by synchronous telehealth. verbal consent obtained. Location/emergency number confirmed. Environment surveyed and all participants identified. Virtual conference room locked. GROUP TOPIC/TITLE: Coping and Resilience Skills (CaRS) Group Session 7: Checking In When Things Go Wrong - ARC (Antecedent, Response, & Consequence) & Chain Analysis Session Outline: Brief Mindfulness exercise Home Practice Review - Briefly share Opposite Action & Willingness/Valued, Committed Action example(s) from the group. Making errors or behaving outside of our values can result in distressing feelings. ARC (Antecedent, Response, & Consequence) and Chain Analysis are methods used to learn how errors or less effective responses were made in a way that allows for learning and growth (as opposed to using negative judgment of self or others that interferes with learning). Review ARC handout Review Chain Analysis handouts These practices might make it easier to make progress toward identified goals. Home Practice - ARC or Chain Analysis practice WRAP UP MEDIUM: Following Your ARC Handout & Example; General Handout 7 - Chain Analysis; General Handout 7A - Chain Analysis, Step by Step; General Worksheets 2 & 2A - Chain Analysis of Problem Behavior; General Worksheet 3 - Missing Links Analysis DIAGNOSES: Dysthymia ([facility] [id number]) - Dysthymic disorder (ICD-10-CM F34.1) (Primary) Social phobia (SCT [id number]) - Social phobia, generalized (ICD-10-CM F40.11) PTSD PARTICIPATION: Readiness to learn: While in session today, [...] PLAN: to complete Home practice assignment. Attend CaRS group next week. /neil/ Shreya Loya, PhD Staff Health Psychologist Signed: 02/22/2024 14:30 /neil/ CARY AVENDAÑO, PhD, STAFF PSYCHOLOGIST Cosigned: 02/22/2024 14:40 SHREYA LOYA [facility]
--- OUTSIDE RECORDS SUMMARY | 2024-06-05 04:21 | XMS_ITS | Encounter Summary ---
Author Name [facility] [place] Organization [place] Address [address] [place] [address] Care Team Providers Care Artificial Stone Applicator Name Role Phone BOGDANTAWNYA GIRON Primary Care [...] PRESCRIPT ION JACEY S Jul 07, 2021 [facility] [id number] [phone] DORETHA SAMPSON PATIENT [facility]* MENTAL HEALTH JACEY S Jul 07, 2021 [id number] [phone] DORETHA SAMPSON PATIENT [facility] * POINT OF SERVICE JACEY S Jul 07, 2021 [id number] [phone] DORETHA SAMPSON PATIENT Selected Encounter This section includes the information on record at [place] for the Encounter. Date/Time Encounter Type Encounter Description Reason Pro vider Source Feb 27, 2024 12:00 PM Outpatient Encounter EVENT (HISTORICAL) IHE Encounter Template Text not used by [place] Plan of Treatment: Future Appointments (+ 6 months) and Future Tests (+/- 45 days) The Plan of Treatment section includes future care activities for the patient from all [place] [facility]. This section includes future appointments and future orders which are active, pending or scheduled. Future Appointments This section includes appointments that were scheduled to occur 6 months from the date of the Encounter, up to a maximum of 20 appointments. The data comes from all [facility]. Appointment Date/Time Appointment Type Appointme nt Facility Name Feb 29, 2024 01:00 PM AMBULATORY - PSYCHIATRY [facility] March 07, 2024 01:00 PM AMBULATORY - PSYCHIATRY [facility] March 14, 2024 01:00 PM AMBULATORY - PSYCHIATRY [facility] March 18, 2024 09:00 AM AMBULATORY - [...] 02:00 PM AMBULATORY - SURGERY [facility] Apr 29, 2024 11:00 AM AMBULATORY - [facility] May 06, 2024 11:00 AM AMBULATORY - PS[facility]ATRY [facility] Jun 04, 2024 02:00 PM AMBULATORY - PS[facility]ATRY [facility] Jun 05, 2024 01:00 PM AMBULATORY - PS[facility]IATRY [facility] Jun 07, 2024 10:40 AM AMBULATORY - NONE [facility] Jun 21, 2024 10:00 AM [...] of theEncounter. The data comes from all [facility]. Test Date/Time Test Type Test Details Facility Name Jan 19, 2024 02:07 PM Consult Order COMMUNITY CARE-ENT Cons Director Of Exhibit Development[facility] Encounter Notes: All associated encounter notes This section contains the clinical notes associated to the Encounter. Date/Time Encounter Note(s) Provider Source Feb 28, 2024 01:36 PM ADDENDUM: LOCAL TITLE: Addendum STANDARD TITLE: ADDENDUM DATE OF NOTE: FEB 28, 2024@13:36:59 ENTRY DATE: FEB 28, 2024@13:37 AUTHOR: JUAN SANDHU COSIGNER: URGENCY: STATUS: COMPLETED PACT: Please address Received request from 's ENT provider requesting referral for vestibular PT Evaluation prior to appointment. RFS and records uploaded to [facility] note dated 02-27-2024. Place new consult if clinically indicated, thank you. Community Care RN to contact with questions regarding this care: Juan Sandhu RN /neil/ Juan Sandhu RN car driver Patient Assistant Signed: 02/28/2024 13:38 Receipt Acknowledged By: 03/04/2024 10:59 /es/ LULU MOROCHO MD Staff Physician --- Original Document --- 02/27/24 COMMUNITY CARE REQUEST NOTE: [facility] - Scanned Document RFAS FROM [facility] SCANNED DOCUMENT SIGNATURE NOT REQUIRED Electronically Filed: 02/28/2024 by: Juan Sandhu RN car driver Patient Assistant JUAN SANDHU [facility]
--- OUTSIDE RECORDS SUMMARY | 2024-06-05 04:21 | XMS_ITS | Encounter Summary ---
Author Name [facility] [place] Address [address] [place] [address] Care Team Providers Care Beekeeper Farmer Name Role Phone BOGDANTAWNYA Primary Care Provider [...] PRESCRIPT ION JACEY S Jul 07, 2021 [facility] [id number] [phone] DORETHA SAMPSON PATIENT [facility] JACEY S Jul 07, 2021 [id number] [phone] DORETHA SAMPSON PATIENT [facility] * POINT OF SERVICE JACEY S Jul 07, 2021 [id number] [phone] DORETHA SAMPSON PATIENT Selected Encounter This section includes the information on record at [place] for the Encounter. Date/Time Encounter Type Encounter Description Reason Pro vider Source March 07, 2024 01:00 PM Outpatient Encounter [facility] Encounter Template Text not used by [facility] Plan of Treatment: Future Appointments (+ 6 months) and Future Tests (+/- 45 days) The Plan of Treatment section includes future care activities for the patient from all [place] treatmentfacilities. This section includes future appointments and future orders which are active, pending or scheduled. Future Appointments This section includes appointments that were scheduled to occur 6 months from the date of the Encounter, up to a maximum of 20 appointments. The data comes from all [place] treatment facilities. Appointment Date/Time Appointment Type Appointme nt Facility Name March 14, 2024 01:00 PM AMBULATORY - [facility]IATRY [place] [facility] March 18, 2024 09:00 AM AMBULATORY - [...] 02:00 PM AMBULATORY - SURGERY [facility] Apr 29, 2024 11:00 AM [facility] May 06, 2024 11:00 AM AM[facility] Jun 04, 2024 02:00 PM [facility] Jun 05, 2024 01:00 PM [facility] Jun 07, 2024 10:40 AM [facility]ORY - NONE [facility] Jun 21, 2024 10:00 AM AM[facility] Aug 20, 2024 02:30 PM [facility] Encounter Notes: All associated encounter notes This section contains the clinical notes associated to the Encounter. Date/Time Encounter Note(s) Provider Source March 07, 2024 01:00 PM NO SHOW NOTE: LOCAL TITLE: NO SHOW NOTE STANDARD TITLE: NO SHOW NOTE DATE OF NOTE: MARCH 07, 2024@13:00 ENTRY DATE: MARCH 07, 2024@14:23:16 AUTHOR: CARY AVENDAÑO COSIGNER: URGENCY: STATUS: COMPLETED Patient did not [...] Plan Based on Clinician Judgment of Risk: Retort Or Condenser Press Operator left a message to follow up on no show and reminded [place] of final CaRS group next week. Is the identified with a high risk for suicide flag? No /neil/ CARY AVENDAÑO, PhD, STAFF PSYCHOLOGIST Signed: 03/07/2024 14:25 Receipt Acknowledged By: 03/07/2024 15:00 /neil/ Shreya Loya, PhD Staff Health Psychologist CARY AVENDAÑO [facility]
--- OUTSIDE RECORDS SUMMARY | 2024-06-05 04:21 | XMS_ITS | Encounter Summary ---
Author Name [place] Address [address] [place] [address] Care Team Providers Care Public Speaking Professor Name Role Phone BOGDANTAWNYA GIRON Primary Care [...] PRESCRIPT ION JACEY S Jul 07, 2021 [facility] [id number] [phone] DORETHA SAMPSON PATIENT [facility] J[facility] S Jul 07, 2021 [id number] [phone] DORETHA SAMPSON PATIENT [facility] * POINT OF SERVICE JACEY S Jul 07, 2021 [id number] [phone] DORETHA SAMPSON PATIENT Selected Encounter This section includes the information on record at [place] for the Encounter. Date/Time Encounter Type Encounter Description Reason Provider Source Feb 29, 2024 01:00 PM GROUP PSYCHOTHERAPY [facility] ICD-10-CM F34.1 Dysthymic disorder QI CORADO Encounter Template Text not used by [place] Assessments - Encounter Diagnoses This section includes the primary and secondary diagnoses documented for the Encounter. Date/Time Primary/Secondary Diagnosis Diagnosis Name Provider Source Feb 29, 2024 03:28 PM PRIMARY Dysthymic disorder SHREYA LOYA [facility] Feb 29, 2024 03:28 PM SECONDARY Post-traumatic stress disorder, unspecified SHREYA LOYA [facility] Feb 29, 2024 03:28 PM SECONDARY Social phobia, generalized [facility] Plan of Treatment: Future Appointments (+ 6 months) and Future Tests (+/- 45 days) The Plan of Treatment section includes future care activities for the patient from all [place] [facility]. This section includes future appointments and future orders which are active, pending or scheduled. Future Appointments This section includes appointments that were scheduled to occur 6 months from the date of the Encounter, up to a maximum of 20 appointments. The data comes from all [place] treatment facilities. Appointment Date/Time Appointment Type Appointme nt Facility Name March 07, 2024 01:00 PM AMBULATORY - PSYCHIATRY [facility] March 14, 2024 01:00 PM AMBULATORY - PSYCHIATRY [facility] March 18, 2024 09:00 AM [facility] March 19, 2024 01:00 PM [facility] March 25, 2024 09:00 AM [facility] Apr 08, 2024 09:00 AM [facility] Apr 16, 2024 02:00 PM AM[facility] Apr 17, 2024 02:00 PM AMBULATORY - SURGERY [facility] Apr 29, 2024 11:00 AM [facility] May 06, 2024 11:00 AM AM[facility] Jun 04, 2024 02:00 PM AM[facility] Jun 05, 2024 01:00 PM [facility] Jun 07, 2024 10:40 AM AMBULATORY - NONE [facility] Jun 21, 2024 10:00 AM AM[facility]ATORY [facility] Aug 20, 2024 02:30 PM AMBULATORY - [...] of theEncounter. The data comes from all [place] treatment facilities. Test Date/Time Test Type Test Details Facility Name Jan 19, 2024 02:07 PM Consult Order [facility] Cons Food Processor's Choice [facility] Encounter Notes: All associated encounter notes This section contains the clinical notes associated to the Encounter. Date/Time Encounter Note(s) Provider Source Feb 29, 2024 03:31 PM [facility] NOTE: LOCAL TITLE: PRIMARY CARE-MH INTEGRATION GROUP NOTE STANDARD TITLE: MENTAL HEALTH E [facility] M INTERDISCIPLINARY NOTE DATE OF NOTE: FEB 29, 2024@15:31 ENTRY DATE: FEB 29, 2024@15:31:42 AUTHOR: SHREYA LOYA COSIGNER: QI CORADO URGENCY: STATUS: COMPLETED PRIMARY CARE-MH INTEGRATION GROUP NOTE Has ADDENDA WOODYARD OPERATOR(s): Shreya Loya, PhD DATE/TIME OF GROUP: 02/29/24 at 1300 LENGTH OF GROUP: 75 Minutes ATTENDED: 75 Minutes FREQUENCY OF GROUP: weekly NUMBER IN ATTENDANCE: 3 SCOPE: Group Therapy Informed consent for treatment and limits, risks, and benefits of treatment were reviewed with patient during pregroup visit and initial group session and they indicated understanding and agreement. Visit conducted by synchronous telehealth. Wharton verbal consent obtained. Location/emergency number confirmed. Environment surveyed and all participants identified. Virtual conference room locked. GROUP TOPIC/TITLE: Coping and Resilience Skills (CaRS) Group Session 8: Interpersonal Effectiveness #1 - Relationships and Communication Styles - Understanding Assertiveness (DEAR MAN) Session Outline: Brief Mindfulness exercise Home Practice Review - Share ARC or Chain Analysis practice Interpersonal relationships are important and its natural to experience difficulties when we are in conflict. Communication styles in conflict. Passive, passive aggressive, aggressive and assertive communication [see Assertive Communication handout]. o Communication styles can be seen on a continuum - in an ideal world we would most often find ourselves communicating in a middle path --- one that protects our own rights and needs without violating someone elses. DEAR MAN is an effective assertiveness tool when we want to reach a tangible objective outcome and the other person in the interaction is considered a generally reasonable green party. This practice might make it easier to make progress toward identified goals. WRAP UP MEDIUM: Assertive Communication VA Handout; Interpersonal Effectiveness Handout 5 - Guidelines for Objectives Effectiveness: Getting What you Want (DEAR MAN) PARTICIPATION: Readiness to learn: While in session today, Wharton actively participated and appeared to listen attentively, asked questions as needed, and responded to other's questions as appropriate. Patient Understanding: Wharton appeared to fully understand the principles and skills discussed today. PLAN: Wharton to complete Home practice assignment. Attend CaRS group next week. DIAGNOSES: Dysthymia (SCT [id number]) - Dysthymic disorder (ICD-10-CM F34.1) (Primary) Social phobia (SCT [id number]) - Social phobia, generalized (ICD-10-CM F40.11) PTSD SUICIDE RISK ASSESSMENT Gleaned from progress note [...] Protective factors and coping strategies are present. /neil/ Shreya Loya, PhD Staff Health Psychologist Signed: 02/29/2024 15:34 /neil/ QI CORADO, PHD, , ABPP STAFF NEUROPSYCHOLOGIST Cosigned: 03/01/2024 07:54 03/01/2024 ADDENDUM STATUS: COMPLETED Level of supervision: For this clinical service, the trainee meets twice weekly with their clinical scrap preparation supervisor to review this and other Veterans' care. I was not present for today's session, but I was available in the area for immediate consultation and provided consultation following the group visit. I have reviewed the session documentation as part of coverage for the trainee's usual scrap preparation supervisor. Bodywork Therapist Concurrence: I have reviewed and concur with the trainee's note. Nature of encounter: Today's session was part of a course of CaRS group psychotherapy aimed at assisting in meeting their treatment goals as outlined in the above note. Clinical thinking, assessment & treatment plan: Wharton is scheduled to RTC in one week for next CaRS session. /neil/ QI CORADO, PHD, LP, ABPP STAFF NEUROPSYCHOLOGIST Signed: 03/01/2024 07:55 [facility]REYA LO[facility]
--- OUTSIDE RECORDS SUMMARY | 2024-06-05 04:21 | XMS_ITS | Encounter Summary ---
Author Name Department of [place] Organization [place] Address [address] [place] [address] Care Team Providers Care Adult Protective Caseworker Name Role Phone TAWNYA MCFADDEN Primary Care [...] ION JACEY S Jul 07, 2021 [facility] [id number] [phone] DORETHA SAMPSON PATIENT [facility] JACEY S Jul 07, 2021 [id number] [phone] DORETHA SAMPSON PATIENT [facility] * POINT OF SERVICE JACEY S Jul 07, 2021 [id number] [phone] DORETHA SAMPSON PATIENT Selected Encounter This section includes the information on record at [place] for the Encounter. Date/Time Encounter Type Encounter Description Reason Pro vider Source March 11, 2024 09:00 AM Outpatient Encounter [facility] - IND [facility] Encounter Template Text not used by [place] Plan of Treatment: Future Appointments (+ 6 months) and Future Tests (+/- 45 days) The Plan of Treatment section includes future care activities for the patient from all [place] [facility]. This section includes future appointments and future orders which are active, pending or scheduled. Future Appointments This section includes appointments that were scheduled to occur 6 months from the date of the Encounter, up to a maximum of 20 appointments. The data comes from all [place] treatment facilities. Appointment Date/Time Appointment Type Appointme nt Facility Name March 14, 2024 01:00 PM AM[facility] March 18, 2024 09:00 AM AMBULATORY [...] 02:00 PM AMBULATORY - SURGERY [facility] Apr 29, 2024 11:00 AM AM[facility] May 06, 2024 11:00 AM AMB[facility] Jun 04, 2024 02:00 PM AM[facility] Jun 05, 2024 01:00 PM AM[facility] Jun 07, 2024 10:40 AM [facility]ORY - NONE [facility] Jun 21, 2024 10:00 AM AM[facility] Aug 20, 2024 02:30 PM AM[facility] Social History: Smoking Status (Most current) and Tobacco Use (All prior to encounter date) This section includes the most current, and the historical, smoking and tobacco- related health factors from the [place] facility where the Encounter took place. Current Smoking Status This section includes the most current smoking, or tobacco-related health factor, from the [place] facility where the Encounter took place. Date/Time Current Smoking Status Comment Facil ity Jun 07, 2023 01:00 PM VA-TOBACCO FORMER USER [facility] Tobacco Use History This section includes a history of the smoking, or tobacco-related health factors, that were collected on or before the date of the Encounter. The data comes from the [place] facility where the Encounter took place. Date/Time Smoking Status/Tobacco Use Comment F acility Jun 07, 2023 01:00 PM VA-TOBACCO QUIT 1 TO < 5 YRS [facility] Apr 26, 2021 01:00 PM VA-TOBACCO NEVER USED [facility] Encounter Notes: All associated encounter notes This section contains the clinical notes associated to the Encounter. Date/Time Encounter Note(s) Provider Source March 11, 2024 09:16 AM ADDENDUM: LOCAL TITLE: Addendum STANDARD TITLE: ADDENDUM DATE OF NOTE: MARCH 11, 2024@09:16:57 ENTRY DATE: MARCH 11, 2024@09:16:58 AUTHOR: VIKTORIYA JOSEPH COSIGNER: URGENCY: STATUS: COMPLETED Patient did call and cancel appt for today. Board Hammer Operator cancelled todays appt due to patient not feeling well and will attend the next appt. /neil/ VIKTORIYA DEGROOT Advanced specimen preparation assistant Signed: 03/11/2024 09:17 Receipt Acknowledged By: 03/11/2024 09:29 /vargas MCKINNEY --- Original Document --- 03/11/24 NO SHOW NOTE: atient did not appear for scheduled appointment. Therapist phoned twice; both calls eventually went to voicemail. Therapist left a message indicating that he [...] Plan Based on Clinician Judgment of Risk: has additional appointments already scheduled. No additional outreach or intervention is needed at this time. /vargas MCKINNEY Signed: 03/11/2024 09:16 Receipt Acknowledged By: 03/11/2024 09:16 /vargas DEGROOT Advanced specimen preparation assistant VIKTORIYA JOSEPH [facility] March 11, 2024 09:15 AM NO SHOW NOTE: LOCAL TITLE: NO SHOW NOTE STANDARD TITLE: NO SHOW NOTE DATE OF NOTE: MARCH 11, 2024@09:15 ENTRY DATE: MARCH 11, 2024@09:15:45 AUTHOR: PAULA MCKINNEY COSIGNER: URGENCY: STATUS: COMPLETED NO SHOW NOTE Has ADDENDA atient did not appear for scheduled appointment. Therapist phoned twice; both calls eventually went to [employer]. Therapist left a message indicating that he [...] Plan Based on Clinician Judgment of Risk: has additional appointments already scheduled. No additional outreach or intervention is needed at this time. /es/ PAULA MCKINNEY Signed: 03/11/2024 09:16 Receipt Acknowledged By: 03/11/2024 09:16 /es/ VIKTORIYA JOSEPH Advanced specimen preparation assistant 03/11/2024 ADDENDUM STATUS: COMPLETED Patient did call and cancel appt for today. Board Hammer Operator cancelled todays appt due to patient not feeling well and will attend the next appt. /es/ VIKTORIYA DEGROOT Advanced specimen preparation assistant Signed: 03/11/2024 09:17 Receipt Acknowledged By: * AWAITING SIGNATURE * PAULA MCKINNEY [facility]
--- OUTSIDE RECORDS SUMMARY | 2024-06-05 04:22 | XMS_ITS | Encounter Summary ---
Author Name Department [place] Organization [place] Address [address] [place] [address] Care Team Providers Care Solution Designer Name Role Phone TAWNYA MCFADDEN Primary Care [...] PRESCRIPT ION JACEY S Jul 07, 2021 [facility] [id number] [phone] DORETHA SAMPSON PATIENT [facility] JACEY S Jul 07, 2021 [id number] [phone] DORETHA SAMPSON PATIENT [facility] * POINT OF SERVICE JACEY S Jul 07, 2021 [id number] [phone] DORETHA SAMPSON PATIENT Selected Encounter This section includes the information on record at [place] for the Encounter. Date/Time Encounter Type Encounter Description Reason Pro vider Source March 25, 2024 09:00 AM Outpatient Encounter [facility] - IND [facility] Encounter Template Text not used by [place] Plan of Treatment: Future Appointments (+ 6 months) and Future Tests (+/- 45 days) The Plan of Treatment section includes future care activities for the patient from all [place] [facility]. This section includes future appointments and future orders which are active, pending or scheduled. Future Appointments This section includes appointments that were scheduled to occur 6 months from the date of the Encounter, up to a maximum of 20 appointments. The data comes from all [place] treatment facilities. Appointment Date/Time Appointment Type Appointme nt Facility Name Apr 08, 2024 09:00 AM AMBULATORY [facility] Apr 16, 2024 02:00 PM AMBULATORY [facility] Apr 17, 2024 02:00 PM AMBULATORY - SURGERY [facility] Apr 29, 2024 11:00 AM AM[facility] May 06, 2024 11:00 AM AMB[facility] Jun 04, 2024 02:00 PM AM[facility] Jun 05, 2024 01:00 PM AM[facility] Jun 07, 2024 10:40 AM AMBULATORY - NONE [facility] Jun 21, 2024 10:00 AM AMBULATORY [facility] Aug 20, 2024 02:30 PM AM[facility] Social History: Smoking Status (Most current) and Tobacco Use (All prior to encounter date) This section includes the most current, and the historical, smoking and tobacco- related health factors from the [place] facility where the Encounter took place. Current Smoking Status This section includes the most current smoking, or tobacco-related health factor, from the [place] facility where the Encounter took place. Date/Time Current Smoking Status Comment Betty ity Jun 07, 2023 01:00 PM VA-TOBACCO FORMER USER [facility] Tobacco Use History This section includes a history of the smoking, or tobacco-related health factors, that were collected on or before the date of the Encounter. The data comes from the [place] facility where the Encounter took place. Date/Time Smoking Status/Tobacco Use Comment F acricky Jun 07, 2023 01:00 PM VA-TOBACCO QUIT 1 TO < 5 YRS [facility] Apr 26, 2021 01:00 PM VA-TOBACCO NEVER USED [facility] Encounter Notes: All associated encounter notes This section contains the clinical notes associated to the Encounter. Date/Time Encounter Note(s) Provider Source March 25, 2024 09:20 AM NO SHOW NOTE: LOCAL TITLE: NO SHOW NOTE STANDARD TITLE: NO SHOW NOTE DATE OF NOTE: MARCH 25, 2024@09:20 ENTRY DATE: MARCH 25, 2024@09:20:49 AUTHOR: PAULA MCKINNEY COSIGNER: URGENCY: STATUS: COMPLETED [...] at this time. /neil/ PAULA MCKINNEY Signed: 03/25/2024 09:21 Receipt Acknowledged By: 03/25/2024 10:18 /neil/ VIKTORIYA DEGROOT Advanced assistant professor of psychology PAULA MCKINNEY [facility]
--- OUTSIDE RECORDS SUMMARY | 2024-06-05 04:22 | XMS_ITS | Encounter Summary ---
Author Name [facility] [place] [facility] [place] Address [address] [place] [address] Care Team Providers Care Anesthesiology Resident Name Role Phone TAWNYA MCFADDEN Primary Care Provider SHAWANDA Todd Primary Care Provider Unavi ilable Insurance Providers: All historical and current [...] ION JACEY S Jul 07, 2021 JACOBS [id number] [phone] DORETHA SAMPSON PATIENT [facility] MENTAL HE[facility] JACEY S Jul 07, 2021 [id number] [phone] [facility] * POINT OF SERVICE JACEY S Jul 07, 2021 [id number] [phone] DORETHA SAMPSON PATIENT Selected Encounter This section includes the information on record at [place] for the Encounter. Date/Time Encounter Type Encounter Description Reason Provider Source Apr 17, 2024 02:00 PM OFFICE O/P NEW LOW 30 MIN OPTOMETRY ICD-10-CM H52.13 Myopia, bilateral RICKI MCELROY IHNelda Encounter Template Text not used by [facility] Assessments - Encounter Diagnoses This section includes the primary and secondary diagnoses documented for the Encounter. Date/Time Primary/Secondary Diagnosis Diagnosis Name Provider Source Apr 17, 2024 02:28 PM PRIMARY Myopia, bilateral LILIBETH,RICKI CASTELLANOS Apr 17, 2024 02:28 PM SECONDARY Regular astigmatism, bilateral LILIBETH,RICKI CASTELLANOS Plan of Treatment: Future Appointments (+ 6 months) and Future Tests (+/- 45 days) The Plan of Treatment section includes future care activities for the patient from all [place] treatmentfacilities. This section includes future appointments and future orders which are active, pending or scheduled. Future Appointments This section includes appointments that were scheduled to occur 6 months from the date of the Encounter, up to a maximum of 20 appointments. The data comes from all [place] treatment facilities. Appointment Date/Time Appointment Type Appointme nt Facility Name Apr 29, 2024 11:00 AM AMBULATORY - [facility] May 06, 2024 11:00 AM AMBULATORY - PS[facility]RY [facility] Jun 04, 2024 02:00 PM AMBULATORY [facility]RY [facility] Jun 05, 2024 01:00 PM AMBULATORY [facility] Jun 07, 2024 10:40 AM AMBULATORY - NONE [facility] Jun 21, 2024 10:00 AM AMBULATORY - PS[facility]ATRY [facility] Aug 20, 2024 02:30 PM AMBULATORY - PS[facility]RY [facility] Encounter Notes: All associated encounter notes This section contains the clinical notes associated to the Encounter. 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 KATERYNA about 2 yrs ago denies pain, discomfort, floaters or flashes OU POhx:none Mhx:see problem list Medications: see CPRS all reviewed Allergies: NKDA Social tobacco: vapes, a lot alcohol: none, uses THC Fhx: none Pt oriented and alert x 3 Mood and affect normal Entrance acuity: CC OD 20/20 OS 20/20 EOMS FROM OD, OS Confrontations: FTFC OD, OS Pupils ERRL (-)APD OU CT cc distance, near ortho hab rx: OD-0.50-0.77f421 OS -0.50-0.01a289 Manifest Refraction/Final Srx: OD: -0.75-0.78m326 VA:20/20 OS: -0.75-0.66f821 VA:20/20 Add:none BIOMICROSCOPY: (OU unless specified) Adnexa/Orbit- clear Eyelids/Lashes- clear Conjuctiva- clear Sclera- white and quiet Cornea- all layers clear Angle- 4VH AC- D and Q Iris- clear Lens-clear Ta my check dilation discussed with patient, 1 drop 1 % trop at 213 OPHTHALMOSCOPY (OU unless specified) Cup/Disc-.15 OD, OS Color- no pallor Margins- distinct Vessels- normal caliber Macula- clear and flat Vitreous- clear Periphery- clear flat and intact 360 Assessment/Plan 1.Mild myopia/astigmatism: pt will go to [facility] optical to update glasses, can wear PRN, recommend wearing when driving, especially at night RTC: 2 yr VTDMRx Is the patient legally blind? 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
--- OUTSIDE RECORDS SUMMARY | 2024-06-05 04:22 | XMS_ITS | Encounter Summary ---
Author Name [facility] [place] Address [address] [place] [address] Care Team Providers Care Galley Hand Name Role Phone TAWNYA MCFADDEN Primary Care [...] ION JACEY S Jul 07, 2021 JACOBS [id number] [phone] DORETHA SAMPSON PATIENT [facility] HE[facility] JACEY S Jul 07, 2021 [id number] [phone] DORETHA SAMPSON PATIENT [facility] * POINT OF SERVICE JACEY S Jul 07, 2021 [id number] [phone] DORETHA SAMPSON PATIENT Selected Encounter This section includes the information on record at [place] for the Encounter. Date/Time Encounter Type Encounter Description Reason Pro vider Source Apr 16, 2024 02:00 PM Outpatient Encounter MENTAL HEALTH CLINIC - IND IHE Encounter Template Text not used by [place] Plan of Treatment: Future Appointments (+ 6 months) and Future Tests (+/- 45 days) The Plan of Treatment section includes future care activities for the patient from [facility] [place] [facility] This section includes future appointments and future orders which are active, pending or scheduled. Future Appointments This section includes appointments that were scheduled to occur 6 months from the date of the Encounter, up to a maximum of 20 appointments. The data comes from all [place] treatment facilities. Appointment Date/Time Appointment Type Appointme nt Facility Name Apr 17, 2024 02:00 PM AMBULATORY - SURGERY [facility] Apr 29, 2024 11:00 AM AMB[facility]ORY [facility] May 06, 2024 11:00 AM AMB[facility]ATORY [facility] Jun 04, 2024 02:00 PM AMBULATORY [facility] Jun 05, 2024 01:00 PM AMB[facility]ORY [facility] Jun 07, 2024 10:40 AM [facility] Jun 21, 2024 10:00 AM AMBULATORY [...] 07, 2023 01:00 PM VA-TOBACCO FORMER USER [facility] Tobacco Use History This section includes a history of the smoking, or tobacco-related health factors, that were collected on or before the date of the Encounter. The data comes from the [place] facility where the Encounter took place. Date/Time Smoking Status/Tobacco Use Comment F acility Jun 07, 2023 01:00 PM VA-TOBACCO QUIT 1 TO < 5 YRS [facility] Apr 26, 2021 01:00 PM VA-TOBACCO NEVER USED [facility] Encounter Notes: All associated encounter notes This section contains the clinical notes associated to the Encounter. Date/Time Encounter Note(s) Provider Source Apr 16, 2024 02:00 PM NO SHOW NOTE: LOCAL TITLE: NO SHOW NOTE STANDARD TITLE: NO SHOW NOTE DATE OF NOTE: APR 16, 2024@14:00 ENTRY DATE: APR 16, 2024@14:49:30 AUTHOR: MEG SULLIVAN COSIGNER: URGENCY: STATUS: COMPLETED NO SHOW NOTE Has ADDENDA Patient did not appear for scheduled appointment. Risk Factors: History of suicidal ideation, depression, unemployed, access to firearm. Protective Factors: No recent suicidal thoughts, no history of suicidal behavior, desire to live, no history of impulsive coping, help seeking, treatment motivated. Estimate of Risk: Low acute and low chronic risk Plan Based on Clinician Judgment of Risk: This provider called [facility] and left a voicemail to call the [facility] phone number to reschedule her appointment. Is the identified with a high risk for suicide flag? No /neil/ MEG SULLIVAN STAFF PSYCHOLOGIST Signed: 04/16/2024 14:50 Receipt Acknowledged By: 04/17/2024 08:09 /neil/ VIKTORIYA JOSEPH Advanced conventions assistant 04/17/2024 ADDENDUM STATUS: COMPLETED 12/10-NO SHOW LETTER SENT. /neil/ VIKTORIYA OJSEPH Advanced conventions assistant Signed: 04/17/2024 08:15 04/19/2024 ADDENDUM STATUS: COMPLETED Attempted to schedule Return to clinic (RTC) Contact attempt made to 3rd attempt Telephone Left message on voice mail to call back to this number [phone] /neil/ VIKTORIYA JOSEPH Advanced conventions assistant Signed: 04/19/2024 10:57 04/25/2024 ADDENDUM STATUS: COMPLETED Attempted to schedule Return to clinic (RTC) Contact attempt made to 4th attempt or more Secure Messaging /neil/ VIKTORIYA JOSEPH Advanced conventions assistant Signed: 04/25/2024 10:36 MEG SULLIVAN [facility]
--- OUTSIDE RECORDS SUMMARY | 2024-06-05 04:22 | XMS_ITS | Encounter Summary ---
Author Name [facility] [place] Address [address] [place] [address] Care Team Providers Care Pin Drafting Machine Operator Name Role Phone BOGDANTAWNYA GIRON Primary Care [...] PRESCRIPT ION JACEY S Jul 07, 2021 [facility] [id number] [phone] DORETHA SAMPSON PATIENT [facility] MENTAL HEALTH JACEY S Jul 07, 2021 [id number] [phone] DORETHA SAMPSON PATIENT [facility] * POINT OF SERVICE JACEY S Jul 07, 2021 [id number] [phone] DORETHA SAMPSON PATIENT Selected Encounter This section includes the information on record at [place] for the Encounter. Date/Time Encounter Type Encounter Description Reason Pro vider Source Apr 11, 2024 03:42 PM Outpatient Encounter COMMUNITY CARE CONSULT IHE Encounter Template Text not used by VA Plan of Treatment: Future Appointments (+ 6 months) and Future Tests (+/- 45 days) The Plan of Treatment section includes future care activities for the patient from all [place] treatmentfacilities. This section includes future appointments and future orders which are active, pending or scheduled. Future Appointments This section includes appointments that were scheduled to occur 6 months from the date of the Encounter, up to a maximum of 20 appointments. The data comes from all [place] treatment facilities. Appointment Date/Time Appointment Type Appointme nt Facility Name Apr 16, 2024 02:00 PM AMBULATORY [facility] Apr 17, 2024 02:00 PM [facility] Apr 29, 2024 11:00 AM AMBULATORY [facility] May 06, 2024 11:00 AM AMBULATORY - [facility]RY [facility] Jun 04, 2024 02:00 PM AMBULATORY - [facility] Jun 05, 2024 01:00 PM AMBULATORY [facility] Jun 07, 2024 10:40 AM AM[facility]UL[facility]ORY - NONE [facility] Jun 21, 2024 10:00 AM AMBULATORY - PS[facility]IATRY [facility] Aug 20, 2024 02:30 PM AMBULATORY - PS[facility]ATRY [facility] Encounter Notes: All associated encounter notes This section contains the clinical notes associated to the Encounter. Date/Time Encounter Note(s) Provider Source Apr 11, 2024 03:42 PM NONVA NOTE: LOCAL TITLE: COMMUNITY CARE PRE-AUTH LETTER (AUTOPRINT) STANDARD TITLE: NONVA NOTE DATE OF NOTE: APR 11, 2024@15:42 ENTRY DATE: APR 11, 2024@15:42:28 AUTHOR: SHAYNE SORTO COSIGNER: URGENCY: STATUS: COMPLETED Apr DORETHA SAMPSON [address] [place], [place] [address] Dear DORETHA SAMPSON, Your VA provider has referred you to a provider within the community for care. Your medical care for gynecology has been authorized with the community care provider listed below. DO NOT REPORT TO THE [place] [facility] Provider info: Care has been approved for the following vendor: Office name, address, and phone number: [facility] [employer] [address] [facility], [address] [address] P: Please contact the identified provider to schedule your community appointment. If you need assistance with this appointment, please call your facility community care office [facility] Office of Community Care at [phone] during the hours of 8:30AM - 3:00PM. Please follow up with your local [facility] community care office once this is scheduled. This step is needed to ensure your referral duration is maximized and the [place] has accurate referral information for billing purposes. Authorization Number: [id number] Referral Issue Date: March Expiration Date: March (subject to change based on first appointment) If you are unable to schedule this appointment or the appointment is no longer needed, please contact the community provider above for notification/rescheduling and then call the [facility] Office of Community Care at [phone] during the hours of 8:30AM - 3:00PM. If you need additional care/services not mentioned above or your authorization has and additional care is needed, please contact your primary care provider for a new referral. To review all care/service(s) approved under your referral, please go to the following link: [facility] [place] [facility]([email or web address] Co-Payments: If you are required to pay a VA co-payment, you will be billed by the [place] for each authorized visit that you attend. However, you are NOT REQUIRED to make co-payments to a community provider. Thank you for the opportunity to serve you. Sincerely, [place] Community [facility] ([facility]) /neil/ SHAYNE DÍAZ [facility] Signed: 04/11/2024 15:43 SHAYNE SORTO [facility]
--- OUTSIDE RECORDS SUMMARY | 2024-06-05 04:22 | XMS_ITS | Encounter Summary ---
Author Name [facility] [place] Address [address] [place] [address] Care Team Providers Care Fashion Merchandiser Name Role Phone TAWNYA MCFADDEN Primary Care Provider SHAWANDA Todd Primary Care Provider Halleva ilnavdeep Insurance Providers: All historical and current [...] ION JACEY S Jul 07, 2021 JACOBS [id number] [phone] DORETHA SAMPSON PATIENT [facility]* MENTAL HEALTH JACEY S Jul 07, 2021 [id number] [phone] DORETHA SAMPSON PATIENT [facility] * POINT OF SERVICE JACEY S Jul 07, 2021 [id number] [phone] DORETHA SAMPSON PATIENT Selected Encounter This section includes the information on record at [place] for the Encounter. Date/Time Encounter Type Encounter Description Reason Provider Source March 19, 2024 01:00 PM PSYCL/NRPSYC TST PHY/QHP EA MENTAL HEALTH CLINIC - IND ICD-10-CM F34.1 Dysthymic disorder MEG SULLIVAN Nelda Encounter Template Text not used by [place] Assessments - Encounter Diagnoses This section includes the primary and secondary diagnoses documented for the Encounter. Date/Time Primary/Secondary Diagnosis Diagnosis Name Provider Source March 19, 2024 03:57 PM PRIMARY Dysthymic disorder MEG SULLIVAN [facility] March 19, 2024 03:57 PM SECONDARY Anxiety disorder, unspecified [facility] March 19, 2024 03:57 PM SECONDARY Social phobia, generalized LAURIE,MEG V[facility] Plan of Treatment: Future Appointments (+ 6 months) and Future Tests (+/- 45 days) The Plan of Treatment section includes future care activities for the patient from all [place] treatmentfacilities. This section includes future appointments and future orders which are active, pending or scheduled. Future Appointments This section includes appointments that were scheduled to occur 6 months from the date of the Encounter, up to a maximum of 20 appointments. The data comes from all [place] treatment facilities. Appointment Date/Time Appointment Type Appointme nt Facility Name March 25, 2024 09:00 AM AMBULATORY - [facility]RY [facility] Apr 08, 2024 09:00 AM AMBULATORY - [facility]RY [facility] Apr 16, 2024 02:00 PM AM[facility]ORY [facility] Apr 17, 2024 02:00 PM [facility] Apr 29, 2024 11:00 AM AMBULATORY - [...] smoking, or tobacco-related health factor, from the [place] facility where the Encounter took place. Date/Time Current Smoking Status Comment Facil ity Jun 07, 2023 01:00 PM VA-TOBACCO FORMER USER [facility] Tobacco Use History This section includes a history of the smoking, or tobacco-related health factors, that were collected on or before the date of the Encounter. The data comes from the [place] facility where the Encounter took place. Date/Time Smoking Status/Tobacco Use Comment F acility Jun 07, 2023 01:00 PM VA-TOBACCO QUIT 1 TO < 5 YRS [facility] Apr 26, 2021 01:00 PM VA-TOBACCO NEVER USED [facility] Encounter Notes: All associated encounter notes This section contains the clinical notes associated to the Encounter. Date/Time Encounter Note(s) Provider Source March 19, 2024 01:00 PM MENTAL HEALTH NOTE : LOCAL TITLE: MH PROGRESS NOTE STANDARD TITLE: MENTAL HEALTH NOTE DATE OF NOTE: MARCH 19, 2024@13:00 ENTRY DATE: MARCH 19, 2024@15:52:01 AUTHOR: MEG SULLIVAN EXP COSIGNER: URGENCY: STATUS: COMPLETED ----PSYCHOLOGICAL EVALUATION PROGRESS NOTE---- INFORMED CONSENT: Clinician and reviewed informed consent for evaluation, potential risks and benefits of evaluation, and limits of confidentiality on 02/14/2024. Eldred indicated understanding and agreement at that time. Reason for Referral: Eldred was self-referred for ADHD testing. This provider administered and scored the WAIS-IV, Stroop, and Jena Making Test today. This provider also scored the CAARS forms that returned. Administration was 90 minutes and scoring was 90 minutes. Eldred is scheduled for feedback on 04/16/2024, and a full report will be entered into the chart at that time. Provisional diagnoses: persistent depressive disorder, with anxious distress; social anxiety disorder; R/O ADHD MENTAL STATUS Eye contact: Appropriate Grooming: Good Motor: Calm Mood: Euthymic Affect: Appropriate Speech: Normal rate, Normal rhythm, Normal volume Thought Content: Normal Thought Processes: Logical Suicidality: Absent Homicidality: Absent Hallucinations: Absent Delusions: Absent Oriented: Fully Oriented Judgement: good Insight: good RISK ASSESSMENT (no changes since last session) Risk Factors: History of suicidal ideation, depression, unemployed, access to firearm. Protective Factors: No recent suicidal thoughts, no history of suicidal behavior, desire to live, no history of impulsive coping, help seeking, treatment motivated. Determination of Risk: low acute and low chronic /neil/ MEG SULLIVAN STAFF PSYCHOLOGIST Signed: 03/19/2024 15:58 MEG SULLIVAN [facility]
--- OUTSIDE RECORDS SUMMARY | 2024-06-05 04:22 | XMS_ITS | Encounter Summary ---
Author Name [facility] [place] [facility] [place] [facility] [place] Address [address] [place] [address] Care Team Providers Care Flight Nurse Name Role Phone TAWNYA MCFADDEN Primary Care [...] PRESCRIPT ION JACEY S Jul 07, [address] [facility] [id number] [phone] DORETHA SAMPSON PATIENT [facility] HE[facility] JACEY S Jul 07, 2021 [id number] [phone] DORETHA SAMPSON PATIENT [facility] * POINT OF SERVICE JACEY S Jul 07, 2021 [id number] [phone] DORETHA SAMPSON PATIENT Selected Encounter This section includes the information on record at [place] for the Encounter. Date/Time Encounter Type Encounter Description Reason Provider Source Apr 08, 2024 09:00 AM PSYTX W PT 45 MINUTES MENTAL [facility]ALTH CLINIC - IND ICD-10-CM F34.1 Dysthymic disorder PAULA MCKINNEY Encounter Template Text not used by [place] Assessments - Encounter Diagnoses This section includes the primary and secondary diagnoses documented for the Encounter. Date/Time Primary/Secondary Diagnosis Diagnosis Name Provider Source Apr 08, 2024 10:06 AM PRIMARY Dysthymic disorder PAULA MCKINNEY [facility] Apr 08, 2024 10:06 AM SECONDARY Social phobia, generalized [facility] Plan of Treatment: Future Appointments (+ 6 months) and Future Tests (+/- 45 days) The Plan of Treatment section includes future care activities for the patient [facility] [place] [facility] This section includes future appointments and future orders which are active, pending or scheduled. Future Appointments This section includes appointments that were scheduled to occur 6 months from the date of the Encounter, up to a maximum of 20 appointments. The data comes from all [place] treatment facilities. Appointment Date/Time Appointment Type Appointme nt Facility Name Apr 16, 2024 02:00 PM AMBULATORY - PSYCHIATRY [facility] Apr 17, 2024 02:00 PM AMBULATORY - SURGERY [facility] Apr 29, 2024 11:00 AM AMBULATORY - [facility]ATRY [facility] May 06, 2024 11:00 AM AMBULATORY - PS[facility]IATRY [facility] Jun 04, 2024 02:00 PM AMBULATORY - PS[facility]IATRY [facility] Jun 05, 2024 01:00 PM AMBULATORY - PS[facility]IATRY [facility] Jun 07, 2024 10:40 AM AMBULATORY - NONE [facility] Jun 21, 2024 10:00 AM AMBULATORY - [facility]IATRY [facility] Aug 20, 2024 02:30 PM AMBULATORY - PSYCHIATRY [facility] Social History: Smoking Status (Most current) and Tobacco Use (All prior to encounter date) This section includes the most current, and the historical, smoking and tobacco- related health factors from the [place] facility where the Encounter took place. Current Smoking Status This section includes the most current smoking, or tobacco-related health factor, from the [place] facility where the Encounter took place. Date/Time Current Smoking Status Eunice watkins Jun 07, 2023 01:00 PM VA-TOBACCO FORMER USER [facility] Tobacco Use History This section includes a history of the smoking, or tobacco-related health factors, that were collected on or before the date of the Encounter. The data comes from the [place] facility where the Encounter took place. Date/Time Smoking Status/Tobacco Use Comment F acility Jun 07, 2023 01:00 PM VA-TOBACCO QUIT 1 TO < 5 YRS [facility] Apr 26, 2021 01:00 PM VA-TOBACCO NEVER USED [facility] Encounter Notes: All associated encounter notes This section contains the clinical notes associated to the Encounter. Date/Time Encounter Note(s) Provider Source Apr 08, 2024 09:56 AM MENTAL HEALTH NOTE : LOCAL TITLE: MH PROGRESS NOTE STANDARD TITLE: MENTAL HEALTH NOTE DATE OF NOTE: APR 08, 2024@09:56 ENTRY DATE: APR 08, 2024@09:56:17 AUTHOR: PAULA MCKINNEY COSIGNER: URGENCY: STATUS: COMPLETED ----PSYCHOTHERAPY PROGRESS NOTE---- INFORMED CONSENT: Clinician and reviewed informed consent for treatment, potential risks and benefits of treatment, and limits of confidentiality. [place] indicated understanding and agreement. VVC: Visit conducted by synchronous telehealth. verbal consent obtained. Location/emergency number confirmed. Environment surveyed and all participants identified. Virtual conference room locked. Name: Doretha Mas Date of : 1995 Intervention session #: 17 MENTAL STATUS Grooming: Appropriate Motor: Calm; unremarkable Mood: Depressed Affect: Spontaneous; appropriate Speech: Normal rate, rhythm, and volume Thought Content: Negative for unusual or bizarre content Thought Processes: Linear; logical; goal-oriented Suicidality: Absent Homicidality: Absent Hallucinations: Absent Delusions: Absent Orientation: Intact DSM-5 DIAGNOSTIC IMPRESSION -Persistent depressive disorder, with anxious distress -Social anxiety disorder RELEVANT HISTORY reported that she had the house to herself over the past weekend. She ended up spending most of the weekend playing videogames rather than being productive, which left her feeling disappointed with herself. INTERVENTION DETAILS Session duration: 50 minutes. Focus of session: Maintaining momentum. Education provided: -Review of behavioral explanation for avoidance/procrastination. -Characteristics of an effective schedule: specificity, contingencies. Other interventions: -Encouraged to consider the utility of focusing on negative self-talk. -Encouraged to consider role of structured daily activities with respect to personal goals and values. Handouts: None. [place] response: expressed understanding and appreciation of the education provided this session. reported a tendency toward all or nothing immersion in structured activities, which tends to lead to burnout and derailment. She expressed interest in creating more structure for herself but identified ambivalence toward long-term goals as a major obstacle to specifying and sustaining daily activities. RISK ASSESSMENT Risk Factors: History of suicidal ideation, depression, unemployed, access to firearm. Protective Factors: No recent suicidal thoughts, no history of suicidal behavior, desire to live, no history of impulsive coping, help seeking, treatment motivated. Estimate of Risk: Low acute and low chronic risk of self-harm. PLAN RTC date/time: 04/22/24, 0900 Homework: will attempt to select between the major competing long-term goals she is considering. Plan for next session: Review 's efforts at deciding on a long-term goal and discuss ways to support her. Current Treatment Plan Date: 07/19/23 Plan Renewal Date: 07/19/24 /neil/ PAULA MCKINNEY Signed: 04/08/2024 10:06 PAULA MCKINNEY [facility]
--- OUTSIDE RECORDS SUMMARY | 2024-06-05 04:22 | XMS_ITS | Encounter Summary ---
Author Name [facility] [place] [facility] [place] Address [address] [place] [address] Care Team Providers Care Sock Lining Examiner Name Role Phone BOGDANTAWNYA GIRON Primary Care [...] ION JACEY S Jul 07, 2021 [facility] [id number] [phone] DORETHA SAMPSON PATIENT [facility] JACEY S Jul 07, 2021 [id number] [phone] DORETHA SAMPSON PATIENT [facility] * POINT OF SERVICE JACEY S Jul 07, 2021 [id number] [phone] DORETHA SAMPSON PATIENT Selected Encounter This section includes the information on record at [place] for the Encounter. Date/Time Encounter Type Encounter Description Reason Provider Source March 14, 2024 01:00 PM GROUP PSYCHOTHERAPY [facility] ICD-10-CM F34.1 Dysthymic disorder MARCIE ROBERT Encounter Template Text not used by [place] Assessments - Encounter Diagnoses This section includes the primary and secondary diagnoses documented for the Encounter. Date/Time Primary/Secondary Diagnosis Diagnosis Name Provider Source March 14, 2024 02:24 PM PRIMARY Dysthymic disorder MARCIE ROBERT [facility] March 14, 2024 02:24 PM SECONDARY Post-traumatic stress disorder, unspecified MARCIE ROBERT [facility] March 14, 2024 02:24 PM SECONDARY Social phobia, generalized MARCIE ROBERT [facility] Plan of Treatment: Future Appointments (+ 6 months) and Future Tests (+/- 45 days) The Plan of Treatment section includes future care activities for the patient [facility] [place] [facility]. This section includes future appointments and future orders which are active, pending or scheduled. Future Appointments This section includes appointments that were scheduled to occur 6 months from the date of the Encounter, up to a maximum of 20 appointments. The data comes from all [place] treatment facilities. Appointment Date/Time Appointment Type Appointme nt Facility Name March 18, 2024 09:00 AM AMBULATORY - [facility]RY [facility] March 19, 2024 01:00 PM AMBULATORY - PS[facility]IATRY [facility] March 25, 2024 09:00 AM AMBULATORY - [facility]ATRY [facility] Apr 08, 2024 09:00 AM AMBULATORY - [facility]RY [facility] Apr 16, 2024 02:00 PM AMB[facility]ATORY [facility]ATRY [facility] Apr 17, 2024 02:00 PM AMBULATORY - SURGERY [facility] Apr 29, 2024 11:00 AM AMBULATORY - [facility]IATRY [facility] May 06, 2024 11:00 AM AMBULATORY - PS[facility]IATRY [facility] Jun 04, 2024 02:00 PM AMBULATORY - [facility]ATRY [facility] Jun 05, 2024 01:00 PM AMBULATORY - [facility]RY [facility] Jun 07, 2024 10:40 AM AMBULATORY - NONE [facility] Jun 21, 2024 10:00 AM AMBULATORY - PS[facility]IATRY [facility] Aug 20, 2024 02:30 PM AMBULATORY - PS[facility]IATRY [facility] Encounter Notes: All associated encounter notes This section contains the clinical notes associated to the Encounter. Date/Time Encounter Note(s) Provider Source March 14, 2024 02:27 PM MENTAL HEALTH NOTE : LOCAL TITLE: MH MEASUREMENT BASED CARE STANDARD TITLE: MENTAL HEALTH NOTE DATE OF NOTE: MARCH 14, 2024@14:27:15 ENTRY DATE: MARCH 14, 2024@14:27:15 AUTHOR: MARCIE ROBERT COSIGNER: URGENCY: STATUS: COMPLETED Assessments were sent to the [place] via text/email. These assessments were completed by DORETHA SAMPSON on their own device on 03/14/2024 2:06:14 PM. PATIENT HEALTH QUESTIONNAIRE-9 (PHQ-9) The patient reported some symptoms of depression; symptoms are not consistent with a major depressive episode. Patient reported being bothered by the following over the last 2 weeks: 1. Little interest or pleasure: Several Days 2. Feeling down, depressed or hopeless: Several Days 3. Trouble sleeping: More than half the days 4. Tired, low energy: Nearly every day 5. Poor appetite, over-eating: Several Days 6. Feelings of failure, guilt: More than half the days 7. Trouble concentrating: Several Days 8. Motor retardation, agitation: Not at all 9. Thoughts better off /hurting self: Not at all PHQ-9 total score = 11 1-4 = minimal symptoms 5-9= mild symptoms 10-14= moderate symptoms 15-19= moderately severe symptoms 20-27= severe depressive symptoms The patient stated that the depressive symptoms made it somewhat difficult to work, take care of things at home, or get along with others. PHQ-9 Total Score (past 180 days): 03/14/2024 11 01/10/2024 21 GENERAL ANXIETY DISORDER-7 (KRISTINA-7) Patient reported being bothered by the following over the last two weeks: 1. Feeling nervous, anxious or on edge: Several days 2. Not being able to stop or control worrying: Several days 3. Worrying too much about different things: Several days 4. Trouble relaxing: Several days 5. Feeling restless (hard to sit still): Several days 6. Becoming easily annoyed or irritable: Several days 7. Afraid as if something awful might happen: Several days KRISTINA-7 total score = 7 0-4=minimal symptoms 5-9=mild symptoms 10-14=moderate symptoms 15-21=severe symptoms The patient stated that the anxiety symptoms made it very difficult to work, take care of things at home, or get along with others. KRISTINA-7 Total Score (past 180 days): 03/14/2024 7 01/10/2024 10 SATISFACTION Patient reported the following in regard to the mental health services they receive: 1. Quality of services: Good 2. Getting the services wanted: Yes, generally MENTAL HEALTH RECOVERY MEASURE (MHRM-10) 1. I still grow and change in positive ways despite my mental health problem: Agree 2. Even though I may still have problems, I value myself as a person of worth: Agree 3. I understand myself and have a good sense of who I am: Not Sure 4. I feel good about myself: Not Sure 5. The way I think about things helps me to achieve my goals: Not Sure 6. I feel at peace with myself: Not Sure 7. I maintain a positive attitude for weeks at a time: Disagree 8. Every day that I get up, I do something productive: Disagree 9. I am making progress toward my goals: Not Sure 10. I engage in work or other activities that enrich myself and the world around me: Not Sure Score: 20 MHRM-10 scores range from 0 to 40, with higher scores indicating higher perceived mental health recovery. MHRM-10 Total Score (past 180 days): 03/14/2024 20 01/10/2024 16 /neil/ MARCIE ROBERT, PhD, STAFF PSYCHOLOGIST Signed: 03/14/2024 14:27 MARCIE ROBERT [facility] March 14, 2024 01:00 PM MENTAL HEALTH E & M INTERDISCIPLINARY NOTE: LOCAL TITLE: PRIMARY CARE-MH INTEGRATION GROUP NOTE STANDARD TITLE: MENTAL HEALTH E & M INTERDISCIPLINARY NOTE DATE OF NOTE: MARCH 14, 2024@13:00 ENTRY DATE: MARCH 14, 2024@14:21:05 AUTHOR: MARCIE ROBERT EXP COSIGNER: URGENCY: STATUS: COMPLETED PRIMARY CARE-MH INTEGRATION GROUP NOTE Has ADDENDA INVESTIGATOR CASH SHORTAGE(s): Marcie Robert, PhD, DATE/TIME OF GROUP: 03/14/24 at 1300 LENGTH OF GROUP: 75 Minutes ATTENDED: 75 Minutes FREQUENCY OF GROUP: weekly NUMBER IN ATTENDANCE: 2 SCOPE: Group Therapy Informed consent for treatment and limits, risks, and benefits of treatment were reviewed with patient during pregroup visit and initial group session and they indicated understanding and agreement. Visit conducted by synchronous telehealth. verbal consent obtained. Location/emergency number confirmed. Environment surveyed and all participants identified. Virtual conference room locked. GROUP TOPIC/TITLE: Coping and Resilience Skills (CaRS) Group Session 10: Review of Progress / Integration of Concepts / Feedback Session Outline: Brief Mindfulness exercise Home Practice Review - Share experiences/insights with GIVE and FAST practice. Open discussion regarding clarity in group members direction and empowerment to move toward their personal goals. Progress Evaluation and Practice Plan handouts - may be able to enhance and add to current gains. Collect Post-treatment Questionnaires: [Sent via [employer]] WRAP UP MEDIUM: Progress Evaluation & Example; Practice Plan & Example PARTICIPATION: Readiness to learn: While in session today, [place] actively participated and appeared to listen attentively, asked questions as needed, and responded to other's questions as appropriate. Patient Understanding: appeared to fully understand the principles and skills discussed today. DIAGNOSES: Dysthymia (SCT [id number]) - Dysthymic disorder (ICD-10-CM F34.1) (Primary) Social phobia (SCT [id number]) - Social phobia, generalized (ICD-10-CM F40.11) PTSD SUICIDE RISK ASSESSMENT Gleaned from progress note from Dr. Penny on 12/12/23: Risk Factors: History of suicidal ideation, depression, unemployed, access to firearm. Protective Factors: No recent suicidal thoughts, no history of suicidal behavior, desire to live, no history of impulsive coping, help seeking, treatment motivated. Low Chronic - Stressors historically been endured absent SI. May be managed in primary care settings vs. require MH f/u to continue successful tx. PERCEIVED ACUTE SUICIDE RISK: Low acute - Protective factors and coping strategies are present. PLAN: [employer] Participation now complete. [place] will follow up with their appropriate MH contacts as indicated. /es/ MARCIE ROBERT, PhD, STAFF PSYCHOLOGIST Signed: 03/14/2024 14:25 Receipt Acknowledged By: 03/14/2024 14:52 /neil/ Shreya Loya, PhD Staff Health Psychologist 03/14/2024 ADDENDUM STATUS: COMPLETED asked automobile service writer to pass along her contact information to a former [employer] group member, Reji Lee, so that they may keep in touch post group. Blender Conveyor Operator has passed along the information as requested. /neil/ MARCIE ROBERT, PhD, STAFF PSYCHOLOGIST Signed: 03/14/2024 14:34 MARCIE ROBERT [facility]
--- OUTSIDE RECORDS SUMMARY | 2024-06-05 04:22 | XMS_ITS | Encounter Summary ---
Author Name [facility] [place] [facility] [place] [facility] Address [address] [place] [address] Care Team Providers Care Chief Of Staff Name Role Phone BOGDAN TAWNYA Primary Care [...] ION JACEY S Jul 07, 2021 [facility] [id number] [phone] DORETHA SAMPSON PATIENT [facility] HE[facility] JACEY S Jul 07, 2021 [id number] [phone] DORETHA SAMPSON PATIENT [facility] * POINT OF SERVICE JACEY S Jul 07, 2021 [id number] [phone] DORETHA SAMPSON PATIENT Selected Encounter This section includes the information on record at [place] for the Encounter. Date/Time Encounter Type Encounter Description Reason Pro vider Source Apr 22, 2024 08:18 AM Outpatient Encounter MENTAL HEALTH [facility] Encounter Template Text not used by [place] Plan of Treatment: Future Appointments (+ 6 months) and Future Tests (+/- 45 days) The Plan of Treatment section includes future care activities for the patient from all [place] treatmentfacilities. This section includes future appointments and [...] 07, 2024 10:40 AM AMBULATORY - NONE [facility] Jun 21, 2024 10:00 AM AMBULATORY - PS[facility]IATRY [facility] Aug 20, 2024 02:30 PM AMBULATORY - [facility]ATRY [facility] Encounter Notes: All associated encounter notes This section contains the clinical notes associated to the Encounter. Date/Time Encounter Note(s) Provider Source Apr 22, 2024 08:18 AM NO SHOW NOTE: LOCAL TITLE: NO SHOW/CANCELLATION CLINIC NOTE STANDARD TITLE: NO SHOW NOTE DATE OF NOTE: APR 22, 2024@08:18 ENTRY DATE: APR 22, 2024@08:18:37 AUTHOR: VIKTORIYA JOSEPH COSIGNER: URGENCY: STATUS: COMPLETED not seen for scheduled appointment due to: cancelled Appointment Rescheduled: No Patient cancelled appt today states she is nausea and future appt is 04/29. Please review patient chart and medications for renewal needs (if appropriate). /neil/ VIKTORIYA JOSEPH Advanced catering assistant Signed: 04/22/2024 08:19 Receipt Acknowledged By: 04/22/2024 08:29 /neil/ VIKTORIYA [facility]HU [facility]
--- OUTSIDE RECORDS SUMMARY | 2024-06-05 04:22 | XMS_ITS | Encounter Summary ---
Author Name Department of [place] Organization [place] Address [address] [place] [address] Care Team Providers Care Car Blocker Name Role Phone TAWNYA MCFADDEN Primary Care [...] ION JACEY S Jul 07, 2021 [id number] [phone] DORETHA SAMPSON PATIENT [facility] HE[facility] JACEY S Jul 07, 2021 [id number] [phone] DORETHA SAMPSON PATIENT [facility] * POINT OF SERVICE JACEY S Jul 07, 2021 [id number] [phone] DORETHA SAMPSON PATIENT Selected Encounter This section includes the information on record at [place] for the Encounter. Date/Time Encounter Type Encounter Description Reason Pro vider Source Apr 29, 2024 11:00 AM Outpatient Encounter MENTAL HEALTH CLINIC - IND [facility] Encounter Template Text not used by [place] Plan of Treatment: Future Appointments (+ 6 months) and Future Tests (+/- 45 days) The Plan of Treatment section includes future care activities for the patient from all [place] treatmentfacilities. This section includes future appointments and future orders which are active, pending or scheduled. Future Appointments This section includes appointments that were scheduled to occur 6 months from the date of the Encounter, up to a maximum of 20 appointments. The data comes from all [place] treatment facilities. Appointment Date/Time Appointment Type Appointme nt Facility Name May 06, 2024 11:00 AM AMBULATORY - PS[facility]IATRY [facility] Jun 04, 2024 02:00 PM AMBULATORY - PS[facility]IATRY [facility] Jun 05, 2024 01:00 PM AMBULATORY [facility]RY [facility] Jun 07, 2024 10:40 AM [facility] Jun 21, 2024 10:00 AM AMBULATORY [...] 07, 2023 01:00 PM VA-TOBACCO FORMER USER [facility] Tobacco Use History This section includes a history of the smoking, or tobacco-related health factors, that were collected on or before the date of the Encounter. The data comes from the [place] facility where the Encounter took place. Date/Time Smoking Status/Tobacco Use Comment F acility Jun 07, 2023 01:00 PM VA-TOBACCO QUIT 1 TO < 5 YRS [facility] Apr 26, 2021 01:00 PM VA-TOBACCO NEVER USED [facility] Encounter Notes: All associated encounter notes This section contains the clinical notes associated to the Encounter. Date/Time Encounter Note(s) Provider Source Apr 29, 2024 11:21 AM NO SHOW NOTE: LOCAL TITLE: NO SHOW NOTE STANDARD TITLE: NO SHOW NOTE DATE OF NOTE: APR 29, 2024@11:21 ENTRY DATE: APR 29, 2024@11:21:43 AUTHOR: PAULA MCKINNEY COSIGNER: URGENCY: STATUS: COMPLETED Patient did not appear for scheduled appointment. Therapist phoned twice; both calls eventually went to voiceohil. Therapist left a message indicating that he [...] Plan Based on Clinician Judgment of Risk: [place] has additional appointments already scheduled. No additional outreach or intervention is needed at this time. /neil/ PAULA MCKINNEY Signed: 04/29/2024 11:22 Receipt Acknowledged By: 04/29/2024 11:47 /neil/ VIKTORIYA DEGROOT Advanced construction assistant PAULA MCKINNEY [facility]
--- OUTSIDE RECORDS SUMMARY | 2024-06-05 04:22 | XMS_ITS | Encounter Summary ---
Author Name [facility] [place] [facility] [place] Organization [facility] [place] Address [address] [place] [address] Care Team Providers Care Java Enterprise Architect Name Role Phone TAWNYA MCFADDEN Primary Care [...] PRESCRIPT ION JACEY S Jul 07, 2021 [facility] [id number] [phone] DORETHA SAMPSON PATIENT [facility] MENTAL HEALTH JACEY S Jul 07, 2021 [id number] [phone] DORETHA SAMPSON PATIENT [facility] * POINT OF SERVICE JACEY S Jul 07, 2021 [id number] [phone] DORETHA SAMPSON PATIENT Selected Encounter This section includes the information on record at [place] for the Encounter. Date/Time Encounter Type Encounter Description Reason Provider Source March 18, 2024 09:00 AM PSYTX W PT 45 MINUTES [facility] CLINIC - IND ICD-10-CM F34.1 Dysthymic disorder PAULA MCKINNEY Encounter Template Text not used by VA Assessments - Encounter Diagnoses This section includes the primary and secondary diagnoses documented for the Encounter. Date/Time Primary/Secondary Diagnosis Diagnosis Name Provider Source March 18, 2024 12:25 PM PRIMARY Dysthymic disorder PAULA MCKINNEY [facility] March 18, 2024 12:25 PM SECONDARY Social phobia, generalized PAULA MCKINNEY [facility] Plan of Treatment: Future Appointments (+ 6 months) and Future Tests (+/- 45 days) The Plan of Treatment section includes future care activities for the patient from all [place] treatmentfacilities. This section includes future appointments and future orders which are active, pending or scheduled. Future Appointments This section includes appointments that were scheduled to occur 6 months from the date of the Encounter, up to a maximum of 20 appointments. The data comes from all [place] treatment facilities. Appointment Date/Time Appointment Type Appointme nt Facility Name March 19, 2024 01:00 PM AMBULATORY - [facility] March 25, 2024 09:00 AM [facility] Apr 08, 2024 09:00 AM [facility] Apr 16, 2024 02:00 PM [facility] Apr 17, 2024 02:00 PM AMBULATORY - SURGERY [facility] Apr 29, 2024 11:00 AM AM[facility] May 06, 2024 11:00 AM AM[facility] Jun 04, 2024 02:00 PM AM[facility] Jun 05, 2024 01:00 PM [facility] Jun 07, 2024 10:40 AM [facility] Jun 21, 2024 10:00 AM [facility] Aug 20, 2024 02:30 PM [facility] Social History: Smoking Status (Most current) and [...] 07, 2023 01:00 PM VA-TOBACCO FORMER USER [facility] Tobacco Use History This section includes a history of the smoking, or tobacco-related health factors, that were collected on or before the date of the Encounter. The data comes from the [place] facility where the Encounter took place. Date/Time Smoking Status/Tobacco Use Comment F acility Jun 07, 2023 01:00 PM VA-TOBACCO QUIT 1 TO < 5 YRS [facility] Apr 26, 2021 01:00 PM VA-TOBACCO NEVER USED [facility] Encounter Notes: All associated encounter notes This section contains the clinical notes associated to the Encounter. Date/Time Encounter Note(s) Provider Source March 18, 2024 09:57 AM MENTAL HEALTH NOTE : LOCAL TITLE: MH PROGRESS NOTE STANDARD TITLE: MENTAL HEALTH NOTE DATE OF NOTE: MARCH 18, 2024@09:57 ENTRY DATE: MARCH 18, 2024@09:57:07 AUTHOR: PAULA MCKINNEY COSIGNER: URGENCY: STATUS: COMPLETED ----PSYCHOTHERAPY PROGRESS NOTE---- INFORMED CONSENT: Clinician and reviewed informed consent for treatment, potential risks and benefits of treatment, and limits of confidentiality. indicated understanding and agreement. VVC: Visit conducted by synchronous telehealth. [place] verbal consent obtained. Location/emergency number confirmed. Environment surveyed and all participants identified. Virtual conference room locked. Name: Doretha Mas Date of : 1995 Intervention session #: 16 MENTAL STATUS Grooming: Appropriate Motor: Calm; unremarkable Mood: Euthymic Affect: Spontaneous; appropriate Speech: Normal rate, rhythm, and volume Thought Content: Negative for unusual or bizarre content Thought Processes: Linear; logical; goal-oriented Suicidality: Absent Homicidality: Absent Hallucinations: Absent Delusions: Absent Orientation: Intact DSM-5 DIAGNOSTIC IMPRESSION -Persistent depressive disorder, with anxious distress -Social anxiety disorder RELEVANT HISTORY [place] described her recent mood as up and down. She reported she has been struggling with decisions regarding whether to return to school or find a job. She recently spoke to someone at one academic institution regarding various online certificate programs but then felt overwhelmed as she learned of and considered the amount of work that would be involved in completing the programs. [place] recently completed the final session of her Ca[facility] group. INTERVENTION DETAILS Session duration: 50 minutes. Focus of session: Addressing psychological obstacles to long-term goals. Education provided: -DBT concept of [employer]. Other interventions: -Explored potential consequences of moving forward with long-term goals. -Highlighted examples of negative self-talk. Handouts: None. response: [place] expressed understanding and appreciation of the education provided this session. [place] described her thinking about her education and career as reflecting a conflict between emotional reasoning and rationality. When prompted, she acknowledged that she has been thinking about her eventual failure on either path (going back to school or re-entering the workforce) as an inevitability. She also verbalized insight into fear of failure and fear of losing interest as being major factors that hold her back. When prompted, she acknowledged that she would be unlikely to progress in either respect without being willing to tolerate uncomfortable feelings such as fear of failure. RISK ASSESSMENT Risk Factors: History of suicidal ideation, depression, unemployed, access to firearm. Protective Factors: No recent suicidal thoughts, no history of suicidal behavior, desire to live, no history of impulsive coping, help seeking, treatment motivated. Estimate of Risk: Low acute and low chronic risk of self-harm. PLAN RTC date/time: 03/25/24, 0900 Homework: None. Plan for next session: Revisit 's relevant values and discuss ways she can pursue her goals in a way that is consistent with her values. Current Treatment Plan Date: 07/19/23 Plan Renewal Date: 07/19/24 /neil/ PAULA MCKINNEY Signed: 03/18/2024 12:[address] [facility]
--- OUTSIDE RECORDS SUMMARY | 2024-06-05 04:22 | XMS_ITS | Encounter Summary ---
Author Name [facility] [place] [facility] [place] Organization [facility] [place] Address [address] [place] [address] Care Team Providers Care Stock Pitcher Name Role Phone BOGDAN TAWNYA Primary Care [...] PRESCRIPT ION JACEY S Jul 07, 2021 [place] [phone] [id number] [phone] DORETHA SAMPSON PATIENT [facility]* MENTAL HEALTH JACEY S Jul 07, 2021 [id number] [phone] DORETHA SAMPSON PATIENT [facility] * POINT OF SERVICE JACEY S Jul 07, 2021 [id number] [phone] DORETHA SAMPSON PATIENT Selected Encounter This section includes the information on record at [place] for the Encounter. Date/Time Encounter Type Encounter Description Reason Provider Source Apr 22, 2024 08:33 AM Outpatient Encounter MENTAL HEALTH [facility] UCHE PENNY Encounter Template Text not used by [place] Plan of Treatment: Future Appointments (+ 6 months) and Future Tests (+/- 45 days) The Plan of Treatment section includes future care activities for the patient from all [place] treatmentfacilities. This section includes future appointments and [...] 07, 2024 10:40 AM [facility] Jun 21, 2024 10:00 AM [facility] Aug 20, 2024 02:30 PM AMB[facility]ORY - [facility] Encounter Notes: All associated encounter notes This section contains the clinical notes associated to the Encounter. Date/Time Encounter Note(s) Provider Source Apr 22, 2024 08:33 AM MENTAL HEALTH SECU RE MESSAGING: LOCAL TITLE: MENTAL HEALTH SECURE MESSAGING STANDARD TITLE: MENTAL HEALTH SECURE MESSAGING DATE OF NOTE: APR 22, 2024@08:33 ENTRY DATE: APR 22, 2024@08:33:01 AUTHOR: UCHE PENNY COSIGNER: URGENCY: STATUS: COMPLETED ------Original Message Sent: 04/22/2024 07:04 AM ET From: DORETHA SAMPSON To: [facility]% Subject: Appointment:Monday Cancel Dr Penny, I'm going to have to cancel this mornings session, I am very nauseous. Doretha Al ------Original Message Sent: 04/22/2024 09:32 AM ET From: UCHE PENNY To: DORETHA SAMPSON Subject: Appointment:Monday Cancel Bob Rodriguez, Sorry to hear you're not feeling well; I hope you recover soon. Thank you very much for giving us a heads up. See you next time. Uche Penny, PhD, Staff Psychologist /neil/ UCHE Horn. HANK Signed: 04/22/2024 08:33 [facility] P[facility]NY [facility]
--- OUTSIDE RECORDS SUMMARY | 2024-06-05 04:23 | XMS_ITS | Encounter Summary ---
Author Organization [place] Address [facility] [place] [address] Care Team Providers Care Chemical Strength Tester Name Role Phone Ismael Ly MD Primary Care Provider [phone] Ranjana Gonzalez MD Unavailable Antonette Fong Gracie Unavailable Ranjana Gonzalez MD Unavailable Reason for Visit * Reason Onset Date Comments MyChart Communication 12/18/2020 Encounter Details Date Type Department Care Team (Latest Contact Info) Description 12/18/2020 [facility] [id number] [place] [phone] [place] [address] [place] [address] MyChart Communication Social History Tobacco Use Types Packs/Day Years Used Date Smoking Tobacco: Former Smokeless Tobacco: Current Alcohol Use Standard Drinks/Week Comments Yes 0 (1 standard drink = 0.6 oz pur e alcohol) 1-2 per week PHQ-2 Answer Date Recorded PHQ-2 Score 0 12/14/2020 Sex and Gender Information Value Date Recorded Sex Assigned at Female 12/01/2020 12:28 PM MANAGER STAFFING Gender Identity Female 12/01/2020 12:28 PM MANAGER STAFFING Sexual Orientation Straight 12/01/2020 12 :28 PM MANAGER STAFFING COVID-19 Exposure Response Date Recorded In the last month, have you been in contact with someone who was confirmed or suspected to have Coronavirus / COVID-19? No / Unsure 12/02/2020 9:10 AM MANAGER STAFFING documented as of this encounter Miscellaneous Notes * Telephone Encounter - Ranjana Gonzalez MD - 12/21/2020 8:53 AM CST Jennifer Thanks for your message it is okay to take famotidine with omeprazole . Continue with dietary modification and let me know if symptoms fail to Improve . Ranjana Gonzalez M.D. GER STAFFING documented in this encounter Plan of Treatment Upcoming Encounters Date Type Department Care Team (Late st Contact Info) Description 06/07/2024 PRE VISIT [facility] [address] [phone] Lauren Mcfarlane PA-C [address] [place] [address] [phone] Previsit documented as of this encounter Visit Diagnoses Not on filedocumented in this encounter Care Teams Chemical Strength Tester Relationship Specialty Start Date End Date Ismael Ly MD PCP - General Pediatrics 02/28/13 [place] [address] [place] [address] Assigned PCP 11/01/20 10/21/22 Antonette Fong DO [address] [id number] Assigned OBGYN Provider 01/10/2108/19 [place] [address] [place] [address] Assigned PCP 12/31/22 01/26/24 documented as of this encounter
--- OUTSIDE RECORDS SUMMARY | 2024-06-05 04:23 | XMS_ITS | Encounter Summary ---
Author Name [facility] [place] [facility] [place] Organization [facility] [place] Address [address] [place] [address] Care Team Providers Care Material Handling Technician Name Role Phone TAWNYA MCFADDEN Primary Care [...] PRESCRIPT ION JACEY S Jul 07, 2021 [place] [phone] [id number] [phone] DORETHA SAMPSON PATIENT [facility] MENTAL HEALTH JACEY S Jul 07, 2021 [id number] [phone] DORETHA SAMPSON PATIENT [facility] * POINT OF SERVICE JACEY S Jul 07, 2021 [id number] [phone] DORETHA SAMPSON PATIENT Selected Encounter This section includes the information on record at [place] for the Encounter. Date/Time Encounter Type Encounter Description Reason Pro vider Source May 13, 2024 11:00 AM Outpatient Encounter [facility]INIC - IND [facility] Encounter Template Text not used by VA Plan of Treatment: Future Appointments (+ 6 months) and Future Tests (+/- 45 days) The Plan of Treatment section includes future care activities for the patient from all [place] treatmentfacilities. This section includes future appointments and future orders which are active, pending or scheduled. Future Appointments This section includes appointments that were scheduled to occur 6 months from the date of the Encounter, up to a maximum of 20 appointments. The data comes from all [place] treatment facilities. Appointment Date/Time Appointment Type Appointme nt Facility Name Jun 04, 2024 02:00 PM AMB[facility]ATORY [facility] Jun 05, 2024 01:00 PM AMB[facility]ATORY [facility] Jun 07, 2024 10:40 AM AMBULATORY - NONE [facility] Jun 21, 2024 10:00 AM [...] smoking, or tobacco-related health factor, from the [place] facility where the Encounter took place. Date/Time Current Smoking Status Comment Facil ity Jun 07, 2023 01:00 PM VA-TOBACCO FORMER USER [facility] Tobacco Use History This section includes a history of the smoking, or tobacco-related health factors, that were collected on or before the date of the Encounter. The data comes from the [place] facility where the Encounter took place. Date/Time Smoking Status/Tobacco Use Comment F acility Jun 07, 2023 01:00 PM VA-TOBACCO QUIT 1 TO < 5 YRS [facility] Apr 26, 2021 01:00 PM VA-TOBACCO NEVER USED [facility] Encounter Notes: All associated encounter notes This section contains the clinical notes associated to the Encounter. Date/Time Encounter Note(s) Provider Source May 13, 2024 11:16 AM NO SHOW NOTE: LOCAL TITLE: NO SHOW NOTE STANDARD TITLE: NO SHOW NOTE DATE OF NOTE: MAY 13, 2024@11:16 ENTRY DATE: MAY 13, 2024@11:16:42 AUTHOR: PAULA MCKINNEY COSIGNER: URGENCY: STATUS: COMPLETED Patient did not appear for scheduled appointment. Therapist phoned twice; both calls eventually went to [facility]. Therapist left a message indicating that he would send her a secure message with further details. The secure message (see accompanying note) indicated that 's future appointments would be canceled due to repeated no shows and lack of contact from but that she could call back to schedule future appointments as desired. Risk Factors: History of suicidal ideation, depression, unemployed, access to firearm. Protective Factors: No recent suicidal thoughts, no history of suicidal behavior, desire to live, no history of impulsive coping, help seeking, treatment motivated. Estimate of Risk: Low acute and low chronic risk of self-harm. Plan Based on Clinician Judgment of Risk: Clinic will cancel 's future appointments with this provider. can call to be placed back on the schedule. /neil/ PAULA MCKINNEY Signed: 05/13/2024 11:19 Receipt Acknowledged By: 05/13/2024 14:06 /neil/ [facility] FLOAT LEAD [facility] for VIKTORIYA MCKINNEY,PAULA VITALE CBKHUSHBOO
--- OUTSIDE RECORDS SUMMARY | 2024-06-05 04:23 | XMS_ITS | Encounter Summary ---
Author Organization [place] Address [address] [place] [address] Care Team Providers Care Glass Deposition Tender Name Role Phone Ismael Ly MD Primary Care Provider [phone] Reason for Visit * Reason Onset Date Comments Call Back 06/04/2024 Encounter Details Date Type Department Care Team (Late st Contact Info) Description 06/04/2024 [facility] Audiology [address] [place] [phone] ShitalMarycruz, AuD [address] [place] [phone] Call Back Social History Tobacco Use Types Packs/Day Years Used Date Smoking Tobacco: Former Smokeless Tobacco: Current Alcohol Use Standard Drinks/Week Comments Yes 0 (1 standard drink = 0.6 oz pur e alcohol) 1-2 per week PHQ-2 Answer Date Recorded PHQ-2 Score 0 12/14/2020 Adolescent Education Answer Date Record ed Getting School Help Needed Not on file 08/23 Sex and Gender Information Value Date Recorded Sex Assigned at Female 12/01/2020 12:28 PM ENVELOPE SEALING MACHINE OPERATOR Gender Identity Female 12/01/2020 12:28 PM ENVELOPE SEALING MACHINE OPERATOR Sexual Orientation Straight 12/01/2020 12 :28 PM ENVELOPE SEALING MACHINE OPERATOR documented as of this encounter Miscellaneous Notes * Telephone Encounter - Bridget Betancourt - 06/04/2024 8:31 AM CDT [facility] Call Center Phone Message May a detailed message be left on voicemail: yes Reason for Call: Other: Per pt she needs to r/s her appts. Please call to discuss. Thank you Action Taken: Message routed to: [facility] ([facility]): AUDIO Travel Screening: Not Applicable Date of Service: documented in this encounter Plan of Treatment Upcoming Encounters Date Type Department Care Team (Late st Contact Info) Description 06/07/2024 PRE VISIT [facility] [address] [place] [phone] Lauren Mcfarlane PA-C [address] [place] [phone] Previsit documented as of this encounter Visit Diagnoses Not on filedocumented in this encounter Care Teams Glass Deposition Tender Relationship Specialty Start Date End Date Ismael Ly MD PCP - General Pediatrics 02/28/13 documented as of this encounter
--- OUTSIDE RECORDS SUMMARY | 2024-06-05 04:23 | XMS_ITS | Encounter Summary ---
Author Organization [place] Address [address] [place] [address]. [place] [address] Care Team Providers Care Technology Solutions Architect Name Role Phone Ismael Ly MD Primary Care Provider [phone] Reason for Visit * Reason Onset Date Comments Call Back 06/04/2024 Encounter Details Date Type Department Care Team (Late st Contact Info) Description 06/04/2024 [facility] Audiology [address] [place] [phone] Charity Ruggiero, Prabhakar [facility] Call Back Social History Tobacco Use Types [...] Sex Assigned at Female 12/01/2020 12:28 PM SWAGING MACHINE OPERATOR Gender Identity Female 12/01/2020 12:28 PM SWAGING MACHINE OPERATOR Sexual Orientation Straight 12/01/2020 12 :28 PM SWAGING MACHINE OPERATOR documented as of this encounter Miscellaneous Notes * Telephone Encounter - Bridget Betancourt - 06/04/2024 8:24 AM CDT [facility] Call Center Phone Message May a detailed message be left on voicemail: yes Reason for Call: Other: Pt needs to r/s her appts,Please call to discuss. Thank you Action Taken: Message routed to: [facility] ([facility] ENT Travel Screening: Not Applicable Date of Service: documented in this encounter Plan of Treatment Upcoming Encounters Date Type Department Care Team (Late st Contact Info) Description 06/07/2024 PRE VISIT [facility] [address] [place] [phone] Lauren Mcfarlane PA-C [address] [place] [address] Previsit documented as of this encounter Visit Diagnoses Not on filedocumented in this encounter Care Teams Technology Solutions Architect Relationship Specialty Start Date End Date Ismael Ly MD PCP - General Pediatrics 02/28/13 documented as of this encounter
--- OUTSIDE RECORDS SUMMARY | 2024-06-05 04:23 | XMS_ITS | Referral Summary ---
Author Organization [facility] Address [address] [place] [address] Care Team Providers Care Tannery Gummer Name Role Phone Ismael Ly MD Primary Care Provider [phone]- [phone] Encounters Date Type Department Care Team Description 06/04/2024 Telephone [facility] [address] [phone] Marycruz Isaacs AuD Call Back 06/04/2024 Telephone [facility] [address] [phone] Charity Ruggiero AuD Call Back 05/30/2024 MyC Medical Advice [facility] [address] [phone] Dg Carranza from Last 3 Months Allergies No known active allergies Medications Medication Sig Dispensed Refills Start Date End Date Status omeprazole (PRILOSEC) [address] capsuleIndications:Ch ronic gastritis without bleeding, unspecified gastritis type Take 1 capsule (40 mg) by mouth daily 90 capsule 12/14/2020 Active cholestyramine (QUESTRAN) 4 GM/DOSE powderIndications:Devorah rrhea, unspecified type Take 4 g by mouth 2 times daily (with meals) 378 g 1 12/14/2020 Active famotidine (PEPCID) 20 MG tablet 12/14/2020 Active Active Problems Problem Noted Date Diagnosed Date PTSD (post-traumatic stress disorder) 12/14/2020 Hallux valgus, right 04/11/2017 Immunizations Name Administration Dates Next Due Adenovirus, Type 4 and Type 7, Live, Oral 08/18/2015 Anthrax 08/21/2019 DTAP (<7y) 04/29/2002, 9,1997,07/28,1997 HEPA 04/03/2012,05/06/2009 HIB (PRP-T) 03/25/1998, 7,1997,05/27 HPV 04/19/2013,09/28/2012,04/03/2012 HepB 1997,1997,1997 Hepatitis B, Peds 1997,1997,04/01/19 97 Influenza (IIV3) PF 09/09/2010 Influenza Vaccine >6 months,quad, PF 08/25/2020, 09/28/2012,09/09/2010 MMR 05/29/2002,03/25/1998 Meningococcal ACWY (Menactra??) 08/18/2015,04/19,05/06/2009 Pneumococcal 23 valent 08/21/2019 Poliovirus, inactivated (IPV) 08/18/2015 ,04/29/2002,03/25/1998,07/28,1997 TDAP Vaccine (Adacel) 08/18/2015,05/06/2009 Twinrix A/B 03/26/2016 Varicella 09/28/2012,04/03/2012 Social History Tobacco Use Types Packs/Day Years [...] Sex Assigned at Female 12/01/2020 12:28 PM MEDICAL APPOINTMENT CLERK Gender Identity Female 12/01/2020 12:28 PM MEDICAL APPOINTMENT CLERK Sexual Orientation Straight 12/01/2020 12 :28 PM MEDICAL APPOINTMENT CLERK Last Filed Vital Signs Vital Sign Reading Time Taken Comments Blood Pressure 114/60 02/15/2021 2:31 PM CDT Pulse 71 01/19/2021 2:30 PM CDT Temperature 37.2 ??C (98.9 ??F) 01/19/2021 1 1:33 AM CDT Respiratory Rate 16 01/19/2021 11:3 3 AM CDT Oxygen Saturation 98% 01/19/2021 2:30 PM CDT Inhaled Oxygen Concentration - - Weight 70.6 kg (155 lb 11.2 oz) 02/15/2021 2:31 PM CDT Height 162.6 cm (5' 4) 02/15/2021 2:31 PM CDT Body Mass Index 26.73 02/15/2021 2:31 PM CDT Plan of Treatment Upcoming Encounters Date Type Department Care Team (Late st Contact Info) Description 06/07/2024 PRE VISIT [facility] [address] [phone] Lauren Mcfarlane PA-C [address] [place] [address] Previsit Procedures Procedure Name Priority Date/Time Associated Diagnosis Comments PAP IMAGED THIN LAYER SCREEN Routine 01/04/2021 3:07 PM MEDICAL APPOINTMENT CLERK Encounter for preventative adult health care examination NEISSERIA GONORRHOEAE PCR Routine 01/04/2021 2:55 PM MEDICAL APPOINTMENT CLERK Encounter for preventative adult health care examination from Last 3 Months or Most Recently Relevant to Health Maintenance Results * Pap imaged thin layer screen only - recommended age 21 - 24 years (01/04/2021 3:07 PM MEDICAL APPOINTMENT CLERK) PAP NIL NELDA Carter Report Patient Name: DORETHA PAZ MR#: [id number] Specimen #: [id number] Collected: 01/04/2021 Received: 01/05/2021 Reported: 01/07/2021 09:12 Ordering Phy(s): ANTONETTE FONG For improved result formatting, select 'View Enhanced Report Format' under Linked Documents section. SPECIMEN/STAIN PROCESS: Pap imaged thin layer prep screening (Surepath, FocalPoint with guided screening) ? Pap-Cyto x 1 SOURCE: Cervical, endocervical Pap imaged thin layer prep screening (Surepath, FocalPoint with guided screening) SPECIMEN ADEQUACY: Satisfactory for evaluation. -Transformation zone component present. CYTOLOGIC INTERPRETATION: Negative for intraepithelial lesion or malignancy Electronically signed out by: JUVENAL Harrell (ASCP) CLINICAL HISTORY: LMP: 12/27/2020 Papanicolaou Test Limitations: ??Cervical cytology is a screening test with limited sensitivity; regular screening is critical for cancer prevention; Pap tests are primarily effective for the diagnosis/preventi on of squamous cell carcinoma, not adenocarcinomas or other cancers. COLLECTION SITE: Client: ??[facility] Location: FERNANDO Mckeon) The technical component of this testing was completed at the [facility], with the professional component performed at the [facility], [address] [place] [phone] ([phone]) COPATH Cytologic material (specimen) 01/04/2021 3:07 PM MEDICAL APPOINTMENT CLERK 01/05/2021 10:47 AM MEDICAL APPOINTMENT CLERK Antonette Fong DO LAB - [facility] CLIN ICAL SPECIMEN COPATH * NEISSERIA GONORRHOEA PCR (01/04/2021 2:55 PM MEDICAL APPOINTMENT CLERK) Specimen Descrip Cervix 01/05/20 3:08 PM MEDICAL APPOINTMENT CLERK [facility] N Gonorrhea PCR Negative NEG^Negat butch 01/05/2021 1:18 PM MEDICAL APPOINTMENT CLERK [facility], [facility] Comment: Negative for N. gonorrhoeae rRNA by under baster mediated amplification. A negative result by under baster mediated amplification does not preclude the presence of N. gonorrhoeae infection because results are dependent on proper and adequate collection, absence of inhibitors, and sufficient rRNA to be detected. Specimen from uterine cervix (specimen) 01/04/2021 2:55 PM MEDICAL APPOINTMENT CLERK 01/04/2021 3:08 PM MEDICAL APPOINTMENT CLERK Antonette Bowman Hetal DO LAB - MICRO GENER AL ORDERABLES [facility], [facility] [address] [place] [address], FOR[facility] NAMED [facility] [address] [place], [place] [phone] from Last 3 Months or Most Recently Relevant to Health Maintenance Care Teams Tannery Gummer Relationship Specialty Start Date End Date Ismael Ly MD PCP - General Pediatrics 02/28/13
--- OUTSIDE RECORDS SUMMARY | 2024-06-05 04:23 | XMS_ITS | Encounter Summary ---
Author Organization [facility] Address [address] [place] [address] Care Team Providers Care Nuclear Plant Equipment Operator Name Role Phone Ismael Ly MD Primary Care Provider [phone]- [phone] Encounter Details Date Type Department Care Team (Late Contact Info) Description 05/30/2024 MyC Medical Advice [facility] [address] [phone] [facility] Social History Tobacco Use Types Packs/Day Years [...] Sex Assigned at Female 12/01/2020 12:28 PM SQL SERVER DBA DEVELOPER Gender Identity Female 12/01/2020 12:28 PM SQL SERVER DBA DEVELOPER Sexual Orientation Straight 12/01/2020 12 :28 PM SQL SERVER DBA DEVELOPER documented as of this encounter Plan of Treatment Upcoming Encounters Date Type Department Care Team (Late Contact Info) Description 06/07/2024 PRE VISIT [facility] [address] [phone] Lauren Mcfarlane PA-C [address] [place] [address] [phone] Previsit documented as of this encounter Visit Diagnoses Not on filedocumented in this encounter Care Teams Nuclear Plant Equipment Operator Relationship Specialty Start Date End Date Ismael Ly MD PCP - General Pediatrics 02/28/13 documented as of this encounter
--- OUTSIDE RECORDS SUMMARY | 2024-06-05 04:23 | XMS_ITS | Encounter Summary ---
Author Name [facility] [facility] [place] [facility] [place] Address [address] [place] [address] Care Team Providers Care Grain Cleaner And Transfer Operator Name Role Phone BOGDAN TAWNYA Primary Care [...] PRESCRIPT ION JACEY S Jul 07, 2021 [place] [id number] [phone] DORETHA SAMPSON PATIENT [facility]* MENTAL HEALTH JACEY S Jul 07, 2021 [id number] [phone] DORETHA SAMPSON PATIENT [facility] * POINT OF SERVICE JACEY S Jul 07, 2021 [id number] [phone] DORETHA SAMPSON PATIENT Selected Encounter This section includes the information on record at [place] for the Encounter. Date/Time Encounter Type Encounter Description Reason Provider Source May 06, 2024 11:41 AM Outpatient Encounter MENTAL HEALTH [facility] UCHE PENNY Encounter Template Text not used by [place] Plan of Treatment: Future Appointments (+ 6 months) and Future Tests (+/- 45 days) The Plan of Treatment section includes future care activities for the patient from all [place] treatmentfacilities. This section includes future appointments and [...] 2024 10:40 AM AM[place]ULATORY - NONE [place] [facility] Jun 21, 2024 10:00 AM AMBULATORY - [facility] Aug 20, 2024 02:30 PM AMBULATORY - [facility] Encounter Notes: All associated encounter notes This section contains the clinical notes associated to the Encounter. Date/Time Encounter Note(s) Provider Source May 13, 2024 11:16 AM MENTAL HEALTH SECU RE MESSAGING: LOCAL TITLE: MENTAL HEALTH SECURE MESSAGING STANDARD TITLE: MENTAL HEALTH SECURE MESSAGING DATE OF NOTE: MAY 13, 2024@11:16 ENTRY DATE: MAY 13, 2024@11:16:19 AUTHOR: UCHE PENNY COSIGNER: URGENCY: STATUS: COMPLETED ------Original Message Sent: 05/13/2024 12:15 PM ET From: UCHE PENNY To: DORETHA SAMPSON Subject: Appointment:Appointment Inquiry Bob Rodriguez, As I have not heard anything further from you and you did not come in for your appointment today, I will assume you are not interested in proceeding with therapy at this time. If and when you are ready to resume therapy, please call the clinic at [phone] to schedule an appointment. I hope you will consider continuing our work together. Sincerely, Uche Penny, PhD, Staff Psychologist /neil/ UCHE PENNY Signed: 05/13/2024 11:16 UCHE PENNY [facility] May 06, 2024 11:41 AM MENTAL HEALTH SECU RE MESSAGING: LOCAL TITLE: MENTAL HEALTH SECURE MESSAGING STANDARD TITLE: MENTAL HEALTH SECURE MESSAGING DATE OF NOTE: MAY 06, 2024@11:41 ENTRY DATE: MAY 06, 2024@11:41:07 AUTHOR: UCHE PENNY COSIGNER: URGENCY: STATUS: COMPLETED ------Original Message Sent: 05/06/2024 12:41 PM ET From: UCHE PENNY To: DORETHA SAMPSON Subject: Appointment:Appointment Inquiry Bob Rodriguez, I hope you have been doing well since our last meeting. I wanted to reach out because you canceled or did not attend our last few scheduled appointments. I am hoping that you will choose to continue our work together. If you plan to continue to see me, please let me know either by responding directly to this message or by calling the clinic at [phone] to let us know that you will attend your next appointment. I will be unable to hold your future appointments unless you reach out to confirm you plan to continue by 05/13/24 (the date of our next scheduled appointment). If you have any questions or concerns regarding your treatment, I would be happy to discuss them with you. I hope to hear from you soon. Uche Penny, PhD, Staff Psychologist /neil/ UCHE PENNY Signed: 05/06/2024 11:41 UCHE PENNY [facility]
--- OUTSIDE RECORDS SUMMARY | 2024-06-05 04:23 | XMS_ITS | Encounter Summary ---
Author Name [facility] [place] [facility] [place] [facility] [place] Address [address] [place] [address] Care Team Providers Care Virtualization Engineer Name Role Phone TAWNYA MCFADDEN Primary Care [...] PRESCRIPT ION JACEY S Jul 07, 2021 [place] [phone] [id number] [phone] DORETHA SAMPSON PATIENT [facility]* MENTAL HEALTH JACEY S Jul 07, 2021 [id number] [phone] DORETHA SAMPSON PATIENT [facility] * POINT OF SERVICE JACEY S Jul 07, 2021 [id number] [phone] DORETHA SAMPSON PATIENT Selected Encounter This section includes the information on record at [place] for the Encounter. Date/Time Encounter Type Encounter Description Reason Provider Source Jun 04, 2024 02:00 PM PSYCL TST EVAL PHYS/QHP [facility] - IND ICD-10-CM F90.0 Attn-defct hyperactivity disorder, predom inattentive type LAURIE,MEG GUNDERSONZABETH Nelda Encounter Template Text not used by [place] Assessments - Encounter Diagnoses This section includes the primary and secondary diagnoses documented for the Encounter. Date/Time Primary/Secondary Diagnosis Diagnosis Name Provider Source Jun 04, 2024 04:18 PM PRIMARY Attn-defct hyperactivity disorder, predom inattentive type LAURIE,MEG HARDYTAYLER VITALE [facility] Plan of Treatment: Future Appointments (+ 6 months) and Future Tests (+/- 45 days) The Plan of Treatment section includes future care activities for the patient from all [place] treatmentfacilities. This section includes future appointments and future orders which are active, pending or scheduled. Future Appointments This section includes appointments that were scheduled to occur 6 months from the date of the Encounter, up to a maximum of 20 appointments. The data comes from all [place] treatment facilities. Appointment Date/Time Appointment Type Appointme nt Facility Name Jun 05, 2024 01:00 PM AMBULATORY - [facility]RY [facility] Jun 07, 2024 10:40 AM AM[facility]ORY - [facility] Jun 21, 2024 10:00 AM AMBULATORY - [facility] Aug 20, 2024 02:30 PM [facility] - [facility] [place] Social History: Smoking Status (Most current) and Tobacco Use (All prior to encounter date) This section includes the most current, and the historical, smoking and tobacco- related health factors from the [place] facility where the Encounter took place. Current Smoking Status This section includes the most current smoking, or tobacco-related health factor, from the [place] facility where the Encounter took place. Date/Time Current Smoking Status Comment Betty watkins Jun 07, 2023 01:00 PM VA-TOBACCO FORMER USER [facility] Tobacco Use History This section includes a history of the smoking, or tobacco-related health factors, that were collected on or before the date of the Encounter. The data comes from the [place] facility where the Encounter took place. Date/Time Smoking Status/Tobacco Use Comment F acricky Jun 07, 2023 01:00 PM VA-TOBACCO QUIT 1 TO < 5 YRS [facility] Apr 26, 2021 01:00 PM VA-TOBACCO NEVER USED [facility] Encounter Notes: All associated encounter notes This section contains the clinical notes associated to the Encounter. Date/Time Encounter Note(s) Provider Source Jun 04, 2024 02:00 PM [facility]ENT[facility]ALTH [facility] NOTE: LOCAL TITLE: MH PSYCHOLOGICAL ASSESSMENT STANDARD TITLE: MENTAL HEALTH [facility] NOTE DATE OF NOTE: JUN 04, 2024@14:00 ENTRY DATE: JUN 04, 2024@14:18:53 AUTHOR: MEG SULLIVAN COSIGNER: URGENCY: STATUS: COMPLETED PSYCHOLOGICAL ASSESSMENT Has ADDENDA ----PSYCHOLOGICAL EVALUATION PROGRESS NOTE---- INFORMED CONSENT: Clinician and reviewed informed consent for evaluation, potential risks and benefits of evaluation, and limits of confidentiality on 02/14/2024. Anna indicated understanding and agreement at that time. VVC: Visit conducted by synchronous telehealth. verbal consent obtained. Location/emergency number confirmed. Environment surveyed and all participants identified. Virtual conference room locked. Reason for Referral: Anna was self-referred for ADHD testing. This provider gave psychological testing feedback to Anna. Anna was accepting of the conclusions and indicated that the information will likely be helpful moving forward. asked about a potential diagnosis of autism spectrum disorder. This provider let know that although social difficulties as a child could by a symptom of autism spectrum disorder it does not mean that she qualifies for a diagnosis. Anna admitted that she was on TikTok today, which has made her think that she has everything. This provider encouraged Anna to work with her individual therapist regarding this. Please see addendum for full evaluation. Diagnosis based on psychological evaluation: attention-deficit/hyperacti vity disorder, predominantly inattentive presentation MENTAL STATUS Eye contact: Appropriate Grooming: Good [...] of Risk: low acute and low chronic Time spent with evaluation: Feedback: 20 minutes Chart review: 30 minutes Report writin minutes Interpretation: 30 minutes /neil/ MEG SULLIVAN STAFF PSYCHOLOGIST Signed: 06/04/2024 16:18 06/04/2024 ADDENDUM STATUS: UNSIGNED You may not VIEW this UNSIGNED Addendum. [facility]
--- OUTSIDE RECORDS SUMMARY | 2024-06-05 04:23 | XMS_ITS | Clinical Summary ---
Author Organization [facility] Address [address] [place] [address] Care Team Providers Care Clin Tech Name Role Phone Ismael Ly MD Primary Care Provider [phone] Allergies No known active allergies Medications Medication [...] Diagnosed Date PTSD (post-traumatic stress disorder) 12/14/2020 Hallangela de leon, right 04/11/2017 Encounters Date Type Department Care Team Description 06/04/2024 Telephone [facility] [address] [phone] Marycruz Isaacs AuD Call Back 06/04/2024 Telephone [facility] [address] [phone] Charity Ruggiero AuD Call Back 05/30/2024 MyC Medical Advice [facility] [address] [place] [address] Dg Carranza from Last 3 Months Immunizations Name Administration Dates Next Due Adenovirus, [...] (Adacel) 08/18/2015,05/06/2009 Twinrix A/B 03/26/2016 Varicella 09/28/2012,04/03/2012 Family History Medical History Relation Comments Other Cancer Maternal Grandfather Diabetes Paternal Grandfather Gallbladder Disease Paternal Grandfather Cerebrovascular Disease Paternal Grandmother Coronary Artery Disease Paternal Grandmother Diabetes Paternal Grandmother Prostate Cancer Paternal Grandmother Relation Status Comments Brother Alive Father Alive Maternal Grandfather Alive Maternal Grandmother Mother Alive Paternal Grandfather Alive Paternal Grandmother Alive Sister Alive Social History Tobacco Use Types Packs/Day Years [...] Sex Assigned at Female 12/01/2020 12:28 PM TRANSPORTATION ANALYST Gender Identity Female 12/01/2020 12:28 PM TRANSPORTATION ANALYST Sexual Orientation Straight 12/01/2020 12 :28 PM TRANSPORTATION ANALYST Last Filed Vital Signs Vital Sign Reading [...] Contact Info) Description 06/07/2024 PRE VISIT [facility] [address] [place] [address] Lauren Mcfarlane PA-C [address] [place] [phone] Previsit Health Maintenance Due Date Last Done Comments ADVANCE CARE PLANNING 1997 HIV SCREENING 2012 HEPATITIS C SCREENING 2015 ANNUAL REVIEW OF HM ORDERS 12/02/2021 12/02/2020 YEARLY PREVENTIVE VISIT 01/04/2022 01/04/2021, 06/29 PHQ-2 (once per calendar year) 2023 12/14/2020 PAP 01/05/2024 01/04/2021 INFLUENZA VACCINE (#1) 2024 3, 08/25/2020, 09/28/2012, Additional history exists DTAP/TDAP/TD IMMUNIZATION (8 - Td or Tdap) 08/18/2025 08/18/2015, 05/06/2009, 04/29/2002, Additional history exists HPV IMMUNIZATION Completed 04/19/2013, , 04/03/2012 IPV IMMUNIZATION Completed 08/18/2015, , 03/25/1998, Additional history exists MENINGITIS IMMUNIZATION Completed 08/18/20 15, 04/19/2013, 05/06/2009 HEPATITIS B IMMUNIZATION Completed 016, 1997, 1997, Additional history exists Pneumococcal Vaccine: Pediatrics (0 to 5 Years) and At-Risk Patients (6 to 64 Years) Aged Out 08/21/2019 No longer eligible based on patient's age to complete this topic CHLAMYDIA SCREENING Discontinued 01/04/2021, 01/04/2021, 12/02/2020, Additional history exists COVID-19 Vaccine Completed 08/24/2023, 12/2022, 03/25/2021, Additional history exists RSV MONOCLONAL ANTIBODY Aged Out No l onger eligible based on patient's age to complete this topic Procedures Procedure Name Priority Date/Time Associated Diagnosis Comments PAP IMAGED THIN LAYER SCREEN Routine 01/04/2021 3:07 PM TRANSPORTATION ANALYST Encounter for preventative adult health care examination NEISSERIA GONORRHOEAE PCR Routine 01/04/2021 2:55 PM TRANSPORTATION ANALYST Encounter for preventative adult health care examination from Last 3 Months or Most Recently Relevant to Health Maintenance Results * Pap imaged thin layer screen only - recommended age 21 - 24 years (01/04/2021 3:07 PM TRANSPORTATION ANALYST) PAP CHILO Carter Report Patient Name: DORETHA PAZ MR#: [id number] Specimen #: [id number] Collected: 01/04/2021 Received: 01/05/2021 Reported: 01/07/2021 09:12 [...] adenocarcinomas or other cancers. COLLECTION SITE: Client: ??[facility] Location: [place] (R) The technical component of this testing was [facility], with the professional component performed at the [facility], [address] [place] [phone] ([phone]) COPATH Cytologic material (specimen) 01/04/2021 3:07 PM TRANSPORTATION ANALYST 01/05/2021 10:47 AM TRANSPORTATION ANALYST Antonette Fong DO LAB - [facility] ICAL SPECIMEN COPATH * NEISSERIA GONORRHOEA PCR (01/04/2021 2:55 PM TRANSPORTATION ANALYST) Specimen Descrip Cervix 01/05/20 3:08 PM TRANSPORTATION ANALYST [facility] N Gonorrhea PCR Negative NEG^Negat butch 01/05/2021 1:18 PM TRANSPORTATION ANALYST [facility], [facility] Comment: Negative for N. gonorrhoeae rRNA by international accounting manager mediated amplification. A negative result by international accounting manager mediated amplification does not preclude the presence of N. gonorrhoeae infection because results are dependent on proper and adequate collection, absence of inhibitors, and sufficient rRNA to be detected. Specimen from uterine cervix (specimen) 01/04/2021 2:55 PM TRANSPORTATION ANALYST 01/04/2021 3:08 PM TRANSPORTATION ANALYST Antonette Graciebran Fong DO LAB - MICRO GENER AL ORDERABLES [facility], [facility] [address] [place] [address], [facility] [address] [place] [place], [place] [phone] from Last 3 Months or Most Recently Relevant to Health Maintenance Care Teams Clin Tech Relationship Specialty Start Date End Date Ismael Ly MD PCP - General Pediatrics 02/28/13
--- OUTSIDE RECORDS SUMMARY | 2024-06-05 04:23 | XMS_ITS | Encounter Summary ---
Author Name [facility] Organization [facility] Address [address] [place] [address] Care Team Providers Care Lehr Tender Name Role Phone TAWNYA MCFADDEN Primary Care [...] ION JACEY S Jul 07, 2021 JACOBS [id number] [phone] DORETHA SAMPSON PATIENT [facility] JACEY S Jul 07, 2021 [id number] [phone] DORETHA SAMPSON PATIENT [facility] * POINT OF SERVICE JACEY S Jul 07, 2021 [id number] [phone] DORETHA SAMPSON PATIENT Selected Encounter This section includes the information on record at [place] for the Encounter. Date/Time Encounter Type Encounter Description Reason Pro vider Source May 06, 2024 11:00 AM Outpatient Encounter [facility] Encounter Template Text not used by [facility] Plan of Treatment: Future Appointments (+ 6 months) and Future Tests (+/- 45 days) The Plan of Treatment section includes future care activities for the patient from all [place] treatmentfacilities. This section includes future appointments and [...] 10:40 AM AMBULATORY - NONE [facility] Jun 21, 2024 10:00 AM AMBULATORY [...] 07, 2023 01:00 PM VA-TOBACCO FORMER USER [facility] Tobacco Use History This section includes a history of the smoking, or tobacco-related health factors, that were collected on or before the date of the Encounter. The data comes from the [place] facility where the Encounter took place. Date/Time Smoking Status/Tobacco Use Comment F acility Jun 07, 2023 01:00 PM VA-TOBACCO QUIT 1 TO < 5 YRS [facility] Apr 26, 2021 01:00 PM VA-TOBACCO NEVER USED [facility] Encounter Notes: All associated encounter notes This section contains the clinical notes associated to the Encounter. Date/Time Encounter Note(s) Provider Source May 06, 2024 11:41 AM NO SHOW NOTE: LOCAL TITLE: NO SHOW NOTE STANDARD TITLE: NO SHOW NOTE DATE OF NOTE: MAY 06, 2024@11:41 ENTRY DATE: MAY 06, 2024@11:41:16 AUTHOR: PAULA MCKINNEY COSIGNER: URGENCY: STATUS: COMPLETED Patient did not appear for scheduled appointment. Therapist phoned twice; both calls eventually went to [facility]. Therapist left a message asking to call the clinic if she needs to cancel or reschedule future appointments. Separately, therapist sent a secure message asking her to call or message to confirm she plans to continue therapy by 05/13/24, else her future appointments will be canceled (see accompanying note). Risk Factors: History of suicidal ideation, depression, unemployed, access to firearm. Protective Factors: No recent suicidal thoughts, no history of suicidal behavior, desire to live, no history of impulsive coping, help seeking, treatment motivated. Estimate of Risk: Low acute and low chronic risk of self-harm. Plan Based on Clinician Judgment of Risk: Clinic will hold 's future appointments until 05/13/24, pending confirmation from that she would like to continue therapy at this time. /neil/ PAULA MCKINNEY Signed: 05/06/2024 11:45 Receipt Acknowledged By: 05/06/2024 13:00 /neil/ VIKTORIYA DEGROOT Advanced blacksmith assistant PAULA MCKINNEY [facility]
[2024-06-05 04:26] VITALS: BP 121/74; PULSE 74; RESP 20; TEMP 36.7; O2SAT 99
[2024-06-05 04:27] VITALS: BP 121/74; PULSE 74; RESP 20; TEMP 36.7
== END 2024-06-05 04:27 | disposition home or self-care (01) ==
PROVIDERS: Emergency Provider Family Medicine
DX: F41.0 Panic disorder [episodic paroxysmal anxiety] (principal); H81.03 Meniere's disease, bilateral
CPT/HCPCS: 94761; 99281; 99283